=== PATIENT | female | born 1945 | race Caucasian/White ===

== ENCOUNTER 2019-08-07 10:45 | Observation (INO) ==
[2019-08-07 13:06] LABS: BASOPHILS # (AUTO) 0.1 X10^3/uL (0.0-0.1); BASOPHILS % (AUTO) 1.1 % (0.2-1.0); EOSINOPHILS # (AUTO) 0.1 x10^3/uL (0.0-0.2); EOSINOPHILS % (AUTO) 1.7 % (0.9-2.9); HEMATOCRIT 31.7 % (36.0-47.0); HEMOGLOBIN 10.2 g/dL (12.0-16.0); LYMPHOCYTES # (AUTO) 2.1 X10^3/uL (1.3-2.9); LYMPHOCYTES % (AUTO) 29.2 % (21.0-51.0); MEAN CORPUSCULAR HEMOGLOBIN 27.7 pg (27.0-34.0); MEAN CORPUSCULAR HGB CONC 32.2 g/dL (33.0-35.0); MEAN PLATELET VOLUME 8.3 fL (7.4-11.0); MONOCYTES # (AUTO) 0.8 x10^3/uL (0.3-0.8); MONOCYTES % (AUTO) 10.9 % (0.0-13.0); NEUTROPHILS # (AUTO) 4.2 x10^3/uL (2.2-4.8); NEUTROPHILS % (AUTO) 57.1 % (42.0-75.0); PLATELET COUNT 358 X10^3/uL (150.0-450.0); RED BLOOD COUNT 3.69 X10^6/uL (3.5-5.4); RED CELL DISTRIBUTION WIDTH 16.8 % (11.6-16.5); WHITE BLOOD COUNT 7.3 X10^3/uL (3.6-10.0)
[2019-08-07 13:17] LABS: ALANINE AMINOTRANSFERASE 26 Units/L (12-78); ALBUMIN 2.8 g/dL (3.4-5.0); ALKALINE PHOSPHATASE 83 Units/L (46-116); ASPARTATE AMINO TRANSFERASE 37 Units/L (15-37); BLOOD UREA NITROGEN 6 mg/dL (7-18); CALCIUM 8.2 mg/dL (8.5-10.1); CARBON DIOXIDE 33.9 mmol/L (21-32); CHLORIDE 103 mmol/L (98-107); COR CA(FOR HYPOALB) 9.2 mg/dL (8.5-10.1); COR NA(FOR HYPERGLY) 142 mmol/L (136-145); CREATININE 0.99 mg/dL (0.55-1.02); SODIUM 141 mmol/L (136-145); TOTAL PROTEIN 7.2 g/dL (6.4-8.2); eGFR NON BLACK RACES 58 (>60)
[2019-08-07 13:22] VITALS: BMI 38.4
[2019-08-07] MEDS: NS 1000 ML 1,000 ML IV SCH (13:52)
[2019-08-07] MEDS: CIPRO IV 400 MG PREMIX* 400 MG/200 ML IV.SOLN. IV SCH ×2 (13:52→23:40)
--- NOTE | 2019-08-07 13:53 | RAD ---
FOREARM, RIGHTHISTORY: RT ARM PAINStudy: 2 views of the right forearm.Comparison:NoneFindings:No acute cortical disruption or dislocation can be identified. The radius and ulna are unremarkable. No significant soft tissue swelling or injury can be seen.IMPRESSION:1. No acute abnormality of the right forearm.Electronically signed by: JOSSE SEXTON (August 07, 2019 13:52:04)
--- NOTE | 2019-08-07 14:04 | RAD ---
HISTORYSOBSTUDYCHEST x-ray, 1 VIEWCOMPARISONNoneFINDINGSPrior cardiac surgery. Borderline cardiomegaly without pulmonary venous congestion. No pneumothorax, focal infiltrate, or pleural effusion is seen. Likely calcified granuloma are seen the right apex.IMPRESSIONBorderline cardiomegaly.Electronically signed by: Fabian Garduno (August 07, 2019 14:03:03)
[2019-08-07] MEDS: LOVENOX INJ 40 MG SYR SC SCH (21:00)
[2019-08-07] MEDS ORDERED: XANAX PO PRN (21:01)
[2019-08-07] MEDS ORDERED: LASIX IVP ONE (21:07)
[2019-08-07] MEDS ORDERED: MAGNESIUM SULFATE 1 GRAM/100 mL PREMIX 1 GM/100 ML BAG IV PRN (21:22)
[2019-08-07] MEDS ORDERED: KLOR-CON PO PRN (21:22)
[2019-08-07] MEDS ORDERED: POTASSIUM CHL 40 MEQ/NS 0.45% 500 ML IV PRN (21:22)
[2019-08-07] MEDS ORDERED: K-DUR TAB 20 MEQ PO PRN (21:22)
[2019-08-07] MEDS ORDERED: POTASSIUM CHLORIDE LIQ 20 MEQ UDC PO PRN (21:22)
[2019-08-07] MEDS ORDERED: POTASSIUM CHL 60 MEQ/NS 0.45% 500 ML IV PRN (21:22)
[2019-08-07] MEDS ORDERED: MICRO K EXTEN CAP 10 MEQ PO PRN (21:22)
[2019-08-07] MEDS ORDERED: K-RIDER 10 MEQ/NS 100 ML 10 MEQ/100 ML BAG IV PRN (21:22)
[2019-08-07] MEDS: NEURONTIN CAP 300 MG PO SCH (22:00)
[2019-08-08] MEDS ORDERED: BENADRYL CAP/TAB 25 MG PO ONE ×2 (00:22→00:29)
[2019-08-08] MEDS: NS 1000 ML 1,000 ML IV SCH (02:31)
[2019-08-08] MEDS ORDERED: CARAFATE ONE (04:32)
[2019-08-08] MEDS: PERCOCET TAB 5/325 MG PO PRN ×3 (05:06→21:37)
[2019-08-08 06:31] LABS: BASOPHILS % (AUTO) 0.6 % (0.2-1.0); EOSINOPHILS # (AUTO) 0.1 x10^3/uL (0.0-0.2); EOSINOPHILS % (AUTO) 1.5 % (0.9-2.9); HEMATOCRIT 32.1 % (36.0-47.0); HEMOGLOBIN 10.3 g/dL (12.0-16.0); LYMPHOCYTES # (AUTO) 2.6 X10^3/uL (1.3-2.9); LYMPHOCYTES % (AUTO) 33.1 % (21.0-51.0); MEAN CORPUSCULAR HEMOGLOBIN 27.6 pg (27.0-34.0); MEAN CORPUSCULAR HGB CONC 32.2 g/dL (33.0-35.0); MEAN CORPUSCULAR VOLUME 85.9 fL (80.0-100.0); MEAN PLATELET VOLUME 8.9 fL (7.4-11.0); MONOCYTES # (AUTO) 0.9 x10^3/uL (0.3-0.8); MONOCYTES % (AUTO) 10.8 % (0.0-13.0); NEUTROPHILS # (AUTO) 4.3 x10^3/uL (2.2-4.8); PLATELET COUNT 344 X10^3/uL (150.0-450.0); RED BLOOD COUNT 3.74 X10^6/uL (3.5-5.4); RED CELL DISTRIBUTION WIDTH 17.2 % (11.6-16.5)
[2019-08-08 06:35] LABS: ALANINE AMINOTRANSFERASE 21 Units/L (12-78); ALBUMIN 2.8 g/dL (3.4-5.0); ALKALINE PHOSPHATASE 80 Units/L (46-116); ASPARTATE AMINO TRANSFERASE 25 Units/L (15-37); BLOOD UREA NITROGEN 5 mg/dL (7-18); CALCIUM 8.4 mg/dL (8.5-10.1); CARBON DIOXIDE 31.9 mmol/L (21-32); CHLORIDE 102 mmol/L (98-107); COR CA(FOR HYPOALB) 9.4 mg/dL (8.5-10.1); CREATININE 0.98 mg/dL (0.55-1.02); SODIUM 141 mmol/L (136-145); eGFR NON BLACK RACES 59 (>60)
[2019-08-08] MEDS: CARAFATE PO SCH ×4 (06:44→21:27)
[2019-08-08] MEDS: LASIX IVP SCH ×2 (09:21→17:30)
[2019-08-08] MEDS: FLONASE NASAL SPRAY ENOSTRIL SCH (09:21)
[2019-08-08] MEDS: EFFEXOR XR 75 MG CAP 24-HR PO SCH (09:22)
[2019-08-08] MEDS: NEURONTIN CAP 300 MG PO SCH ×2 (09:22→21:27)
[2019-08-08] MEDS: PROTONIX TAB 40 MG PO SCH (09:22)
[2019-08-08] MEDS ORDERED: PHARMACY CONSULT - VANCOMYCIN XX SCH (11:00)
[2019-08-08] MEDS: VANCOMYCIN IV *PREMIX 1 G/200 ML BAG 1 G/200 ML PIGGYBACK IV SCH ×2 (12:08→21:27)
--- NOTE | 2019-08-08 14:45 | VAS ---
HISTORYB/L LOWER EXT EDEMA, CELLULITITSSTUDYLOWER EXT VENOUS, BILATERALCOMPARISONNoneTECHNIQUEMultiple shah scale and color flow Doppler images of the deep venous system were obtained of the right and left lower extremity.FINDINGSThe deep venous system of the right and left lower extremities were evaluated from the level of the common femoral vein through the popliteal vein. Normal color flow and augmentation can be observed. In addition, normal compression is seen throughout the deep venous system.IMPRESSIONNegative for DVT.Electronically signed by: CHRISTINE NGO (August 08, 2019 14:43:39)
--- NOTE | 2019-08-08 15:07 | DR.UPDATE ---
H&P Update History and Physical Update: History and Physical reviewed and patient examined. Changes noted: Yes with the following: WAS ADMITTED FOR CHF, SOB, LOWER EXTREMITY CELLULITIS, AND RIGHT ARM PAIN FOLLOWING A FALL. ON ADMISSION, VITALS WERE 98.7-78-26-95%-128/56. LABS WERE OBTAINED. ABNORMAL LAB VALUES INCLUDE THE FOLLOWING: HGB 10.2, HCT 31.7, CARBON DIOXIDE 33.9, BUN 6, GLUCOSE 126, CALCIUM 8.2, BNP 199, ALBUMIN 2.8, COVID-19 NEGATIVE. A CHEST XRAY WAS OBTAINED AND REVEALED: BORDERLINE CARDIOMEGALY. A RIGHT FOREARM XRAY WAS OBTAINED AND REVEALED: NO ACUTE ABNORMALITY OF THE RIGHT ARM. SHE WAS GIVEN LASIX 40MG IV X 1 DOSE, THEN STARTED ON LASIX 20MG IV BID, CIPRO 400MG IV BID, NEURONTIN 300MG PO BID, XANAX 0.5MG PO HS PRN, LOVENOX 40MG SC HS, FLONASE DAILY, PERCOCET 5/325MG PO QID PRN, PROTONIX 40MG PO DAILY, EFFEXOR 225MG PO DAILY, CARAFATE 1G PO ACHS, AND THE POTASSIUM AND MAGNESIUM PROTOCOLS. WE WILL OBTAIN A LOWER EXTREMITY VENOUS DOPPLER. OTHERWISE, WE WILL FOLLOW UP WITH AM LABS AND CONTINUE TO MONITOR. H&P Reviewed: Yes Patient was examined?: Yes
[2019-08-08] MEDS: LOVENOX INJ 40 MG SYR SC SCH (21:27)
[2019-08-09] MEDS ORDERED: PHARMACY COMMENT IV NR ×2 (05:30→13:30)
[2019-08-09] MEDS: CARAFATE PO SCH (05:51)
[2019-08-09] MEDS: VANCOMYCIN IV *PREMIX 1 G/200 ML BAG 1 G/200 ML PIGGYBACK IV SCH (05:52)
--- NOTE | 2019-08-09 06:15 | RAD ---
HISTORYShortness of breathSTUDYCHEST, 1 [id number]/20/2020FINDINGSPatient is status post median sternotomy and CABG. The heart is enlarged. No congestive heart failure is noted. No acute alveolar infiltrates or pleural effusions are identified. The bony thorax is unremarkable.IMPRESSIONCardiomegaly without congestive heart failureNo acute infiltratesElectronically signed by: ANA REINA (August 09, 2019 06:14:00)
[2019-08-09 06:32] LABS: BASOPHILS # (AUTO) 0.1 X10^3/uL (0.0-0.1); BASOPHILS % (AUTO) 1.3 % (0.2-1.0); EOSINOPHILS # (AUTO) 0.2 x10^3/uL (0.0-0.2); EOSINOPHILS % (AUTO) 2.2 % (0.9-2.9); HEMATOCRIT 34.2 % (36.0-47.0); HEMOGLOBIN 11.2 g/dL (12.0-16.0); LYMPHOCYTES # (AUTO) 2.2 X10^3/uL (1.3-2.9); LYMPHOCYTES % (AUTO) 29.9 % (21.0-51.0); MEAN CORPUSCULAR HEMOGLOBIN 27.9 pg (27.0-34.0); MEAN CORPUSCULAR HGB CONC 32.6 g/dL (33.0-35.0); MEAN CORPUSCULAR VOLUME 85.6 fL (80.0-100.0); MEAN PLATELET VOLUME 9.3 fL (7.4-11.0); MONOCYTES % (AUTO) 13.7 % (0.0-13.0); NEUTROPHILS % (AUTO) 52.9 % (42.0-75.0); PLATELET COUNT 355 X10^3/uL (150.0-450.0); RED CELL DISTRIBUTION WIDTH 17.1 % (11.6-16.5); WHITE BLOOD COUNT 7.5 X10^3/uL (3.6-10.0)
[2019-08-09 06:40] LABS: ALANINE AMINOTRANSFERASE 20 Units/L (12-78); ALBUMIN 2.9 g/dL (3.4-5.0); ALKALINE PHOSPHATASE 79 Units/L (46-116); ASPARTATE AMINO TRANSFERASE 20 Units/L (15-37); BLOOD UREA NITROGEN 7 mg/dL (7-18); CARBON DIOXIDE 34.9 mmol/L (21-32); CHLORIDE 100 mmol/L (98-107); COR CA(FOR HYPOALB) 8.9 mg/dL (8.5-10.1); CREATININE 1.01 mg/dL (0.55-1.02); SODIUM 140 mmol/L (136-145); TOTAL PROTEIN 7.3 g/dL (6.4-8.2); eGFR NON BLACK RACES 57 (>60)
[2019-08-09] MEDS: PERCOCET TAB 5/325 MG PO PRN (09:23)
[2019-08-09] MEDS: LASIX IVP SCH (09:47)
[2019-08-09] MEDS: EFFEXOR XR 75 MG CAP 24-HR PO SCH (09:47)
[2019-08-09] MEDS: FLONASE NASAL SPRAY ENOSTRIL SCH (09:48)
[2019-08-09] MEDS: NEURONTIN CAP 300 MG PO SCH (09:48)
[2019-08-09] MEDS: PROTONIX TAB 40 MG PO SCH (09:48)
[2019-08-09 12:42] VITALS: BP 146/65
== END 2019-08-09 13:10 | disposition home or self-care (01) ==
LOC: ICU → MED/SURG 18:40
PROVIDERS: ADMIT Internal Medicine; ATTEND Internal Medicine
DX: I50.9 Heart failure, unspecified; L03.115 Cellulitis of right lower limb; Z11.59 Encounter for screening for other viral diseases; R06.02 Shortness of breath; Z86.19 Personal history of other infectious and parasitic diseases; R60.0 Localized edema; M79.601 Pain in right arm; Z91.81 History of falling; L03.116 Cellulitis of left lower limb; R26.89 Other abnormalities of gait and mobility
CPT/HCPCS: 36415; 71010; 71045; 73090; 80053; 83735; 83880; 85025; 87635; 93970; 96360; 96361; 96372; 96374; 97110; 97162; 97166; 97535; A4216; A4222; G0378; J0744; J1650; J1940; J3370; J7030

== ENCOUNTER 2019-08-20 16:13 | Inpatient (IN) ==
[2019-08-20 19:04] VITALS: BMI 42.0
[2019-08-20 19:20] LABS: BASOPHILS % (AUTO) 0.8 % (0.2-1.0); EOSINOPHILS # (AUTO) 0.1 x10^3/uL (0.0-0.2); EOSINOPHILS % (AUTO) 1.8 % (0.9-2.9); HEMOGLOBIN 9.2 g/dL (12.0-16.0); LYMPHOCYTES # (AUTO) 2.4 X10^3/uL (1.3-2.9); LYMPHOCYTES % (AUTO) 38.5 % (21.0-51.0); MEAN CORPUSCULAR HEMOGLOBIN 27.2 pg (27.0-34.0); MEAN CORPUSCULAR HGB CONC 31.9 g/dL (33.0-35.0); MEAN CORPUSCULAR VOLUME 85.2 fL (80.0-100.0); MEAN PLATELET VOLUME 9.1 fL (7.4-11.0); MONOCYTES # (AUTO) 0.8 x10^3/uL (0.3-0.8); MONOCYTES % (AUTO) 12.4 % (0.0-13.0); NEUTROPHILS # (AUTO) 2.9 x10^3/uL (2.2-4.8); NEUTROPHILS % (AUTO) 46.5 % (42.0-75.0); PLATELET COUNT 232 X10^3/uL (150.0-450.0); RED CELL DISTRIBUTION WIDTH 16.9 % (11.6-16.5); WHITE BLOOD COUNT 6.2 X10^3/uL (3.6-10.0)
[2019-08-20 19:31] LABS: ALANINE AMINOTRANSFERASE 152 Units/L (12-78); ALBUMIN 2.6 g/dL (3.4-5.0); ALKALINE PHOSPHATASE 238 Units/L (46-116); ASPARTATE AMINO TRANSFERASE 359 Units/L (15-37); BLOOD UREA NITROGEN 9 mg/dL (7-18); CALCIUM 8.3 mg/dL (8.5-10.1); CARBON DIOXIDE 33.7 mmol/L (21-32); CHLORIDE 103 mmol/L (98-107); COR CA(FOR HYPOALB) 9.4 mg/dL (8.5-10.1); CREATININE 1.11 mg/dL (0.55-1.02); SODIUM 137 mmol/L (136-145); TOTAL PROTEIN 6.6 g/dL (6.4-8.2); eGFR NON BLACK RACES 51 (>60)
[2019-08-20] MEDS ORDERED: PHARMACY CONSULT - VANCOMYCIN XX SCH (20:00)
[2019-08-20] MEDS ORDERED: VANCOMYCIN HCL 250 MG, VANCOMYCIN HCL 1 G in NS 250 ML IV 250 ML IV SCH (21:00)
[2019-08-20] MEDS ORDERED: NS 250 ML IV 250 ML IV ONE (21:30)
[2019-08-20] MEDS ORDERED: VANCOMYCIN HCL ONE ×2 (21:31)
[2019-08-20] MEDS ORDERED: NORCO 5/325 MG TAB PO PRN (21:55)
[2019-08-21] MEDS ORDERED: VISTARIL PO PRN (01:06)
[2019-08-21] MEDS ORDERED: VISTARIL PO ONE (02:00)
[2019-08-21 06:48] LABS: BASOPHILS # (AUTO) 0.1 X10^3/uL (0.0-0.1); EOSINOPHILS # (AUTO) 0.1 x10^3/uL (0.0-0.2); EOSINOPHILS % (AUTO) 2.1 % (0.9-2.9); HEMATOCRIT 28.5 % (36.0-47.0); HEMOGLOBIN 9.1 g/dL (12.0-16.0); LYMPHOCYTES % (AUTO) 35.9 % (21.0-51.0); MEAN CORPUSCULAR HEMOGLOBIN 27.1 pg (27.0-34.0); MEAN CORPUSCULAR HGB CONC 31.8 g/dL (33.0-35.0); MEAN CORPUSCULAR VOLUME 85.3 fL (80.0-100.0); MEAN PLATELET VOLUME 8.8 fL (7.4-11.0); MONOCYTES # (AUTO) 0.6 x10^3/uL (0.3-0.8); MONOCYTES % (AUTO) 10.7 % (0.0-13.0); NEUTROPHILS # (AUTO) 2.7 x10^3/uL (2.2-4.8); NEUTROPHILS % (AUTO) 50.3 % (42.0-75.0); PLATELET COUNT 214 X10^3/uL (150.0-450.0); RED BLOOD COUNT 3.34 X10^6/uL (3.5-5.4); WHITE BLOOD COUNT 5.4 X10^3/uL (3.6-10.0)
[2019-08-21 07:06] LABS: ALANINE AMINOTRANSFERASE 117 Units/L (12-78); ALBUMIN 2.3 g/dL (3.4-5.0); ALKALINE PHOSPHATASE 195 Units/L (46-116); ASPARTATE AMINO TRANSFERASE 187 Units/L (15-37); BLOOD UREA NITROGEN 8 mg/dL (7-18); CALCIUM 7.9 mg/dL (8.5-10.1); CARBON DIOXIDE 30.9 mmol/L (21-32); CHLORIDE 105 mmol/L (98-107); COR CA(FOR HYPOALB) 9.3 mg/dL (8.5-10.1); CREATININE 1.12 mg/dL (0.55-1.02); SODIUM 139 mmol/L (136-145); eGFR NON BLACK RACES 50 (>60)
--- NOTE | 2019-08-21 10:07 | DR.UPDATE ---
H&P Update History and Physical Update: History and Physical reviewed and patient examined. Changes noted: Yes with the following: PRESENTED A READMISSION DUE TO COMPLAINTS OF PERSISTENT REDNESS AND SWELLING TO LOWER EXTREMITIES AND SHORTNESS OF BREATH. SHE WAS RELEASED FROM THE HOSPITAL ON 08/09/19 WITH PRESCRIPTIONS FOR LASIX 20MG PO DAILY AND BACTRIM DS 1 TAB PO BID X 10 DAYS. FAMILY REPORTS THAT SHE HAS HAD INCREASED WEAKNESS AT HOME. EXAMINATION REVEALED ERYTHEM AND EDEMA TO BILATERAL LOWER EXTREMITIES AND FEET. THERE IS 1+ PITTING EDEMA NOTED. BILATERAL LUNGS NOTED WITH SCATTERED WHEEZING AND CRACKLES. SHE HAS HAD A WEIGHT GAIN OF OVER 10 POUNDS IN THE PAST WEEK. ON ARRIVAL TO THE HOSPITAL, VITALS WERE 98.6-82-22-92%RA-117/70. LABS WERE OBTAINED. ABNORMAL LAB VALUES INCLUDE THE FOLLOWING: RBC 3.40, HGB 9.2, HCT 29.0, CARBON DIOXIDE 33.7, CREATININE 1.11, CALCIUM 8.3, AST 359, ALT 152, ALK PHOS 238, ALBUMIN 2.6. BLOOD CULTURES WERE SET UP. SHE WAS STARTED ON LASIX 40MG IV BID, LOVENOX 30MG SC BID, AND VANCOMYCIN 1G IV Q8H. WE WILL RESUME HER HOME MEDICATIONS. FAMILY IS REQUESTING THAT PATIENT BE CONSIDERED FOR PHYSICAL THERAPY AND REHABILITATION AT [facility]. WE WILL DISCUSS WITH CASE MANAGEMENT. WE WILL HAVE PHYSICAL THERAPY EVALUATE PATIENT. OTHERWISE, WE WILL FOLLOW UP WITH AM LABS AND CONTINUE TO MONITOR. Prescription drug monitoring program results: PDMP reviewed and no concerns identified H&P Reviewed: Yes Patient was examined?: Yes
[2019-08-21] MEDS ORDERED: NS 250 ML IV 250 ML IV ONE (10:10)
[2019-08-21] MEDS: EFFEXOR XR 75 MG CAP 24-HR PO SCH (10:33)
[2019-08-21] MEDS: ASPIRIN EC 81 MG PO SCH (10:34)
[2019-08-21] MEDS: COREG TAB 12.5 MG PO SCH ×2 (10:34→21:41)
[2019-08-21] MEDS: LOVENOX INJ 30 MG SYR SC SCH ×2 (10:34→21:42)
[2019-08-21] MEDS: LASIX IVP SCH ×2 (10:35→17:29)
[2019-08-21] MEDS: VANCOMYCIN HCL 1 G in D5W 250 ML IV 250 ML IV SCH ×3 (10:36→21:42)
[2019-08-21] MEDS: XANAX PO SCH ×3 (10:36→21:46)
[2019-08-21] MEDS: PERCOCET TAB 5/325 MG PO PRN ×2 (10:48→20:00)
[2019-08-22] MEDS ORDERED: PHARMACY COMMENT IV NR (05:30)
[2019-08-22] MEDS: XANAX PO SCH ×3 (06:19→20:59)
[2019-08-22 06:28] LABS: BASOPHILS # (AUTO) 0.1 X10^3/uL (0.0-0.1); EOSINOPHILS # (AUTO) 0.2 x10^3/uL (0.0-0.2); EOSINOPHILS % (AUTO) 3.3 % (0.9-2.9); HEMATOCRIT 29.6 % (36.0-47.0); HEMOGLOBIN 9.4 g/dL (12.0-16.0); LYMPHOCYTES # (AUTO) 2.4 X10^3/uL (1.3-2.9); LYMPHOCYTES % (AUTO) 42.5 % (21.0-51.0); MEAN CORPUSCULAR HEMOGLOBIN 27.1 pg (27.0-34.0); MEAN CORPUSCULAR HGB CONC 31.9 g/dL (33.0-35.0); MEAN CORPUSCULAR VOLUME 84.9 fL (80.0-100.0); MEAN PLATELET VOLUME 8.9 fL (7.4-11.0); MONOCYTES # (AUTO) 0.7 x10^3/uL (0.3-0.8); MONOCYTES % (AUTO) 11.9 % (0.0-13.0); NEUTROPHILS # (AUTO) 2.4 x10^3/uL (2.2-4.8); NEUTROPHILS % (AUTO) 41.3 % (42.0-75.0); PLATELET COUNT 221 X10^3/uL (150.0-450.0); RED BLOOD COUNT 3.49 X10^6/uL (3.5-5.4); RED CELL DISTRIBUTION WIDTH 17.1 % (11.6-16.5); WHITE BLOOD COUNT 5.7 X10^3/uL (3.6-10.0)
[2019-08-22 06:54] LABS: ALANINE AMINOTRANSFERASE 87 Units/L (12-78); ALBUMIN 2.4 g/dL (3.4-5.0); ALKALINE PHOSPHATASE 188 Units/L (46-116); ASPARTATE AMINO TRANSFERASE 87 Units/L (15-37); BLOOD UREA NITROGEN 9 mg/dL (7-18); CALCIUM 7.9 mg/dL (8.5-10.1); CHLORIDE 100 mmol/L (98-107); COR CA(FOR HYPOALB) 9.2 mg/dL (8.5-10.1); CREATININE 1.13 mg/dL (0.55-1.02); SODIUM 138 mmol/L (136-145); TOTAL PROTEIN 6.5 g/dL (6.4-8.2); eGFR NON BLACK RACES 50 (>60)
[2019-08-22 07:20] LABS: VANCOMYCIN,TROUGH 23.2 ug/mL (15-20)
[2019-08-22] MEDS: VANCOMYCIN HCL 1 G in D5W 250 ML IV 250 ML IV SCH ×3 (07:20→20:49)
[2019-08-22] MEDS: PERCOCET TAB 5/325 MG PO PRN ×3 (08:31→20:51)
[2019-08-22] MEDS: COREG TAB 12.5 MG PO SCH ×2 (08:32→20:49)
[2019-08-22] MEDS: ASPIRIN EC 81 MG PO SCH (08:32)
[2019-08-22] MEDS: EFFEXOR XR 75 MG CAP 24-HR PO SCH (08:32)
[2019-08-22] MEDS: LASIX IVP SCH (08:32)
[2019-08-22] MEDS: LOVENOX INJ 30 MG SYR SC SCH ×2 (08:33→20:50)
[2019-08-23 05:47] LABS: HEPATITIS B SURFACE ANTIGEN Negative (Negative)
[2019-08-23 06:23] LABS: BASOPHILS # (AUTO) 0.1 X10^3/uL (0.0-0.1); BASOPHILS % (AUTO) 1.1 % (0.2-1.0); EOSINOPHILS # (AUTO) 0.2 x10^3/uL (0.0-0.2); EOSINOPHILS % (AUTO) 3.6 % (0.9-2.9); HEMATOCRIT 29.9 % (36.0-47.0); HEMOGLOBIN 9.5 g/dL (12.0-16.0); LYMPHOCYTES # (AUTO) 2.2 X10^3/uL (1.3-2.9); LYMPHOCYTES % (AUTO) 35.5 % (21.0-51.0); MEAN CORPUSCULAR HEMOGLOBIN 27.2 pg (27.0-34.0); MEAN CORPUSCULAR HGB CONC 31.9 g/dL (33.0-35.0); MEAN CORPUSCULAR VOLUME 85.2 fL (80.0-100.0); MEAN PLATELET VOLUME 9.2 fL (7.4-11.0); MONOCYTES # (AUTO) 0.9 x10^3/uL (0.3-0.8); MONOCYTES % (AUTO) 14.5 % (0.0-13.0); NEUTROPHILS # (AUTO) 2.8 x10^3/uL (2.2-4.8); NEUTROPHILS % (AUTO) 45.3 % (42.0-75.0); PLATELET COUNT 198 X10^3/uL (150.0-450.0); RED BLOOD COUNT 3.51 X10^6/uL (3.5-5.4); RED CELL DISTRIBUTION WIDTH 17.5 % (11.6-16.5); WHITE BLOOD COUNT 6.2 X10^3/uL (3.6-10.0)
[2019-08-23] MEDS: XANAX PO SCH ×3 (06:29→21:04)
[2019-08-23 06:44] LABS: ALANINE AMINOTRANSFERASE 62 Units/L (12-78); ALBUMIN 2.5 g/dL (3.4-5.0); ALKALINE PHOSPHATASE 169 Units/L (46-116); ASPARTATE AMINO TRANSFERASE 46 Units/L (15-37); BLOOD UREA NITROGEN 9 mg/dL (7-18); CALCIUM 8.1 mg/dL (8.5-10.1); CARBON DIOXIDE 36.2 mmol/L (21-32); CHLORIDE 100 mmol/L (98-107); COR CA(FOR HYPOALB) 9.3 mg/dL (8.5-10.1); CREATININE 1.05 mg/dL (0.55-1.02); SODIUM 138 mmol/L (136-145); TOTAL PROTEIN 6.6 g/dL (6.4-8.2); eGFR NON BLACK RACES 54 (>60)
[2019-08-23] MEDS: EFFEXOR XR 75 MG CAP 24-HR PO SCH (09:26)
[2019-08-23] MEDS: VANCOMYCIN HCL 1 G in D5W 250 ML IV 250 ML IV SCH ×2 (09:26→21:19)
[2019-08-23] MEDS: ASPIRIN EC 81 MG PO SCH (09:27)
[2019-08-23] MEDS: LOVENOX INJ 30 MG SYR SC SCH ×2 (09:27→20:38)
[2019-08-23] MEDS: COREG TAB 12.5 MG PO SCH ×2 (09:27→20:38)
[2019-08-23] MEDS: PERCOCET TAB 5/325 MG PO PRN ×3 (09:27→17:12)
[2019-08-23] MEDS ORDERED: NS 500 ML IV 500 ML IV ONE (09:31)
--- NOTE | 2019-08-23 10:29 | RAD ---
HISTORYCHF, SOBSTUDYPortable AP chestCOMPARISONMay 2019FINDINGSThere is persistent mild cardiomegaly status post CABG. There are mild chronic interstitial lung changes. There is no edema or effusion evident.IMPRESSIONMild cardiomegaly, no acute diseaseElectronically signed by: ALVARO HUTSON (Aug 23, 2019 10:24:48)
[2019-08-23] MEDS: LASIX IVP SCH (17:12)
[2019-08-23] MEDS ORDERED: PHARMACY COMMENT IV NR (20:30)
[2019-08-23 21:16] LABS: CREATININE 1.12 mg/dL (0.55-1.02)
[2019-08-23 21:18] LABS: VANCOMYCIN,TROUGH 25.7 ug/mL (15-20)
[2019-08-24] MEDS: PERCOCET TAB 5/325 MG PO PRN ×4 (04:00→21:13)
[2019-08-24 05:29] LABS: BASOPHILS # (AUTO) 0.1 X10^3/uL (0.0-0.1); BASOPHILS % (AUTO) 1.4 % (0.2-1.0); EOSINOPHILS # (AUTO) 0.4 x10^3/uL (0.0-0.2); EOSINOPHILS % (AUTO) 3.6 % (0.9-2.9); HEMATOCRIT 29.5 % (36.0-47.0); HEMOGLOBIN 9.4 g/dL (12.0-16.0); LYMPHOCYTES % (AUTO) 38.3 % (21.0-51.0); MEAN CORPUSCULAR HEMOGLOBIN 27.4 pg (27.0-34.0); MEAN CORPUSCULAR HGB CONC 31.7 g/dL (33.0-35.0); MEAN CORPUSCULAR VOLUME 86.4 fL (80.0-100.0); MEAN PLATELET VOLUME 10.4 fL (7.4-11.0); MONOCYTES # (AUTO) 1.4 x10^3/uL (0.3-0.8); MONOCYTES % (AUTO) 13.4 % (0.0-13.0); NEUTROPHILS # (AUTO) 4.5 x10^3/uL (2.2-4.8); NEUTROPHILS % (AUTO) 43.3 % (42.0-75.0); PLATELET COUNT 217 X10^3/uL (150.0-450.0); RED BLOOD COUNT 3.41 X10^6/uL (3.5-5.4); RED CELL DISTRIBUTION WIDTH 17.4 % (11.6-16.5)
[2019-08-24] MEDS: XANAX PO SCH ×3 (05:38→21:14)
[2019-08-24 05:43] LABS: ALANINE AMINOTRANSFERASE 48 Units/L (12-78); ALBUMIN 2.4 g/dL (3.4-5.0); ALKALINE PHOSPHATASE 142 Units/L (46-116); ASPARTATE AMINO TRANSFERASE 34 Units/L (15-37); BLOOD UREA NITROGEN 11 mg/dL (7-18); CALCIUM 8.1 mg/dL (8.5-10.1); CARBON DIOXIDE 35.9 mmol/L (21-32); CHLORIDE 101 mmol/L (98-107); COR CA(FOR HYPOALB) 9.4 mg/dL (8.5-10.1); CREATININE 1.02 mg/dL (0.55-1.02); SODIUM 140 mmol/L (136-145); TOTAL PROTEIN 6.6 g/dL (6.4-8.2); eGFR NON BLACK RACES 56 (>60)
[2019-08-24 06:26] LABS: WHITE BLOOD COUNT 13.3 X10^3/uL (3.6-10.0)
[2019-08-24 06:27] LABS: PLATELET MORPHOLOGY COMMENT NORMAL (NORMAL)
[2019-08-24] MEDS: LOVENOX INJ 30 MG SYR SC SCH ×2 (09:50→21:17)
[2019-08-24] MEDS: EFFEXOR XR 75 MG CAP 24-HR PO SCH (09:50)
[2019-08-24] MEDS: COREG TAB 12.5 MG PO SCH ×2 (09:50→21:13)
[2019-08-24] MEDS: ASPIRIN EC 81 MG PO SCH (09:50)
[2019-08-24] MEDS: LASIX IVP SCH ×2 (09:50→16:21)
[2019-08-24] MEDS: MILK OF MAGNESIA PO SCH (16:09)
[2019-08-24] MEDS: COLACE CAP 100 MG PO SCH (21:14)
[2019-08-24] MEDS: VANCOMYCIN HCL 1 G in D5W 250 ML IV 250 ML IV SCH (21:15)
[2019-08-25 05:21] LABS: BASOPHILS # (AUTO) 0.1 X10^3/uL (0.0-0.1); BASOPHILS % (AUTO) 0.9 % (0.2-1.0); EOSINOPHILS # (AUTO) 0.2 x10^3/uL (0.0-0.2); EOSINOPHILS % (AUTO) 2.7 % (0.9-2.9); HEMOGLOBIN 10.2 g/dL (12.0-16.0); LYMPHOCYTES # (AUTO) 2.6 X10^3/uL (1.3-2.9); LYMPHOCYTES % (AUTO) 36.9 % (21.0-51.0); MEAN CORPUSCULAR HEMOGLOBIN 27.1 pg (27.0-34.0); MEAN CORPUSCULAR HGB CONC 31.8 g/dL (33.0-35.0); MEAN CORPUSCULAR VOLUME 85.2 fL (80.0-100.0); MEAN PLATELET VOLUME 10.1 fL (7.4-11.0); MONOCYTES % (AUTO) 13.7 % (0.0-13.0); NEUTROPHILS # (AUTO) 3.2 x10^3/uL (2.2-4.8); NEUTROPHILS % (AUTO) 45.8 % (42.0-75.0); PLATELET COUNT 203 X10^3/uL (150.0-450.0); RED BLOOD COUNT 3.76 X10^6/uL (3.5-5.4); RED CELL DISTRIBUTION WIDTH 17.2 % (11.6-16.5)
[2019-08-25 05:38] LABS: ALANINE AMINOTRANSFERASE 41 Units/L (12-78); ALBUMIN 2.7 g/dL (3.4-5.0); ALKALINE PHOSPHATASE 137 Units/L (46-116); ASPARTATE AMINO TRANSFERASE 33 Units/L (15-37); BLOOD UREA NITROGEN 9 mg/dL (7-18); CALCIUM 8.2 mg/dL (8.5-10.1); CARBON DIOXIDE 39.1 mmol/L (21-32); CHLORIDE 98 mmol/L (98-107); COR CA(FOR HYPOALB) 9.2 mg/dL (8.5-10.1); SODIUM 138 mmol/L (136-145); TOTAL PROTEIN 7.1 g/dL (6.4-8.2); eGFR NON BLACK RACES 57 (>60)
[2019-08-25] MEDS: XANAX PO SCH ×3 (05:41→21:17)
[2019-08-25] MEDS ORDERED: MAGNESIUM SULFATE 1 GRAM/100 mL PREMIX 1 GM/100 ML BAG IV PRN (05:43)
[2019-08-25] MEDS ORDERED: KLOR-CON PO PRN (05:43)
[2019-08-25] MEDS ORDERED: K-DUR TAB 20 MEQ PO PRN (05:43)
[2019-08-25] MEDS ORDERED: POTASSIUM CHL 60 MEQ/NS 0.45% 500 ML IV PRN (05:43)
[2019-08-25] MEDS ORDERED: POTASSIUM CHLORIDE LIQ 20 MEQ UDC PO PRN (05:43)
[2019-08-25] MEDS ORDERED: K-RIDER 10 MEQ/NS 100 ML 10 MEQ/100 ML BAG IV PRN (05:43)
[2019-08-25] MEDS ORDERED: MICRO K EXTEN CAP 10 MEQ PO PRN (05:43)
[2019-08-25] MEDS ORDERED: POTASSIUM CHL 40 MEQ/NS 0.45% 500 ML IV PRN (05:43)
[2019-08-25] MEDS: EFFEXOR XR 75 MG CAP 24-HR PO SCH (08:59)
[2019-08-25] MEDS: ASPIRIN EC 81 MG PO SCH (08:59)
[2019-08-25] MEDS: COREG TAB 12.5 MG PO SCH ×2 (08:59→21:17)
[2019-08-25] MEDS: PERCOCET TAB 5/325 MG PO PRN ×2 (09:00→21:18)
[2019-08-25] MEDS: MILK OF MAGNESIA PO SCH (09:01)
[2019-08-25] MEDS: LASIX IVP SCH ×3 (09:01→18:15)
[2019-08-25] MEDS ORDERED: ZOFRAN TAB 4 MG SL PRN (09:06)
[2019-08-25] MEDS ORDERED: ZOFRAN TAB 4 MG ONE (09:11)
[2019-08-25] MEDS: LOVENOX INJ 30 MG SYR SC SCH ×2 (09:39→21:21)
[2019-08-25] MEDS: K-DUR TAB 20 MEQ PO SCH (11:03)
[2019-08-25] MEDS: MAG-OX TAB PO SCH ×2 (11:03→21:17)
[2019-08-25] MEDS: COLACE CAP 100 MG PO SCH (21:17)
[2019-08-25] MEDS: VANCOMYCIN HCL 1 G in D5W 250 ML IV 250 ML IV SCH (21:18)
[2019-08-26] MEDS: XANAX PO SCH (05:35)
[2019-08-26 05:48] LABS: BASOPHILS # (AUTO) 0.1 X10^3/uL (0.0-0.1); BASOPHILS % (AUTO) 0.9 % (0.2-1.0); EOSINOPHILS # (AUTO) 0.2 x10^3/uL (0.0-0.2); HEMATOCRIT 31.6 % (36.0-47.0); HEMOGLOBIN 10.1 g/dL (12.0-16.0); LYMPHOCYTES # (AUTO) 2.6 X10^3/uL (1.3-2.9); LYMPHOCYTES % (AUTO) 36.5 % (21.0-51.0); MEAN CORPUSCULAR HEMOGLOBIN 27.4 pg (27.0-34.0); MEAN CORPUSCULAR HGB CONC 32.1 g/dL (33.0-35.0); MEAN CORPUSCULAR VOLUME 85.3 fL (80.0-100.0); MEAN PLATELET VOLUME 9.9 fL (7.4-11.0); MONOCYTES % (AUTO) 13.9 % (0.0-13.0); NEUTROPHILS # (AUTO) 3.2 x10^3/uL (2.2-4.8); NEUTROPHILS % (AUTO) 45.7 % (42.0-75.0); PLATELET COUNT 223 X10^3/uL (150.0-450.0); RED CELL DISTRIBUTION WIDTH 17.3 % (11.6-16.5)
[2019-08-26 06:54] LABS: ALANINE AMINOTRANSFERASE 36 Units/L (12-78); ALBUMIN 2.7 g/dL (3.4-5.0); ALKALINE PHOSPHATASE 127 Units/L (46-116); ASPARTATE AMINO TRANSFERASE 32 Units/L (15-37); BLOOD UREA NITROGEN 13 mg/dL (7-18); CALCIUM 8.1 mg/dL (8.5-10.1); CARBON DIOXIDE 33.8 mmol/L (21-32); CHLORIDE 98 mmol/L (98-107); COR CA(FOR HYPOALB) 9.1 mg/dL (8.5-10.1); SODIUM 139 mmol/L (136-145); eGFR NON BLACK RACES 51 (>60)
[2019-08-26] MEDS: PERCOCET TAB 5/325 MG PO PRN ×2 (06:59→12:36)
[2019-08-26] MEDS: K-DUR TAB 20 MEQ PO SCH (09:50)
[2019-08-26] MEDS: LASIX IVP SCH (09:50)
[2019-08-26] MEDS: EFFEXOR XR 75 MG CAP 24-HR PO SCH (09:50)
[2019-08-26] MEDS: ASPIRIN EC 81 MG PO SCH (09:50)
[2019-08-26] MEDS: MAG-OX TAB PO SCH (09:50)
[2019-08-26] MEDS: COREG TAB 12.5 MG PO SCH (09:50)
[2019-08-26] MEDS: MILK OF MAGNESIA PO SCH (09:57)
[2019-08-26] MEDS: LOVENOX INJ 30 MG SYR SC SCH (09:57)
[2019-08-26 13:39] VITALS: BP 111/53
[2019-08-27] MEDS ORDERED: PHARMACY COMMENT IV NR (20:30)
--- NOTE | 2019-09-09 22:53 | PCM.PROG ---
Progress Note - Progress Note for Day of Date of Exam: 08/22/19 - Subjective Subjective: IS BEING TREATED FOR LOWER EXTREMITY CELLULITIS AND CHF EXACERBATION. TODAY, SHE IS ALERT AND OREINTED, LYING IN BED ON MORNING ROUNDS. SHE CONTINUES WITH SHORTNESS OF BREATH AND SWELLING TO LOWER EXTREMITIES. ON EXAMINATION, HEART IS REGULAR IN RATE AND RHYTHM. BILATERAL LUNGS ARE NOTED WITH SCATTERED WHEEZING THROUGHOUT. ABDOMEN IS ROUND, SOFT, AND NON-TENDER WITH NORMAL BOWEL SOUNDS NOTED IN ALL QUADRANTS. BILATERAL LOWER EXTREMITIES ARE NOTED WITH ERYTHEMA AND 1+ PITTING EDEMA. HER VITALS THIS MORNING ARE: 98.2-77-20-94%-140/69. LABS WERE OBTAINED. ABNORMAL LAB VALUES INCLUDE THE FOLLOWING: RBC 3.49, HGB 9.4, HCT 29.6, CARBON DIOXIDE 34.0, CREATININE 1.13, CALCIUM 7.9, AST 87, ALT 87, ALK PHOS 188, ALBUMIN 2.4. A HEPATITS PANEL WAS OBTAINED YESTERDAY DUE TO INCREASED LFTs. BLOOD CULTURES ARE PENDING. SHE IS CURRNETLY RECEIVING LASIX 40MG IV BID, LOVENOX 30MG SC BID, AND VANCOMYCIN 1G IV Q8H, AND HOME MEDICATIONS WERE RESUMED WITH THE EXCEPTION OF THE BACTRIM. PATIENT AND FAMILY ARE REQUESTING REHAB PLACEMENT AT [facility] AFTER DISCHARGE. PHYSICAL THERAPY HAS EVALUATED PATIENT AND FEELS THAT PATIENT WOULD BENEFIT FROM REHAB STAY. WE WILL DISCUSS THIS WITH CASE MANAGEMENT. WE WILL DECREASE VANCOMYCIN TO 1G IV Q12H TODAY. OTHERWISE, WE PLAN TO FOLLOW UP WITH AM LABS AND CONTINUE TO MONITOR. - Past Medical Family Social History Past Med/Fam/Surg Hx: No changes since H&P Allergies: Allergies ciprofloxacin Allergy (Verified 08/08/19 00:25) Penicillins Allergy (Verified 08/07/19 10:54) promethazine Allergy (Verified 08/07/19 10:54) - Review of Systems ROS: No change since H&P - Vital Signs and I&O's Vital Signs: Temperature 97.9 F Pulse Rate [Right Radial] 69 Respiratory Rate 20 Blood Pressure [Left Arm] 111/53 Blood Pressure 146/65 O2 Sat by Pulse Oximetry 97 - Physical Exam Oriented: Normal Eyes: Normal Ear: Normal Nose: Normal Throat: Normal Respiratory: Generalized, Wheezes Cardiovascular: Normal (1+ PITTING EDEMA TO BLE ), Edema. negative: S3, S4, Murmur : Normal Auscultation: Bowel Sounds: Normal Palpation: Normal Tenderness: Normal Skin: Red (BILATERAL LOWER EXTREMITIES ), Tender, Hot Musculoskeletal: Normal Psychiatric: Normal Mood Description: Calm Affect: Normal Speech Pattern: Clear, Appropriate - Laboratory and Diagnostics Result Diagrams: 08/26/19 03:58 08/26/19 03:58 Labs: 08/20/19 18:35 Blood Blood Culture - Final 08/20/19 18:25 Blood Blood Culture - Final Laboratory WBC 7.0 X10^3/uL (3.6-10.0) 08/26/19 03:58 RBC 3.70 X10^6/uL (3.5-5.4) 08/26/19 03:58 Hgb 10.1 g/dL (12.0-16.0) L 08/26/19 03:58 Hct 31.6 % (36.0-47.0) L 08/26/19 03:58 MCV 85.3 fL (80.0-100.0) 08/26/19 03:58 MCH 27.4 pg (27.0-34.0) 08/26/19 03:58 MCHC 32.1 g/dL (33.0-35.0) L 08/26/19 03:58 RDW 17.3 % (11.6-16.5) H 08/26/19 03:58 Plt Count 223 X10^3/uL (150.0-450.0) 08/26/19 03:58 Plt Count Comment Adequate (ADEQUATE) 08/24/19 04:02 MPV 9.9 fL (7.4-11.0) 08/26/19 03:58 Neut % (Auto) 45.7 % (42.0-75.0) 08/26/19 03:58 Lymph % (Auto) 36.5 % (21.0-51.0) 08/26/19 03:58 [place] % (Auto) 13.9 % (0.0-13.0) H 08/26/19 03:58 Eos % (Auto) 3.0 % (0.9-2.9) H 08/26/19 03:58 Baso % (Auto) 0.9 % (0.2-1.0) 08/26/19 03:58 Neut # (Auto) 3.2 x10^3/uL (2.2-4.8) 08/26/19 03:58 Lymph # (Auto) 2.6 X10^3/uL (1.3-2.9) 08/26/19 03:58 [place] # (Auto) 1.0 x10^3/uL (0.3-0.8) H 08/26/19 03:58 Eos # (Auto) 0.2 x10^3/uL (0.0-0.2) 08/26/19 03:58 Baso # (Auto) 0.1 X10^3/uL (0.0-0.1) 08/26/19 03:58 Absolute Nucleated RBC 0.0 /100WBC 08/26/19 03:58 Plt Morphology Comment Normal (NORMAL) 08/24/19 04:02 RBC Morphology Normal (NORMAL) 08/24/19 04:02 Sodium 139 mmol/L (136-145) 08/26/19 03:58 Corrected Sodium TNP 08/26/19 03:58 Potassium 3.5 mmol/L (3.5-5.1) 08/26/19 03:58 Chloride 98 mmol/L (98-107) 08/26/19 03:58 Carbon Dioxide 33.8 mmol/L (21-32) H 08/26/19 03:58 BUN 13 mg/dL (7-18) 08/26/19 03:58 Creatinine 1.10 mg/dL (0.55-1.02) H 08/26/19 03:58 Est GFR (MDRD) Af Amer > 60 (>60) 08/26/19 03:58 Est GFR (MDRD) Non-Af 51 (>60) L 08/26/19 03:58 Glucose 94 mg/dL (65-99) 08/26/19 03:58 Calcium 8.1 mg/dL (8.5-10.1) L 08/26/19 03:58 Corrected Calcium 9.1 mg/dL (8.5-10.1) 08/26/19 03:58 Magnesium 2.0 mg/dL (1.7-2.9) 08/26/19 03:58 Total Bilirubin 0.20 mg/dL (0.2-1.0) 08/26/19 03:58 AST 32 Units/L (15-37) 08/26/19 03:58 ALT 36 Units/L (12-78) 08/26/19 03:58 Alkaline Phosphatase 127 Units/L (46-116) H 08/26/19 03:58 B-Natriuretic Peptide 169 pg/mL (0-79) H 08/23/19 05:38 Total Protein 7.0 g/dL (6.4-8.2) 08/26/19 03:58 Albumin 2.7 g/dL (3.4-5.0) L 08/26/19 03:58 Globulin 4.3 g/dL (2.5-4.5) 08/26/19 03:58 Albumin/Globulin Ratio 0.6 Ratio (1.1-2.1) L 08/26/19 03:58 Vancomycin Trough 25.7 ug/mL (15-20) H* 08/23/19 20:25 Random Vancomycin 22.0 ug/mL 08/24/19 04:02 Hepatitis A IgM Ab Negative (Negative) 08/21/19 06:00 Hep Bs Antigen Negative (Negative) 08/21/19 06:00 Hep Bs Ag Confirmation TNP 08/21/19 06:00 Hep B Core IgM Ab Negative (Negative) 08/21/19 06:00 Hepatitis C Ab Index 0.16 IV 08/21/19 06:00 Hepatitis C Interp Negative (Negative) 08/21/19 06:00 Hepatitis Interpret See note 08/21/19 06:00 SARS-CoV-2 (PCR) Negative (NEGATIVE) 08/26/19 11:15 - Plan (1) Bilateral lower leg cellulitis Status: Acute Plan: LASIX 40MG IV BID, LOVENOX 30MG SC BID, AND VANCOMYCIN 1G IV Q12H, AND HOME MEDICATIONS WERE RESUMED (2) CHF (congestive heart failure) Status: Chronic Qualifiers: Heart failure type: unspecified Heart failure chronicity: acute on chronic Qualified Code(s): I50.9 - Heart failure, unspecified Plan: LASIX IV, COREG, CONTINUE TO MONITOR
--- NOTE | 2019-09-09 23:01 | PCM.PROG ---
Progress Note - Progress Note for Day of Date of Exam: 08/23/19 - Subjective Subjective: IS BEING TREATED FOR LOWER EXTREMITY CELLULITIS AND CHF EXACERBATION. TODAY, SHE IS ALERT AND OREINTED, LYING IN BED ON MORNING ROUNDS. SHE CONTINUES WITH SHORTNESS OF BREATH AND SWELLING TO LOWER EXTREMITIES. ON EXAMINATION, HEART IS REGULAR IN RATE AND RHYTHM. BILATERAL LUNGS ARE NOTED WITH SCATTERED WHEEZING THROUGHOUT. ABDOMEN IS ROUND, SOFT, AND NON-TENDER WITH NORMAL BOWEL SOUNDS NOTED IN ALL QUADRANTS. BILATERAL LOWER EXTREMITIES ARE NOTED WITH ERYTHEMA AND 1+ PITTING EDEMA. HER VITALS THIS MORNING ARE: 98.0-76-20-95%-133/67. LABS WERE OBTAINED. ABNORMAL LAB VALUES INCLUDE THE FOLLOWING: HGB 9.5, HCT 29.9, CARBON DIOXIDE 36.2, CREATININE 1.05, CALCIUM 8.1, AST 46, ALK PHOS 169, ALBUMIN 2.5. A HEPATITS PANEL IS PENDING. BLOOD CULTURES ARE PENDING. A CHEST XRAY WAS OBTAINED TODAY AND REVEALED: Mild cardiomegaly, no acute disease. SHE IS CURRNETLY RECEIVING LASIX 40MG IV BID, LOVENOX 30MG SC BID, AND VANCOMYCIN 1G IV Q12H, AND HOME MEDICATIONS WERE RESUMED WITH THE E XCEPTION OF THE BACTRIM. WE PLAN TO SEND PATIENT TO [facility] FOR PHYSICAL THERAPY AND REHAB AFTER DISCHARGE. WE WILL CONTINUE WITH CURRENT PLAN OF CARE TODAY. OTHERWISE, WE PLAN TO FOLLOW UP WITH AM LABS AND CONTINUE TO MONITOR. - Past Medical Family Social History Past Med/Fam/Surg Hx: No changes since H&P Allergies: Allergies ciprofloxacin Allergy (Verified 08/08/19 00:25) Penicillins Allergy (Verified 08/07/19 10:54) promethazine Allergy (Verified 08/07/19 10:54) - Review of Systems ROS: No change since H&P - Vital Signs and I&O's Vital Signs: Temperature 97.9 F Pulse Rate [Right Radial] 69 Respiratory Rate 20 Blood Pressure [Left Arm] 111/53 Blood Pressure 146/65 O2 Sat by Pulse Oximetry 97 - Physical Exam Oriented: Normal Eyes: Normal Ear: Normal Nose: Normal Throat: Normal Respiratory: Generalized, Wheezes Cardiovascular: Normal (1+ PITTING EDEMA TO BLE ), Edema. negative: S3, S4, Murmur : Normal Auscultation: Bowel Sounds: Normal Palpation: Normal Tenderness: Normal Skin: Red (BILATERAL LOWER EXTREMITIES ), Tender, Hot Musculoskeletal: Normal Psychiatric: Normal Mood Description: Calm Affect: Normal Speech Pattern: Clear, Appropriate - Laboratory and Diagnostics Result Diagrams: 08/26/19 03:58 08/26/19 03:58 Labs: 08/20/19 18:35 Blood Blood Culture - Final 08/20/19 18:25 Blood Blood Culture - Final Laboratory WBC 7.0 X10^3/uL (3.6-10.0) 08/26/19 03:58 RBC 3.70 X10^6/uL (3.5-5.4) 08/26/19 03:58 Hgb 10.1 g/dL (12.0-16.0) L 08/26/19 03:58 Hct 31.6 % (36.0-47.0) L 08/26/19 03:58 MCV 85.3 fL (80.0-100.0) 08/26/19 03:58 MCH 27.4 pg (27.0-34.0) 08/26/19 03:58 MCHC 32.1 g/dL (33.0-35.0) L 08/26/19 03:58 RDW 17.3 % (11.6-16.5) H 08/26/19 03:58 Plt Count 223 X10^3/uL (150.0-450.0) 08/26/19 03:58 Plt Count Comment Adequate (ADEQUATE) 08/24/19 04:02 MPV 9.9 fL (7.4-11.0) 08/26/19 03:58 Neut % (Auto) 45.7 % (42.0-75.0) 08/26/19 03:58 Lymph % (Auto) 36.5 % (21.0-51.0) 08/26/19 03:58 [place] % (Auto) 13.9 % (0.0-13.0) H 08/26/19 03:58 Eos % (Auto) 3.0 % (0.9-2.9) H 08/26/19 03:58 Baso % (Auto) 0.9 % (0.2-1.0) 08/26/19 03:58 Neut # (Auto) 3.2 x10^3/uL (2.2-4.8) 08/26/19 03:58 Lymph # (Auto) 2.6 X10^3/uL (1.3-2.9) 08/26/19 03:58 [place] # (Auto) 1.0 x10^3/uL (0.3-0.8) H 08/26/19 03:58 Eos # (Auto) 0.2 x10^3/uL (0.0-0.2) 08/26/19 03:58 Baso # (Auto) 0.1 X10^3/uL (0.0-0.1) 08/26/19 03:58 Absolute Nucleated RBC 0.0 /100WBC 08/26/19 03:58 Plt Morphology Comment Normal (NORMAL) 08/24/19 04:02 RBC Morphology Normal (NORMAL) 08/24/19 04:02 Sodium 139 mmol/L (136-145) 08/26/19 03:58 Corrected Sodium TNP 08/26/19 03:58 Potassium 3.5 mmol/L (3.5-5.1) 08/26/19 03:58 Chloride 98 mmol/L (98-107) 08/26/19 03:58 Carbon Dioxide 33.8 mmol/L (21-32) H 08/26/19 03:58 BUN 13 mg/dL (7-18) 08/26/19 03:58 Creatinine 1.10 mg/dL (0.55-1.02) H 08/26/19 03:58 Est GFR (MDRD) Af Amer > 60 (>60) 08/26/19 03:58 Est GFR (MDRD) Non-Af 51 (>60) L 08/26/19 03:58 Glucose 94 mg/dL (65-99) 08/26/19 03:58 Calcium 8.1 mg/dL (8.5-10.1) L 08/26/19 03:58 Corrected Calcium 9.1 mg/dL (8.5-10.1) 08/26/19 03:58 Magnesium 2.0 mg/dL (1.7-2.9) 08/26/19 03:58 Total Bilirubin 0.20 mg/dL (0.2-1.0) 08/26/19 03:58 AST 32 Units/L (15-37) 08/26/19 03:58 ALT 36 Units/L (12-78) 08/26/19 03:58 Alkaline Phosphatase 127 Units/L (46-116) H 08/26/19 03:58 B-Natriuretic Peptide 169 pg/mL (0-79) H 08/23/19 05:38 Total Protein 7.0 g/dL (6.4-8.2) 08/26/19 03:58 Albumin 2.7 g/dL (3.4-5.0) L 08/26/19 03:58 Globulin 4.3 g/dL (2.5-4.5) 08/26/19 03:58 Albumin/Globulin Ratio 0.6 Ratio (1.1-2.1) L 08/26/19 03:58 Vancomycin Trough 25.7 ug/mL (15-20) H* 08/23/19 20:25 Random Vancomycin 22.0 ug/mL 08/24/19 04:02 Hepatitis A IgM Ab Negative (Negative) 08/21/19 06:00 Hep Bs Antigen Negative (Negative) 08/21/19 06:00 Hep Bs Ag Confirmation TNP 08/21/19 06:00 Hep B Core IgM Ab Negative (Negative) 08/21/19 06:00 Hepatitis C Ab Index 0.16 IV 08/21/19 06:00 Hepatitis C Interp Negative (Negative) 08/21/19 06:00 Hepatitis Interpret See note 08/21/19 06:00 SARS-CoV-2 (PCR) Negative (NEGATIVE) 08/26/19 11:15 - Plan (1) Bilateral lower leg cellulitis Status: Acute Plan: LASIX 40MG IV BID, LOVENOX 30MG SC BID, AND VANCOMYCIN 1G IV Q12H, AND HOME MEDICATIONS WERE RESUMED (2) CHF (congestive heart failure) Status: Chronic Qualifiers: Heart failure type: unspecified Heart failure chronicity: acute on chronic Qualified Code(s): I50.9 - Heart failure, unspecified Plan: LASIX IV, COREG, CONTINUE TO MONITOR
--- NOTE | 2019-09-09 23:13 | PCM.PROG ---
Progress Note - Progress Note for Day of Date of Exam: 08/24/19 - Subjective Subjective: IS BEING TREATED FOR LOWER EXTREMITY CELLULITIS AND CHF EXACERBATION. TODAY, SHE IS ALERT AND OREINTED, LYING IN BED ON MORNING ROUNDS. SHE CONTINUES WITH SHORTNESS OF BREATH AND SWELLING TO LOWER EXTREMITIES, BUT REPORTS SLIGHT IMPROVEMENT SINCE YESTERDAY. SHE DOES REPORT NOT HAVING A BOWEL MOVEMENT IN SEVERAL DAYS. ON EXAMINATION, HEART IS REGULAR IN RATE AND RHYTHM. BILATERAL LUNGS ARE NOTED WITH DIMINISHED LUNG SOUNDS THROUGHOUT. ABDOMEN IS ROUND, SOFT, AND NON-TENDER WITH NORMAL BOWEL SOUNDS NOTED IN ALL QUADRANTS. BILATERAL LOWER EXTREMITIES ARE NOTED WITH ERYTHEMA AND TRACE EDEMA. HER VITALS THIS MORNING ARE: 98.3-72-20-96%NC-125/52. LABS WERE OBTAINED. ABNORMAL LAB [place] UES INCLUDE THE FOLLOWING: WBC 13.3, RBC 3.41, HGB 9.4, HCT 29.5, CARBON DIOXIDE 35.9, CALCIUM 8.1, ALK PHOS 142, ALBUMIN 2.4. A HEPATITS PANEL IS PENDING. BLOOD CULTURES ARE PENDING. SHE IS CURRNETLY RECEIVING LASIX 40MG IV BID, LOVENOX 30MG SC BID, AND VANCOMYCIN 1G IV Q12H, AND HOME MEDICATIONS WERE RESUMED WITH THE EXCEPTION OF THE BACTRIM. WE PLAN TO SEND PATIENT TO [facility] FOR PHYSICAL THERAPY AND REHAB AFTER DISCHARGE. WE WILL CONTINUE WITH CURRENT PLAN OF CARE TODAY AND START A BOWEL REGIMEN. WE WILL DECREASE HER VANCOMYCIN TO ONCE A DAY. OTHERWISE, WE PLAN TO FOLLOW UP WITH AM LABS AND CONTINUE TO MONITOR. - Past Medical Family Social History Past Med/Fam/Surg Hx: No changes since H&P Allergies: Allergies ciprofloxacin Allergy (Verified 08/08/19 00:25) Penicillins Allergy (Verified 08/07/19 10:54) promethazine Allergy (Verified 08/07/19 10:54) - Review of Systems ROS: No change since H&P - Vital Signs and I&O's Vital Signs: Temperature 97.9 F Pulse Rate [Right Radial] 69 Respiratory Rate 20 Blood Pressure [Left Arm] 111/53 Blood Pressure 146/65 O2 Sat by Pulse Oximetry 97 - Physical Exam Oriented: Normal Eyes: Normal Ear: Normal Nose: Normal Throat: Normal Respiratory: Generalized, Diminished Cardiovascular: Edema (TRACE EDEMA TO BLE). negative: S3, S4, Murmur : Normal Auscultation: Bowel Sounds: Normal Palpation: Normal Tenderness: Normal Skin: Red (BILATERAL LOWER EXTREMITIES ), Tender, Hot Musculoskeletal: Normal Psychiatric: Normal Mood Description: Calm Affect: Normal Speech Pattern: Clear, Appropriate - Laboratory and Diagnostics Result Diagrams: 08/26/19 03:58 08/26/19 03:58 Labs: 08/20/19 18:35 Blood Blood Culture - Final 08/20/19 18:25 Blood Blood Culture - Final Laboratory WBC 7.0 X10^3/uL (3.6-10.0) 08/26/19 03:58 RBC 3.70 X10^6/uL (3.5-5.4) 08/26/19 03:58 Hgb 10.1 g/dL (12.0-16.0) L 08/26/19 03:58 Hct 31.6 % (36.0-47.0) L 08/26/19 03:58 MCV 85.3 fL (80.0-100.0) 08/26/19 03:58 MCH 27.4 pg (27.0-34.0) 08/26/19 03:58 MCHC 32.1 g/dL (33.0-35.0) L 08/26/19 03:58 RDW 17.3 % (11.6-16.5) H 08/26/19 03:58 Plt Count 223 X10^3/uL (150.0-450.0) 08/26/19 03:58 Plt Count Comment Adequate (ADEQUATE) 08/24/19 04:02 MPV 9.9 fL (7.4-11.0) 08/26/19 03:58 Neut % (Auto) 45.7 % (42.0-75.0) 08/26/19 03:58 Lymph % (Auto) 36.5 % (21.0-51.0) 08/26/19 03:58 [place] % (Auto) 13.9 % (0.0-13.0) H 08/26/19 03:58 Eos % (Auto) 3.0 % (0.9-2.9) H 08/26/19 03:58 Baso % (Auto) 0.9 % (0.2-1.0) 08/26/19 03:58 Neut # (Auto) 3.2 x10^3/uL (2.2-4.8) 08/26/19 03:58 Lymph # (Auto) 2.6 X10^3/uL (1.3-2.9) 08/26/19 03:58 [place] # (Auto) 1.0 x10^3/uL (0.3-0.8) H 08/26/19 03:58 Eos # (Auto) 0.2 x10^3/uL (0.0-0.2) 08/26/19 03:58 Baso # (Auto) 0.1 X10^3/uL (0.0-0.1) 08/26/19 03:58 Absolute Nucleated RBC 0.0 /100WBC 08/26/19 03:58 Plt Morphology Comment Normal (NORMAL) 08/24/19 04:02 RBC Morphology Normal (NORMAL) 08/24/19 04:02 Sodium 139 mmol/L (136-145) 08/26/19 03:58 Corrected Sodium TNP 08/26/19 03:58 Potassium 3.5 mmol/L (3.5-5.1) 08/26/19 03:58 Chloride 98 mmol/L (98-107) 08/26/19 03:58 Carbon Dioxide 33.8 mmol/L (21-32) H 08/26/19 03:58 BUN 13 mg/dL (7-18) 08/26/19 03:58 Creatinine 1.10 mg/dL (0.55-1.02) H 08/26/19 03:58 Est GFR (MDRD) Af Amer > 60 (>60) 08/26/19 03:58 Est GFR (MDRD) Non-Af 51 (>60) L 08/26/19 03:58 Glucose 94 mg/dL (65-99) 08/26/19 03:58 Calcium 8.1 mg/dL (8.5-10.1) L 08/26/19 03:58 Corrected Calcium 9.1 mg/dL (8.5-10.1) 08/26/19 03:58 Magnesium 2.0 mg/dL (1.7-2.9) 08/26/19 03:58 Total Bilirubin 0.20 mg/dL (0.2-1.0) 08/26/19 03:58 AST 32 Units/L (15-37) 08/26/19 03:58 ALT 36 Units/L (12-78) 08/26/19 03:58 Alkaline Phosphatase 127 Units/L (46-116) H 08/26/19 03:58 B-Natriuretic Peptide 169 pg/mL (0-79) H 08/23/19 05:38 Total Protein 7.0 g/dL (6.4-8.2) 08/26/19 03:58 Albumin 2.7 g/dL (3.4-5.0) L 08/26/19 03:58 Globulin 4.3 g/dL (2.5-4.5) 08/26/19 03:58 Albumin/Globulin Ratio 0.6 Ratio (1.1-2.1) L 08/26/19 03:58 Vancomycin Trough 25.7 ug/mL (15-20) H* 08/23/19 20:25 Random Vancomycin 22.0 ug/mL 08/24/19 04:02 Hepatitis A IgM Ab Negative (Negative) 08/21/19 06:00 Hep Bs Antigen Negative (Negative) 08/21/19 06:00 Hep Bs Ag Confirmation TNP 08/21/19 06:00 Hep B Core IgM Ab Negative (Negative) 08/21/19 06:00 Hepatitis C Ab Index 0.16 IV 08/21/19 06:00 Hepatitis C Interp Negative (Negative) 08/21/19 06:00 Hepatitis Interpret See note 08/21/19 06:00 SARS-CoV-2 (PCR) Negative (NEGATIVE) 08/26/19 11:15 - Plan (1) Bilateral lower leg cellulitis Status: Acute Plan: LASIX 40MG IV BID, LOVENOX 30MG SC BID, AND VANCOMYCIN 1G IV DAILY, AND HOME MEDICATIONS WERE RESUMED (2) CHF (congestive heart failure) Status: Chronic Qualifiers: Heart failure type: unspecified Heart failure chronicity: acute on chronic Qualified Code(s): I50.9 - Heart failure, unspecified Plan: LASIX IV, COREG, CONTINUE TO MONITOR (3) Constipation Status: Acute Qualifiers: Constipation type: unspecified constipation type Qualified Code(s): K59.00 - Constipation, unspecified Plan: COLACE, MILK OF MAGNESIA, CONTINUE TO MONITOR
--- NOTE | 2019-09-09 23:24 | PCM.PROG ---
Progress Note - Progress Note for Day of Date of Exam: 08/25/19 - Subjective Subjective: IS BEING TREATED FOR LOWER EXTREMITY CELLULITIS AND CHF EXACERBATION. TODAY, SHE IS ALERT AND OREINTED, LYING IN BED ON MORNING ROUNDS. SHE CONTINUES WITH SHORTNESS OF BREATH AND SWELLING TO LOWER EXTREMITIES, BUT REPORTS SLIGHT IMPROVEMENT SINCE YESTERDAY. SHE DOES REPORT NOT HAVING A BOWEL MOVEMENT IN SEVERAL DAYS. ON EXAMINATION, HEART IS REGULAR IN RATE AND RHYTHM. BILATERAL LUNGS ARE NOTED WITH DIMINISHED LUNG SOUNDS THROUGHOUT. ABDOMEN IS ROUND, SOFT, AND NON-TENDER WITH NORMAL BOWEL SOUNDS NOTED IN ALL QUADRANTS. BILATERAL LOWER EXTREMITIES ARE NOTED WITH ERYTHEMA AND TRACE EDEMA. HER VITALS THIS MORNING ARE: 97.9-73-18-94%NC-99/51. LABS WERE OBTAINED. ABNORMAL LAB VALU ES INCLUDE THE FOLLOWING: HGB 10.2, HCT 32.0, POTASSIUM 2.8, CARBON DIOXIDE 39.1, CALCIUM 8.2, MAGNESIUM 1.6, ALK PHOS 137, ALBUMIN 2.7. A HEPATITS PANEL IS PENDING. BLOOD CULTURES ARE NEGATIVE. SHE IS CURRENTLY RECEIVING LASIX 40MG IV BID, LOVENOX 30MG SC BID, AND VANCOMYCIN 1G IV DAILY, COLACE, MILK OF MAGNESIA, AND HOME MEDICATIONS WERE RESUMED WITH THE EXCEPTION OF THE BACTRIM. WE PLAN TO SEND PATIENT TO [facility] FOR PHYSICAL THERAPY AND REHAB AFTER DISCHARGE. WE WILL CONTINUE WITH CURRENT PLAN OF CARE TODAY AND START THE POTASSIUM AND MAGNESIUM PROTOCOLS. OTHERWISE, WE PLAN TO FOLLOW UP WITH AM LABS AND CONTINUE TO MONITOR. - Past Medical Family Social History Past Med/Fam/Surg Hx: No changes since H&P Allergies: Allergies ciprofloxacin Allergy (Verified 08/08/19 00:25) Penicillins Allergy (Verified 08/07/19 10:54) promethazine Allergy (Verified 08/07/19 10:54) - Review of Systems ROS: No change since H&P - Vital Signs and I&O's Vital Signs: Temperature 97.9 F Pulse Rate [Right Radial] 69 Respiratory Rate 20 Blood Pressure [Left Arm] 111/53 Blood Pressure 146/65 O2 Sat by Pulse Oximetry 97 - Physical Exam Oriented: Normal Eyes: Normal Ear: Normal Nose: Normal Throat: Normal Respiratory: Generalized, Diminished Cardiovascular: Edema (TRACE EDEMA TO BLE). negative: S3, S4, Murmur : Normal Auscultation: Bowel Sounds: Normal Tenderness: Normal Skin: Red (BILATERAL LOWER EXTREMITIES ), Tender, Hot Musculoskeletal: Normal Psychiatric: Normal Mood Description: Calm Affect: Normal Speech Pattern: Clear, Appropriate - Laboratory and Diagnostics Result Diagrams: 08/26/19 03:58 08/26/19 03:58 Labs: 08/20/19 18:35 Blood Blood Culture - Final 08/20/19 18:25 Blood Blood Culture - Final Laboratory WBC 7.0 X10^3/uL (3.6-10.0) 08/26/19 03:58 RBC 3.70 X10^6/uL (3.5-5.4) 08/26/19 03:58 Hgb 10.1 g/dL (12.0-16.0) L 08/26/19 03:58 Hct 31.6 % (36.0-47.0) L 08/26/19 03:58 MCV 85.3 fL (80.0-100.0) 08/26/19 03:58 MCH 27.4 pg (27.0-34.0) 08/26/19 03:58 MCHC 32.1 g/dL (33.0-35.0) L 08/26/19 03:58 RDW 17.3 % (11.6-16.5) H 08/26/19 03:58 Plt Count 223 X10^3/uL (150.0-450.0) 08/26/19 03:58 Plt Count Comment Adequate (ADEQUATE) 08/24/19 04:02 MPV 9.9 fL (7.4-11.0) 08/26/19 03:58 Neut % (Auto) 45.7 % (42.0-75.0) 08/26/19 03:58 Lymph % (Auto) 36.5 % (21.0-51.0) 08/26/19 03:58 [place] % (Auto) 13.9 % (0.0-13.0) H 08/26/19 03:58 Eos % (Auto) 3.0 % (0.9-2.9) H 08/26/19 03:58 Baso % (Auto) 0.9 % (0.2-1.0) 08/26/19 03:58 Neut # (Auto) 3.2 x10^3/uL (2.2-4.8) 08/26/19 03:58 Lymph # (Auto) 2.6 X10^3/uL (1.3-2.9) 08/26/19 03:58 [place] # (Auto) 1.0 x10^3/uL (0.3-0.8) H 08/26/19 03:58 Eos # (Auto) 0.2 x10^3/uL (0.0-0.2) 08/26/19 03:58 Baso # (Auto) 0.1 X10^3/uL (0.0-0.1) 08/26/19 03:58 Absolute Nucleated RBC 0.0 /100WBC 08/26/19 03:58 Plt Morphology Comment Normal (NORMAL) 08/24/19 04:02 RBC Morphology Normal (NORMAL) 08/24/19 04:02 Sodium 139 mmol/L (136-145) 08/26/19 03:58 Corrected Sodium TNP 08/26/19 03:58 Potassium 3.5 mmol/L (3.5-5.1) 08/26/19 03:58 Chloride 98 mmol/L (98-107) 08/26/19 03:58 Carbon Dioxide 33.8 mmol/L (21-32) H 08/26/19 03:58 BUN 13 mg/dL (7-18) 08/26/19 03:58 Creatinine 1.10 mg/dL (0.55-1.02) H 08/26/19 03:58 Est GFR (MDRD) Af Amer > 60 (>60) 08/26/19 03:58 Est GFR (MDRD) Non-Af 51 (>60) L 08/26/19 03:58 Glucose 94 mg/dL (65-99) 08/26/19 03:58 Calcium 8.1 mg/dL (8.5-10.1) L 08/26/19 03:58 Corrected Calcium 9.1 mg/dL (8.5-10.1) 08/26/19 03:58 Magnesium 2.0 mg/dL (1.7-2.9) 08/26/19 03:58 Total Bilirubin 0.20 mg/dL (0.2-1.0) 08/26/19 03:58 AST 32 Units/L (15-37) 08/26/19 03:58 ALT 36 Units/L (12-78) 08/26/19 03:58 Alkaline Phosphatase 127 Units/L (46-116) H 08/26/19 03:58 B-Natriuretic Peptide 169 pg/mL (0-79) H 08/23/19 05:38 Total Protein 7.0 g/dL (6.4-8.2) 08/26/19 03:58 Albumin 2.7 g/dL (3.4-5.0) L 08/26/19 03:58 Globulin 4.3 g/dL (2.5-4.5) 08/26/19 03:58 Albumin/Globulin Ratio 0.6 Ratio (1.1-2.1) L 08/26/19 03:58 Vancomycin Trough 25.7 ug/mL (15-20) H* 08/23/19 20:25 Random Vancomycin 22.0 ug/mL 08/24/19 04:02 Hepatitis A IgM Ab Negative (Negative) 08/21/19 06:00 Hep Bs Antigen Negative (Negative) 08/21/19 06:00 Hep Bs Ag Confirmation TNP 08/21/19 06:00 Hep B Core IgM Ab Negative (Negative) 08/21/19 06:00 Hepatitis C Ab Index 0.16 IV 08/21/19 06:00 Hepatitis C Interp Negative (Negative) 08/21/19 06:00 Hepatitis Interpret See note 08/21/19 06:00 SARS-CoV-2 (PCR) Negative (NEGATIVE) 08/26/19 11:15 - Plan (1) Bilateral lower leg cellulitis Status: Acute Plan: LASIX 40MG IV BID, LOVENOX 30MG SC BID, AND VANCOMYCIN 1G IV DAILY, AND HOME MEDICATIONS WERE RESUMED (2) CHF (congestive heart failure) Status: Chronic Qualifiers: Heart failure type: unspecified Heart failure chronicity: acute on chronic Qualified Code(s): I50.9 - Heart failure, unspecified Plan: LASIX IV, COREG, CONTINUE TO MONITOR (3) Constipation Status: Acute Qualifiers: Constipation type: unspecified constipation type Qualified Code(s): K59.00 - Constipation, unspecified Plan: COLACE, MILK OF MAGNESIA, CONTINUE TO MONITOR (4) Hypokalemia Status: Acute Plan: POTASSIUM AND MAGNESIUM PROTOCOLS (5) Hypomagnesemia Status: Acute Plan: POTASSIUM AND MAGNESIUM PROTOCOLS
== END 2019-08-26 13:40 | DRG 292 ==
LOC: MED/SURG 17:34
PROVIDERS: ADMIT Internal Medicine; ATTEND Internal Medicine
DX: E83.42 Hypomagnesemia; Z11.59 Encounter for screening for other viral diseases; R26.89 Other abnormalities of gait and mobility; L03.115 Cellulitis of right lower limb; R06.02 Shortness of breath; I50.9 Heart failure, unspecified; L03.116 Cellulitis of left lower limb; R60.0 Localized edema; K59.00 Constipation, unspecified; R53.1 Weakness; M79.601 Pain in right arm; E87.6 Hypokalemia
CPT/HCPCS: 36415; 71010; 71045; 80053; 80074; 80202; 82565; 83735; 83880; 84132; 85025; 87040; 87635; 94760; 97162; 97166; 97530; 97535; A4216; A4222; J1650; J1940; J3370; J7040; J7050; J7060; Q0177; S0119; S0181

== ENCOUNTER 2020-07-19 12:46 | Inpatient (IN) ==
--- NOTE | 2020-07-19 13:10 | DR.GENAD ---
HPI Time Seen Time Seen by Provider: 07/19/20 13:04 HPI Comment HPI Comment: PATIENT IS 74 YR OLD FEMALE IN ER WITH INCREASING SOB AND OXYGEN DESATURATION. HERE VIA EMS. WHEN EMS ARRIVED, O2 SAT WAS 78 AND WAS PLACED ON 4L OF OXYGEN. NOW O2 SAT IS 98. PATIENT HAVE HISTORY OF COPD. Complaint/Symptoms Chief Complaint Doctors Comments: INCREASING SOB. COVID-19 Coronavirus risk:travel/contact w/high risk person: No Has patient experienced Coronavirus symptoms: No Nurses notes reviewed Nurses Notes Review: Yes Source History Provided: Patient Mode of Arrival Mode of Arrival: EMS Timing Came on: Suddenly Duration Duration: Constant Duration: Hours Modifying Factors Worsens:: EXERTION. Improves:: REST. Associated Signs and Symptoms Associated Signs and Symptoms: WEAKNESS. Other History Other History: HIST. COPD. PMH PMH Past Medical History: GERD Past Surgical History: Yes Surgical History: CABG/Valve Surgery, Ortho Surgery and Other Family History Family Medical History: Cancer Social History Do you use any recreational Drugs:: No ROS Review of Systems Constitutional: See HPI, Weakness and Fatigue; negative Fever Eyes: No Symptoms Reported and See HPI ENTM: See HPI and Nose Congestion; negative Nose Discharge Respiratoy: See HPI, Moist Cough and Short of Breath; negative Wheezing Cardiovascular: See HPI and Edema; negative Chest Pain Gastrointestinal/Abdominal: No Symptoms Reported and See HPI; negative Abdominal Pain, Diarrhea and Vomiting Genitourinary: No Symptoms Reported and See HPI; negative Dysuria and Hematuria Neurological: See HPI and Weakness; negative Headache and Dizziness Musculoskeletal: No Symptoms Reported and See HPI; negative Back Pain and Muscle Pain Integumentary: No Symptoms Reported and See HPI; negative Change in Color, Rash and Juandice Hematologic/Lymphatic: No Symptoms Reported and See HPI; negative Easy Bruising and Swollen Glands Endocrine: No Symptoms Reported and See HPI; negative Increased Thirst and Increased Urine Psychiatric: No Symptoms Reported and See HPI All Other Systems: Reviewed and Negative PE Vital Signs Vitals: Temperature 98.6 F Pulse Rate 81 Respiratory Rate 29 Blood Pressure [Right Arm] 147/63 Blood Pressure [Left Arm] 111/53 Blood Pressure 135/58 O2 Sat by Pulse Oximetry 100 General Limitations: No Limitations General Appearance: Alert and In Distress Head Head Exam: Normal Inspection and Atraumatic Eyes Eye exam: Normal Appearance and PERRL; negative Scleral Icterus and Conjunctival Injection ENT ENT Exam: Normal Exam, Normal Oropharynx, Normal External Ear Exam and TM's Normal Bilaterally External Ear Exam: Normal External Inspection; negative Mastoid Tenderness TM/Canal Exam: Bilateral: Normal Nose Exam: Normal Nose Exam Mouth Exam: Normal Inspection; negative Lip Swelling and Tongue Swelling Throat Exam: Normal Inspection; negative Tonsillar Erythema, Tonsillomegaly, Tonsillar Exudate and Muffled Voice Neck Neck Exam: Normal Inspection and Trachea Midline; negative Tenderness and Lymphadenopathy Chest Chest Inspection: Normal Inspection and Symmetric Chest Wall Rise; negative Tenderness Respiratory Respiratory Exam: Normal Lung Sounds Bilat and Respiratory Distress; negative Accessory Muscle Use and Chest Wall Tenderness Respiratory Exam: Bilateral: Rhonchi and Lower: Rhonchi Cardiovascular Cardiovascular Exam: Regular Rate, Normal Rhythm, Normal Heart Sounds and +S3; negative Systolic Murmur and Diastolic Murmur Abdominal Exam Abdominal Exam: Normal Inspection, Normal Bowel Sounds, Soft and Tenderness Extremities Extremities Exam: Normal Capillary Refill and Edema Back Back Exam: Normal Inspection; negative (R) CVA Tenderness and (L) CVA Tenderness Neurologic Neurological Exam: Alert and Oriented X3; negative Motor Sensory Deficit Psychiatric Psychiatric Exam: Normal Affect and Normal Mood Skin Skin Exam: Warm and Dry MDM Additional Information Additional Information Obtained From: Family Differential Diagnosis Differential Diagnosis: CHF, COPD EXACERBATION, IN, PNEUMONIA, BRONCHITIS. COURSE Treatment Treatment: SEE ORDERS. Consultation Consultation Comments: DISCUSSED PATIENT WITH DR. ROUSSEAU. SHE WILL ADMIT PATIENT. Education/Counseling Education/Counseling: Patient Educated On: Diagnosis ROR Labs Reviewed Laboratory Results Reviewed?: Yes Result Diagrams: 07/23/20 04:20 07/23/20 04:20 Laboratory: 07/19/20 13:29 Blood Blood Culture - Preliminary 07/19/20 13:22 Blood Blood Culture - Preliminary 07/19/20 13:20 Urine,Clean Catch Urine Culture - Final WBC 26.9 X10^3/uL (3.6-10.0) H 07/19/20 13:22 RBC 3.96 X10^6/uL (3.5-5.4) 07/19/20 13:22 Hgb 9.1 g/dL (12.0-16.0) L 07/19/20 13:22 Hct 30.5 % (36.0-47.0) L 07/19/20 13:22 MCV 77.1 fL (80.0-100.0) L 07/19/20 13:22 MCH 23.0 pg (27.0-34.0) L 07/19/20 13:22 MCHC 29.9 g/dL (33.0-35.0) L 07/19/20 13:22 RDW 18.4 % (11.6-16.5) H 07/19/20 13:22 Plt Count 306 X10^3/uL (150.0-450.0) 07/19/20 13:22 Plt Count Comment Adequate (ADEQUATE) 07/19/20 13:22 MPV 8.6 fL (7.4-11.0) 07/19/20 13:22 Neut % (Auto) 87.1 % (42.0-75.0) H 07/19/20 13:22 Lymph % (Auto) 5.3 % (21.0-51.0) L 07/19/20 13:22 [place] % (Auto) 7.1 % (0.0-13.0) 07/19/20 13:22 Eos % (Auto) 0.1 % (0.9-2.9) L 07/19/20 13:22 Baso % (Auto) 0.4 % (0.2-1.0) 07/19/20 13:22 Neut # (Auto) 23.4 x10^3/uL (2.2-4.8) H 07/19/20 13:22 Lymph # (Auto) 1.4 X10^3/uL (1.3-2.9) 07/19/20 13:22 [place] # (Auto) 1.9 x10^3/uL (0.3-0.8) H 07/19/20 13:22 Eos # (Auto) 0.0 x10^3/uL (0.0-0.2) 07/19/20 13:22 Baso # (Auto) 0.1 X10^3/uL (0.0-0.1) 07/19/20 13:22 Absolute Nucleated RBC 0.0 /100WBC 07/19/20 13:22 Total Counted 100 07/19/20 13:22 Neutrophils % (Manual) 83 % (39-76) H 07/19/20 13:22 Band Neutrophils % 6 % (0-10) 07/19/20 13:22 Lymphocytes % (Manual) 6 % (13-43) L 07/19/20 13:22 Monocytes % (Manual) 5 % (4-9) 07/19/20 13:22 Plt Morphology Comment Normal (NORMAL) 07/19/20 13:22 RBC Morphology Normal (NORMAL) 07/19/20 13:22 Sodium 141 mmol/L (136-145) 07/19/20 13:22 Corrected Sodium 142 mmol/L (136-145) 07/19/20 13:22 Potassium 3.3 mmol/L (3.5-5.1) L 07/19/20 13:22 Chloride 99 mmol/L (98-107) 07/19/20 13:22 Carbon Dioxide 34.2 mmol/L (21-32) H 07/19/20 13:22 BUN 19 mg/dL (7-18) H 07/19/20 13:22 Creatinine 1.25 mg/dL (0.55-1.02) H 07/19/20 13:22 Est GFR (MDRD) Af Amer 54 (>60) L 07/19/20 13:22 Est GFR (MDRD) Non-Af 44 (>60) L 07/19/20 13:22 Glucose 130 mg/dL (65-99) H 07/19/20 13:22 Lactic Acid 1.8 mmol/L (0.4-2.0) 07/19/20 13:22 Calcium 8.5 mg/dL (8.5-10.1) 07/19/20 13:22 Corrected Calcium 9.5 mg/dL (8.5-10.1) 07/19/20 13:22 Total Bilirubin 0.50 mg/dL (0.2-1.0) 07/19/20 13:22 AST 29 Units/L (15-37) 07/19/20 13:22 ALT 15 Units/L (12-78) 07/19/20 13:22 Alkaline Phosphatase 100 Units/L (46-116) 07/19/20 13:22 Creatine Kinase 746 Units/L (26-192) H 07/19/20 13:22 CK-MB (CK-2) 3.9 ng/mL (0-4.0) 07/19/20 13:22 CK/CKMB % Calc 0.5 % (<4) 07/19/20 13:22 Troponin I < 0.02 ng/mL (0-1.5) 07/19/20 13:22 Total Protein 8.1 g/dL (6.4-8.2) 07/19/20 13:22 Albumin 2.8 g/dL (3.4-5.0) L 07/19/20 13:22 Globulin 5.3 g/dL (2.5-4.5) H 07/19/20 13:22 Albumin/Globulin Ratio 0.5 Ratio (1.1-2.1) L 07/19/20 13:22 Specimen Type Catherized urine 07/19/20 16:35 Urine Color Straw (YELLOW) 07/19/20 16:35 Urine Appearance Clear (CLEAR) 07/19/20 16:35 Urine pH 5.0 (5.0 - 8.0) 07/19/20 16:35 Ur Specific [place] 1.010 (1.000-1.030) 07/19/20 16:35 Urine Protein Negative (NEGATIVE) 07/19/20 16:35 Urine Glucose (UA) Negative (NEGATIVE) 07/19/20 16:35 Urine Ketones Negative (NEGATIVE) 07/19/20 16:35 Urine Occult Blood 2+ (NEGATIVE) 07/19/20 16:35 Urine Nitrite Negative (NEGATIVE) 07/19/20 16:35 Urine Bilirubin Negative (NEGATIVE) 07/19/20 16:35 Urine Urobilinogen Normal (NORMAL) 07/19/20 16:35 Ur Leukocyte Esterase Negative (NEGATIVE) 07/19/20 16:35 Urine RBC 0-2 /HPF (0-3) 07/19/20 16:35 Urine WBC None seen /HPF (0-5) 07/19/20 16:35 Ur Squamous Epith Cells Negative /HPF (NEGATIVE) 07/19/20 16:35 Urine Bacteria Negative /HPF (NEGATIVE) 07/19/20 16:35 Ur Culture Indicated? No/not indicated 07/19/20 16:35 SARS CoV-2 RNA Rapid JESSICA Negative (NEGATIVE) 07/19/20 16:30 XRAY XRAY Interpreted by: Radiologist (REPORT NOTED AND DISCUSSED WITH PATIENT.) and Self EKG Rate: 81 [place]: Normal Rhythm: NSR Block: 1 Hypertrophy: None ST: Nonsp (LOW VOLTAGE.) Opioid Opioid Risk Tool Age (Claus box if 16-45): No History of Preadolescent Sexual Abuse: No Total: 0 Total Score Risk Category: Low Risk Copyright: Sim EATON predicting aberrant behaviors Diagnosis Discharge Problem: Acute respiratory distress CHF (congestive heart failure) Qualifiers: Heart failure type: combined systolic and diastolic Heart failure chronicity: acute on chronic Qualified Code(s): I50.43 - Acute on chronic combined systolic (congestive) and diastolic (congestive) heart failure Pneumonia Qualifiers: Pneumonia type: due to unspecified organism Laterality: bilateral Lung location: lower lobe of lung Qualified Code(s): J18.9 - Pneumonia, unspecified organism Pulmonary edema Qualifiers: Chronicity: acute Qualified Code(s): J81.0 - Acute pulmonary edema Instructions Instructions: Fall Prevention in the Home, Adult, Mftb-jw-[id number] Anemia What You Need to Know About Electronic Cigarettes Hypertension, Kked-ul-Vhgo Heart Failure, Jilf-ct-Jivk Pulmonary Edema, Muzr-Lw-Zfil Community-Acquired Pneumonia, Adult, Mfxv-ll-Xygd Forms: Precautions for COVID19 Patient Portal Social Distancing
[2020-07-19 13:45] LABS: BASOPHILS # (AUTO) 0.1 X10^3/uL (0.0-0.1); BASOPHILS % (AUTO) 0.4 % (0.2-1.0); EOSINOPHILS % (AUTO) 0.1 % (0.9-2.9); HEMATOCRIT 30.5 % (36.0-47.0); HEMOGLOBIN 9.1 g/dL (12.0-16.0); LYMPHOCYTES # (AUTO) 1.4 X10^3/uL (1.3-2.9); LYMPHOCYTES % (AUTO) 5.3 % (21.0-51.0); MEAN CORPUSCULAR HGB CONC 29.9 g/dL (33.0-35.0); MEAN CORPUSCULAR VOLUME 77.1 fL (80.0-100.0); MEAN PLATELET VOLUME 8.6 fL (7.4-11.0); MONOCYTES # (AUTO) 1.9 x10^3/uL (0.3-0.8); MONOCYTES % (AUTO) 7.1 % (0.0-13.0); NEUTROPHILS # (AUTO) 23.4 x10^3/uL (2.2-4.8); NEUTROPHILS % (AUTO) 87.1 % (42.0-75.0); PLATELET COUNT 306 X10^3/uL (150.0-450.0); RED BLOOD COUNT 3.96 X10^6/uL (3.5-5.4); RED CELL DISTRIBUTION WIDTH 18.4 % (11.6-16.5); WHITE BLOOD COUNT 26.9 X10^3/uL (3.6-10.0)
[2020-07-19 13:47] LABS: BILIRUBIN,URINE NEGATIVE (NEGATIVE); BLOOD/HEMOGLOBIN,URINE NEGATIVE (NEGATIVE); GLUCOSE, URINE NEGATIVE (NEGATIVE); KETONES,URINE NEGATIVE (NEGATIVE); LEUKOCYTE ESTERASE ,URINE NEGATIVE (NEGATIVE); NITRITES,URINE NEGATIVE (NEGATIVE); PROTEIN,URINE NEGATIVE (NEGATIVE); UROBILINOGEN,URINE NORMAL (NORMAL)
[2020-07-19 13:54] LABS: APPEARANCE,URINE CLEAR (CLEAR); COLOR,URINE STRAW (YELLOW)
[2020-07-19 14:05] LABS: LACTIC ACID 1.8 mmol/L (0.4-2.0)
[2020-07-19 14:06] LABS: BLOOD UREA NITROGEN 19 mg/dL (7-18); CALCIUM 8.5 mg/dL (8.5-10.1); CARBON DIOXIDE 34.2 mmol/L (21-32); CHLORIDE 99 mmol/L (98-107); COR NA(FOR HYPERGLY) 142 mmol/L (136-145); CREATININE 1.25 mg/dL (0.55-1.02); SODIUM 141 mmol/L (136-145); TROPONIN I < 0.02 ng/mL (0-1.5); eGFR NON BLACK RACES 44 (>60)
[2020-07-19 14:19] LABS: BAND NEUTROPHILS % 6 % (0-10)
[2020-07-19 14:20] LABS: PLATELET MORPHOLOGY COMMENT NORMAL (NORMAL)
[2020-07-19 14:30] LABS: ALANINE AMINOTRANSFERASE 15 Units/L (12-78); ALBUMIN 2.8 g/dL (3.4-5.0); ALKALINE PHOSPHATASE 100 Units/L (46-116); ASPARTATE AMINO TRANSFERASE 29 Units/L (15-37); CKMB % 0.5 % (<4); COR CA(FOR HYPOALB) 9.5 mg/dL (8.5-10.1); CREATINE KINASE 746 Units/L (26-192); CREATINE KINASE MB 3.9 ng/mL (0-4.0); TOTAL PROTEIN 8.1 g/dL (6.4-8.2)
--- NOTE | 2020-07-19 15:00 | RAD ---
HISTORYshortness of breathSTUDYCHEST, 1 VIEWCOMPARISONChest x-ray dated April 02, 2019.FINDINGSThe trachea is midline. The cardiac silhouette is enlarged with prominent perihilar vasculature, cephalization of vessels, and diffuse alveolar/interstitial markings. Chronic emphysematous and interstitial lung changes. Postsurgical changes status post median sternotomy. No significant focal consolidation, pleural effusion, or pneumothorax. The bony thorax is unremarkable.IMPRESSIONConstellation of findings likely representing pulmonary edema secondary to congestive heart failure. Underlying infiltrate not entirely excluded.Electronically signed by: CHITRA ARRIAGA (July 19, 2020 14:58:43)
[2020-07-19] MEDS ORDERED: LASIX IVP ONE ×2 (16:33→16:57)
[2020-07-19 16:44] LABS: BILIRUBIN,URINE NEGATIVE (NEGATIVE); BLOOD/HEMOGLOBIN,URINE 2+ (NEGATIVE); GLUCOSE, URINE NEGATIVE (NEGATIVE); KETONES,URINE NEGATIVE (NEGATIVE); LEUKOCYTE ESTERASE ,URINE NEGATIVE (NEGATIVE); NITRITES,URINE NEGATIVE (NEGATIVE); PROTEIN,URINE NEGATIVE (NEGATIVE); UROBILINOGEN,URINE NORMAL (NORMAL)
[2020-07-19 16:47] LABS: APPEARANCE,URINE CLEAR (CLEAR); COLOR,URINE STRAW (YELLOW)
[2020-07-19 16:58] LABS: RBC,URINE 0-2 /HPF (0-3)
[2020-07-19 16:59] LABS: BACTERIA,URINE NEGATIVE /HPF (NEGATIVE); SQUAMOUS EPITHELIAL CELL,UR NEGATIVE /HPF (NEGATIVE)
[2020-07-19] MEDS ORDERED: POTASSIUM CHLORIDE LIQ 20 MEQ UDC PO ONE (17:11)
[2020-07-19] MEDS ORDERED: POTASSIUM CHLORIDE LIQ 20 MEQ UDC ONE (17:12)
[2020-07-19] MEDS ORDERED: VIBRAMYCIN IV ONE (19:34)
[2020-07-19] MEDS ORDERED: D5W 250 ML IV 250 ML IV ONE (19:34)
[2020-07-19] MEDS ORDERED: NS 250 ML IV 250 ML IV ONE (19:36)
[2020-07-19] MEDS ORDERED: COREG TAB 12.5 MG ONE (20:00)
[2020-07-19] MEDS ORDERED: MUCINEX EXPECTORANT PO ONE (20:00)
[2020-07-19] MEDS ORDERED: NEURONTIN CAP 300 MG ONE (20:00)
[2020-07-19] MEDS: NEURONTIN CAP 300 MG PO SCH (20:23)
[2020-07-19] MEDS: PROTONIX TAB 40 MG PO SCH (20:23)
[2020-07-19] MEDS: VIBRAMYCIN 100 MG in D5W 250 ML IV 250 ML IV SCH (20:23)
[2020-07-19] MEDS: COREG TAB 12.5 MG PO SCH (20:23)
[2020-07-19] MEDS: XANAX PO SCH (20:24)
[2020-07-19] MEDS: MUCINEX EXPECTORANT PO SCH (20:24)
[2020-07-19] MEDS: DUONEB 0.5 MG/3 MG (3 mL) NEB SCH (20:52)
[2020-07-19 20:53] LABS: ABG ALLEN TEST POS
[2020-07-19 21:45] LABS: TROPONIN I < 0.02 ng/mL (0-1.5)
[2020-07-19 21:46] LABS: CKMB % 0.3 % (<4); CREATINE KINASE 1852 Units/L (26-192); CREATINE KINASE MB 5.3 ng/mL (0-4.0)
[2020-07-19] MEDS ORDERED: PATIENT'S HOME MEDICATION (Alprazolam 0.5 mg tablet) PO SCH (22:00)
[2020-07-19] MEDS: ULTRAM PO PRN (22:49)
[2020-07-20 05:24] LABS: BASOPHILS # (AUTO) 0.1 X10^3/uL (0.0-0.1); BASOPHILS % (AUTO) 0.4 % (0.2-1.0); EOSINOPHILS % (AUTO) 0.1 % (0.9-2.9); HEMATOCRIT 25.6 % (36.0-47.0); HEMOGLOBIN 7.8 g/dL (12.0-16.0); LYMPHOCYTES # (AUTO) 2.4 X10^3/uL (1.3-2.9); LYMPHOCYTES % (AUTO) 10.2 % (21.0-51.0); MEAN CORPUSCULAR HEMOGLOBIN 23.1 pg (27.0-34.0); MEAN CORPUSCULAR HGB CONC 30.6 g/dL (33.0-35.0); MEAN CORPUSCULAR VOLUME 75.5 fL (80.0-100.0); MONOCYTES # (AUTO) 1.6 x10^3/uL (0.3-0.8); MONOCYTES % (AUTO) 6.9 % (0.0-13.0); NEUTROPHILS # (AUTO) 19.3 x10^3/uL (2.2-4.8); NEUTROPHILS % (AUTO) 82.4 % (42.0-75.0); PLATELET COUNT 229 X10^3/uL (150.0-450.0); RED BLOOD COUNT 3.39 X10^6/uL (3.5-5.4); RED CELL DISTRIBUTION WIDTH 18.6 % (11.6-16.5); WHITE BLOOD COUNT 23.4 X10^3/uL (3.6-10.0)
[2020-07-20] MEDS: XANAX PO SCH ×3 (05:34→21:37)
[2020-07-20 05:40] LABS: ALANINE AMINOTRANSFERASE 14 Units/L (12-78); ALBUMIN 2.2 g/dL (3.4-5.0); ALKALINE PHOSPHATASE 76 Units/L (46-116); ASPARTATE AMINO TRANSFERASE 49 Units/L (15-37); BLOOD UREA NITROGEN 18 mg/dL (7-18); CALCIUM 8.2 mg/dL (8.5-10.1); CARBON DIOXIDE 34.8 mmol/L (21-32); CHLORIDE 102 mmol/L (98-107); COR CA(FOR HYPOALB) 9.6 mg/dL (8.5-10.1); CREATINE KINASE MB 2.6 ng/mL (0-4.0); CREATININE 1.09 mg/dL (0.55-1.02); SODIUM 143 mmol/L (136-145); TOTAL PROTEIN 6.7 g/dL (6.4-8.2); TROPONIN I < 0.02 ng/mL (0-1.5); eGFR NON BLACK RACES 52 (>60)
[2020-07-20] MEDS ORDERED: KLOR-CON PO PRN (05:46)
[2020-07-20] MEDS ORDERED: K-DUR TAB 20 MEQ PO PRN (05:46)
[2020-07-20] MEDS ORDERED: K-RIDER 10 MEQ/NS 100 ML 10 MEQ/100 ML BAG IV PRN (05:46)
[2020-07-20] MEDS ORDERED: POTASSIUM CHLORIDE LIQ 20 MEQ UDC PO PRN (05:46)
[2020-07-20] MEDS ORDERED: POTASSIUM CHLORIDE LIQ 20 MEQ UDC ONE (05:49)
[2020-07-20 06:09] LABS: PLATELET MORPHOLOGY COMMENT NORMAL (NORMAL)
--- NOTE | 2020-07-20 06:34 | RAD ---
HISTORYSOBSTUDYCHEST, 1 [id number]/02/2021.TECHNIQUEAP view of the chestFINDINGSPatient is rotated. Post median sternotomy. The cardiac silhouette is stably enlarged. Mediastinal contours appear stable. Mild worsening of left lung airspace and interstitial opacities. Right lung interstitial opacities appear similar. Right medial base airspace opacities appear similar. No definite pleural effusion or pneumothorax. Soft tissue attenuation limits evaluation.IMPRESSIONMild worsening in left lung airspace opacities may represent worsening pulmonary edema. Pneumonia not excluded.Electronically signed by: Jordan Ford (July 20, 2020 06:30:51)
[2020-07-20] MEDS: ASPIRIN EC 81 MG PO SCH (09:29)
[2020-07-20] MEDS: LASIX IVP SCH (09:29)
[2020-07-20] MEDS: VIBRAMYCIN 100 MG in D5W 250 ML IV 250 ML IV SCH (09:30)
[2020-07-20] MEDS: MICRO K EXTEN CAP 10 MEQ PO SCH (09:38)
[2020-07-20] MEDS: MUCINEX EXPECTORANT PO SCH ×2 (09:38→21:30)
[2020-07-20] MEDS: EFFEXOR XR 150 MG CAP 24-HR PO SCH (09:38)
[2020-07-20] MEDS: COREG TAB 12.5 MG PO SCH ×2 (09:38→21:30)
[2020-07-20] MEDS: NEURONTIN CAP 300 MG PO SCH ×2 (09:39→21:31)
[2020-07-20] MEDS: PROTONIX TAB 40 MG PO SCH ×2 (09:39→21:31)
[2020-07-20] MEDS: DUONEB 0.5 MG/3 MG (3 mL) NEB SCH ×4 (09:45→20:45)
[2020-07-20] MEDS: MUCOMYST 20% 200 MG/ML NEB SCH ×2 (10:21→20:45)
[2020-07-20] MEDS: NORCO 7.5/325 MG TAB PO PRN ×2 (10:34→19:44)
--- NOTE | 2020-07-20 10:41 | DR.H&P ---
H&P - History & Physical for Day of: H&P Date: 07/19/20 - Chief Complaint Chief Complaint: C/C/C, LETHARGIC, DECREASED OXYGEN SATURATIONS - History of Present Illness History of Present Illness: IS A 74 YEAR OLD PATIENT OF OURS. SHE CO ESENTED TO THE ER VIA EMS. EMS REPORTS THAT ON ARRIVAL TO HER HOME, PATIENT WAS NOTED TO BE LETHARGIC WITH OXYGEN SATURATIONS AT 71% ON ROOM AIR. FAMILY REPORTED THAT PATIENT HAS HAD COUGH, COLD, AND CONGESTION FOR SEVERAL DAYS. EMS APPLIED OXYGEN VIA NASAL CANNULA AND SATURATIOSN INCREASED TO 98%. ON ARRIVAL TO THE ER, PATIENT REMAINED LETHARGIC. AUSCULTATION OF LUNG SCHULTE REVEALED SCATTERED WHEEZING AND RHONCHI. SHE WAS NOTED TO HAVE 3+ PITTING EDEMA TO HER LOWER EXTREMITIES. ON ARRIVAL, VITALS WERE: 98.6-30-88-98%NC-116/56. LABS WERE OBTAINED. ABNORMAL LAB VALUES INCLUDE THE FOLLOWING: WBC 26.9, HGB 9.1, HCT 30.5, INR 1.32, POTASSIUM 3.3, CARBON DIXOIDE 34.2, BUN 19, CREATININE 1.25, GLUCOSE 130, CREATINE KINASE 746, ALBUMIN 2.8, GLOBULIN 5.3. A URINALYSIS WAS OBTAINED AND IS UNREMARKABLE. COVID-19 NEGATIVE. URINE AND BLOOD CULTURES WERE SET UP. A CHEST XRAY WAS OBTAINED AND REVEALED: Constellation of findings likely representing pulmonary edema secondary to congestive heart failure. Underlying infiltrate not entirely excluded. IN THE ER, SHE WAS GIVEN LASIX 40MG IV X 1 DOSE, POTASSIUM 20MEQ PO X 1 DOSE, VIBRAMYCIN 100MG IV X 1 DOSE. DECISION WAS MADE TO ADMIT PATIENT TO THE HOSPITAL FOR FURTHER EVALUATION AND TREATMENT OF PNEUMONIA, RESPIRATORY DISTRESS, CHF, PULMONARY EDEMA. SHE WAS STARTED ON FORTAZ 1G IV DAILY, DUONEBS QID, MUCOMYST IN NEBS BID, MUCINEX 600MG PO BID, ROBITUSSIN DM 10ML PO QID, SOLU-MEDROL 40MG IV Q8H, PROTONIX 40MG IV BID, NORCO 7.5/325MG PO Q6H PRN, THE POTASSIUM PROTOCOL, AND HER HOME MEDICATIONS WERE RESUMED. WE WILL CONTINUE WITH CURRENT PLAN OF CARE TODAY. OTHERWISE, WE PLAN TO FOLLOW UP WITH AM LABS AND CONTINUE TO MONITOR. TIME SPENT ON CLINICAL ASSESSMENT, REVIEWING LABS AND IMAGING, DECISION MAKING, AND DOCUMENTATION GREATER THAN 75 MINUTES. - Past Medical History Past Medical History: Anxiety, CHF, Depression, Dyslipidemia, GERD, Hypertension - Past Surgical History Surgical History: CABG/Valve Surgery, Spleenectomy - Family History Family Medical History: Diabetes Mellitus, Cancer, Coronary Artery Disease, Heart Failure, Hypertension - Social History Does patient currently use any type of tobacco product: Yes Have you used tobacco products in the last 12 months: Yes Type of Tobacco Use: PT VAPES Does any household member use tobacco: No Alcohol Use: None Drug Use: Prescription Drugs - Medications Home Medications: ciprofloxacin Allergy (Verified 08/08/19 00:25) naproxen [From Aleve] Allergy (Verified 02/19/20 11:26) Penicillins Allergy (Verified 08/07/19 10:54) promethazine Allergy (Verified 08/07/19 10:54) CONTINUE taking the following medications alprazolam 0.25 mg PO TID 07/19/20 [History] aspirin 81 mg PO DAILY 07/19/20 [History] doxycycline hyclate 100 mg PO BID 07/19/20 [History] guaifenesin [Mucus Relief ER] 600 mg PO BID 07/19/20 [History] - Review of Systems Constitutional: See HPI, Fever, Weakness Eyes: No Symptoms Reported ENT: No Symptoms Reported Respiratory: See HPI, Cough, Shortness of Breath, SOB with Excertion, Wheezing Cardiovascular: See HPI, Edema (BLE SWELLING ) Gastrointestinal: No Symptoms Reported Genitourinary: No Symptoms Reported Musculoskeletal: No Symptoms Reported Skin: No Symptoms Reported Neurological: Weakness, Confusion - Physical Exam Vital Signs: Temperature 100.0 F Pulse Rate 80 Respiratory Rate 30 Blood Pressure [Right Arm] 147/63 Blood Pressure [Left Arm] 111/53 Blood Pressure 111/51 O2 Sat by Pulse Oximetry 96 Oriented: Normal Eyes: Normal Ear: Normal Nose: Normal Throat: Normal Respiratory: Rhonchi Throughout, Wheezes Throughout Cardiovascular: Edema (BLE 3+ PITTING EDEMA ) : Normal Auscultation: Bowel Sounds: Normal Palpation: Normal Tenderness: Normal Skin: Normal Musculoskeletal: Normal Psychiatric: Normal Mood Description: Calm Affect: Normal Speech Pattern: Clear - Assessment/Plan (1) Pneumonia Qualifiers: Pneumonia type: due to unspecified organism Laterality: unspecified laterality Lung location: unspecified part of lung Qualified Code(s): J18.9 - Pneumonia, unspecified organism Status: Acute Plan: ADMIT, SUPPLEMENTAL OXYGEN, FORTAZ 1G IV DAILY, DUONEBS QID, MUCOMYST IN NEBS BID, MUCINEX 600MG PO BID, ROBITUSSIN DM 10ML PO QID, SOLU-MEDROL 40MG IV Q8H, PROTONIX 40MG IV BID, NORCO 7.5/325MG PO Q6H PRN, THE POTASSIUM PROTOCOL, AND HER HOME MEDICATIONS WERE RESUMED. (2) CHF (congestive heart failure) Qualifiers: Heart failure type: unspecified Heart failure chronicity: acute on chronic Qualified Code(s): I50.9 - Heart failure, unspecified Status: Chronic (3) Pulmonary edema Qualifiers: Chronicity: acute Qualified Code(s): J81.0 - Acute pulmonary edema Status: Acute (4) Respiratory distress Status: Acute - Allergies Allergies/Adverse Reactions: Allergies Allergy/AdvReac Type Severity Reaction Status Date / Time ciprofloxacin Allergy Verified 08/08/19 00:25 naproxen [From Aleve] Allergy Verified 02/19/20 11:26 Penicillins Allergy Verified 08/07/19 10:54 promethazine Allergy Verified 08/07/19 10:54
[2020-07-20] MEDS: FORTAZ or TAZICEF VIAL INJ 1 G in NS 100 ML IV + SPIKE MINIBAG* 100 ML IV SCH ×3 (11:15→21:39)
[2020-07-20] MEDS: SOLU-Medrol 40 MG VIAL IVP SCH ×3 (11:15→21:38)
[2020-07-20] MEDS: ROBITUSSIN DM PO SCH ×3 (17:12→21:36)
[2020-07-20] MEDS: TYLENOL 325 MG TAB PO PRN (17:37)
[2020-07-20 20:43] VITALS: BMI 44.8
[2020-07-21] MEDS: NORCO 7.5/325 MG TAB PO PRN ×3 (03:52→17:36)
[2020-07-21 04:34] LABS: BASOPHILS % (AUTO) 0.1 % (0.2-1.0); HEMOGLOBIN 7.8 g/dL (12.0-16.0); LYMPHOCYTES # (AUTO) 0.9 X10^3/uL (1.3-2.9); LYMPHOCYTES % (AUTO) 5.1 % (21.0-51.0); MEAN CORPUSCULAR HEMOGLOBIN 22.7 pg (27.0-34.0); MEAN CORPUSCULAR HGB CONC 29.9 g/dL (33.0-35.0); MONOCYTES # (AUTO) 0.2 x10^3/uL (0.3-0.8); NEUTROPHILS # (AUTO) 15.8 x10^3/uL (2.2-4.8); NEUTROPHILS % (AUTO) 93.8 % (42.0-75.0); PLATELET COUNT 239 X10^3/uL (150.0-450.0); RED BLOOD COUNT 3.42 X10^6/uL (3.5-5.4); RED CELL DISTRIBUTION WIDTH 18.7 % (11.6-16.5); WHITE BLOOD COUNT 16.9 X10^3/uL (3.6-10.0)
[2020-07-21 04:47] LABS: ALANINE AMINOTRANSFERASE 13 Units/L (12-78); ALBUMIN 2.2 g/dL (3.4-5.0); ALKALINE PHOSPHATASE 77 Units/L (46-116); ASPARTATE AMINO TRANSFERASE 29 Units/L (15-37); BLOOD UREA NITROGEN 15 mg/dL (7-18); CALCIUM 8.3 mg/dL (8.5-10.1); CARBON DIOXIDE 34.2 mmol/L (21-32); CHLORIDE 100 mmol/L (98-107); COR CA(FOR HYPOALB) 9.7 mg/dL (8.5-10.1); COR NA(FOR HYPERGLY) 142 mmol/L (136-145); CREATININE 1.02 mg/dL (0.55-1.02); SODIUM 140 mmol/L (136-145); TOTAL PROTEIN 7.1 g/dL (6.4-8.2); eGFR NON BLACK RACES 56 (>60)
[2020-07-21 04:58] LABS: ANISOCYTOSIS SLIGHT; GIANT PLATELET FEW; HYPOCHROMASIA SLIGHT; MICROCYTOSIS SLIGHT; PLATELET MORPHOLOGY COMMENT ABNORMAL (NORMAL)
[2020-07-21] MEDS: XANAX PO SCH ×3 (05:07→20:29)
[2020-07-21] MEDS: SOLU-Medrol 40 MG VIAL IVP SCH ×3 (05:09→22:14)
[2020-07-21] MEDS: FORTAZ or TAZICEF VIAL INJ 1 G in NS 100 ML IV + SPIKE MINIBAG* 100 ML IV SCH ×3 (05:11→22:14)
--- NOTE | 2020-07-21 06:23 | RAD ---
HISTORYSOBSTUDYCHEST, 1 [id number]/03/2021.TECHNIQUEAP view of the chestFINDINGSThe cardiac and mediastinal contours appear stable. Mild improvement in hazy and interstitial left lung opacities. Right medial base opacity appears mildly improved. No definite pleural effusion or pneumothorax. Soft tissue attenuation limits evaluation.IMPRESSIONMild improvement in bilateral lung opacities.Electronically signed by: Jordan Ford (July 21, 2020 06:21:02)
[2020-07-21] MEDS: TYLENOL 325 MG TAB PO PRN (09:00)
[2020-07-21] MEDS: EFFEXOR XR 150 MG CAP 24-HR PO SCH (09:26)
[2020-07-21] MEDS: LASIX IVP SCH (09:26)
[2020-07-21] MEDS: ASPIRIN EC 81 MG PO SCH (09:26)
[2020-07-21] MEDS: COREG TAB 12.5 MG PO SCH ×2 (09:26→20:29)
[2020-07-21] MEDS: NEURONTIN CAP 300 MG PO SCH ×2 (09:27→20:29)
[2020-07-21] MEDS: ROBITUSSIN DM PO SCH ×4 (09:27→20:29)
[2020-07-21] MEDS: MUCINEX EXPECTORANT PO SCH ×2 (09:27→20:29)
[2020-07-21] MEDS: MICRO K EXTEN CAP 10 MEQ PO SCH (09:27)
[2020-07-21] MEDS: PROTONIX TAB 40 MG PO SCH ×2 (09:27→20:29)
[2020-07-21] MEDS: MUCOMYST 20% 200 MG/ML NEB SCH ×2 (09:41→21:14)
[2020-07-21] MEDS: DUONEB 0.5 MG/3 MG (3 mL) NEB SCH ×4 (09:41→21:14)
[2020-07-21] MEDS ORDERED: ZOFRAN INJ 4 MG VIAL IVP PRN (10:04)
[2020-07-21 11:22] LABS: CKMB % 0.2 % (<4)
[2020-07-21 11:23] LABS: CREATINE KINASE 1575 Units/L (26-192)
--- NOTE | 2020-07-21 11:44 | PCM.PROG ---
Progress Note - Progress Note for Day of Date of Exam: 07/21/20 - Subjective Subjective: WAS ADMITTED FOR TREATMENT OF BRONCHOPNEUMONIA, CONGESTIVE HEART FAILURE, PULMONARY EDEMA, AND RESPIRATORY DISTRESS. TODAY, SHE IS ALERT AND ORIENTED, LYING IN BED ON MORNING ROUNDS. SHE CONTINUES WITH COMPLAINTS OF COUGH AND SHORTNESS OF BREATH. SHE IS CURRENTLY UTILIZING THE NASAL CANNULA AT 3 LITERS/MINUTE. ON EXAMINATION, HEART IS REGULAR IN RATE AND RHYTHM. BILATERAL LUNGS ARE NOTED WITH SCATTERED WHEEZING AND RHONCHI. ABDOMEN IS ROUND, SOFT, AND NON-TENDER WITH NORMAL BOWEL SOUNDS NOTED IN ALL QUADRANTS. BILATERAL LOWER EXTREMETIES ARE NOTED TO HAVE 2+ PITTING EDEMA. HER VITALS THIS MORNING ARE: 97.8-75-31-94%NC-147/68. LABS WERE OBTAINED. ABNORMAL LAB VALUES INCLUDE THE FOLLOWING: WBC 16.9, RBC 3.42, HGB 7.8, HCT 26.0, POTASSIUM 3.4, CARBON DIOXIDE 34.2, GLUCOSE 167, CALCIUM 8.3, BNP 1060, ALBUMIN 2.2, GLOBULIN 4.9. BLOOD AND SPUTUM CUTURES ARE PENDING. PRELIMINARY SPUTUM CULTURE DOES REPORT GROWTH OF YEAST. A CHEST XRAY WAS REPEATED THIS MORNING AND REVEALED: The cardiac and mediastinal contours appear stable. Mild improvement in hazy and interstitial left lung opacities. Right medial base opacity appears mildly improved. No definite pleural effusion or pneumothorax. Soft tissue attenuation limits evaluation. SHE IS CURRENTLY RECEIVING FORTAZ 1G IV DAILY, DUONEBS QID, MUCOMYST IN NEBS BID, MUCINEX 600MG PO BID, ROBITUSSIN DM 10ML PO QID, SOLU-MEDROL 40MG IV Q8H, PROTONIX 40MG IV BID, NORCO 7.5/325MG PO Q6H PRN, THE POTASSIUM PROTOCOL, AND HER HOME MEDICATIONS WERE RESUMED. TODAY, WE WILL ADD DIFLUCAN 200MG IV DAILY. OTHERWISE, WE PLAN TO FOLLOW UP WITH AM LABS AND CHEST XRAY AND CONTINUE TO MONITOR. TIME SPENT ON CLINICAL ASSESSMENT, REVIEWING LABS AND IMAGING, DECISION MAKING, AND DOCUMENTATION GREATER THAN 45 MINUTES. - Past Medical Family Social History Past Med/Fam/Surg Hx: No changes since H&P Allergies: Allergies ciprofloxacin Allergy (Verified 08/08/19 00:25) naproxen [From Aleve] Allergy (Verified 02/19/20 11:26) Penicillins Allergy (Verified 08/07/19 10:54) promethazine Allergy (Verified 08/07/19 10:54) - Review of Systems ROS: No change since H&P - Vital Signs and I&O's Vital Signs: Temperature 97.8 F Pulse Rate 70 Respiratory Rate 20 Blood Pressure [Right Arm] 147/63 Blood Pressure [Left Arm] 111/53 Blood Pressure 142/63 O2 Sat by Pulse Oximetry 92 Intake and Output: Intake & Output 07/18/20 07/19/20 07/20/20 07/21/20 11:59 11:59 11:59 11:59 Intake Total 993 / 993 1506 / 1506 Output Total 1700 / 1700 2425 / 2425 Balance -707 / -707 -919 / -919 - Physical Exam Oriented: Normal Eyes: Normal Ear: Normal Nose: Normal Throat: Normal Respiratory: Wheezes, Rhonchi Cardiovascular: Edema (BLE 2+ PITTING EDEMA ) : Normal Auscultation: Bowel Sounds: Normal Palpation: Normal Tenderness: Normal Skin: Normal Musculoskeletal: Normal Psychiatric: Normal Mood Description: Calm Affect: Normal Speech Pattern: Clear - Laboratory and Diagnostics Result Diagrams: 07/21/20 04:00 07/21/20 04:00 Labs: 07/20/20 11:02 Sputum - Expectorated Sputum Sputum Culture - Preliminary 07/20/20 11:02 Sputum - Expectorated Sputum - Final 07/19/20 13:20 Urine,Clean Catch Urine Culture - Final Laboratory WBC 16.9 X10^3/uL (3.6-10.0) H 07/21/20 04:00 RBC 3.42 X10^6/uL (3.5-5.4) L 07/21/20 04:00 Hgb 7.8 g/dL (12.0-16.0) L 07/21/20 04:00 Hct 26.0 % (36.0-47.0) L 07/21/20 04:00 MCV 76.0 fL (80.0-100.0) L 07/21/20 04:00 MCH 22.7 pg (27.0-34.0) L 07/21/20 04:00 MCHC 29.9 g/dL (33.0-35.0) L 07/21/20 04:00 RDW 18.7 % (11.6-16.5) H 07/21/20 04:00 Plt Count 239 X10^3/uL (150.0-450.0) 07/21/20 04:00 Plt Count Comment Adequate (ADEQUATE) 07/21/20 04:00 MPV 9.0 fL (7.4-11.0) 07/21/20 04:00 Neut % (Auto) 93.8 % (42.0-75.0) H 07/21/20 04:00 Lymph % (Auto) 5.1 % (21.0-51.0) L 07/21/20 04:00 [place] % (Auto) 1.0 % (0.0-13.0) 07/21/20 04:00 Eos % (Auto) 0.0 % (0.9-2.9) L 07/21/20 04:00 Baso % (Auto) 0.1 % (0.2-1.0) L 07/21/20 04:00 Neut # (Auto) 15.8 x10^3/uL (2.2-4.8) H 07/21/20 04:00 Lymph # (Auto) 0.9 X10^3/uL (1.3-2.9) L 07/21/20 04:00 [place] # (Auto) 0.2 x10^3/uL (0.3-0.8) L 07/21/20 04:00 Eos # (Auto) 0.0 x10^3/uL (0.0-0.2) 07/21/20 04:00 Baso # (Auto) 0.0 X10^3/uL (0.0-0.1) 07/21/20 04:00 Absolute Nucleated RBC 0.1 /100WBC 07/21/20 04:00 Total Counted 100 07/21/20 04:00 Neutrophils % (Manual) 95 % (39-76) H 07/21/20 04:00 Band Neutrophils % 6 % (0-10) 07/19/20 13:22 Lymphocytes % (Manual) 5 % (13-43) L 07/21/20 04:00 Monocytes % (Manual) 7 % (4-9) 07/20/20 04:35 Giant Platelets Few 07/21/20 04:00 Plt Morphology Comment Abnormal (NORMAL) A 07/21/20 04:00 RBC Morphology Abnormal (NORMAL) A 07/21/20 04:00 Hypochromasia Slight A 07/21/20 04:00 Anisocytosis Slight A 07/21/20 04:00 Microcytosis Slight A 07/21/20 04:00 PT 15.8 SECONDS (11.8-14.3) 07/19/20 19:56 INR Target Range - 07/19/20 19:56 INR 1.32 (0.8-1.3) H 07/19/20 19:56 APTT 24.9 SECONDS (22.9-36.5) 07/20/20 04:35 PTT Comment - 07/20/20 04:35 Sample Site Lrad 07/19/20 20:50 ABG pH 7.470 (7.35-7.45) H 07/19/20 20:50 ABG pCO2 55.0 mmHg (35.0-45.0) H* 07/19/20 20:50 ABG pO2 68.0 mmHg (80.0-100.0) L 07/19/20 20:50 ABG HCO3 40.0 mmol/L (22-26) H* 07/19/20 20:50 ABG O2 Saturation 94.0 % (90-100) 07/19/20 20:50 ABG Base Excess 14.0 mmol/L (-2.0-2.0) H 07/19/20 20:50 Rob Test Pos 07/19/20 20:50 A-a Gradient 91.0 mmHg 07/19/20 20:50 FiO2 32.0 07/19/20 20:50 Blood Gas Comments [place] abg well-mtf 07/19/20 20:50 Sodium 140 mmol/L (136-145) 07/21/20 04:00 Corrected Sodium 142 mmol/L (136-145) 07/21/20 04:00 Potassium 3.4 mmol/L (3.5-5.1) L 07/21/20 04:00 Chloride 100 mmol/L (98-107) 07/21/20 04:00 Carbon Dioxide 34.2 mmol/L (21-32) H 07/21/20 04:00 BUN 15 mg/dL (7-18) 07/21/20 04:00 Creatinine 1.02 mg/dL (0.55-1.02) 07/21/20 04:00 Est GFR (MDRD) Af Amer > 60 (>60) 07/21/20 04:00 Est GFR (MDRD) Non-Af 56 (>60) L 07/21/20 04:00 Glucose 167 mg/dL (65-99) H 07/21/20 04:00 Lactic Acid 1.8 mmol/L (0.4-2.0) 07/19/20 13:22 Calcium 8.3 mg/dL (8.5-10.1) L 07/21/20 04:00 Corrected Calcium 9.7 mg/dL (8.5-10.1) 07/21/20 04:00 Magnesium 2.0 mg/dL (1.7-2.9) 07/20/20 04:35 Total Bilirubin 0.40 mg/dL (0.2-1.0) 07/21/20 04:00 AST 29 Units/L (15-37) 07/21/20 04:00 ALT 13 Units/L (12-78) 07/21/20 04:00 Alkaline Phosphatase 77 Units/L (46-116) 07/21/20 04:00 Creatine Kinase 1575 Units/L (26-192) H 07/20/20 04:35 CK-MB (CK-2) 2.6 ng/mL (0-4.0) 07/20/20 04:35 CK/CKMB % Calc 0.2 % (<4) 07/20/20 04:35 Troponin I < 0.02 ng/mL (0-1.5) 07/20/20 04:35 B-Natriuretic Peptide 1060 pg/mL (0-79) H* 07/21/20 04:00 Total Protein 7.1 g/dL (6.4-8.2) 07/21/20 04:00 Albumin 2.2 g/dL (3.4-5.0) L 07/21/20 04:00 Globulin 4.9 g/dL (2.5-4.5) H 07/21/20 04:00 Albumin/Globulin Ratio 0.4 Ratio (1.1-2.1) L 07/21/20 04:00 Specimen Type Catherized urine 07/19/20 16:35 Urine Color Straw (YELLOW) 07/19/20 16:35 Urine Appearance Clear (CLEAR) 07/19/20 16:35 Urine pH 5.0 (5.0 - 8.0) 07/19/20 16:35 Ur Specific [place] 1.010 (1.000-1.030) 07/19/20 16:35 Urine Protein Negative (NEGATIVE) 07/19/20 16:35 Urine Glucose (UA) Negative (NEGATIVE) 07/19/20 16:35 Urine Ketones Negative (NEGATIVE) 07/19/20 16:35 Urine Occult Blood 2+ (NEGATIVE) 07/19/20 16:35 Urine Nitrite Negative (NEGATIVE) 07/19/20 16:35 Urine Bilirubin Negative (NEGATIVE) 07/19/20 16:35 Urine Urobilinogen Normal (NORMAL) 07/19/20 16:35 Ur Leukocyte Esterase Negative (NEGATIVE) 07/19/20 16:35 Urine RBC 0-2 /HPF (0-3) 07/19/20 16:35 Urine WBC None seen /HPF (0-5) 07/19/20 16:35 Ur Squamous Epith Cells Negative /HPF (NEGATIVE) 07/19/20 16:35 Urine Bacteria Negative /HPF (NEGATIVE) 07/19/20 16:35 Ur Culture Indicated? No/not indicated 07/19/20 16:35 SARS CoV-2 RNA Rapid JESSICA Negative (NEGATIVE) 07/19/20 16:30 - Plan (1) Pneumonia Status: Acute Qualifiers: Pneumonia type: due to unspecified organism Laterality: unspecified laterality Lung location: unspecified part of lung Qualified Code(s): J18.9 - Pneumonia, unspecified organism Plan: SUPPLEMENTAL OXYGEN, FORTAZ 1G IV DAILY, DIFLUCAN 200 MG IV DAILY, DUONEBS QID, MUCOMYST IN NEBS BID, MUCINEX 600MG PO BID, ROBITUSSIN DM 10ML PO QID, SOLU-MEDROL 40MG IV Q8H, PROTONIX 40MG IV BID, NORCO 7.5/325MG PO Q6H PRN, THE POTASSIUM PROTOCOL, AND HER HOME MEDICATIONS WERE RESUMED. (2) CHF (congestive heart failure) Status: Chronic Qualifiers: Heart failure type: unspecified Heart failure chronicity: acute on chronic Qualified Code(s): I50.9 - Heart failure, unspecified (3) Pulmonary edema Status: Acute Qualifiers: Chronicity: acute Qualified Code(s): J81.0 - Acute pulmonary edema (4) Respiratory distress Status: Acute (5) Yeast infection Status: Acute
[2020-07-21] MEDS: DIFLUCAN 200 MG IV PREMIX* 200 MG/100 ML BAG IV SCH (12:37)
[2020-07-21] MEDS: ULTRAM PO PRN (20:01)
[2020-07-22 04:54] LABS: BASOPHILS % (AUTO) 0.3 % (0.2-1.0); HEMATOCRIT 25.5 % (36.0-47.0); HEMOGLOBIN 7.7 g/dL (12.0-16.0); LYMPHOCYTES # (AUTO) 0.7 X10^3/uL (1.3-2.9); LYMPHOCYTES % (AUTO) 5.5 % (21.0-51.0); MEAN CORPUSCULAR HGB CONC 30.3 g/dL (33.0-35.0); MEAN PLATELET VOLUME 9.5 fL (7.4-11.0); MONOCYTES # (AUTO) 0.2 x10^3/uL (0.3-0.8); MONOCYTES % (AUTO) 1.6 % (0.0-13.0); NEUTROPHILS # (AUTO) 11.7 x10^3/uL (2.2-4.8); NEUTROPHILS % (AUTO) 92.6 % (42.0-75.0); PLATELET COUNT 244 X10^3/uL (150.0-450.0); RED BLOOD COUNT 3.35 X10^6/uL (3.5-5.4); RED CELL DISTRIBUTION WIDTH 18.5 % (11.6-16.5); WHITE BLOOD COUNT 12.6 X10^3/uL (3.6-10.0)
[2020-07-22 05:06] LABS: ALANINE AMINOTRANSFERASE 14 Units/L (12-78); ALBUMIN 2.1 g/dL (3.4-5.0); ALKALINE PHOSPHATASE 66 Units/L (46-116); ASPARTATE AMINO TRANSFERASE 17 Units/L (15-37); BLOOD UREA NITROGEN 17 mg/dL (7-18); CALCIUM 8.2 mg/dL (8.5-10.1); CARBON DIOXIDE 36.3 mmol/L (21-32); CHLORIDE 101 mmol/L (98-107); COR CA(FOR HYPOALB) 9.7 mg/dL (8.5-10.1); COR NA(FOR HYPERGLY) 142 mmol/L (136-145); CREATININE 0.93 mg/dL (0.55-1.02); SODIUM 141 mmol/L (136-145); TOTAL PROTEIN 6.7 g/dL (6.4-8.2); eGFR NON BLACK RACES > 60 (>60)
[2020-07-22] MEDS: FORTAZ or TAZICEF VIAL INJ 1 G in NS 100 ML IV + SPIKE MINIBAG* 100 ML IV SCH ×3 (05:25→21:05)
[2020-07-22 05:26] LABS: ANISOCYTOSIS SLIGHT; HYPOCHROMASIA SLIGHT; MICROCYTOSIS SLIGHT; PLATELET MORPHOLOGY COMMENT NORMAL (NORMAL)
[2020-07-22] MEDS: XANAX PO SCH ×3 (05:26→21:05)
[2020-07-22] MEDS: SOLU-Medrol 40 MG VIAL IVP SCH ×3 (05:26→21:05)
[2020-07-22] MEDS: DUONEB 0.5 MG/3 MG (3 mL) NEB SCH ×4 (08:08→20:15)
[2020-07-22] MEDS: MUCOMYST 20% 200 MG/ML NEB SCH ×2 (08:09→20:15)
[2020-07-22] MEDS: ASPIRIN EC 81 MG PO SCH (08:35)
[2020-07-22] MEDS: COREG TAB 12.5 MG PO SCH ×2 (08:36→21:05)
[2020-07-22] MEDS: EFFEXOR XR 150 MG CAP 24-HR PO SCH (08:37)
[2020-07-22] MEDS: MICRO K EXTEN CAP 10 MEQ PO SCH (08:37)
[2020-07-22] MEDS: DIFLUCAN 200 MG IV PREMIX* 200 MG/100 ML BAG IV SCH (08:37)
[2020-07-22] MEDS: LASIX IVP SCH (08:37)
[2020-07-22] MEDS: PROTONIX TAB 40 MG PO SCH ×2 (08:38→21:05)
[2020-07-22] MEDS: NEURONTIN CAP 300 MG PO SCH ×2 (08:38→21:05)
[2020-07-22] MEDS: MUCINEX EXPECTORANT PO SCH ×2 (08:38→21:05)
[2020-07-22] MEDS: ROBITUSSIN DM PO SCH ×4 (08:39→21:05)
[2020-07-22] MEDS: NORCO 7.5/325 MG TAB PO PRN (08:40)
[2020-07-22] MEDS: PERCOCET TAB 5/325 MG PO PRN ×2 (13:20→18:20)
[2020-07-22] MEDS ORDERED: NS 250 ML IV 250 ML IV ONE (13:58)
[2020-07-23 05:09] LABS: BASOPHILS % (AUTO) 0.1 % (0.2-1.0); HEMATOCRIT 26.8 % (36.0-47.0); HEMOGLOBIN 8.2 g/dL (12.0-16.0); LYMPHOCYTES # (AUTO) 0.7 X10^3/uL (1.3-2.9); LYMPHOCYTES % (AUTO) 8.7 % (21.0-51.0); MEAN CORPUSCULAR HEMOGLOBIN 23.2 pg (27.0-34.0); MEAN CORPUSCULAR HGB CONC 30.5 g/dL (33.0-35.0); MEAN CORPUSCULAR VOLUME 76.1 fL (80.0-100.0); MEAN PLATELET VOLUME 9.1 fL (7.4-11.0); MONOCYTES # (AUTO) 0.1 x10^3/uL (0.3-0.8); MONOCYTES % (AUTO) 1.6 % (0.0-13.0); NEUTROPHILS # (AUTO) 7.2 x10^3/uL (2.2-4.8); NEUTROPHILS % (AUTO) 89.6 % (42.0-75.0); PLATELET COUNT 250 X10^3/uL (150.0-450.0); RED BLOOD COUNT 3.53 X10^6/uL (3.5-5.4); RED CELL DISTRIBUTION WIDTH 18.3 % (11.6-16.5); WHITE BLOOD COUNT 8.1 X10^3/uL (3.6-10.0)
[2020-07-23 05:19] LABS: ALANINE AMINOTRANSFERASE 13 Units/L (12-78); ALBUMIN 2.1 g/dL (3.4-5.0); ALKALINE PHOSPHATASE 60 Units/L (46-116); ASPARTATE AMINO TRANSFERASE 11 Units/L (15-37); BLOOD UREA NITROGEN 21 mg/dL (7-18); CARBON DIOXIDE 36.8 mmol/L (21-32); CHLORIDE 100 mmol/L (98-107); COR CA(FOR HYPOALB) 9.5 mg/dL (8.5-10.1); COR NA(FOR HYPERGLY) 141 mmol/L (136-145); CREATININE 1.08 mg/dL (0.55-1.02); SODIUM 140 mmol/L (136-145); TOTAL PROTEIN 6.5 g/dL (6.4-8.2); eGFR NON BLACK RACES 52 (>60)
[2020-07-23] MEDS: FORTAZ or TAZICEF VIAL INJ 1 G in NS 100 ML IV + SPIKE MINIBAG* 100 ML IV SCH (06:13)
[2020-07-23] MEDS: SOLU-Medrol 40 MG VIAL IVP SCH (06:14)
[2020-07-23] MEDS: XANAX PO SCH (06:14)
[2020-07-23] MEDS: PERCOCET TAB 5/325 MG PO PRN (06:23)
[2020-07-23] MEDS: MICRO K EXTEN CAP 10 MEQ PO SCH (08:26)
[2020-07-23] MEDS: PROTONIX TAB 40 MG PO SCH (08:26)
[2020-07-23] MEDS: ROBITUSSIN DM PO SCH (08:26)
[2020-07-23] MEDS: DIFLUCAN 200 MG IV PREMIX* 200 MG/100 ML BAG IV SCH (08:27)
[2020-07-23] MEDS: ASPIRIN EC 81 MG PO SCH (08:27)
[2020-07-23] MEDS: LASIX IVP SCH (08:27)
[2020-07-23] MEDS: EFFEXOR XR 150 MG CAP 24-HR PO SCH (08:28)
[2020-07-23] MEDS: COREG TAB 12.5 MG PO SCH (08:28)
[2020-07-23] MEDS: MUCINEX EXPECTORANT PO SCH (08:28)
[2020-07-23] MEDS: NEURONTIN CAP 300 MG PO SCH (08:28)
--- NOTE | 2020-07-23 09:31 | RAD ---
HISTORYCHF, PULMONARY EDEMA, PNEUONMIA, RESPSTUDYCHEST, 1 [id number].[id number] view of the chestFINDINGSStatus post median sternotomy and CABG. Patient is mildly rotated. Cardiac silhouette is borderline in size. There is mild residual left mid upper lung patchy opacity. Left lower lung opacities have improved. No definite pleural effusion or pneumothoraxIMPRESSIONContinued improvement in lung opacities with mild residual left mid upper lung opacity remaining.Electronically signed by: Jordan Ford (July 23, 2020 09:29:32)
[2020-07-23] MEDS: DUONEB 0.5 MG/3 MG (3 mL) NEB SCH (09:40)
[2020-07-23] MEDS: MUCOMYST 20% 200 MG/ML NEB SCH (09:40)
--- NOTE | 2020-07-23 11:09 | PCM.PROG ---
Progress Note - Progress Note for Day of Date of Exam: 07/22/20 - Subjective Subjective: WAS ADMITTED FOR TREATMENT OF BRONCHOPNEUMONIA, CONGESTIVE HEART FAILURE, PULMONARY EDEMA, AND RESPIRATORY DISTRESS. TODAY, SHE IS ALERT AND ORIENTED, LYING IN BED ON MORNING ROUNDS. SHE CONTINUES WITH COMPLAINTS OF COUGH AND SHORTNESS OF BREATH, BUT REPORTS SLIGHT IMPROVEMENT SINCE PREVIOUS DAY. SHE IS CURRENTLY UTILIZING THE NASAL CANNULA AT 2 LITERS/MINUTE. ON EXAMINATION, HEART IS REGULAR IN RATE AND RHYTHM. BILATERAL LUNGS ARE NOTED WITH SCATTERED WHEEZING AND RHONCHI. ABDOMEN IS ROUND, SOFT, AND NON-TENDER WITH NORMAL BOWEL SOUNDS NOTED IN ALL QUADRANTS. BILATERAL LOWER EXTREMETIES ARE NOTED TO HAVE 1+ PITTING EDEMA. HER VITALS THIS MORNING ARE: 98.7-68-20-95%-151/86. LABS WERE OBTAINED. ABNORMAL LAB VALUES INCLUDE THE FOLLOWING: WBC 12.6, RBC 3.35, HGB 7.7, HCT 25.5, POTASSIUM 3.4, CARBON DIOXIDE 36.3, GLUCOSE 146, CALCIUM 8.2, BNP 1030, ALBUMIN 2.1, GLOBULIN 4.6. BLOOD AND SPUTUM CUTURES ARE PENDING. PRELIMINARY SPUTUM CULTURE DOES REPORT GROWTH OF YEAST. SHE IS CURRENTLY RECEIVING FORTAZ 1G IV DAILY, DIFLUCAN 200MG IV DAILY, DUONEBS QID, MUCOMYST IN NEBS BID, MUCINEX 600MG PO BID, ROBITUSSIN DM 10ML PO QID, SOLU-MEDROL 40MG IV Q8H, PROTONIX 40MG IV BID, NORCO 7.5/325MG PO Q6H PRN, THE POTASSIUM PROTOCOL, AND HER HOME MEDICATIONS WERE RESUMED. WE WILL CONTINUE WITH CURRENT PLAN OF CARE TODAY. OTHERWISE, WE PLAN TO FOLLOW UP WITH AM LABS AND CHEST XRAY AND CONTINUE TO MONITOR. TIME SPENT ON CLINICAL ASSESSMENT, REVIEWING LABS AND IMAGING, DECISION MAKING, AND DOCUMENTATION GREATER THAN 45 MINUTES. - Past Medical Family Social History Past Med/Fam/Surg Hx: No changes since H&P Allergies: Allergies ciprofloxacin Allergy (Verified 08/08/19 00:25) naproxen [From Aleve] Allergy (Verified 02/19/20 11:26) Penicillins Allergy (Verified 08/07/19 10:54) promethazine Allergy (Verified 08/07/19 10:54) - Review of Systems ROS: No change since H&P - Vital Signs and I&O's Vital Signs: Temperature 97.3 F Pulse Rate 68 Respiratory Rate 22 Blood Pressure [Right Arm] 147/63 Blood Pressure [Left Arm] 111/53 Blood Pressure 120/64 O2 Sat by Pulse Oximetry 95 Intake and Output: Intake & Output 07/20/20 07/21/20 07/22/20 07/23/20 11:59 11:59 11:59 11:59 Intake Total 993 / 993 1506 / 1506 2507 / 2507 2369 / 2369 Output Total 1700 / 1700 2425 / 2425 2400 / 2400 2925 / 2925 Balance -707 / -707 -919 / -919 107 / 107 -556 / -556 - Physical Exam Oriented: Normal Eyes: Normal Ear: Normal Nose: Normal Throat: Normal Respiratory: Wheezes, Rhonchi Cardiovascular: Edema (BLE 1+ PITTING EDEMA ) : Normal Auscultation: Bowel Sounds: Normal Palpation: Normal Tenderness: Normal Skin: Normal Musculoskeletal: Normal Psychiatric: Normal Mood Description: Calm Affect: Normal Speech Pattern: Clear, Appropriate - Laboratory and Diagnostics Result Diagrams: 07/23/20 04:20 07/23/20 04:20 Labs: 07/20/20 11:02 Sputum - Expectorated Sputum Sputum Culture - Final 07/20/20 11:02 Sputum - Expectorated Sputum - Final 07/19/20 13:29 Blood Blood Culture - Preliminary 07/19/20 13:22 Blood Blood Culture - Preliminary 07/19/20 13:20 Urine,Clean Catch Urine Culture - Final Laboratory WBC 8.1 X10^3/uL (3.6-10.0) 07/23/20 04:20 RBC 3.53 X10^6/uL (3.5-5.4) 07/23/20 04:20 Hgb 8.2 g/dL (12.0-16.0) L 07/23/20 04:20 Hct 26.8 % (36.0-47.0) L 07/23/20 04:20 MCV 76.1 fL (80.0-100.0) L 07/23/20 04:20 MCH 23.2 pg (27.0-34.0) L 07/23/20 04:20 MCHC 30.5 g/dL (33.0-35.0) L 07/23/20 04:20 RDW 18.3 % (11.6-16.5) H 07/23/20 04:20 Plt Count 250 X10^3/uL (150.0-450.0) 07/23/20 04:20 Plt Count Comment Adequate (ADEQUATE) 07/22/20 04:00 MPV 9.1 fL (7.4-11.0) 07/23/20 04:20 Neut % (Auto) 89.6 % (42.0-75.0) H 07/23/20 04:20 Lymph % (Auto) 8.7 % (21.0-51.0) L 07/23/20 04:20 [place] % (Auto) 1.6 % (0.0-13.0) 07/23/20 04:20 Eos % (Auto) 0.0 % (0.9-2.9) L 07/23/20 04:20 Baso % (Auto) 0.1 % (0.2-1.0) L 07/23/20 04:20 Neut # (Auto) 7.2 x10^3/uL (2.2-4.8) H 07/23/20 04:20 Lymph # (Auto) 0.7 X10^3/uL (1.3-2.9) L 07/23/20 04:20 [place] # (Auto) 0.1 x10^3/uL (0.3-0.8) L 07/23/20 04:20 Eos # (Auto) 0.0 x10^3/uL (0.0-0.2) 07/23/20 04:20 Baso # (Auto) 0.0 X10^3/uL (0.0-0.1) 07/23/20 04:20 Absolute Nucleated RBC 0.1 /100WBC 07/23/20 04:20 Total Counted 100 07/22/20 04:00 Neutrophils % (Manual) 95 % (39-76) H 07/22/20 04:00 Band Neutrophils % 6 % (0-10) 07/19/20 13:22 Lymphocytes % (Manual) 5 % (13-43) L 07/22/20 04:00 Monocytes % (Manual) 7 % (4-9) 07/20/20 04:35 Giant Platelets Few 07/21/20 04:00 Plt Morphology Comment Normal (NORMAL) 07/22/20 04:00 RBC Morphology Abnormal (NORMAL) A 07/22/20 04:00 Hypochromasia Slight A 07/22/20 04:00 Anisocytosis Slight A 07/22/20 04:00 Microcytosis Slight A 07/22/20 04:00 PT 15.8 SECONDS (11.8-14.3) 07/19/20 19:56 INR Target Range - 07/19/20 19:56 INR 1.32 (0.8-1.3) H 07/19/20 19:56 APTT 24.9 SECONDS (22.9-36.5) 07/20/20 04:35 PTT Comment - 07/20/20 04:35 Sample Site Lrad 07/19/20 20:50 ABG pH 7.470 (7.35-7.45) H 07/19/20 20:50 ABG pCO2 55.0 mmHg (35.0-45.0) H* 07/19/20 20:50 ABG pO2 68.0 mmHg (80.0-100.0) L 07/19/20 20:50 ABG HCO3 40.0 mmol/L (22-26) H* 07/19/20 20:50 ABG O2 Saturation 94.0 % (90-100) 07/19/20 20:50 ABG Base Excess 14.0 mmol/L (-2.0-2.0) H 07/19/20 20:50 Rob Test Pos 07/19/20 20:50 A-a Gradient 91.0 mmHg 07/19/20 20:50 FiO2 32.0 07/19/20 20:50 Blood Gas Comments [place] abg well-mtf 07/19/20 20:50 Sodium 140 mmol/L (136-145) 07/23/20 04:20 Corrected Sodium 141 mmol/L (136-145) 07/23/20 04:20 Potassium 3.6 mmol/L (3.5-5.1) 07/23/20 04:20 Chloride 100 mmol/L (98-107) 07/23/20 04:20 Carbon Dioxide 36.8 mmol/L (21-32) H 07/23/20 04:20 BUN 21 mg/dL (7-18) H 07/23/20 04:20 Creatinine 1.08 mg/dL (0.55-1.02) H 07/23/20 04:20 Est GFR (MDRD) Af Amer > 60 (>60) 07/23/20 04:20 Est GFR (MDRD) Non-Af 52 (>60) L 07/23/20 04:20 Glucose 150 mg/dL (65-99) H 07/23/20 04:20 Lactic Acid 1.8 mmol/L (0.4-2.0) 07/19/20 13:22 Calcium 8.0 mg/dL (8.5-10.1) L 07/23/20 04:20 Corrected Calcium 9.5 mg/dL (8.5-10.1) 07/23/20 04:20 Magnesium 2.0 mg/dL (1.7-2.9) 07/20/20 04:35 Total Bilirubin 0.20 mg/dL (0.2-1.0) 07/23/20 04:20 AST 11 Units/L (15-37) L 07/23/20 04:20 ALT 13 Units/L (12-78) 07/23/20 04:20 Alkaline Phosphatase 60 Units/L (46-116) 07/23/20 04:20 Creatine Kinase 1575 Units/L (26-192) H 07/20/20 04:35 CK-MB (CK-2) 2.6 ng/mL (0-4.0) 07/20/20 04:35 CK/CKMB % Calc 0.2 % (<4) 07/20/20 04:35 Troponin I < 0.02 ng/mL (0-1.5) 07/20/20 04:35 B-Natriuretic Peptide 566 pg/mL (0-79) H* 07/23/20 04:20 Total Protein 6.5 g/dL (6.4-8.2) 07/23/20 04:20 Albumin 2.1 g/dL (3.4-5.0) L 07/23/20 04:20 Globulin 4.4 g/dL (2.5-4.5) 07/23/20 04:20 Albumin/Globulin Ratio 0.5 Ratio (1.1-2.1) L 07/23/20 04:20 Specimen Type Catherized urine 07/19/20 16:35 Urine Color Straw (YELLOW) 07/19/20 16:35 Urine Appearance Clear (CLEAR) 07/19/20 16:35 Urine pH 5.0 (5.0 - 8.0) 07/19/20 16:35 Ur Specific [place] 1.010 (1.000-1.030) 07/19/20 16:35 Urine Protein Negative (NEGATIVE) 07/19/20 16:35 Urine Glucose (UA) Negative (NEGATIVE) 07/19/20 16:35 Urine Ketones Negative (NEGATIVE) 07/19/20 16:35 Urine Occult Blood 2+ (NEGATIVE) 07/19/20 16:35 Urine Nitrite Negative (NEGATIVE) 07/19/20 16:35 Urine Bilirubin Negative (NEGATIVE) 07/19/20 16:35 Urine Urobilinogen Normal (NORMAL) 07/19/20 16:35 Ur Leukocyte Esterase Negative (NEGATIVE) 07/19/20 16:35 Urine RBC 0-2 /HPF (0-3) 07/19/20 16:35 Urine WBC None seen /HPF (0-5) 07/19/20 16:35 Ur Squamous Epith Cells Negative /HPF (NEGATIVE) 07/19/20 16:35 Urine Bacteria Negative /HPF (NEGATIVE) 07/19/20 16:35 Ur Culture Indicated? No/not indicated 07/19/20 16:35 SARS CoV-2 RNA Rapid JESSICA Negative (NEGATIVE) 07/19/20 16:30 - Plan (1) Pneumonia Status: Acute Qualifiers: Pneumonia type: due to unspecified organism Laterality: unspecified laterality Lung location: unspecified part of lung Qualified Code(s): J18.9 - Pneumonia, unspecified organism Plan: SUPPLEMENTAL OXYGEN, FORTAZ 1G IV DAILY, DIFLUCAN 200 MG IV DAILY, DUONEBS QID, MUCOMYST IN NEBS BID, MUCINEX 600MG PO BID, ROBITUSSIN DM 10ML PO QID, SOLU-MEDROL 40MG IV Q8H, PROTONIX 40MG IV BID, NORCO 7.5/325MG PO Q6H PRN, THE POTASSIUM PROTOCOL, AND HER HOME MEDICATIONS WERE RESUMED. (2) CHF (congestive heart failure) Status: Chronic Qualifiers: Heart failure type: unspecified Heart failure chronicity: acute on chronic Qualified Code(s): I50.9 - Heart failure, unspecified (3) Pulmonary edema Status: Acute Qualifiers: Chronicity: acute Qualified Code(s): J81.0 - Acute pulmonary edema (4) Respiratory distress Status: Acute (5) Yeast infection Status: Acute
[2020-07-23 13:17] VITALS: BP 169/72
[2020-07-23] MEDS ORDERED: COLACE CAP 100 MG PO SCH (21:00)
[2020-07-23] MEDS ORDERED: MILK OF MAGNESIA PO SCH (21:00)
== END 2020-07-23 13:10 | disposition home health service (06) | DRG 193 ==
LOC: ER 12:47 → ICU 18:02
PROVIDERS: ADMIT Internal Medicine; ATTEND Internal Medicine
DX: J18.8 Other pneumonia, unspecified organism; B37.9 Candidiasis, unspecified; R94.31 Abnormal electrocardiogram [ECG] [EKG]; R26.89 Other abnormalities of gait and mobility; I11.0 Hypertensive heart disease with heart failure; Z20.822 Contact with and (suspected) exposure to COVID-19; I50.43 Acute on chronic combined systolic (congestive) and diastolic (congestive) heart failure; R06.03 Acute respiratory distress; R06.02 Shortness of breath; R79.1 Abnormal coagulation profile

== ENCOUNTER 2020-08-25 14:39 | Inpatient (IN) ==
[2020-08-25] MEDS ORDERED: LASIX IVP ONE ×2 (15:47→16:11)
--- NOTE | 2020-08-25 15:50 | DR.GENAD ---
HPI Time Seen Time Seen by Provider: 08/25/20 15:47 PCP Primary Care Physician: va HPI Comment HPI Comment: Patient brought in by family. Notes that she has had increased weakness and bilateral leg swelling. Has h/o CHF and when she has exacerbations, this is how it presents itself. Denies any chest pain or shortness of breath. Complaint/Symptoms Chief Complaint:: weakness since yesterday or the day before. pt is poor historian. states she has not walked since then. when asked about her using the restroom states she has a chair she uses. complains of pain and swelling to both legs as well as pain to her back. COVID-19 Coronavirus risk:travel/contact w/high risk person: No Has patient experienced Coronavirus symptoms: No Source History Provided: Patient and EMS Mode of Arrival Mode of Arrival: EMS Timing Onset of Chief Complaint: 08/24/20 PMH PMH Past Medical History: Yes Past Medical History: Anxiety, CHF, Depression, Dyslipidemia, GERD and Hypertension Past Surgical History: Yes Surgical History: CABG/Valve Surgery and Spleenectomy Family History History of Family Medical Conditions: Yes Family Medical History: Diabetes Mellitus, Cancer, Coronary Artery Disease, Heart Failure and Hypertension Social History Does any household member use tobacco: Yes Do you use any recreational Drugs:: No Lives With: Family Lives Where: Home Travel Risk Coronavirus risk:travel/contact w/high risk person: No Has patient experienced Coronavirus symptoms: No Infectious screening In the last 2 months have you had wt loss of >10#?: NO Have you had fever, night sweats or hemotysis?: No Have you traveled outside the country in the last 6 months?: No Isolation: Standard PE Vital Signs Vitals: Temperature 98.7 F Pulse Rate 83 Respiratory Rate 20 Blood Pressure [Right Arm] 128/60 Blood Pressure 191/68 O2 Sat by Pulse Oximetry 98 COURSE Treatment Treatment: Patient notes that she feels better. Family however, notes that patient is unable to participate in her ADLs over the last 24 hours. Reevaluation 1st: Improved (patient with good diuresis after IV Lasix in ED) Consultation Called: 17:35 Consultation Comments: Spoke with Dr. Chapin who accepts patient for admission. [facility] Labs Reviewed Laboratory Results Reviewed?: Yes Result Diagrams: 08/25/20 16:26 08/25/20 16:26 Laboratory: WBC 7.3 X10^3/uL (3.6-10.0) 08/25/20 16:26 RBC 3.98 X10^6/uL (3.5-5.4) 08/25/20 16:26 Hgb 9.9 g/dL (12.0-16.0) L 08/25/20 16:26 Hct 31.5 % (36.0-47.0) L 08/25/20 16:26 MCV 79.2 fL (80.0-100.0) L 08/25/20 16:26 MCH 25.0 pg (27.0-34.0) L 08/25/20 16:26 MCHC 31.5 g/dL (33.0-35.0) L 08/25/20 16:26 RDW 21.0 % (11.6-16.5) H 08/25/20 16:26 Plt Count 300 X10^3/uL (150.0-450.0) 08/25/20 16:26 Plt Count Comment Adequate (ADEQUATE) 08/25/20 16:26 MPV 8.1 fL (7.4-11.0) 08/25/20 16:26 Neut % (Auto) 59.6 % (42.0-75.0) 08/25/20 16:26 Lymph % (Auto) 29.3 % (21.0-51.0) 08/25/20 16:26 [place] % (Auto) 9.4 % (0.0-13.0) 08/25/20 16:26 Eos % (Auto) 0.9 % (0.9-2.9) 08/25/20 16:26 Baso % (Auto) 0.8 % (0.2-1.0) 08/25/20 16:26 Neut # (Auto) 4.3 x10^3/uL (2.2-4.8) 08/25/20 16:26 Lymph # (Auto) 2.1 X10^3/uL (1.3-2.9) 08/25/20 16:26 [place] # (Auto) 0.7 x10^3/uL (0.3-0.8) 08/25/20 16:26 Eos # (Auto) 0.1 x10^3/uL (0.0-0.2) 08/25/20 16:26 Baso # (Auto) 0.1 X10^3/uL (0.0-0.1) 08/25/20 16:26 Absolute Nucleated RBC 0.0 /100WBC 08/25/20 16:26 Total Counted 100 08/25/20 16:26 Neutrophils % (Manual) 68 % (39-76) 08/25/20 16:26 Lymphocytes % (Manual) 25 % (13-43) 08/25/20 16:26 Monocytes % (Manual) 7 % (4-9) 08/25/20 16:26 Plt Morphology Comment Normal (NORMAL) 08/25/20 16:26 RBC Morphology Normal (NORMAL) 08/25/20 16:26 Anisocytosis 1+ A 08/25/20 16:26 Sodium 145 mmol/L (136-145) 08/25/20 16:26 Corrected Sodium TNP 08/25/20 16:26 Potassium 3.5 mmol/L (3.5-5.1) 08/25/20 16:26 Chloride 107 mmol/L (98-107) 08/25/20 16:26 Carbon Dioxide 32.4 mmol/L (21-32) H 08/25/20 16:26 BUN 9 mg/dL (7-18) 08/25/20 16:26 Creatinine 0.93 mg/dL (0.55-1.02) 08/25/20 16:26 Est GFR (MDRD) Af Amer > 60 (>60) 08/25/20 16:26 Est GFR (MDRD) Non-Af > 60 (>60) 08/25/20 16:26 Glucose 102 mg/dL (65-99) H 08/25/20 16:26 Calcium 8.7 mg/dL (8.5-10.1) 08/25/20 16:26 Corrected Calcium 9.7 mg/dL (8.5-10.1) 08/25/20 16:26 Magnesium 2.1 mg/dL (1.7-2.9) 08/25/20 16:26 Total Bilirubin 0.30 mg/dL (0.2-1.0) 08/25/20 16:26 AST 17 Units/L (15-37) 08/25/20 16:26 ALT 18 Units/L (12-78) 08/25/20 16:26 Alkaline Phosphatase 91 Units/L (46-116) 08/25/20 16:26 Creatine Kinase 108 Units/L (26-192) 08/25/20 16:26 CK-MB (CK-2) 2.6 ng/mL (0-4.0) 08/25/20 16:26 CK/CKMB % Calc 2.4 % (<4) 08/25/20 16:26 Troponin I < 0.02 ng/mL (0-1.5) 08/25/20 16:26 B-Natriuretic Peptide 174 pg/mL (0-79) H 08/25/20 16:26 Total Protein 6.8 g/dL (6.4-8.2) 08/25/20 16:26 Albumin 2.7 g/dL (3.4-5.0) L 08/25/20 16:26 Globulin 4.1 g/dL (2.5-4.5) 08/25/20 16:26 Albumin/Globulin Ratio 0.7 Ratio (1.1-2.1) L 08/25/20 16:26 XRAY X-ray Results: HISTORY weakness since yesterday or the day before. pt is poor historian. states she has not walked since then. STUDY CHEST, 1 VIEW COMPARISON 07/29/2019 FINDINGS The trachea is midline. Heart size remains enlarged with previous median sternotomy noted. Prominence of the pulmonary vasculature and mild central peribronchial thickening is similar to prior likely representing chronic pulmonary vascular congestion as there is no convincing acute airspace disease or CHF. No pleural effusion or pneumothorax. No acute osseous abnormality. IMPRESSION See above. Electronically signed by: KAREN MOFFETT (Aug 25, 2020 16:57:03) Opioid Opioid Risk Tool Age (Claus box if 16-45): No History of Preadolescent Sexual Abuse: No Total: 0 Total Score Risk Category: Low Risk Copyright: Sim [employer] predicting aberrant behaviors Diagnosis Discharge Problem: CHF (congestive heart failure)
[2020-08-25 16:37] LABS: BASOPHILS # (AUTO) 0.1 X10^3/uL (0.0-0.1); BASOPHILS % (AUTO) 0.8 % (0.2-1.0); EOSINOPHILS # (AUTO) 0.1 x10^3/uL (0.0-0.2); EOSINOPHILS % (AUTO) 0.9 % (0.9-2.9); HEMATOCRIT 31.5 % (36.0-47.0); HEMOGLOBIN 9.9 g/dL (12.0-16.0); LYMPHOCYTES # (AUTO) 2.1 X10^3/uL (1.3-2.9); LYMPHOCYTES % (AUTO) 29.3 % (21.0-51.0); MEAN CORPUSCULAR HGB CONC 31.5 g/dL (33.0-35.0); MEAN CORPUSCULAR VOLUME 79.2 fL (80.0-100.0); MEAN PLATELET VOLUME 8.1 fL (7.4-11.0); MONOCYTES # (AUTO) 0.7 x10^3/uL (0.3-0.8); MONOCYTES % (AUTO) 9.4 % (0.0-13.0); NEUTROPHILS # (AUTO) 4.3 x10^3/uL (2.2-4.8); NEUTROPHILS % (AUTO) 59.6 % (42.0-75.0); PLATELET COUNT 300 X10^3/uL (150.0-450.0); RED BLOOD COUNT 3.98 X10^6/uL (3.5-5.4); WHITE BLOOD COUNT 7.3 X10^3/uL (3.6-10.0)
--- NOTE | 2020-08-25 16:58 | RAD ---
HISTORYweakness since yesterday or the day before. pt is poor historian. states she has not walked since then.STUDYCHEST, 1 [id number]/11/2020FINDINGSThe trachea is midline. Heart size remains enlarged with previous median sternotomy noted. Prominence of the pulmonary vasculature and mild central peribronchial thickening is similar to prior likely representing chronic pulmonary vascular congestion as there is no convincing acute airspace disease or CHF.No pleural effusion or pneumothorax. No acute osseous abnormality.IMPRESSIONSee above.Electronically signed by: KAREN MOFFETT (Aug 25, 2020 16:57:03)
[2020-08-25 16:59] LABS: ALANINE AMINOTRANSFERASE 18 Units/L (12-78); ALBUMIN 2.7 g/dL (3.4-5.0); ALKALINE PHOSPHATASE 91 Units/L (46-116); ASPARTATE AMINO TRANSFERASE 17 Units/L (15-37); BLOOD UREA NITROGEN 9 mg/dL (7-18); CALCIUM 8.7 mg/dL (8.5-10.1); CARBON DIOXIDE 32.4 mmol/L (21-32); CHLORIDE 107 mmol/L (98-107); CKMB % 2.4 % (<4); COR CA(FOR HYPOALB) 9.7 mg/dL (8.5-10.1); CREATINE KINASE 108 Units/L (26-192); CREATINE KINASE MB 2.6 ng/mL (0-4.0); CREATININE 0.93 mg/dL (0.55-1.02); MAGNESIUM 2.1 mg/dL (1.7-2.9); SODIUM 145 mmol/L (136-145); TOTAL PROTEIN 6.8 g/dL (6.4-8.2); TROPONIN I < 0.02 ng/mL (0-1.5); eGFR NON BLACK RACES > 60 (>60)
[2020-08-25 17:01] LABS: PLATELET MORPHOLOGY COMMENT NORMAL (NORMAL)
[2020-08-25 17:02] LABS: ANISOCYTOSIS 1+
[2020-08-25 17:36] LABS: APPEARANCE,URINE CLEAR (CLEAR); BILIRUBIN,URINE NEGATIVE (NEGATIVE); BLOOD/HEMOGLOBIN,URINE NEGATIVE (NEGATIVE); COLOR,URINE YELLOW (YELLOW); GLUCOSE, URINE NEGATIVE (NEGATIVE); KETONES,URINE NEGATIVE (NEGATIVE); LEUKOCYTE ESTERASE ,URINE NEGATIVE (NEGATIVE); NITRITES,URINE NEGATIVE (NEGATIVE); PROTEIN,URINE NEGATIVE (NEGATIVE); UROBILINOGEN,URINE NORMAL (NORMAL)
[2020-08-25 18:58] LABS: CKMB % 1.9 % (<4); CREATINE KINASE 119 Units/L (26-192); CREATINE KINASE MB 2.3 ng/mL (0-4.0); TROPONIN I < 0.02 ng/mL (0-1.5)
[2020-08-25] MEDS ORDERED: DUONEB 0.5 MG/3 MG (3 mL) NEB ONE (20:33)
[2020-08-25 20:50] VITALS: BMI 38.9
[2020-08-25] MEDS: COREG TAB 12.5 MG PO SCH (21:27)
[2020-08-25] MEDS: PROTONIX TAB 40 MG PO SCH (21:27)
[2020-08-25] MEDS: PEPCID TAB 40 MG PO SCH (21:28)
[2020-08-25] MEDS: NEURONTIN CAP 300 MG PO SCH (21:28)
[2020-08-25] MEDS: DUONEB 0.5 MG/3 MG (3 mL) NEB SCH (21:40)
[2020-08-25 23:57] LABS: CKMB % 2.6 % (<4); CREATINE KINASE 90 Units/L (26-192); CREATINE KINASE MB 2.3 ng/mL (0-4.0); TROPONIN I < 0.02 ng/mL (0-1.5)
[2020-08-26] MEDS: ULTRAM PO PRN ×2 (03:28→11:04)
[2020-08-26 05:37] LABS: BASOPHILS % (AUTO) 0.7 % (0.2-1.0); EOSINOPHILS % (AUTO) 0.4 % (0.9-2.9); HEMATOCRIT 27.6 % (36.0-47.0); HEMOGLOBIN 8.8 g/dL (12.0-16.0); LYMPHOCYTES # (AUTO) 1.9 X10^3/uL (1.3-2.9); MEAN CORPUSCULAR HEMOGLOBIN 24.9 pg (27.0-34.0); MEAN CORPUSCULAR HGB CONC 31.9 g/dL (33.0-35.0); MEAN CORPUSCULAR VOLUME 78.2 fL (80.0-100.0); MEAN PLATELET VOLUME 8.8 fL (7.4-11.0); MONOCYTES # (AUTO) 0.6 x10^3/uL (0.3-0.8); MONOCYTES % (AUTO) 9.7 % (0.0-13.0); NEUTROPHILS # (AUTO) 3.6 x10^3/uL (2.2-4.8); NEUTROPHILS % (AUTO) 58.2 % (42.0-75.0); PLATELET COUNT 296 X10^3/uL (150.0-450.0); RED BLOOD COUNT 3.53 X10^6/uL (3.5-5.4); RED CELL DISTRIBUTION WIDTH 20.9 % (11.6-16.5); WHITE BLOOD COUNT 6.1 X10^3/uL (3.6-10.0)
[2020-08-26 06:03] LABS: ANISOCYTOSIS 1+; HYPOCHROMASIA SLIGHT; PLATELET MORPHOLOGY COMMENT NORMAL (NORMAL)
[2020-08-26 06:04] LABS: ALANINE AMINOTRANSFERASE 16 Units/L (12-78); ALBUMIN 2.4 g/dL (3.4-5.0); ALKALINE PHOSPHATASE 75 Units/L (46-116); ASPARTATE AMINO TRANSFERASE 15 Units/L (15-37); BLOOD UREA NITROGEN 8 mg/dL (7-18); CALCIUM 8.3 mg/dL (8.5-10.1); CARBON DIOXIDE 33.2 mmol/L (21-32); CHLORIDE 108 mmol/L (98-107); CREATININE 0.88 mg/dL (0.55-1.02); SODIUM 147 mmol/L (136-145); eGFR NON BLACK RACES > 60 (>60)
[2020-08-26 06:05] LABS: CKMB % 1.8 % (<4); COR CA(FOR HYPOALB) 9.6 mg/dL (8.5-10.1); CREATINE KINASE 78 Units/L (26-192); CREATINE KINASE MB 1.4 ng/mL (0-4.0); TROPONIN I < 0.02 ng/mL (0-1.5)
[2020-08-26] MEDS: DUONEB 0.5 MG/3 MG (3 mL) NEB SCH ×3 (06:13→20:45)
[2020-08-26] MEDS ORDERED: K-DUR TAB 20 MEQ PO ONE (06:14)
[2020-08-26] MEDS: K-DUR TAB 20 MEQ PO PRN (06:31)
[2020-08-26] MEDS: PEPCID TAB 40 MG PO SCH ×2 (09:31→20:53)
[2020-08-26] MEDS: PROTONIX TAB 40 MG PO SCH ×2 (09:31→20:53)
[2020-08-26] MEDS: EFFEXOR XR 150 MG CAP 24-HR PO SCH (09:31)
[2020-08-26] MEDS: K-DUR TAB 20 MEQ PO SCH (09:32)
[2020-08-26] MEDS: ASPIRIN 81 MG CHEWTAB PO SCH (09:32)
[2020-08-26] MEDS: COREG TAB 12.5 MG PO SCH ×2 (09:32→20:53)
[2020-08-26] MEDS: NEURONTIN CAP 300 MG PO SCH (09:32)
[2020-08-26] MEDS: HEMOCYTE-PLUS PO SCH (09:33)
[2020-08-26] MEDS: LASIX IVP SCH ×2 (09:36→17:25)
[2020-08-26] MEDS: REQUIP PO SCH ×2 (13:30→20:53)
[2020-08-26] MEDS: NEURONTIN CAP 100 MG PO SCH ×3 (13:50→21:00)
--- NOTE | 2020-08-26 16:48 | DR.H&P ---
H&P - History & Physical for Day of: H&P Date: 08/25/20 - Chief Complaint Chief Complaint: SOB, LOWER EXTREMITY SWELLING, WEAKNESS - History of Present Illness History of Present Illness: IS A 74 YEAR OLD PATIENT OF OURS. SHE PRESENTED TO THE ER WITH COMPLAINTS OF GENERALIZED WEAKNESS, SHORTNESS OR BREATH, AND LOWER EXTREMITY SWELLING. SYMPTOMS STARTED ONE DAY PRIOR AND HVE PROGRESSIVELY GOTTEN WORSE. SHE REPORTS THAT HER OXYGEN SATURATIONS DROPPED INTO THE 80s AT HOME. HER FAMILY REPORTS THAT SHE HAS BEEN UNABLE TO WALK SINCE HAVING WEAKNESS AND SWELLING TO HER LOWER EXTREMITIES. HER PMH INCLUDES: CHF, GERD, HTN, DYSLIPIDEMIA, ANXIETY, DEPRESSION, CABG, AND SPLEENECTOMY. ON EXAMINATION, AUSCULTATION OF LUNG SCHULTE REVEALED SCATTERED WHEEZING AND RHONCHI. SHE WAS NOTED TO HAVE 2+ PITTING EDEMA TO HER LOWER EXTREMITIES. ON A RRIVAL, VITALS WERE: 98.7-80-16-95%-136/74. LABS WERE OBTAINED. ABNORMAL LAB VALUES INCLUDE THE FOLLOWING: HGB 9.9, HCT 31.5, CARBON DIOXIDE 32.4, GLUCOSE 102, BNP 174, ALBUMIN 2.7. CARDIAC ENZYMES WITHIN NORMAL LIMITS. A URINALYSIS WAS OBTAINED AND IS UNREMARKABLE. COVID-19 NEGATIVE. A CHEST XRAY WAS OBTAINED AND REVEALED: trachea is midline. Heart size remains enlarged with previous median sternotomy noted. Prominence of the pulmonary vasculature and mild central peribronchial thickening is similar to prior likely representing chronic pulmonary vascular congestion. EKG REVEALED: SINUS RHYTHM WITH HR 81. IN THE ER, SHE WAS GIVEN LASIX 40MG IV X 1 DOSE. DECISION WAS MADE TO ADMIT PATIENT TO THE HOSPITAL FOR FURTHER EVALUATION AND TREATMENT OF CONGESTIVE HEART FAILURE AND HYPOXIA. SHE WAS STARTED ON LASIX 40MG IV BID, DUONEBS TID, THE POTASSIUM PROTOCOL, ASPIRIN 81MG PO DAILY, COREG 12.5MG PO BID, PEPCID 40MG PO BID, NEURONTIN 100MG PO TID, HEMOCYTE PLUS 1 TABLET DAILY, PROTONIX 40MG PO BID, REQUIP 0.25MG PO BID, ULTRAM 50MG PO Q6H PRN, AND EFFEXOR 150MG PO DAILY. FAMILY REQUEST THAT PATIENT RECEIVE PHYSICAL THERAPY AT [facility]. WE WILL HAVE PT/OT EVALUATE HER. OTHERWISE, WE PLAN TO FOLLOW UP WITH AM LABS AND CONTINUE TO MONITOR. TIME SPENT ON CLINICAL ASSESSMENT, REVIEWING LABS AND IMAGING, DECISION MAKING, AND DOCUMENTATION GREATER THAN 75 MINUTES. - Past Medical History Past Medical History: Hypertension, Dyslipidemia, Depression, Anxiety, GERD, CHF - Past Surgical History Surgical History: CABG/Valve Surgery, Carotid Endarterectomy, Spleenectomy - Family History Family Medical History: Diabetes Mellitus, Cancer, Coronary Artery Disease, Heart Failure, Hypertension - Social History Does patient currently use any type of tobacco product: Yes Have you used tobacco products in the last 12 months: Yes Type of Tobacco Use: VAPES Does any household member use tobacco: No Alcohol Use: None Drug Use: Prescription Drugs - Medications Home Medications: ciprofloxacin Allergy (Verified 08/25/20 14:56) naproxen [From Aleve] Allergy (Verified 08/25/20 14:56) Penicillins Allergy (Verified 08/25/20 14:56) promethazine Allergy (Verified 08/25/20 14:56) CONTINUE taking the following medications ipratropium-albuterol 3 ml INHALATION TID 08/25/20 [History] iron-folic acid-mv, min cmb#15 [Hemocyte-Plus] 1 cap PO DAILY 08/25/20 [History] - Review of Systems Constitutional: Weakness Eyes: No Symptoms Reported ENT: No Symptoms Reported Respiratory: See HPI, Shortness of Breath, SOB with Excertion, Wheezing Cardiovascular: Edema (BLE SWELLING ) Gastrointestinal: No Symptoms Reported Genitourinary: No Symptoms Reported Musculoskeletal: No Symptoms Reported Skin: No Symptoms Reported Neurological: Weakness - Physical Exam Vital Signs: Temperature 98.4 F Pulse Rate [Right] 66 Pulse Rate 72 Respiratory Rate 25 Blood Pressure [Right Arm] 129/56 Blood Pressure 140/63 O2 Sat by Pulse Oximetry 93 Oriented: Normal Eyes: Normal Ear: Normal Nose: Normal Throat: Normal Respiratory: Diminished Throughout, Wheezes Throughout Cardiovascular: Edema (BLE 2+ PITTING EDEMA ) : Normal Auscultation: Bowel Sounds: Normal Palpation: Normal Tenderness: Normal Skin: Normal Musculoskeletal: Normal Psychiatric: Normal Mood Description: Calm Affect: Normal Speech Pattern: Clear - Assessment/Plan (1) CHF (congestive heart failure) Qualifiers: Heart failure type: unspecified Heart failure chronicity: acute on chronic Qualified Code(s): I50.9 - Heart failure, unspecified Status: Acute Plan: ADMIT, LASIX 40MG IV BID, DUONEBS TID, THE POTASSIUM PROTOCOL, ASPIRIN 81MG PO DAILY, COREG 12.5MG PO BID, PEPCID 40MG PO BID, NEURONTIN 100MG PO TID, HEMOCYTE PLUS 1 TABLET DAILY, PROTONIX 40MG PO BID, REQUIP 0.25MG PO BID, ULTRAM 50MG PO Q6H PRN, AND EFFEXOR 150MG PO DAILY. (2) Hypoxia Status: Acute - Allergies Allergies/Adverse Reactions: Allergies Allergy/AdvReac Type Severity Reaction Status Date / Time ciprofloxacin Allergy Verified 08/25/20 14:56 naproxen [From Aleve] Allergy Verified 08/25/20 14:56 Penicillins Allergy Verified 08/25/20 14:56 promethazine Allergy Verified 08/25/20 14:56
[2020-08-27] MEDS: ULTRAM PO PRN ×2 (02:34→08:22)
--- NOTE | 2020-08-27 05:17 | RAD ---
PROCEDURE: Chest X-ray 1 View .HISTORY: Short of breath.TECHNIQUE: AP view .COMPARISON: 08/25/2020.TECHNICAL QUALITY: Satisfactory .FINDINGS:Unchanged heart size upper limits of normal with previous sternotomy.Mediastinum and hilar regions show no masses or lymphadenopathy .Normal central vascularity .No pulmonary consolidation, masses, pleural fluid, or pneumothorax .No acute bony abnormality .IMPRESSION:Unchanged heart size upper limits of normal with no other evidence of active disease.Electronically signed by: Garret Mcgovern (Aug 27, 2020 05:15:24)
[2020-08-27 05:37] LABS: BASOPHILS # (AUTO) 0.1 X10^3/uL (0.0-0.1); BASOPHILS % (AUTO) 1.1 % (0.2-1.0); EOSINOPHILS % (AUTO) 0.4 % (0.9-2.9); HEMATOCRIT 30.7 % (36.0-47.0); HEMOGLOBIN 9.8 g/dL (12.0-16.0); LYMPHOCYTES # (AUTO) 2.2 X10^3/uL (1.3-2.9); LYMPHOCYTES % (AUTO) 30.4 % (21.0-51.0); MEAN CORPUSCULAR HEMOGLOBIN 24.8 pg (27.0-34.0); MEAN CORPUSCULAR HGB CONC 31.8 g/dL (33.0-35.0); MEAN CORPUSCULAR VOLUME 77.9 fL (80.0-100.0); MEAN PLATELET VOLUME 8.9 fL (7.4-11.0); MONOCYTES # (AUTO) 0.7 x10^3/uL (0.3-0.8); MONOCYTES % (AUTO) 9.2 % (0.0-13.0); NEUTROPHILS # (AUTO) 4.3 x10^3/uL (2.2-4.8); NEUTROPHILS % (AUTO) 58.9 % (42.0-75.0); PLATELET COUNT 300 X10^3/uL (150.0-450.0); RED BLOOD COUNT 3.94 X10^6/uL (3.5-5.4); RED CELL DISTRIBUTION WIDTH 21.3 % (11.6-16.5); WHITE BLOOD COUNT 7.2 X10^3/uL (3.6-10.0)
[2020-08-27] MEDS: DUONEB 0.5 MG/3 MG (3 mL) NEB SCH ×3 (05:38→21:10)
[2020-08-27 05:48] LABS: ALANINE AMINOTRANSFERASE 15 Units/L (12-78); ALBUMIN 2.5 g/dL (3.4-5.0); ALKALINE PHOSPHATASE 79 Units/L (46-116); ASPARTATE AMINO TRANSFERASE 13 Units/L (15-37); BLOOD UREA NITROGEN 7 mg/dL (7-18); CALCIUM 8.2 mg/dL (8.5-10.1); CARBON DIOXIDE 34.3 mmol/L (21-32); CHLORIDE 105 mmol/L (98-107); COR CA(FOR HYPOALB) 9.4 mg/dL (8.5-10.1); CREATININE 0.97 mg/dL (0.55-1.02); SODIUM 145 mmol/L (136-145); TOTAL PROTEIN 6.4 g/dL (6.4-8.2); eGFR NON BLACK RACES 59 (>60)
[2020-08-27 06:10] LABS: PLATELET MORPHOLOGY COMMENT NORMAL (NORMAL)
[2020-08-27 06:11] LABS: ANISOCYTOSIS 1+; HYPOCHROMASIA SLIGHT; STOMATOCYTES PRESENT
[2020-08-27] MEDS: NEURONTIN CAP 100 MG PO SCH ×3 (06:37→22:00)
[2020-08-27] MEDS: K-DUR TAB 20 MEQ PO PRN (06:38)
[2020-08-27] MEDS: HEMOCYTE-PLUS PO SCH (08:21)
[2020-08-27] MEDS: REQUIP PO SCH ×2 (08:22→20:46)
[2020-08-27] MEDS: COREG TAB 12.5 MG PO SCH ×2 (08:23→20:45)
[2020-08-27] MEDS: K-DUR TAB 20 MEQ PO SCH (08:24)
[2020-08-27] MEDS: ASPIRIN 81 MG CHEWTAB PO SCH (08:24)
[2020-08-27] MEDS: PEPCID TAB 40 MG PO SCH ×2 (08:24→20:46)
[2020-08-27] MEDS: EFFEXOR XR 150 MG CAP 24-HR PO SCH (08:24)
[2020-08-27] MEDS: PROTONIX TAB 40 MG PO SCH ×2 (08:25→20:45)
[2020-08-27] MEDS: LASIX IVP SCH ×2 (08:27→17:35)
[2020-08-27] MEDS: TORADOL 30 MG VIAL IVP PRN ×2 (12:34→18:23)
[2020-08-27] MEDS: ZOFRAN INJ 4 MG VIAL IVP PRN (12:34)
[2020-08-27] MEDS: NORCO 5/325 MG TAB PO SCH ×2 (20:43→21:00)
[2020-08-27] MEDS: COLACE CAP 100 MG PO SCH (20:46)
[2020-08-28 04:49] LABS: BASOPHILS % (AUTO) 0.3 % (0.2-1.0); EOSINOPHILS # (AUTO) 0.1 x10^3/uL (0.0-0.2); HEMATOCRIT 31.9 % (36.0-47.0); HEMOGLOBIN 10.1 g/dL (12.0-16.0); LYMPHOCYTES # (AUTO) 1.9 X10^3/uL (1.3-2.9); LYMPHOCYTES % (AUTO) 26.6 % (21.0-51.0); MEAN CORPUSCULAR HEMOGLOBIN 24.9 pg (27.0-34.0); MEAN CORPUSCULAR HGB CONC 31.7 g/dL (33.0-35.0); MEAN CORPUSCULAR VOLUME 78.7 fL (80.0-100.0); MEAN PLATELET VOLUME 8.6 fL (7.4-11.0); MONOCYTES # (AUTO) 0.6 x10^3/uL (0.3-0.8); MONOCYTES % (AUTO) 8.5 % (0.0-13.0); NEUTROPHILS # (AUTO) 4.5 x10^3/uL (2.2-4.8); NEUTROPHILS % (AUTO) 63.6 % (42.0-75.0); PLATELET COUNT 297 X10^3/uL (150.0-450.0); RED BLOOD COUNT 4.05 X10^6/uL (3.5-5.4); RED CELL DISTRIBUTION WIDTH 20.7 % (11.6-16.5); WHITE BLOOD COUNT 7.1 X10^3/uL (3.6-10.0)
[2020-08-28] MEDS: ULTRAM PO PRN ×2 (04:53→13:27)
[2020-08-28 05:00] LABS: ALANINE AMINOTRANSFERASE 14 Units/L (12-78); ALBUMIN 2.5 g/dL (3.4-5.0); ALKALINE PHOSPHATASE 78 Units/L (46-116); ASPARTATE AMINO TRANSFERASE 15 Units/L (15-37); BLOOD UREA NITROGEN 13 mg/dL (7-18); CARBON DIOXIDE 35.5 mmol/L (21-32); CHLORIDE 106 mmol/L (98-107); COR CA(FOR HYPOALB) 9.2 mg/dL (8.5-10.1); CREATININE 1.25 mg/dL (0.55-1.02); SODIUM 146 mmol/L (136-145); TOTAL PROTEIN 6.3 g/dL (6.4-8.2); eGFR NON BLACK RACES 44 (>60)
[2020-08-28] MEDS: NEURONTIN CAP 100 MG PO SCH ×3 (05:05→21:38)
[2020-08-28 05:35] LABS: ANISOCYTOSIS 1+; HYPOCHROMASIA 1+; MICROCYTOSIS 1+; PLATELET MORPHOLOGY COMMENT NORMAL (NORMAL)
[2020-08-28] MEDS: DUONEB 0.5 MG/3 MG (3 mL) NEB SCH ×4 (06:25→20:12)
--- NOTE | 2020-08-28 07:57 | RAD ---
HISTORYSOBSTUDYCHEST, 1 VIEWCOMPARISONPortable chest August 27, 2020.FINDINGSThe trachea is midline. The cardiac silhouette is borderline enlarged but stable compared to 12/2020 there are sternotomy wires and surgical clips from CABG surgery.. The lungs are clear without focal infiltrate or effusion. Vascularity is normal. The bony thorax is unremarkable.IMPRESSIONPostsurgical chest status post CABG surgery, borderline cardiomegaly but no acute processes and no change from August 27, 2020 prior chest film.Electronically signed by: DORCAS PEREZ (Aug 28, 2020 07:55:57)
[2020-08-28] MEDS: K-DUR TAB 20 MEQ PO SCH (08:23)
[2020-08-28] MEDS: LASIX IVP SCH (08:23)
[2020-08-28] MEDS: EFFEXOR XR 150 MG CAP 24-HR PO SCH (08:23)
[2020-08-28] MEDS: COREG TAB 12.5 MG PO SCH (08:23)
[2020-08-28] MEDS: ASPIRIN 81 MG CHEWTAB PO SCH (08:24)
[2020-08-28] MEDS: PROTONIX TAB 40 MG PO SCH ×2 (08:24→21:38)
[2020-08-28] MEDS: NORCO 5/325 MG TAB PO SCH ×2 (08:24→21:38)
[2020-08-28] MEDS: PEPCID TAB 20 MG PO SCH (08:24)
[2020-08-28] MEDS: REQUIP PO SCH ×2 (08:24→21:38)
[2020-08-28] MEDS: HEMOCYTE-PLUS PO SCH (08:25)
[2020-08-28] MEDS: ALDACTONE TAB 25 MG PO SCH ×2 (13:11→14:34)
[2020-08-28] MEDS: ENTRESTO 24/26 MG TAB PO SCH ×2 (13:11→21:40)
--- NOTE | 2020-08-28 15:36 | PCM.PROG ---
Progress Note - Progress Note for Day of Date of Exam: 08/27/20 - Subjective Subjective: WAS ADMITTED FOR CHF AND HYPOXIA. TODAY, SHE IS ALERT AND ORIENTED, LYING IN BED ON MORNING ROUNDS. SHE CONTINUES WITH COMPLAINTS OF SHORTNESS OF BREATH AND LOWER EXTREMITY SWELLING THIS MON. SHE DENIES SIGNIFICANT IMPROVEMENT IN SYMPTOMS SINCE YESTERDAY. ON EXAMINATION, HEART IS REGULAR IN RATE AND RHYTHM. BILATERAL LUNGS ARE NOTED WITH DIMINISHED LUNG SOUNDS THROUGHOUT. ABDOMEN IS ROUND, SOFT, AND NON-TENDER WITH NORMAL BOWEL SOUNDS NOTED IN ALL QUARANTS. BLE NOTED WITH 2+ PITTING EDEMA. HER VITALS THIS MORNING ARE: 98.6-68-23-98%-138/74. LABS WERE OBTAINED. ABNORMAL LAB VALUES INCLUDE THE FOLLOWING: HGB 9.8, HCT 30.7, POTASSIUM 3.4, CARBON DIOXIDE 34.3, CALCIUM 8.2, AST 13, ALBUMIN 2.5. A CHEST XRAY WAS OBTAINED AND REVEALED: Unchanged heart size upper limits of normal with no other evidence of active disease. SHE IS CURRENTLY RECEIVING: LASIX 40MG IV BID, DUONEBS TID, THE POTASSIUM PROTOCOL, ASPIRIN 81MG PO DAILY, COREG 12.5MG PO BID, PEPCID 40MG PO BID, NEURONTIN 100MG PO TID, HEMOCYTE PLUS 1 TABLET DAILY, PROTONIX 40MG PO BID, REQUIP 0.25MG PO BID, ULTRAM 50MG PO Q6H PRN, AND EFFEXOR 150MG PO DAILY. WE WILL CONTINUE WITH CURRENT PLAN OF CARE TODAY. PATIENT WILL BE GOING [facility] FOR PHYSICAL THERAPY AND REHAB SOMETIME NEXT WEEK. PT/OT WILL CONTINUE TO WORK WITH PATIENT. OTHERWISE, WE PLAN TO FOLLOW UP WITH AM LABS AND CHEST XRAY AND CONTINUE TO MONITOR. WE WILL ALSO OBTAIN AN ECHO TODAY. TIME SPENT ON CLINICAL ASSESSMENT, REVIEWING LABS AND IMAGING, DECISION MAKING, AND DOCUMENTATION GREATER THAN 45 MINUTES. - Past Medical Family Social History Past Med/Fam/Surg Hx: No changes since H&P Allergies: Allergies ciprofloxacin Allergy (Verified 08/25/20 14:56) naproxen [From Aleve] Allergy (Verified 08/25/20 14:56) Penicillins Allergy (Verified 08/25/20 14:56) promethazine Allergy (Verified 08/25/20 14:56) - Review of Systems ROS: No change since H&P - Vital Signs and I&O's Vital Signs: Temperature 98.3 F Pulse Rate [Right] 65 Pulse Rate 61 Respiratory Rate 23 Blood Pressure [Right Arm] 115/54 Blood Pressure 140/63 O2 Sat by Pulse Oximetry 98 Intake and Output: Intake & Output 08/26/20 08/27/20 08/28/20 08/29/20 11:59 11:59 11:59 11:59 Intake Total 240 / 240 880 / 880 650 / 650 Output Total 2100 / 2100 3900 / 3900 1850 / 1850 Balance -1860 / -1860 -3020 / -3020 -1200 / -1200 - Physical Exam Oriented: Normal Eyes: Normal Ear: Normal Nose: Normal Throat: Normal Respiratory: Generalized, Diminished Cardiovascular: Edema (BLE 2+ PITTING EDEMA ) : Normal Auscultation: Bowel Sounds: Normal Palpation: Normal Tenderness: Normal Skin: Normal Musculoskeletal: Normal Psychiatric: Normal Mood Description: Calm Affect: Normal Speech Pattern: Appropriate - Laboratory and Diagnostics Result Diagrams: 08/28/20 03:55 08/28/20 03:55 Labs: Laboratory WBC 7.1 X10^3/uL (3.6-10.0) 08/28/20 03:55 RBC 4.05 X10^6/uL (3.5-5.4) 08/28/20 03:55 Hgb 10.1 g/dL (12.0-16.0) L 08/28/20 03:55 Hct 31.9 % (36.0-47.0) L 08/28/20 03:55 MCV 78.7 fL (80.0-100.0) L 08/28/20 03:55 MCH 24.9 pg (27.0-34.0) L 08/28/20 03:55 MCHC 31.7 g/dL (33.0-35.0) L 08/28/20 03:55 RDW 20.7 % (11.6-16.5) H 08/28/20 03:55 Plt Count 297 X10^3/uL (150.0-450.0) 08/28/20 03:55 Plt Count Comment Adequate (ADEQUATE) 08/28/20 03:55 MPV 8.6 fL (7.4-11.0) 08/28/20 03:55 Neut % (Auto) 63.6 % (42.0-75.0) 08/28/20 03:55 Lymph % (Auto) 26.6 % (21.0-51.0) 08/28/20 03:55 [place] % (Auto) 8.5 % (0.0-13.0) 08/28/20 03:55 Eos % (Auto) 1.0 % (0.9-2.9) 08/28/20 03:55 Baso % (Auto) 0.3 % (0.2-1.0) 08/28/20 03:55 Neut # (Auto) 4.5 x10^3/uL (2.2-4.8) 08/28/20 03:55 Lymph # (Auto) 1.9 X10^3/uL (1.3-2.9) 08/28/20 03:55 [place] # (Auto) 0.6 x10^3/uL (0.3-0.8) 08/28/20 03:55 Eos # (Auto) 0.1 x10^3/uL (0.0-0.2) 08/28/20 03:55 Baso # (Auto) 0.0 X10^3/uL (0.0-0.1) 08/28/20 03:55 Absolute Nucleated RBC 0.1 /100WBC 08/28/20 03:55 Total Counted 100 08/25/20 16:26 Neutrophils % (Manual) 68 % (39-76) 08/25/20 16:26 Lymphocytes % (Manual) 25 % (13-43) 08/25/20 16:26 Monocytes % (Manual) 7 % (4-9) 08/25/20 16:26 Plt Morphology Comment Normal (NORMAL) 08/28/20 03:55 RBC Morphology Abnormal (NORMAL) A 08/28/20 03:55 Hypochromasia 1+ A 08/28/20 03:55 Anisocytosis 1+ A 08/28/20 03:55 Microcytosis 1+ A 08/28/20 03:55 Stomatocytes Present 08/27/20 04:45 Sodium 146 mmol/L (136-145) H 08/28/20 03:55 Corrected Sodium TNP 08/28/20 03:55 Potassium 3.6 mmol/L (3.5-5.1) 08/28/20 03:55 Chloride 106 mmol/L (98-107) 08/28/20 03:55 Carbon Dioxide 35.5 mmol/L (21-32) H 08/28/20 03:55 BUN 13 mg/dL (7-18) 08/28/20 03:55 Creatinine 1.25 mg/dL (0.55-1.02) H 08/28/20 03:55 Est GFR (MDRD) Af Amer 54 (>60) L 08/28/20 03:55 Est GFR (MDRD) Non-Af 44 (>60) L 08/28/20 03:55 Glucose 100 mg/dL (65-99) H 08/28/20 03:55 Calcium 8.0 mg/dL (8.5-10.1) L 08/28/20 03:55 Corrected Calcium 9.2 mg/dL (8.5-10.1) 08/28/20 03:55 Magnesium 1.9 mg/dL (1.7-2.9) 08/26/20 04:28 Total Bilirubin 0.40 mg/dL (0.2-1.0) 08/28/20 03:55 AST 15 Units/L (15-37) 08/28/20 03:55 ALT 14 Units/L (12-78) 08/28/20 03:55 Alkaline Phosphatase 78 Units/L (46-116) 08/28/20 03:55 Creatine Kinase 78 Units/L (26-192) 08/26/20 04:28 CK-MB (CK-2) 1.4 ng/mL (0-4.0) 08/26/20 04:28 CK/CKMB % Calc 1.8 % (<4) 08/26/20 04:28 Troponin I < 0.02 ng/mL (0-1.5) 08/26/20 04:28 B-Natriuretic Peptide 174 pg/mL (0-79) H 08/25/20 16:26 Total Protein 6.3 g/dL (6.4-8.2) L 08/28/20 03:55 Albumin 2.5 g/dL (3.4-5.0) L 08/28/20 03:55 Globulin 3.8 g/dL (2.5-4.5) 08/28/20 03:55 Albumin/Globulin Ratio 0.7 Ratio (1.1-2.1) L 08/28/20 03:55 Specimen Type Catherized urine 08/25/20 17:08 Urine Color Yellow (YELLOW) 08/25/20 17:08 Urine Appearance Clear (CLEAR) 08/25/20 17:08 Urine pH 7.0 (5.0 - 8.0) 08/25/20 17:08 Ur Specific [place] 1.010 (1.000-1.030) 08/25/20 17:08 Urine Protein Negative (NEGATIVE) 08/25/20 17:08 Urine Glucose (UA) Negative (NEGATIVE) 08/25/20 17:08 Urine Ketones Negative (NEGATIVE) 08/25/20 17:08 Urine Occult Blood Negative (NEGATIVE) 08/25/20 17:08 Urine Nitrite Negative (NEGATIVE) 08/25/20 17:08 Urine Bilirubin Negative (NEGATIVE) 08/25/20 17:08 Urine Urobilinogen Normal (NORMAL) 08/25/20 17:08 Ur Leukocyte Esterase Negative (NEGATIVE) 08/25/20 17:08 - Plan (1) CHF (congestive heart failure) Status: Acute Qualifiers: Heart failure type: unspecified Heart failure chronicity: acute on chronic Qualified Code(s): I50.9 - Heart failure, unspecified Plan: LASIX 40MG IV BID, DUONEBS TID, THE POTASSIUM PROTOCOL, ASPIRIN 81MG PO DAILY, COREG 12.5MG PO BID, PEPCID 40MG PO BID, NEURONTIN 100MG PO TID, HEMOCYTE PLUS 1 TABLET DAILY, PROTONIX 40MG PO BID, REQUIP 0.25MG PO BID, ULTRAM 50MG PO Q6H PRN, AND EFFEXOR 150MG PO DAILY. (2) Hypoxia Status: Acute
[2020-08-28] MEDS: COREG TAB 6.25 MG PO SCH (21:38)
[2020-08-28] MEDS: COLACE CAP 100 MG PO SCH (21:38)
[2020-08-28] MEDS: XANAX PO PRN (23:30)
[2020-08-29 04:51] LABS: BASOPHILS % (AUTO) 0.4 % (0.2-1.0); EOSINOPHILS # (AUTO) 0.1 x10^3/uL (0.0-0.2); EOSINOPHILS % (AUTO) 1.4 % (0.9-2.9); HEMATOCRIT 31.5 % (36.0-47.0); HEMOGLOBIN 10.1 g/dL (12.0-16.0); LYMPHOCYTES # (AUTO) 3.4 X10^3/uL (1.3-2.9); LYMPHOCYTES % (AUTO) 43.7 % (21.0-51.0); MEAN CORPUSCULAR HEMOGLOBIN 25.3 pg (27.0-34.0); MEAN CORPUSCULAR VOLUME 79.1 fL (80.0-100.0); MEAN PLATELET VOLUME 8.9 fL (7.4-11.0); MONOCYTES # (AUTO) 0.8 x10^3/uL (0.3-0.8); NEUTROPHILS # (AUTO) 3.5 x10^3/uL (2.2-4.8); NEUTROPHILS % (AUTO) 44.5 % (42.0-75.0); PLATELET COUNT 307 X10^3/uL (150.0-450.0); RED BLOOD COUNT 3.98 X10^6/uL (3.5-5.4); RED CELL DISTRIBUTION WIDTH 21.2 % (11.6-16.5); WHITE BLOOD COUNT 7.9 X10^3/uL (3.6-10.0)
[2020-08-29 05:03] LABS: ALANINE AMINOTRANSFERASE 12 Units/L (12-78); ALBUMIN 2.5 g/dL (3.4-5.0); ALKALINE PHOSPHATASE 73 Units/L (46-116); ASPARTATE AMINO TRANSFERASE 13 Units/L (15-37); BLOOD UREA NITROGEN 15 mg/dL (7-18); CALCIUM 7.9 mg/dL (8.5-10.1); CARBON DIOXIDE 35.2 mmol/L (21-32); CHLORIDE 104 mmol/L (98-107); COR CA(FOR HYPOALB) 9.1 mg/dL (8.5-10.1); CREATININE 1.25 mg/dL (0.55-1.02); SODIUM 143 mmol/L (136-145); TOTAL PROTEIN 6.1 g/dL (6.4-8.2); eGFR NON BLACK RACES 44 (>60)
[2020-08-29 05:10] LABS: ANISOCYTOSIS 1+; HYPOCHROMASIA 1+; MICROCYTOSIS 1+; PLATELET MORPHOLOGY COMMENT NORMAL (NORMAL)
[2020-08-29] MEDS: DUONEB 0.5 MG/3 MG (3 mL) NEB SCH ×3 (05:10→20:54)
[2020-08-29] MEDS: NEURONTIN CAP 100 MG PO SCH ×3 (05:38→21:38)
[2020-08-29] MEDS: ULTRAM PO PRN ×2 (05:39→13:08)
--- NOTE | 2020-08-29 08:00 | RAD ---
HISTORYSOBSTUDYCHEST, 1 [id number]/11/2021.FINDINGSThe trachea is midline. There has been previous median sternotomy and CABG. The cardiac silhouette is enlarged similar to the comparison study without evidence of congestive heart failure. The lungs are clear without focal consolidation, pleural effusion or pneumothorax.IMPRESSIONNo acute cardiopulmonary disease or concerning change compared with the previous day.Electronically signed by: CUBA SCHNEIDER (Aug 29, 2020 07:58:43)
[2020-08-29] MEDS: ENTRESTO 24/26 MG TAB PO SCH ×2 (09:00→20:29)
[2020-08-29] MEDS: HEMOCYTE-PLUS PO SCH (09:01)
[2020-08-29] MEDS: NORCO 5/325 MG TAB PO SCH ×2 (09:02→20:37)
[2020-08-29] MEDS: EFFEXOR XR 150 MG CAP 24-HR PO SCH (09:02)
[2020-08-29] MEDS: ALDACTONE TAB 25 MG PO SCH (09:02)
[2020-08-29] MEDS: ASPIRIN 81 MG CHEWTAB PO SCH (09:03)
[2020-08-29] MEDS: PROTONIX TAB 40 MG PO SCH ×2 (09:03→20:30)
[2020-08-29] MEDS: COREG TAB 6.25 MG PO SCH ×2 (09:03→20:29)
[2020-08-29] MEDS: PEPCID TAB 20 MG PO SCH (09:03)
[2020-08-29] MEDS: K-DUR TAB 20 MEQ PO SCH (09:04)
[2020-08-29] MEDS: REQUIP PO SCH ×2 (09:04→20:30)
[2020-08-29] MEDS: LASIX IVP SCH (09:11)
[2020-08-29] MEDS: XANAX PO PRN (13:06)
[2020-08-29] MEDS: ZOFRAN INJ 4 MG VIAL IVP PRN (18:10)
[2020-08-29] MEDS: COLACE CAP 100 MG PO SCH (20:29)
[2020-08-30 04:36] LABS: BASOPHILS % (AUTO) 0.4 % (0.2-1.0); EOSINOPHILS # (AUTO) 0.1 x10^3/uL (0.0-0.2); EOSINOPHILS % (AUTO) 1.4 % (0.9-2.9); HEMATOCRIT 32.4 % (36.0-47.0); HEMOGLOBIN 10.3 g/dL (12.0-16.0); LYMPHOCYTES # (AUTO) 3.2 X10^3/uL (1.3-2.9); LYMPHOCYTES % (AUTO) 38.4 % (21.0-51.0); MEAN CORPUSCULAR HEMOGLOBIN 25.1 pg (27.0-34.0); MEAN CORPUSCULAR HGB CONC 31.8 g/dL (33.0-35.0); MEAN CORPUSCULAR VOLUME 78.7 fL (80.0-100.0); MEAN PLATELET VOLUME 8.5 fL (7.4-11.0); MONOCYTES % (AUTO) 12.1 % (0.0-13.0); NEUTROPHILS % (AUTO) 47.7 % (42.0-75.0); PLATELET COUNT 290 X10^3/uL (150.0-450.0); RED BLOOD COUNT 4.12 X10^6/uL (3.5-5.4); RED CELL DISTRIBUTION WIDTH 20.6 % (11.6-16.5); WHITE BLOOD COUNT 8.4 X10^3/uL (3.6-10.0)
[2020-08-30 04:46] LABS: ALANINE AMINOTRANSFERASE 12 Units/L (12-78); ALBUMIN 2.5 g/dL (3.4-5.0); ALKALINE PHOSPHATASE 71 Units/L (46-116); ASPARTATE AMINO TRANSFERASE 11 Units/L (15-37); BLOOD UREA NITROGEN 14 mg/dL (7-18); CALCIUM 7.9 mg/dL (8.5-10.1); CARBON DIOXIDE 35.8 mmol/L (21-32); CHLORIDE 105 mmol/L (98-107); COR CA(FOR HYPOALB) 9.1 mg/dL (8.5-10.1); CREATININE 1.24 mg/dL (0.55-1.02); SODIUM 144 mmol/L (136-145); TOTAL PROTEIN 6.2 g/dL (6.4-8.2); eGFR NON BLACK RACES 45 (>60)
[2020-08-30 05:17] LABS: PLATELET MORPHOLOGY COMMENT NORMAL (NORMAL)
[2020-08-30 05:18] LABS: ANISOCYTOSIS 1+; HYPOCHROMASIA SLIGHT; MICROCYTOSIS 1+
[2020-08-30] MEDS: NEURONTIN CAP 100 MG PO SCH ×3 (05:25→22:00)
--- NOTE | 2020-08-30 06:15 | RAD ---
HISTORYSOBSTUDYCHEST, 1 [id number]/12/2021.FINDINGSThe patient is rotated to the right. The cardiac silhouette is unchanged. The lungs are clear without focal consolidation, pleural effusion or pneumothorax. There has been previous median sternotomy.IMPRESSIONUnchanged exam compared with the previous day.Electronically signed by: CUBA SCHNEIDER (Aug 30, 2020 06:12:19)
[2020-08-30] MEDS: DUONEB 0.5 MG/3 MG (3 mL) NEB SCH ×3 (06:33→21:28)
[2020-08-30] MEDS: ASPIRIN 81 MG CHEWTAB PO SCH (10:37)
[2020-08-30] MEDS: ENTRESTO 24/26 MG TAB PO SCH ×2 (10:37→20:21)
[2020-08-30] MEDS: PROTONIX TAB 40 MG PO SCH ×2 (10:38→20:22)
[2020-08-30] MEDS: COREG TAB 6.25 MG PO SCH ×2 (10:38→20:21)
[2020-08-30] MEDS: K-DUR TAB 20 MEQ PO SCH (10:38)
[2020-08-30] MEDS: PEPCID TAB 20 MG PO SCH (10:39)
[2020-08-30] MEDS: ALDACTONE TAB 25 MG PO SCH (10:39)
[2020-08-30] MEDS: REQUIP PO SCH ×2 (10:39→20:21)
[2020-08-30] MEDS: EFFEXOR XR 150 MG CAP 24-HR PO SCH (10:40)
[2020-08-30] MEDS: LASIX IVP SCH (10:41)
[2020-08-30] MEDS: HEMOCYTE-PLUS PO SCH (10:43)
[2020-08-30] MEDS: NORCO 5/325 MG TAB PO SCH ×2 (10:46→20:23)
[2020-08-30] MEDS ORDERED: TORADOL 15 MG VIAL IVP PRN (13:07)
[2020-08-30] MEDS: ULTRAM PO PRN (14:46)
[2020-08-30] MEDS: COLACE CAP 100 MG PO SCH (20:22)
[2020-08-31 05:03] LABS: BASOPHILS # (AUTO) 0.1 X10^3/uL (0.0-0.1); BASOPHILS % (AUTO) 0.4 % (0.2-1.0); EOSINOPHILS # (AUTO) 0.1 x10^3/uL (0.0-0.2); EOSINOPHILS % (AUTO) 0.7 % (0.9-2.9); HEMATOCRIT 35.8 % (36.0-47.0); HEMOGLOBIN 11.3 g/dL (12.0-16.0); LYMPHOCYTES # (AUTO) 2.6 X10^3/uL (1.3-2.9); MEAN CORPUSCULAR HEMOGLOBIN 24.9 pg (27.0-34.0); MEAN CORPUSCULAR HGB CONC 31.6 g/dL (33.0-35.0); MEAN CORPUSCULAR VOLUME 78.6 fL (80.0-100.0); MEAN PLATELET VOLUME 8.9 fL (7.4-11.0); MONOCYTES # (AUTO) 1.2 x10^3/uL (0.3-0.8); MONOCYTES % (AUTO) 10.4 % (0.0-13.0); NEUTROPHILS % (AUTO) 66.5 % (42.0-75.0); PLATELET COUNT 303 X10^3/uL (150.0-450.0); RED BLOOD COUNT 4.55 X10^6/uL (3.5-5.4); RED CELL DISTRIBUTION WIDTH 20.9 % (11.6-16.5)
[2020-08-31 05:15] LABS: ANISOCYTOSIS 1+; HYPOCHROMASIA SLIGHT; MICROCYTOSIS 1+; PLATELET MORPHOLOGY COMMENT NORMAL (NORMAL)
[2020-08-31 05:23] LABS: ALANINE AMINOTRANSFERASE 15 Units/L (12-78); ALBUMIN 2.8 g/dL (3.4-5.0); ALKALINE PHOSPHATASE 77 Units/L (46-116); ASPARTATE AMINO TRANSFERASE 13 Units/L (15-37); BLOOD UREA NITROGEN 14 mg/dL (7-18); CALCIUM 8.5 mg/dL (8.5-10.1); CARBON DIOXIDE 32.6 mmol/L (21-32); CHLORIDE 103 mmol/L (98-107); COR CA(FOR HYPOALB) 9.5 mg/dL (8.5-10.1); COR NA(FOR HYPERGLY) 143 mmol/L (136-145); CREATININE 1.13 mg/dL (0.55-1.02); SODIUM 143 mmol/L (136-145); TOTAL PROTEIN 7.1 g/dL (6.4-8.2); eGFR NON BLACK RACES 50 (>60)
--- NOTE | 2020-08-31 05:28 | RAD ---
HISTORYSOBSTUDYCHEST, 1 [id number]/13/2021FINDINGSThe trachea is midline. The cardiac silhouette is mildly enlarged. Changes of prior CABG surgery present.. The lungs are clear without focal infiltrate or effusion. Pulmonary vasculature within normal limits. No pneumothorax. The bony thorax is unremarkable.IMPRESSIONMild cardiomegaly.No active cardiopulmonary diseaseElectronically signed by: Javi Dunne (Aug 31, 2020 05:27:25)
[2020-08-31] MEDS: NEURONTIN CAP 100 MG PO SCH ×2 (06:15→13:55)
[2020-08-31] MEDS: DUONEB 0.5 MG/3 MG (3 mL) NEB SCH ×2 (06:20→13:51)
[2020-08-31] MEDS: PROTONIX TAB 40 MG PO SCH (08:26)
[2020-08-31] MEDS: LASIX IVP SCH (08:26)
[2020-08-31] MEDS: K-DUR TAB 20 MEQ PO SCH (08:27)
[2020-08-31] MEDS: ASPIRIN 81 MG CHEWTAB PO SCH (08:27)
[2020-08-31] MEDS: HEMOCYTE-PLUS PO SCH ×2 (08:27→08:39)
[2020-08-31] MEDS: PEPCID TAB 20 MG PO SCH (08:27)
[2020-08-31] MEDS: COREG TAB 6.25 MG PO SCH (08:28)
[2020-08-31] MEDS: NORCO 5/325 MG TAB PO SCH (08:29)
[2020-08-31] MEDS: ALDACTONE TAB 25 MG PO SCH (08:29)
[2020-08-31] MEDS: EFFEXOR XR 150 MG CAP 24-HR PO SCH (08:29)
[2020-08-31] MEDS: REQUIP PO SCH (08:39)
[2020-08-31] MEDS: ENTRESTO 24/26 MG TAB PO SCH (08:44)
--- NOTE | 2020-08-31 08:49 | PCM.PROG ---
Progress Note - Progress Note for Day of Date of Exam: 08/28/20 - Subjective Subjective: WAS ADMITTED FOR CHF AND HYPOXIA. TODAY, SHE IS ALERT AND ORIENTED, LYING IN BED ON MORNING ROUNDS. SHE CONTINUES WITH COMPLAINTS OF SHORTNESS OF BREATH AND LOWER EXTREMITY SWELLING THIS MONRING. SHE REPORTS SLIGHT IMPROVEMENT IN SYMPTOMS TODAY. ON EXAMINATION, HEART IS REGULAR IN RATE AND RHYTHM. BILATERAL LUNGS ARE NOTED WITH DIMINISHED LUNG SOUNDS THROUGHOUT. ABDOMEN IS ROUND, SOFT, AND NON-TENDER WITH NORMAL BOWEL SOUNDS NOTED IN ALL QUARANTS. BLE NOTED WITH 1+ PITTING EDEMA. HER VITALS THIS MORNING ARE: 98.3-69-19-99%-126/56. LABS WERE OBTAINED. ABNORMAL LAB VALUES INCLUDE THE FOLLOWING: HGB 10.1, HCT 31.9, SODIUM 146, CARBON DIOXIDE 35.5, CREATININE 1.25, GLUCOSE 100, CALCIUM 8.0, TOTAL PROTEIN 6.3, ALBUMIN 2.5. A CHEST XRAY WAS OBTAINED AND REVEALED: The trachea is midline. The cardiac silhouette is borderline enlarged but stable compared to 12/2020 there are sternotomy wires and surgical clips from CABG surgery. The lungs are clear without focal infiltrate or effusion. Vascularity is normal. The bony thorax is unremarkable. AN ECHO WAS OBTAINED YESTERDAY AND REVEALED AN EJECTION FRACTION OF 43%. SHE IS CURRENTLY RECEIVING: LASIX 40MG IV BID, DUONEBS TID, THE POTASSIUM PROTOCOL, ASPIRIN 81MG PO DAILY, COREG 12.5MG PO BID, PEPCID 40MG PO BID, NEURONTIN 100MG PO TID, HEMOCYTE PLUS 1 TABLET DAILY, PROTONIX 40MG PO BID, REQUIP 0.25MG PO BID, ULTRAM 50MG PO Q6H PRN, AND EFFEXOR 150MG PO DAILY. TODAY, WE WILL CHANGE LASIX TO 40MG IV DAILY, CHANGE COREG TO 6.25MG PO BID, ADD ALDACTONE 25MG PO DAILY, AND ENTRESTO 24/26MG TABLET PO BID. OTHERWISE, WE WILL CONTINUE WITH CURRENT PLAN OF CARE TODAY. PATIENT WILL [facility]ING [facility] FOR [facility]ICAL THERAPY AND REHAB SOMETIME NEXT WEEK. PT/OT WILL CONTINUE TO WORK WITH PATIENT. WE PLAN TO FOLLOW UP WITH AM LABS AND CHEST XRAY AND CONTINUE TO MONITOR. TIME SPENT ON CLINICAL ASSESSMENT, REVIEWING LABS AND IMAGING, DECISION MAKING, AND DOCUMENTATION GREATER THAN 45 MINUTES. - Past Medical Family Social History Past Med/Fam/Surg Hx: No changes since H&P Allergies: Allergies ciprofloxacin Allergy (Verified 08/25/20 14:56) naproxen [From Aleve] Allergy (Verified 08/25/20 14:56) Penicillins Allergy (Verified 08/25/20 14:56) promethazine Allergy (Verified 08/25/20 14:56) - Review of Systems ROS: No change since H&P - Vital Signs and I&O's Vital Signs: Temperature 99.5 F Pulse Rate [Right] 80 Pulse Rate 74 Respiratory Rate 19 Blood Pressure [Right Arm] 103/55 Blood Pressure 140/63 O2 Sat by Pulse Oximetry 100 Intake and Output: Intake & Output 08/28/20 08/29/20 08/30/20 08/31/20 11:59 11:59 11:59 11:59 Intake Total 650 / 650 820 / 820 770 / 770 780 / 780 Output Total 1850 / 1850 525 / 525 1950 / 1950 2600 / 2600 Balance -1200 / -1200 295 / 295 -1180 / -1180 -1820 / -1820 - Physical Exam Oriented: Normal Eyes: Normal Ear: Normal Nose: Normal Throat: Normal Respiratory: Generalized, Diminished Cardiovascular: Edema (BLE 1+ PITTING EDEMA ) : Normal Auscultation: Bowel Sounds: Normal Palpation: Normal Tenderness: Normal Skin: Normal Musculoskeletal: Normal Psychiatric: Normal Mood Description: Calm Affect: Normal Speech Pattern: Appropriate - Laboratory and Diagnostics Result Diagrams: 08/31/20 00:42 08/31/20 04:20 Labs: Laboratory WBC 12.0 X10^3/uL (3.6-10.0) H 08/31/20 00:42 RBC 4.55 X10^6/uL (3.5-5.4) 08/31/20 00:42 Hgb 11.3 g/dL (12.0-16.0) L 08/31/20 00:42 Hct 35.8 % (36.0-47.0) L 08/31/20 00:42 MCV 78.6 fL (80.0-100.0) L 08/31/20 00:42 MCH 24.9 pg (27.0-34.0) L 08/31/20 00:42 MCHC 31.6 g/dL (33.0-35.0) L 08/31/20 00:42 RDW 20.9 % (11.6-16.5) H 08/31/20 00:42 Plt Count 303 X10^3/uL (150.0-450.0) 08/31/20 00:42 Plt Count Comment Adequate (ADEQUATE) 08/31/20 00:42 MPV 8.9 fL (7.4-11.0) 08/31/20 00:42 Neut % (Auto) 66.5 % (42.0-75.0) 08/31/20 00:42 Lymph % (Auto) 22.0 % (21.0-51.0) 08/31/20 00:42 [place] % (Auto) 10.4 % (0.0-13.0) 08/31/20 00:42 Eos % (Auto) 0.7 % (0.9-2.9) L 08/31/20 00:42 Baso % (Auto) 0.4 % (0.2-1.0) 08/31/20 00:42 Neut # (Auto) 8.0 x10^3/uL (2.2-4.8) H 08/31/20 00:42 Lymph # (Auto) 2.6 X10^3/uL (1.3-2.9) 08/31/20 00:42 [place] # (Auto) 1.2 x10^3/uL (0.3-0.8) H 08/31/20 00:42 Eos # (Auto) 0.1 x10^3/uL (0.0-0.2) 08/31/20 00:42 Baso # (Auto) 0.1 X10^3/uL (0.0-0.1) 08/31/20 00:42 Absolute Nucleated RBC 0.0 /100WBC 08/31/20 00:42 Total Counted 100 08/25/20 16:26 Neutrophils % (Manual) 68 % (39-76) 08/25/20 16:26 Lymphocytes % (Manual) 25 % (13-43) 08/25/20 16:26 Monocytes % (Manual) 7 % (4-9) 08/25/20 16:26 Plt Morphology Comment Normal (NORMAL) 08/31/20 00:42 RBC Morphology Abnormal (NORMAL) A 08/31/20 00:42 Hypochromasia Slight A 08/31/20 00:42 Anisocytosis 1+ A 08/31/20 00:42 Microcytosis 1+ A 08/31/20 00:42 Stomatocytes Present 08/27/20 04:45 Sodium 143 mmol/L (136-145) 08/31/20 04:20 Corrected Sodium 143 mmol/L (136-145) 08/31/20 04:20 Potassium 3.7 mmol/L (3.5-5.1) 08/31/20 04:20 Chloride 103 mmol/L (98-107) 08/31/20 04:20 Carbon Dioxide 32.6 mmol/L (21-32) H 08/31/20 04:20 BUN 14 mg/dL (7-18) 08/31/20 04:20 Creatinine 1.13 mg/dL (0.55-1.02) H 08/31/20 04:20 Est GFR (MDRD) Af Amer > 60 (>60) 08/31/20 04:20 Est GFR (MDRD) Non-Af 50 (>60) L 08/31/20 04:20 Glucose 120 mg/dL (65-99) H 08/31/20 04:20 Calcium 8.5 mg/dL (8.5-10.1) 08/31/20 04:20 Corrected Calcium 9.5 mg/dL (8.5-10.1) 08/31/20 04:20 Magnesium 1.9 mg/dL (1.7-2.9) 08/26/20 04:28 Total Bilirubin 0.40 mg/dL (0.2-1.0) 08/31/20 04:20 AST 13 Units/L (15-37) L 08/31/20 04:20 ALT 15 Units/L (12-78) 08/31/20 04:20 Alkaline Phosphatase 77 Units/L (46-116) 08/31/20 04:20 Creatine Kinase 78 Units/L (26-192) 08/26/20 04:28 CK-MB (CK-2) 1.4 ng/mL (0-4.0) 08/26/20 04:28 CK/CKMB % Calc 1.8 % (<4) 08/26/20 04:28 Troponin I < 0.02 ng/mL (0-1.5) 08/26/20 04:28 B-Natriuretic Peptide 174 pg/mL (0-79) H 08/25/20 16:26 Total Protein 7.1 g/dL (6.4-8.2) 08/31/20 04:20 Albumin 2.8 g/dL (3.4-5.0) L 08/31/20 04:20 Globulin 4.3 g/dL (2.5-4.5) 08/31/20 04:20 Albumin/Globulin Ratio 0.7 Ratio (1.1-2.1) L 08/31/20 04:20 Specimen Type Catherized urine 08/25/20 17:08 Urine Color Yellow (YELLOW) 08/25/20 17:08 Urine Appearance Clear (CLEAR) 08/25/20 17:08 Urine pH 7.0 (5.0 - 8.0) 08/25/20 17:08 Ur Specific [place] 1.010 (1.000-1.030) 08/25/20 17:08 Urine Protein Negative (NEGATIVE) 08/25/20 17:08 Urine Glucose (UA) Negative (NEGATIVE) 08/25/20 17:08 Urine Ketones Negative (NEGATIVE) 08/25/20 17:08 Urine Occult Blood Negative (NEGATIVE) 08/25/20 17:08 Urine Nitrite Negative (NEGATIVE) 08/25/20 17:08 Urine Bilirubin Negative (NEGATIVE) 08/25/20 17:08 Urine Urobilinogen Normal (NORMAL) 08/25/20 17:08 Ur Leukocyte Esterase Negative (NEGATIVE) 08/25/20 17:08 - Plan (1) CHF (congestive heart failure) Status: Acute Qualifiers: Heart failure type: unspecified Heart failure chronicity: acute on chronic Qualified Code(s): I50.9 - Heart failure, unspecified Plan: LASIX 40MG IV DAILY, ALDACTONE 25MG PO DAILY, ENTRESTO 24/26MG 1/2 TABLET BID, DUONEBS TID, THE POTASSIUM PROTOCOL, ASPIRIN 81MG PO DAILY, COREG 6.25MG PO BID, PEPCID 40MG PO BID, NEURONTIN 100MG PO TID, HEMOCYTE PLUS 1 TABLET DAILY, PROTONIX 40MG PO BID, REQUIP 0.25MG PO BID, ULTRAM 50MG PO Q6H PRN, AND EFFEXOR 150MG PO DAILY. (2) Hypoxia Status: Acute (3) HTN (hypertension) Status: Chronic Qualifiers: Hypertension type: essential hypertension Qualified Code(s): I10 - Essential (primary) hypertension Plan: CONTINUE HOME MEDS (4) Depression Status: Chronic Qualifiers: Depression Type: major depressive disorder Major depression recurrence: unspecified whether recurrent Active/Remission status: remission status unspecified Qualified Code(s): F32.9 - Major depressive disorder, single episode, unspecified Plan: CONTINUE HOME MEDS (5) Anxiety Status: Chronic Plan: CONTINUE HOME MEDS
[2020-08-31 17:09] VITALS: BP 122/48
[2020-08-31 17:39] LABS: BILIRUBIN,URINE NEGATIVE (NEGATIVE); BLOOD/HEMOGLOBIN,URINE NEGATIVE (NEGATIVE); GLUCOSE, URINE NEGATIVE (NEGATIVE); KETONES,URINE NEGATIVE (NEGATIVE); LEUKOCYTE ESTERASE ,URINE 1+ (NEGATIVE); NITRITES,URINE POSITIVE (NEGATIVE); PROTEIN,URINE NEGATIVE (NEGATIVE); UROBILINOGEN,URINE NORMAL (NORMAL)
[2020-08-31 17:42] LABS: APPEARANCE,URINE CLEAR (CLEAR); COLOR,URINE YELLOW (YELLOW)
[2020-08-31 17:52] LABS: BACTERIA,URINE 2+ /HPF (NEGATIVE); RBC,URINE 0-2 /HPF (0-3); SQUAMOUS EPITHELIAL CELL,UR NEGATIVE /HPF (NEGATIVE); TRANSITIONAL EPI CELLS,URINE FEW /HPF (NEGATIVE)
== END 2020-08-31 17:25 | DRG 292 ==
LOC: OBS 14:39 → ER 14:39 → OBSVTOIN 17:36 → OBS 19:20 → ICU 19:32
PROVIDERS: ADMIT Internal Medicine; ATTEND Internal Medicine
DX: I11.0 Hypertensive heart disease with heart failure; E78.2 Mixed hyperlipidemia; Z20.822 Contact with and (suspected) exposure to COVID-19; K21.9 Gastro-esophageal reflux disease without esophagitis; B96.29 Other Escherichia coli [E. coli] as the cause of diseases classified elsewhere; I50.9 Heart failure, unspecified; F32.89 Other specified depressive episodes; N39.0 Urinary tract infection, site not specified; R06.02 Shortness of breath; F41.8 Other specified anxiety disorders; R26.89 Other abnormalities of gait and mobility

== ENCOUNTER 2020-11-19 15:44 | Observation (INO) ==
[2020-11-19 17:18] LABS: BASOPHILS # (AUTO) 0.1 X10^3/uL (0.0-0.1); BASOPHILS % (AUTO) 1.3 % (0.2-1.0); EOSINOPHILS # (AUTO) 0.2 x10^3/uL (0.0-0.2); HEMATOCRIT 31.9 % (36.0-47.0); HEMOGLOBIN 10.2 g/dL (12.0-16.0); LYMPHOCYTES # (AUTO) 2.7 X10^3/uL (1.3-2.9); LYMPHOCYTES % (AUTO) 32.3 % (21.0-51.0); MEAN CORPUSCULAR HGB CONC 31.9 g/dL (33.0-35.0); MEAN CORPUSCULAR VOLUME 81.4 fL (80.0-100.0); MEAN PLATELET VOLUME 9.3 fL (7.4-11.0); MONOCYTES # (AUTO) 0.8 x10^3/uL (0.3-0.8); MONOCYTES % (AUTO) 9.5 % (0.0-13.0); NEUTROPHILS # (AUTO) 4.5 x10^3/uL (2.2-4.8); NEUTROPHILS % (AUTO) 53.9 % (42.0-75.0); PLATELET COUNT 318 X10^3/uL (150.0-450.0); RED BLOOD COUNT 3.92 X10^6/uL (3.5-5.4); RED CELL DISTRIBUTION WIDTH 18.3 % (11.6-16.5); WHITE BLOOD COUNT 8.3 X10^3/uL (3.6-10.0)
[2020-11-19 17:41] LABS: ALANINE AMINOTRANSFERASE 14 Units/L (12-78); ALBUMIN 2.8 g/dL (3.4-5.0); ALKALINE PHOSPHATASE 128 Units/L (46-116); ASPARTATE AMINO TRANSFERASE 19 Units/L (15-37); BLOOD UREA NITROGEN 7 mg/dL (7-18); CALCIUM 8.5 mg/dL (8.5-10.1); CARBON DIOXIDE 30.8 mmol/L (21-32); CHLORIDE 100 mmol/L (98-107); COR CA(FOR HYPOALB) 9.5 mg/dL (8.5-10.1); CREATININE 0.99 mg/dL (0.55-1.02); SODIUM 139 mmol/L (136-145); TOTAL PROTEIN 7.7 g/dL (6.4-8.2); eGFR NON BLACK RACES 58 (>60)
[2020-11-19 18:28] VITALS: BMI 34.7
[2020-11-19] MEDS ORDERED: RESTORIL CAP 15 MG PO PRN (18:29)
[2020-11-19] MEDS ORDERED: PHARMACY CONSULT - VANCOMYCIN XX SCH (19:00)
[2020-11-19] MEDS ORDERED: MICRO K EXTEN CAP 10 MEQ PO PRN (20:21)
[2020-11-19] MEDS ORDERED: MAGNESIUM SULFATE 1 GRAM/100 mL PREMIX 1 GM/100 ML BAG IV PRN (20:21)
[2020-11-19] MEDS ORDERED: POTASSIUM CHL 60 MEQ/NS 0.45% 500 ML IV PRN (20:21)
[2020-11-19] MEDS ORDERED: POTASSIUM CHLORIDE LIQ 20 MEQ UDC PO PRN (20:21)
[2020-11-19] MEDS ORDERED: K-DUR TAB 20 MEQ PO PRN (20:21)
[2020-11-19] MEDS ORDERED: POTASSIUM CHL 40 MEQ/NS 0.45% 500 ML IV PRN (20:21)
[2020-11-19] MEDS ORDERED: KLOR-CON PO PRN (20:21)
[2020-11-19] MEDS ORDERED: K-RIDER 10 MEQ/NS 100 ML 10 MEQ/100 ML BAG IV PRN (20:21)
[2020-11-19] MEDS ORDERED: VANCOMYCIN IV *PREMIX 1 G/200 ML BAG 1 G/200 ML PIGGYBACK IV SCH (21:00)
--- NOTE | 2020-11-19 22:32 | RAD ---
HISTORYSOBSTUDYCHEST, 1 VIEWCOMPARISONJune 2020TECHNIQUEChest radiographic imaging, AP portable projection, 1 imageFINDINGSMild cardiomegaly.Status post median sternotomy/CABG.Mild diffuse increased interstitial markings; similar to the previous exam.No focal airspace disease.No pleural effusion.No pneumothorax.No acute osseous abnormality.IMPRESSIONNo imaging findings of acute cardiopulmonary disease or significant changes.Electronically signed by: Marshal Beck (Nov 19, 2020 22:30:16)
[2020-11-20 06:32] LABS: BASOPHILS # (AUTO) 0.1 X10^3/uL (0.0-0.1); BASOPHILS % (AUTO) 0.9 % (0.2-1.0); EOSINOPHILS # (AUTO) 0.1 x10^3/uL (0.0-0.2); EOSINOPHILS % (AUTO) 1.6 % (0.9-2.9); HEMATOCRIT 29.7 % (36.0-47.0); HEMOGLOBIN 9.4 g/dL (12.0-16.0); LYMPHOCYTES # (AUTO) 2.3 X10^3/uL (1.3-2.9); LYMPHOCYTES % (AUTO) 26.1 % (21.0-51.0); MEAN CORPUSCULAR HEMOGLOBIN 25.7 pg (27.0-34.0); MEAN CORPUSCULAR HGB CONC 31.7 g/dL (33.0-35.0); MEAN CORPUSCULAR VOLUME 81.3 fL (80.0-100.0); MEAN PLATELET VOLUME 9.5 fL (7.4-11.0); MONOCYTES % (AUTO) 11.5 % (0.0-13.0); NEUTROPHILS # (AUTO) 5.3 x10^3/uL (2.2-4.8); NEUTROPHILS % (AUTO) 59.9 % (42.0-75.0); PLATELET COUNT 261 X10^3/uL (150.0-450.0); RED BLOOD COUNT 3.66 X10^6/uL (3.5-5.4); RED CELL DISTRIBUTION WIDTH 18.5 % (11.6-16.5); WHITE BLOOD COUNT 8.8 X10^3/uL (3.6-10.0)
[2020-11-20 07:39] LABS: ALANINE AMINOTRANSFERASE 12 Units/L (12-78); ALBUMIN 2.5 g/dL (3.4-5.0); ALKALINE PHOSPHATASE 108 Units/L (46-116); ASPARTATE AMINO TRANSFERASE 16 Units/L (15-37); BLOOD UREA NITROGEN 4 mg/dL (7-18); CALCIUM 8.1 mg/dL (8.5-10.1); CARBON DIOXIDE 29.9 mmol/L (21-32); CHLORIDE 105 mmol/L (98-107); COR CA(FOR HYPOALB) 9.3 mg/dL (8.5-10.1); CREATININE 0.88 mg/dL (0.55-1.02); SODIUM 140 mmol/L (136-145); TOTAL PROTEIN 6.7 g/dL (6.4-8.2); eGFR NON BLACK RACES > 60 (>60)
--- NOTE | 2020-11-20 08:20 | RAD ---
HISTORYSOBSTUDYCHEST x-ray, 1 VIEWCOMPARISONX-ray 11/19/2020FINDINGSPrior cardiac surgery. Heart is probably normal in size on this AP radiograph. There is a moderate-sized hiatus hernia, similar to prior study. Probable mild linear atelectasis in the left lower lung. Right lung appears clear.IMPRESSIONMild linear atelectasis at the left lung base is similar to prior study.Electronically signed by: Fabian Garduno (Nov 20, 2020 08:18:28)
[2020-11-20] MEDS ORDERED: LOVENOX INJ 40 MG SYR SC SCH (09:00)
[2020-11-20] MEDS ORDERED: PERCOCET TAB 5/325 MG PO PRN (09:44)
[2020-11-20] MEDS ORDERED: ASPIRIN EC 81 MG PO SCH (09:45)
[2020-11-20] MEDS ORDERED: XANAX PO SCH ×2 (09:45)
[2020-11-20] MEDS ORDERED: NEURONTIN CAP 100 MG PO SCH (09:45)
[2020-11-20] MEDS ORDERED: VANCOMYCIN IV *PREMIX 1.25 G/250 ML BAG 1.25 G/250 ML PIGGYBACK IV SCH (10:00)
--- NOTE | 2020-11-20 10:50 | W.DIS.FURT ---
Summary of Discharge Discharge Summary of Date Date of Exam: 11/20/20 Admission Date Date of Admission: 11/19/20 Admission Diagnosis Hospital Course: Ms Mendoza is a 75y/o female with multiple co-morbidities including HTN, HLD, CHF and chronic edema was seen in Dr. Chapin's clinic yesterday for knee pain. Patient was noted to have worsening lower ext edema and redness so sent to the hospital for direct admission. Patient has been treated for LE cellulitis previously. She was started on IV Vancomycin. COVID-19 and CXR were negative. Her labs did not show any pertinant abnormalities. Patient's home medications were re-started. Her redness and edema improved the following day. She denied SOB or chest pain. ECHO was ordered but then cancelled as patient had a recent echo in August. Patient reports chronic LE edema which does look better to her compared to before. She was not requiring any O2. She was adamant about going home. Patient has home health services already set up. She was discharged on PO antibiotics, doxycycline and clindamycin. Patient was advised to keep legs propped up. Patient verbalized understanding and will f/u with PCP as scheduled. Vital Signs: Vital Signs (72 hours) 11/19/20 18:14 11/19/20 20:00 11/20/20 00:00 Temperature 97.1 F L 98.8 F 98.6 F Pulse Rate [Right Radial] 79 89 90 Respiratory Rate 20 18 20 Blood Pressure [Right Arm] 185/71 156/63 149/61 O2 Sat by Pulse Oximetry 93 L 91 L 93 L 11/20/20 04:00 11/20/20 08:00 Temperature 98.0 F 98.8 F Pulse Rate [Right Radial] 86 87 Respiratory Rate 18 18 Blood Pressure [Right Arm] 136/61 123/86 O2 Sat by Pulse Oximetry 91 L 94 L Labs: Laboratory Last Values WBC 8.8 X10^3/uL (3.6-10.0) 11/20/20 06:00 RBC 3.66 X10^6/uL (3.5-5.4) 11/20/20 06:00 Hgb 9.4 g/dL (12.0-16.0) L 11/20/20 06:00 Hct 29.7 % (36.0-47.0) L 11/20/20 06:00 MCV 81.3 fL (80.0-100.0) 11/20/20 06:00 MCH 25.7 pg (27.0-34.0) L 11/20/20 06:00 MCHC 31.7 g/dL (33.0-35.0) L 11/20/20 06:00 RDW 18.5 % (11.6-16.5) H 11/20/20 06:00 Plt Count 261 X10^3/uL (150.0-450.0) 11/20/20 06:00 MPV 9.5 fL (7.4-11.0) 11/20/20 06:00 Neut % (Auto) 59.9 % (42.0-75.0) 11/20/20 06:00 Lymph % (Auto) 26.1 % (21.0-51.0) 11/20/20 06:00 Ware % (Auto) 11.5 % (0.0-13.0) 11/20/20 06:00 Eos % (Auto) 1.6 % (0.9-2.9) 11/20/20 06:00 Baso % (Auto) 0.9 % (0.2-1.0) 11/20/20 06:00 Neut # (Auto) 5.3 x10^3/uL (2.2-4.8) H 11/20/20 06:00 Lymph # (Auto) 2.3 X10^3/uL (1.3-2.9) 11/20/20 06:00 Ware # (Auto) 1.0 x10^3/uL (0.3-0.8) H 11/20/20 06:00 Eos # (Auto) 0.1 x10^3/uL (0.0-0.2) 11/20/20 06:00 Baso # (Auto) 0.1 X10^3/uL (0.0-0.1) 11/20/20 06:00 Absolute Nucleated RBC 0.1 /100WBC 11/20/20 06:00 Sodium 140 mmol/L (136-145) 11/20/20 06:00 Corrected Sodium TNP 11/20/20 06:00 Potassium 3.7 mmol/L (3.5-5.1) 11/20/20 06:00 Chloride 105 mmol/L (98-107) 11/20/20 06:00 Carbon Dioxide 29.9 mmol/L (21-32) 11/20/20 06:00 BUN 4 mg/dL (7-18) L 11/20/20 06:00 Creatinine 0.88 mg/dL (0.55-1.02) 11/20/20 06:00 Est GFR (MDRD) Af Amer > 60 (>60) 11/20/20 06:00 Est GFR (MDRD) Non-Af > 60 (>60) 11/20/20 06:00 Glucose 102 mg/dL (65-99) H 11/20/20 06:00 Calcium 8.1 mg/dL (8.5-10.1) L 11/20/20 06:00 Corrected Calcium 9.3 mg/dL (8.5-10.1) 11/20/20 06:00 Magnesium 2.2 mg/dL (1.7-2.9) 11/19/20 16:50 Total Bilirubin 0.50 mg/dL (0.2-1.0) 11/20/20 06:00 AST 16 Units/L (15-37) 11/20/20 06:00 ALT 12 Units/L (12-78) 11/20/20 06:00 Alkaline Phosphatase 108 Units/L (46-116) 11/20/20 06:00 B-Natriuretic Peptide 69.6 pg/mL (0-79) 11/19/20 16:50 Total Protein 6.7 g/dL (6.4-8.2) 11/20/20 06:00 Albumin 2.5 g/dL (3.4-5.0) L 11/20/20 06:00 Globulin 4.2 g/dL (2.5-4.5) 11/20/20 06:00 Albumin/Globulin Ratio 0.6 Ratio (1.1-2.1) L 11/20/20 06:00 SARS CoV-2 RNA Rapid JESSICA Negative (NEGATIVE) 11/19/20 16:24 Reason For Visit: CHF, LE EDEMA, CELLULITIS Discharge Date Discharge Date: 11/20/20 Discharge Diagnosis All Active Problems (Updated 11/20/20 @ 18:14 by Elsa Menendez) Cellulitis (Acute) Pulmonary edema (Chronic) CHF (congestive heart failure) (Chronic) Anemia (Chronic) Depression (Chronic) Anxiety (Chronic) Hyperlipidemia (Chronic) HTN (hypertension) (Chronic) Diabetes (Chronic) Plan of Treatment: Continue with present treatment and follow up plan. Pt is to keep follow up appointment as instructed and take medications as ordered. Discharge Medications Discharge Medications: ciprofloxacin Allergy (Verified 08/25/20 14:56) naproxen [From Aleve] Allergy (Verified 08/25/20 14:56) Penicillins Allergy (Verified 08/25/20 14:56) promethazine Allergy (Verified 08/25/20 14:56) New Prescriptions clindamycin HCl 300 mg PO BID 3 Days #6 cap 11/20/20 [Rx] doxycycline hyclate 100 mg PO BID 7 Days #14 cap 11/20/20 [Rx] furosemide 40 mg PO DAILY 30 Days #30 tab 11/20/20 [Rx] potassium chloride 10 meq PO DAILY #14 tab 11/20/20 [Rx] Follow up and Referral Follow Up: 1 Week (PCP) Discharge Disposition Discharge Disposition: Home with home health Discharge Condition: Stable Discharge Plan Discharge Plan Hospital Course: Ms Mendoza is a 75y/o female with multiple co-morbidities including HTN, HLD, CHF and chronic edema was seen in Dr. Chapin's clinic yesterday for knee pain. Patient was noted to have worsening lower ext edema and redness so sent to the hospital for direct admission. Patient has been treated for LE cellulitis previously. She was started on IV Vancomycin. COVID-19 and CXR were negative. Her labs did not show any pertinant abnormalities. Patient's home medications were re-started. Her redness and edema improved the following day. She denied SOB or chest pain. ECHO was ordered but then cancelled as patient had a recent echo in August. Patient reports chronic LE edema which does look better to her compared to before. She was not requiring any O2. She was adamant about going home. Patient has home health services already set up. She was discharged on PO antibiotics, doxycycline and clindamycin. Patient was advised to keep legs propped up. Patient verbalized understanding and will f/u with PCP as scheduled. Patient Disposition: 01 HOME, SELF-CARE Condition: Stable Health Concerns: Post Hospitalization: new medications and changes needed to prevent readmission or further decline. Pt educated and given instructions on all concerns. Care Plan Goals: Problem: Fluid Volume Overload Goal: Maintain/Improved Adequate hydration. Instructions: Follow provided instructions. Follow up with primary physician as directed. Contact primary care physician or report to the closest Emergency Room if condition worsens. Plan of Treatment: Continue with present treatment and follow up plan. Pt is to keep follow up appointment as instructed and take medications as ordered. Prescription drug monitoring program results: PDMP reviewed and no concerns identified Prescriptions: New doxycycline hyclate 100 mg capsule 100 mg PO BID 7 Days Qty: 14 RF: 0 clindamycin HCl 300 mg capsule 300 mg PO BID 3 Days Qty: 6 RF: 0 potassium chloride 10 mEq tablet extended release 10 meq PO DAILY Qty: 14 RF: 0 Continued famotidine [Pepcid] 40 MG tablet 40 mg PO BID Qty: 60 RF: 3 pantoprazole [Protonix] 40 mg Tablet,Delayed Release (Dr/Ec) 40 mg PO BID RF: 0 venlafaxine [Effexor XR] 150 mg Capsule,Extended Release 24hr 150 mg PO QAM RF: 0 Changed furosemide 20 mg tablet 40 mg PO DAILY 30 Days Qty: 30 RF: 1 Discontinued alprazolam 0.5 mg tablet 0.25 mg PO TID RF: 0 hydrocodone-acetaminophen 5-325 mg Tablet 1 tab PO Q6H MDD 4 Qty: 120 RF: 0 No Action ondansetron 8 mg tablet,disintegrating 8 mg translingual Q6H PRNRF: 0 carvedilol 12.5 mg tablet 12.5 mg PO BID RF: 0 alprazolam 0.5 mg tablet 0.5 mg PO QAM RF: 0 tramadol 50 mg tablet 50 mg PO TID PRN (Reason: Pain) RF: 0 gabapentin 300 mg capsule 300 mg PO BID RF: 0 furosemide 40 mg tablet 40 mg PO DAILY RF: 0 potassium chloride 10 mEq capsule, extended release 20 meq PO DAILY RF: 0 Orders to Discharge Patient Discharge Orders: Discharge (Routine); Ordered 11/20/20 Ordered By: Elsa Menendez Follow ups/Referrals Follow ups/Referrals: Chico Chapin [Primary Care Provider] - 1 WEEK (Call office on Monday and schedule a 1 week follow up) Instructions Instructions: Fall Prevention in the Home, Adult, [id number], Type 2 Diabetes Mellitus, Self Care, Adult, [id number], Cellulitis, Adult, [id number], Hypertension, Urgl-zk-[id number], Heart Failure, Rouw-ch-[id number], Edema, [id number] Stand Alone Forms: Precautions for [facility], Patient Portal, Social Distancing
[2020-11-20] MEDS: ULTRAM PO PRN ×2 (13:09→13:45)
[2020-11-20 13:16] VITALS: BP 111/70
[2020-11-21] MEDS ORDERED: PHARMACY COMMENT IV NR (20:30)
== END 2020-11-20 13:55 | disposition home or self-care (01) ==
LOC: OBS
PROVIDERS: ADMIT Internal Medicine; ATTEND Internal Medicine
DX: E78.2 Mixed hyperlipidemia; I11.0 Hypertensive heart disease with heart failure; E87.6 Hypokalemia; Z20.822 Contact with and (suspected) exposure to COVID-19; I50.9 Heart failure, unspecified; L03.116 Cellulitis of left lower limb; L03.115 Cellulitis of right lower limb; R60.0 Localized edema

== ENCOUNTER 2022-08-14 09:52 | Observation (INO) ==
--- NOTE | 2022-08-14 09:58 | DR.DIZZY ---
HPI Time seen Time Seen by Provider: 08/14/22 09:58 Complaint Chief Complaint Doctor Comments: Patient had a syncopal episode and was found on the floor in her room by her brother today. Patient has had a decline in her health over the past 2 weeks. She has a h/o chronic back pain and takes xanax 0.5mg/percocet5/325mg/gabapentin 100mg/tramadol 50mg.Daughter states that patient lives with her brother who is her electronics worker but he cannot take care of her anymore.Patient needs full assist-she cannot bath herself,walk,feed herself. Daughter just arrived from out of town to assist with her care and states that she gives her mother her meds but she will forget that she has received them and give herself additional doses. Daughter thinks that might have occurred today.She states that hurt her left shoulder ,left hip,left knee,left foot.Patient denies: headache,n,v,sob,chest pain,abdl pain. Context Stroke Symptoms: denies Ataxia, Acute confusion, Weakness of limb, Numbness of limbs or Dizziness PMH PMH Past Medical History: Anxiety, CHF, Depression, Dyslipidemia, GERD and Hypertension Past Surgical History: Yes Surgical History: CABG/Valve Surgery, Carotid Endarterectomy, Hysterectomy and Spleenectomy Family History Family Medical History: Diabetes Mellitus, Cancer, Coronary Artery Disease, Heart Failure and Hypertension Social History Do you use any recreational Drugs:: No ROS Review of Systems Constitutional: Weakness; negative Chills or Fever Eyes: No Symptoms Reported ENTM: No Symptoms Reported Respiratoy: negative Productive Cough, Dry Cough or Short of Breath Cardiovascular: Edema (LLE) and Syncope; negative Chest Pain Gastrointestinal/Abdominal: No Symptoms Reported Genitourinary: No Symptoms Reported Neurological: No Symptoms Reported Musculoskeletal: Back Pain (lumbar(chronic)), Shoulder (left), Hip (left) and Foot (Left) Integumentary: No Symptoms Reported Hematologic/Lymphatic: No Symptoms Reported Endocrine: No Symptoms Reported Psychiatric: No Symptoms Reported All Other Systems: Reviewed and Negative PE Vital Signs Vitals: Pulse Rate 65 Pulse Rate 53 Respiratory Rate 22 Respiratory Rate 17 Blood Pressure [Right Arm] 111/70 Blood Pressure 149/66 Blood Pressure 150/67 O2 Sat by Pulse Oximetry 99 O2 Sat by Pulse Oximetry 96 General Limitations: No Limitations General Appearance: Alert and Lethargic (Easily aroused) Head Head Exam: Normal Inspection Eyes Eye exam: Normal Appearance ENT ENT Exam: Normal Exam, Normal Oropharynx and Normal External Ear Exam Neck Neck Exam: Normal Inspection and Full ROM Chest Chest Inspection: Normal Inspection Respiratory Respiratory Exam: Normal Lung Sounds Bilat Respiratory Exam: Bilateral: Clear to Auscultation Cardiovascular Cardiovascular Exam: Regular Rate and Normal Rhythm Abdominal Exam Abdominal Exam: Normal Inspection, Normal Bowel Sounds and Soft Rectal Rectal Exam: Deferred Extremeties Extremities Exam: Normal Inspection, Full ROM and Tenderness (left Shoulder ) Back Back Exam: Normal Inspection and Full ROM Neurologic Neurological Exam: Alert and Oriented X3 Psychiatric Psychiatric Exam: Normal Affect and Normal Mood Skin Skin Exam: Warm, Dry, Intact and Normal Color MDM Differential Diagnosis Differential Diagnosis: Anemia, CVA, Dehydration, Electrolyte disorder and Myocardial infarction Differential Diagnosis Comment: Head injury,left shoulder /left hip/left knee/left foot fracture or disloca COURSE Treatment Treatment: Patient was brought to a monitored room.She received hydralazine 10mg iv for her bp 200's/80's. Patient's current bp is 156/61.Patient has a K 3.2 and received Kdur 40meq po.Patient refused the left hip xray and was able to move her left hip without pain in the radiology department.She refused the lumbar spine CT w/o contrast because she states the pain in her lumbar back is chronic.Patient's head CT did not reveal an intracranial bleed. Daughter states that patient is requiring more care than she and the Uncle can give.Daughter would like the patient assessed for care home placement because she has a h/o cancer and is receiving palliative care.She has been told to be careful about what she does daily. Patient has a UTI and received Rocephin 1 gram iv. Patient has been accepted to Dr Freitas's ioffice for further evaluatrion. ROR Labs Reviewed Laboratory Results Reviewed?: Yes Result Diagrams: 08/17/22 04:20 08/17/22 04:20 Laboratory: WBC 8.7 X10^3/uL (3.6-10.0) 08/14/22 10:16 RBC 4.48 X10^6/uL (3.5-5.4) 08/14/22 10:16 Hgb 11.8 g/dL (12.0-16.0) L 08/14/22 10:16 Hct 36.5 % (36.0-47.0) 08/14/22 10:16 MCV 81.5 fL (80.0-100.0) 08/14/22 10:16 MCH 26.4 pg (27.0-34.0) L 08/14/22 10:16 MCHC 32.4 g/dL (33.0-35.0) L 08/14/22 10:16 RDW 19.0 % (11.6-16.5) H 08/14/22 10:16 Plt Count 227 X10^3/uL (150.0-450.0) 08/14/22 10:16 MPV 8.9 fL (7.4-11.0) 08/14/22 10:16 Neut % (Auto) 67.9 % (42.0-75.0) 08/14/22 10:16 Lymph % (Auto) 21.2 % (21.0-51.0) 08/14/22 10:16 Reynolds % (Auto) 9.2 % (0.0-13.0) 08/14/22 10:16 Eos % (Auto) 0.9 % (0.9-2.9) 08/14/22 10:16 Baso % (Auto) 0.8 % (0.2-1.0) 08/14/22 10:16 Neut # (Auto) 5.9 x10^3/uL (2.2-4.8) H 08/14/22 10:16 Lymph # (Auto) 1.8 X10^3/uL (1.3-2.9) 08/14/22 10:16 Reynolds # (Auto) 0.8 x10^3/uL (0.3-0.8) 08/14/22 10:16 Eos # (Auto) 0.1 x10^3/uL (0.0-0.2) 08/14/22 10:16 Baso # (Auto) 0.1 X10^3/uL (0.0-0.1) 08/14/22 10:16 Absolute Nucleated RBC 0.0 /100WBC 08/14/22 10:16 Sodium 141 mmol/L (136-145) 08/14/22 10:16 Corrected Sodium TNP 08/14/22 10:16 Potassium 3.2 mmol/L (3.5-5.1) L 08/14/22 10:16 Chloride 103 mmol/L (98-107) 08/14/22 10:16 Carbon Dioxide 33.2 mmol/L (21-32) H 08/14/22 10:16 BUN 10 mg/dL (7-18) 08/14/22 10:16 Creatinine 0.79 mg/dL (0.55-1.02) 08/14/22 10:16 Est GFR (MDRD) Af Amer > 60 (>60) 08/14/22 10:16 Est GFR (MDRD) Non-Af > 60 (>60) 08/14/22 10:16 Glucose 85 mg/dL (65-99) 08/14/22 10:16 Calcium 7.8 mg/dL (8.5-10.1) L 08/14/22 10:16 Corrected Calcium 8.8 mg/dL (8.5-10.1) 08/14/22 10:16 Magnesium 2.0 mg/dL (2.0-2.9) 08/14/22 10:16 Total Bilirubin 0.20 mg/dL (0.2-1.0) 08/14/22 10:16 AST 12 Units/L (15-37) L 08/14/22 10:16 ALT 11 Units/L (12-78) L 08/14/22 10:16 Alkaline Phosphatase 73 Units/L (46-116) 08/14/22 10:16 Creatine Kinase 45 Units/L (26-192) 08/14/22 10:16 Troponin I High Sens 13.4 ng/L (4.0-60.0) 08/14/22 14:53 Total Protein 6.7 g/dL (6.4-8.2) 08/14/22 10:16 Albumin 2.7 g/dL (3.4-5.0) L 08/14/22 10:16 Globulin 4.0 g/dL (2.5-4.5) 08/14/22 10:16 Albumin/Globulin Ratio 0.7 Ratio (1.1-2.1) L 08/14/22 10:16 Specimen Type Catherized urine 08/14/22 10:15 Urine Color Yellow (YELLOW) 08/14/22 10:15 Urine Appearance Clear (CLEAR) 08/14/22 10:15 Urine pH 6.0 (5.0 - 8.0) 08/14/22 10:15 Ur Specific Kenneth 1.015 (1.000-1.030) 08/14/22 10:15 Urine Protein 1+ (NEGATIVE) 08/14/22 10:15 Urine Glucose (UA) Negative (NEGATIVE) 08/14/22 10:15 Urine Ketones Negative (NEGATIVE) 08/14/22 10:15 Urine Blood Negative (NEGATIVE) 08/14/22 10:15 Urine Nitrite Negative (NEGATIVE) 08/14/22 10:15 Urine Bilirubin Negative (NEGATIVE) 08/14/22 10:15 Urine Urobilinogen Normal (NORMAL) 08/14/22 10:15 Ur Leukocyte Esterase 1+ (NEGATIVE) 08/14/22 10:15 Urine RBC 5-10 /HPF (0-3) A 08/14/22 10:15 Urine WBC 0-2 /HPF (0-5) 08/14/22 10:15 Ur Squamous Epith Cells Rare /HPF (NEGATIVE) 08/14/22 10:15 Urine Bacteria Negative /HPF (NEGATIVE) 08/14/22 10:15 Ur Culture Indicated? No/not indicated 08/14/22 10:15 Urine Opiates Screen Negative (NEG=<300) 08/14/22 10:15 Urine Methadone Screen Negative (NEG=<300) 08/14/22 10:15 Ur Barbiturates Screen Negative (NEG=<200) 08/14/22 10:15 Ur Phencyclidine Scrn Negative (NEG=<25) 08/14/22 10:15 Ur Amphetamines Screen Negative (NEG=<1000) 08/14/22 10:15 U Benzodiazepines Scrn Positive (NEG=<200) A 08/14/22 10:15 Urine Cocaine Screen Negative (NEG=<300) 08/14/22 10:15 U Marijuana (THC) Screen Negative (NEG=<50) 08/14/22 10:15 XRAY X-ray Results: HISTORY syncopal episodes, pt states she fell last night, look for CVA or bleed Altered mental status] Noncontrast head CT examination. Comparison: None available. Technique: Multiple axial images of the brain were obtained from the skull base to the vertex without administration of IV contrast. Findings: There is moderate sulcal and cisternal prominence as well as atherosclerotic change in the proximal intracranial carotid and vertebral arteries, which is not out of proportion to the patient's stated age. There is diffuse CT density alteration seen in the periventricular white matter of the high and mid-convexity, which is likely in the setting of small vessel disease and somewhat out of proportion to the patient's stated age. Chronic appearing bilateral basal ganglia lacunar ischemic events are seen. There is [mild bilate ral ex vacuo] ventricular dilatation without evidence for hydrocephalus or herniation syndrome. No midline shift is evident. No acute intraparenchymal hemorrhage or mass can be identified. If there remains a strong concern for any intra-cranial neoplasm, then follow-up with CT or MR imaging of the brain would be more sensitive to exclude any intra-cranial mass lesion. No extra-axial fluid collections are seen. No alteration in the attenuation of the brain parenchyma can be identified to suggest acute or subacute ischemic change. However, if clinical symptoms are concerning for an acute CVA, then follow-up MRI with DWI sequencing is recommended. The extracranial structures [are unremarkable]. The paranasal sinuses and mastoid air cells are relatively clear on this examination. IMPRESSION: No acute intracranial hemorrhage, midline shift, or herniation syndrome observed. Advanced but chronic appearing periventricular white matter microvascular disease seen throughout the high mid convexity with chronic appearing bilateral basal ganglia lacunar ischemic events also identified. No o ther significant intracranial process identified. Electronically signed by: JOHN YI III (August 14, 2022 11:04:29) EKG Compared to prior EKG Dated: 08/14/22 Rate: 55 [place]: Normal (negative) Rhythm: SB ST: Ischemia (t wave inversions II/II/AVF and V1-6) Opioid Opioid Risk Tool Age (Claus box if 16-45): No History of Preadolescent Sexual Abuse: No Total: 0 Total Score Risk Category: Low Risk Copyright: Sim EATON predicting aberrant behaviors Discharge Plan Diagnosis Discharge Problem: Syncope Qualifiers: Syncope type: unspecified Qualified Code(s): R55 - Syncope and collapse Urinary tract infection Qualifiers: Urinary tract infection type: acute cystitis Hematuria presence: without hematuria Qualified Code(s): N30.00 - Acute cystitis without hematuria Discharge Plan Patient Disposition: ADMITTED INPATIENT Condition: Stable Discharge Comment: pt admitted to room 215 ADDITIONAL NOTES Additional Notes Additional Notes: EKG #2 Rate 56 AXIS NEG Twave inversions II/II/AVF SB
--- NOTE | 2022-08-14 10:01 | EKG ---
Test Reason : chf, htn Blood Pressure : */* mmHG Vent. Rate : 55 BPM Atrial Rate : 55 BPM P-R Int : 134 ms QRS Dur : 84 ms QT Int : 478 ms P-R-T Axes : 30 -27 227 degrees QTc Int : 457 ms Sinus bradycardia Abnormal ECG No previous ECGs available Confirmed by Dilshad Rivera ([id number]) on 08/14/2022 5:43:30 PM Referred By: Confirmed By: Dilshad Rivera
[2022-08-14 10:36] LABS: BILIRUBIN,URINE NEGATIVE (NEGATIVE); BLOOD/HEMOGLOBIN,URINE NEGATIVE (NEGATIVE); GLUCOSE, URINE NEGATIVE (NEGATIVE); KETONES,URINE NEGATIVE (NEGATIVE); LEUKOCYTE ESTERASE ,URINE 1+ (NEGATIVE); NITRITES,URINE NEGATIVE (NEGATIVE); PROTEIN,URINE 1+ (NEGATIVE); UROBILINOGEN,URINE NORMAL (NORMAL)
[2022-08-14 10:37] LABS: BASOPHILS # (AUTO) 0.1 X10^3/uL (0.0-0.1); BASOPHILS % (AUTO) 0.8 % (0.2-1.0); EOSINOPHILS # (AUTO) 0.1 x10^3/uL (0.0-0.2); EOSINOPHILS % (AUTO) 0.9 % (0.9-2.9); HEMATOCRIT 36.5 % (36.0-47.0); HEMOGLOBIN 11.8 g/dL (12.0-16.0); LYMPHOCYTES # (AUTO) 1.8 X10^3/uL (1.3-2.9); LYMPHOCYTES % (AUTO) 21.2 % (21.0-51.0); MEAN CORPUSCULAR HEMOGLOBIN 26.4 pg (27.0-34.0); MEAN CORPUSCULAR HGB CONC 32.4 g/dL (33.0-35.0); MEAN CORPUSCULAR VOLUME 81.5 fL (80.0-100.0); MEAN PLATELET VOLUME 8.9 fL (7.4-11.0); MONOCYTES # (AUTO) 0.8 x10^3/uL (0.3-0.8); MONOCYTES % (AUTO) 9.2 % (0.0-13.0); NEUTROPHILS # (AUTO) 5.9 x10^3/uL (2.2-4.8); NEUTROPHILS % (AUTO) 67.9 % (42.0-75.0); PLATELET COUNT 227 X10^3/uL (150.0-450.0); RED BLOOD COUNT 4.48 X10^6/uL (3.5-5.4); WHITE BLOOD COUNT 8.7 X10^3/uL (3.6-10.0)
[2022-08-14 10:48] LABS: APPEARANCE,URINE CLEAR (CLEAR); COLOR,URINE YELLOW (YELLOW)
[2022-08-14 10:49] LABS: BACTERIA,URINE NEGATIVE /HPF (NEGATIVE); SQUAMOUS EPITHELIAL CELL,UR RARE /HPF (NEGATIVE)
[2022-08-14 10:55] LABS: ALANINE AMINOTRANSFERASE 11 Units/L (12-78); ALBUMIN 2.7 g/dL (3.4-5.0); ALKALINE PHOSPHATASE 73 Units/L (46-116); ASPARTATE AMINO TRANSFERASE 12 Units/L (15-37); BLOOD UREA NITROGEN 10 mg/dL (7-18); CALCIUM 7.8 mg/dL (8.5-10.1); CARBON DIOXIDE 33.2 mmol/L (21-32); CHLORIDE 103 mmol/L (98-107); COR CA(FOR HYPOALB) 8.8 mg/dL (8.5-10.1); CREATININE 0.79 mg/dL (0.55-1.02); GLUCOSE 85 mg/dL (65-99); POTASSIUM 3.2 mmol/L (3.5-5.1); SODIUM 141 mmol/L (136-145); TOTAL PROTEIN 6.7 g/dL (6.4-8.2); eGFR NON BLACK RACES > 60 (>60)
--- NOTE | 2022-08-14 11:06 | CT ---
HISTORYsyncopal episodes, pt states she fell last night, look for CVA or bleedAltered mental status]Noncontrast head CT examination.Comparison: None available.Technique:Multiple axial images of the brain were obtained from the skull base to the vertex without administration of IV contrast.Findings: There is moderate sulcal and cisternal prominence as well as atherosclerotic change in the proximal intracranial carotid and vertebral arteries, which is not out of proportion to the patient's stated age. There is diffuse CT density alteration seen in the periventricular white matter of the high and mid-convexity, which is likely in the setting of small vessel disease and somewhat out of proportion to the patient's stated age. Chronic appearing bilateral basal ganglia lacunar ischemic events are seen. There is [mild bilateral ex vacuo] ventricular dilatation without evidence for hydrocephalus or herniation syndrome. No midline shift is evident. No acute intraparenchymal hemorrhage or mass can be identified. If there remains a strong concern for any intra-cranial neoplasm, then follow-up with CT or MR imaging of the brain would be more sensitive to exclude any intra-cranial mass lesion. No extra-axial fluid collections are seen. No alteration in the attenuation of the brain parenchyma can be identified to suggest acute or subacute ischemic change. However, if clinical symptoms are concerning for an acute CVA, then follow-up MRI with DWI sequencing is recommended. The extracranial structures [are unremarkable]. The paranasal sinuses and mastoid air cells are relatively clear on this examination.IMPRESSION:No acute intracranial hemorrhage, midline shift, or herniation syndrome observed. Advanced but chronic appearing periventricular white matter microvascular disease seen throughout the high mid convexity with chronic appearing bilateral basal ganglia lacunar ischemic events also identified. No other significant intracranial process identified.Electronically signed by: JOHN YI III (August 14, 2022 11:04:29)
--- NOTE | 2022-08-14 11:32 | EKG ---
Test Reason : WEAKNESS Blood Pressure : */* mmHG Vent. Rate : 56 BPM Atrial Rate : 56 BPM P-R Int : 150 ms QRS Dur : 88 ms QT Int : 436 ms P-R-T Axes : 29 -26 202 degrees QTc Int : 420 ms Sinus bradycardia T wave abnormality, consider anterolateral ischemia Abnormal ECG When compared with ECG of 14-AUG-2022 09:59, (Unconfirmed) No significant change was found Confirmed by Dilshad Rivera ([id number]) on 08/14/2022 5:42:23 PM Referred By: Confirmed By: Dilshad Rivera
[2022-08-14] MEDS ORDERED: APRESOLINE INJ 20 MG VIAL ONE (11:34)
[2022-08-14] MEDS ORDERED: APRESOLINE INJ 20 MG VIAL IVP ONE (11:34)
[2022-08-14] MEDS ORDERED: K-DUR TAB 20 MEQ PO ONE ×2 (17:00)
[2022-08-14 17:40] VITALS: BMI 35.9
--- NOTE | 2022-08-14 20:31 | RAD ---
HISTORYweakness, falls Relevant Clinical InformationSTUDYCHEST, 1 [id number]/03/2021.FINDINGSThe trachea is midline. The cardiac silhouette is unremarkable. The lungs are clear without focal infiltrate or effusion. The bony thorax is unremarkable. There is a moderate hiatal hernia.IMPRESSIONNo acute cardiopulmonary findings .Electronically signed by: Walter Keita (August 14, 2022 20:29:35)
[2022-08-14] MEDS ORDERED: PEPCID TAB 20 MG PO PRN (20:45)
[2022-08-14] MEDS ORDERED: KLOR-CON PO ONE (20:56)
--- NOTE | 2022-08-14 21:14 | RAD ---
HISTORYpt states she fell last night Relevant Clinical InformationSTUDYSHOULDER, LEFTCOMPARISONNoneFINDINGSThe glenohumeral articulation is normal in its appearance. No acute cortical disruption or dislocation can be identified. The visualized portions of the scapula are unremarkable. In addition, the visualized portions of the chest appear unremarkable.IMPRESSIONUnremarkable examElectronically signed by: Javi Dunne (August 14, 2022 21:12:42)
--- NOTE | 2022-08-14 21:15 | RAD ---
HISTORYpt states she fell last night Relevant Clinical InformationSTUDYANKLE, LEFTCOMPARISONFINDINGSNo acute cortical disruption or dislocation can be identified. The ankle mortise remains well aligned. No significant soft tissue swelling or injury can be seen. The visualized portions of the talus and calcaneus are unremarkable.IMPRESSIONNegative examElectronically signed by: Javi Dunne (August 14, 2022 21:13:34)
[2022-08-14] MEDS: PROTONIX TAB 40 MG PO SCH (21:27)
[2022-08-14] MEDS: COREG TAB 12.5 MG PO SCH (21:27)
[2022-08-14] MEDS: PERCOCET TAB 5/325 MG PO PRN (21:28)
[2022-08-14] MEDS: NEURONTIN CAP 100 MG PO SCH (21:28)
[2022-08-14] MEDS: ZANAFLEX PO SCH (21:28)
--- NOTE | 2022-08-14 21:53 | RAD ---
HISTORYpt states she fell last nightSTUDYKNEE COMPLETE, LEFTCOMPARISONNone availableTECHNIQUELeft knee radiographs, 3 views, AP, oblique and lateral projectionsFINDINGSNo fracture or dislocations.Mild tricompartmental degenerative joint disease.No significant joint effusion.Soft tissues are unremarkable.Surgical clips in the medial aspect of the imaged portion of the lower extremity.IMPRESSIONNo acute osseous abnormality.Electronically signed by: Marshal Beck (August 14, 2022 21:52:46)
--- NOTE | 2022-08-14 21:53 | RAD ---
HISTORYpt states she fell last nightSTUDYFOOT, LEFTCOMPARISONNone availableTECHNIQUELeft foot radiographs, 3 views, AP, oblique and lateral projectionsFINDINGSNo fracture or dislocations.Normal joint spaces.Diffuse soft tissue edema.Small plantar calcaneal spur.IMPRESSIONNo acute osseous abnormality.Electronically signed by: Marshal Beck (August 14, 2022 21:52:08)
[2022-08-15 03:26] LABS: BASOPHILS # (AUTO) 0.1 X10^3/uL (0.0-0.1); BASOPHILS % (AUTO) 0.8 % (0.2-1.0); EOSINOPHILS % (AUTO) 0.4 % (0.9-2.9); HEMATOCRIT 35.7 % (36.0-47.0); HEMOGLOBIN 11.5 g/dL (12.0-16.0); LYMPHOCYTES # (AUTO) 2.2 X10^3/uL (1.3-2.9); LYMPHOCYTES % (AUTO) 26.8 % (21.0-51.0); MEAN CORPUSCULAR HEMOGLOBIN 26.2 pg (27.0-34.0); MEAN CORPUSCULAR HGB CONC 32.2 g/dL (33.0-35.0); MEAN CORPUSCULAR VOLUME 81.2 fL (80.0-100.0); MEAN PLATELET VOLUME 8.7 fL (7.4-11.0); MONOCYTES # (AUTO) 0.9 x10^3/uL (0.3-0.8); MONOCYTES % (AUTO) 11.1 % (0.0-13.0); NEUTROPHILS % (AUTO) 60.9 % (42.0-75.0); PLATELET COUNT 245 X10^3/uL (150.0-450.0); RED CELL DISTRIBUTION WIDTH 18.7 % (11.6-16.5); WHITE BLOOD COUNT 8.2 X10^3/uL (3.6-10.0)
[2022-08-15 03:42] LABS: ALANINE AMINOTRANSFERASE 11 Units/L (12-78); ALBUMIN 2.4 g/dL (3.4-5.0); ALKALINE PHOSPHATASE 72 Units/L (46-116); ASPARTATE AMINO TRANSFERASE 12 Units/L (15-37); BLOOD UREA NITROGEN 8 mg/dL (7-18); CALCIUM 7.8 mg/dL (8.5-10.1); CARBON DIOXIDE 31.7 mmol/L (21-32); CHLORIDE 103 mmol/L (98-107); COR CA(FOR HYPOALB) 9.1 mg/dL (8.5-10.1); CREATININE 0.77 mg/dL (0.55-1.02); GLUCOSE 92 mg/dL (65-99); SODIUM 141 mmol/L (136-145); TOTAL PROTEIN 6.2 g/dL (6.4-8.2); eGFR NON BLACK RACES > 60 (>60)
--- NOTE | 2022-08-15 06:26 | EKG ---
Test Reason : syncopal episode Blood Pressure : */* mmHG Vent. Rate : 74 BPM Atrial Rate : 74 BPM P-R Int : 144 ms QRS Dur : 78 ms QT Int : 376 ms P-R-T Axes : 36 -44 143 degrees QTc Int : 417 ms Normal sinus rhythm Left axis deviation Abnormal ECG When compared with ECG of 14-AUG-2022 11:30, No significant change was found Confirmed by Dilshad Rivera ([id number]) on 08/16/2022 6:39:40 PM Referred By: Confirmed By: Dilshad Rivera
[2022-08-15] MEDS: PERCOCET TAB 5/325 MG PO PRN ×2 (07:29→16:13)
[2022-08-15] MEDS: PROTONIX TAB 40 MG PO SCH ×2 (08:02→20:55)
[2022-08-15] MEDS: NEURONTIN CAP 100 MG PO SCH ×2 (08:02→20:55)
[2022-08-15] MEDS: COREG TAB 12.5 MG PO SCH ×2 (08:07→20:56)
[2022-08-15] MEDS: ULTRAM PO PRN ×2 (09:50→20:56)
[2022-08-15] MEDS: MACROBID CAP 100 MG EXT REL PO SCH ×2 (14:00→20:55)
[2022-08-15] MEDS ORDERED: TYLENOL 325 MG TAB PO PRN (18:18)
[2022-08-15] MEDS: ZANAFLEX PO SCH (20:55)
--- NOTE | 2022-08-15 22:54 | VAS ---
EXAM: LEFT LOWER EXTREMITY VENOUS DOPPLER ULTRASOUNDHISTORY: Leg swollen.TECHNIQUE: The lower extremity veins were interrogated with a high-frequency linear transducer, employing grayscale imaging, duplex Doppler and color flow Doppler imaging.COMPARISON: None available.FINDINGS:There is no loss of compressibility, no loss of intraluminal color flow Doppler signal, and no loss of intraluminal duplex Doppler signal within the common femoral vein, superficial femoral vein, popliteal vein, and posterior tibial vein. The findings are inconsistent with deep venous thrombosis in these regions.There is no evidence for luminal thrombosis of the saphenous vein or superficial venous system.No abnormal fluid collection reminiscent of a Keita's cyst is seen in the popliteal fossa. No evidence for gross inguinal lymphadenopathy is seen.Note: DVT could be missed early in the disease when clot burden is minimal. For patients with moderate and high pretest probability of DVT and negative ultrasound, the [employer] clinical guidelines recommend testing with a d-dimer assay or repeat ultrasound in 5-7 days. If symptoms worsen, the Society of radiologists in ultrasound recommend repeating ultrasound even earlier.IMPRESSION:1. No evidence for DVT or SVT seen.2. No abnormal fluid collection or Keita's cyst seen.Electronically signed by: Tashi Palomino (August 15, 2022 22:53:02)
[2022-08-16] MEDS: PERCOCET TAB 5/325 MG PO PRN ×3 (02:05→19:22)
[2022-08-16 05:25] LABS: BASOPHILS # (AUTO) 0.1 X10^3/uL (0.0-0.1); BASOPHILS % (AUTO) 0.7 % (0.2-1.0); EOSINOPHILS # (AUTO) 0.1 x10^3/uL (0.0-0.2); EOSINOPHILS % (AUTO) 0.9 % (0.9-2.9); HEMATOCRIT 35.5 % (36.0-47.0); HEMOGLOBIN 11.3 g/dL (12.0-16.0); LYMPHOCYTES # (AUTO) 1.9 X10^3/uL (1.3-2.9); LYMPHOCYTES % (AUTO) 27.5 % (21.0-51.0); MEAN CORPUSCULAR VOLUME 81.3 fL (80.0-100.0); MEAN PLATELET VOLUME 9.1 fL (7.4-11.0); MONOCYTES # (AUTO) 0.8 x10^3/uL (0.3-0.8); NEUTROPHILS # (AUTO) 4.2 x10^3/uL (2.2-4.8); NEUTROPHILS % (AUTO) 58.9 % (42.0-75.0); PLATELET COUNT 230 X10^3/uL (150.0-450.0); RED BLOOD COUNT 4.36 X10^6/uL (3.5-5.4); RED CELL DISTRIBUTION WIDTH 18.7 % (11.6-16.5); WHITE BLOOD COUNT 7.1 X10^3/uL (3.6-10.0)
[2022-08-16 05:41] LABS: ALANINE AMINOTRANSFERASE 12 Units/L (12-78); ALBUMIN 2.5 g/dL (3.4-5.0); ALKALINE PHOSPHATASE 68 Units/L (46-116); ASPARTATE AMINO TRANSFERASE 13 Units/L (15-37); BLOOD UREA NITROGEN 9 mg/dL (7-18); CALCIUM 8.2 mg/dL (8.5-10.1); CARBON DIOXIDE 29.5 mmol/L (21-32); CHLORIDE 103 mmol/L (98-107); COR CA(FOR HYPOALB) 9.4 mg/dL (8.5-10.1); CREATININE 0.73 mg/dL (0.55-1.02); GLUCOSE 110 mg/dL (65-99); POTASSIUM 3.2 mmol/L (3.5-5.1); SODIUM 140 mmol/L (136-145); TOTAL PROTEIN 6.4 g/dL (6.4-8.2); eGFR NON BLACK RACES > 60 (>60)
[2022-08-16] MEDS: ULTRAM PO PRN ×2 (06:04→23:10)
[2022-08-16] MEDS ORDERED: POTASSIUM CHL 40 MEQ/NS 0.45% 500 ML IV PRN (06:05)
[2022-08-16] MEDS ORDERED: MICRO K EXTEN CAP 10 MEQ PO PRN (06:05)
[2022-08-16] MEDS ORDERED: KLOR-CON PO PRN (06:05)
[2022-08-16] MEDS ORDERED: POTASSIUM CHLORIDE LIQ 20 MEQ UDC PO PRN (06:05)
[2022-08-16] MEDS ORDERED: K-RIDER 10 MEQ/NS 100 ML 10 MEQ/100 ML BAG IV PRN (06:05)
[2022-08-16] MEDS ORDERED: POTASSIUM CHL 60 MEQ/NS 0.45% 500 ML IV PRN (06:05)
[2022-08-16] MEDS ORDERED: MAGNESIUM SULFATE 1 GRAM/100 mL PREMIX 1 G/100 ML BAG IV PRN (06:05)
[2022-08-16] MEDS: K-DUR TAB 20 MEQ PO PRN ×2 (06:24→10:59)
[2022-08-16] MEDS: COREG TAB 12.5 MG PO SCH ×2 (08:01→20:23)
[2022-08-16] MEDS: PROTONIX TAB 40 MG PO SCH ×2 (08:01→20:22)
[2022-08-16] MEDS: NEURONTIN CAP 100 MG PO SCH ×2 (08:01→20:22)
[2022-08-16] MEDS: MACROBID CAP 100 MG EXT REL PO SCH ×2 (08:01→20:22)
--- NOTE | 2022-08-16 15:57 | PCM.PROG ---
Progress Note - Progress Note for Day of Date of Exam: 08/16/22 - Subjective Subjective: IS A 76 YEAR OLD PATIENT OF OURS. SHE WAS ADMITTED FROM THE ER ON 08/14/22 FOR EVALUATION OF SYNCOPE, FREQUENT FALLS, AND CHEST PAIN RULE OUT ACUTE OR. SHE HAS A PMH OF HTN, DYSLIPIDEMIA, GERD, OSTEOARTHRITIS, COPD, CHF, TINNITIS, ANXIETY, RHEUMATOID ARTHRITIS, CABG, CAROTID ENDARECTOMY, SPLEENECTOMY, HYSTERECTOMY, AND RIGHT LEG SURGERY FOLLOWING A FRACTURE. SHE INITIALLY REPORTED TO THE ER DUE TO HAVING A SYNCOPAL EPISODE AT HOME. HER FAMILY MEMBER FOUND HER LYING IN THE FLOOR. FAMILY REPORTS THAT SHE HAS HAD A DECLINE IN HEALTH OVER THE PAST TWO WEEKS. SHE TAKES SEVERAL MEDICATIONS FOR PAIN AND ANXIETY. HER FAMILY THINKS THAT SHE MAY BE TAKING TOO MUCH OF THESE MEDICATIONS. PATIENT LIVES AT HOME WITH HER ELDERLY BROTHER. PATIENT REQUIRES FULL ASSISTANCE WITH ADLs. HER FAMILY REPORTS THAT THEY ARE NO LONGER ABLE TO CARE FOR PATIENT AT HOME DUE TO HER DECLINE IN HEALTH. ON MORNING ROUNDS, PATIENT IS ALERT AND ORIENTED, LYING IN BED. SHE COMPLAINS OF ARTHRITIC PAIN IN MULTIPLE JOINTS THIS MORNING. SHE ALSO COMPLAINS OF GENERALIZED WEAKNESS. SHE DENIES ANY CHEST PAIN, SHORTNESS OF BREATH, URI SMPTOMS, OR URINARY SYMPTOMS. PHYSICAL THERAPIST IS IN THE ROOM AND REPORTS THAT PATIENT AMBULATED IN THE ROOM WITH THE USE OF A WALKER AND CLOSE SUPERVISION. ON EXAMINATION, HEART IS REGULAR IN RATE AND RHYTHM. BILATERAL LUNGS ARE CLEAR TO AUSCULTATION. ABDOMEN IS ROUND, SOFT, AND NON-TENDER WITH NORMAL BOWEL SOUNDS NOTED IN ALL QUADRANTS. GOOD MOVEMENT NOTED TO UPPER AND LOWER EXTREMITIES. 1+ PITTING EDEMA NOTED TO BILATERAL LOWER EXTREMITIES. HER VITALS THIS MORNING ARE: 97.7-66-18-94%-144/69. LABS WERE OBTAINED. WBC 7.1, RBC 4.36, HGB 11.3, HCT 35.5, PLT COUNT 230, SODIUM 140, POTASSIUM 3.2, CHLORIDE 103, BUN 9, CREATININE 0.73, GLUCOSE 110, CALCIUM 8.2, TOTAL BILI 0.30, AST 13, ALT 12, ALK PHOS 68, TOTAL PROTEIN 6.4, ALBUMIN 2.5. URINALYSIS ON ADMISSION DID REVEALED SOME LEUKOCYTES, WBCs, AND RBCs. XRAYS OF THE CHEST, LEFT ANKLE, LEFT FOOT, LEFT KNEE, AND LEFT SHOULDER WERE ALL OBTAINED ON ADMISSION. ALL WERE NEGATIVE FOR ACUTE ABNORMALITY. A LEFT LEG VENOUS DOPPLER WAS OBTAINED AND REVEALED: There is no evidence for luminal thrombosis of the saphenous vein or superficial venous system. No abnormal fluid collection reminiscent of a Keita's cyst is seen in the popliteal fossa. No evidence for gross inguinal lymphadenopathy is seen. A BRAIN CT WAS ALSO OB TAINED AND WAS NEGATIVE FOR ACUTE ABNORMALITY. SHE IS CURRENTLY RECEIVING MACROBID 100MG BID AND THE POTASSIUM AND MAGNESIUM PROTOCOLS. HER HOME MEDICATIONS OF COREG, PEPCID, NEURONTIN, PERCOCET, PROTONIX, ZANAFLEX, AND ULTRAM WERE RESUMED. WE WILL CONTINUE WITH CURRENT PLAN OF CARE TODAY. WE WILL H AVE PHYSICAL THERAPY WORK WITH HER AGAIN THIS AFTERNOON AND IN THE MORNING. OTHERWISE, WE WILL FOLLOW-UP WITH AM LABS AND CONTINUE TO MONITOR. WE COUNSELED PATIENT ON THE IMPORTANCE OF MANDATORY LIFESTYLE CHANGES INCLUDING DIET AND ADEQUATE EXERCISE DUE TO ELEVATED BMI. - Past Medical Family Social History Past Med/Fam/Surg Hx: No changes since H&P Allergies: Allergies ciprofloxacin Allergy (Verified 08/25/20 14:56) naproxen [From Aleve] Allergy (Verified 08/25/20 14:56) Penicillins Allergy (Verified 08/25/20 14:56) promethazine Allergy (Verified 08/25/20 14:56) Sulfa (Sulfonamide Antibiotics) [SULFA] Allergy (Verified 08/14/22 09:53) - Review of Systems ROS: No change since H&P - Vital Signs and I&O's Vital Signs: Temperature 98.8 F Temperature 97.8 F Pulse Rate [Right Radial] 65 Pulse Rate 67 Pulse Rate 53 Respiratory Rate 18 Respiratory Rate 17 Blood Pressure [Right Arm] 144/75 Blood Pressure 153/67 Blood Pressure 150/67 O2 Sat by Pulse Oximetry 96 O2 Sat by Pulse Oximetry 96 Intake and Output: Intake & Output 08/14/22 08/15/22 08/16/22 08/17/22 11:59 11:59 11:59 11:59 Intake Total 1230 / 1230 Output Total 1400 / 1400 700 / 700 Balance -1390 / -1390 530 / 530 - Physical Exam Oriented: Normal Eyes: Normal Ear: Normal Nose: Normal Throat: Normal Respiratory: Generalized, Diminished Cardiovascular: Edema (1+ PITTING EDEMA OF BILATERAL LOWER EXTREMITIES ) : Normal Auscultation: Bowel Sounds: Normal Palpation: Normal Tenderness: Normal Skin: Normal Musculoskeletal: Left, Shoulder, Knee, Leg, Swelling (BILATERAL LOWER EXTREMITY SWELLING ), Tender Psychiatric: Normal Mood Description: Calm Affect: Normal Speech Pattern: Appropriate - Laboratory and Diagnostics Result Diagrams: 08/16/22 05:05 08/16/22 09:10 Labs: Laboratory WBC 7.1 X10^3/uL (3.6-10.0) 08/16/22 05:05 RBC 4.36 X10^6/uL (3.5-5.4) 08/16/22 05:05 Hgb 11.3 g/dL (12.0-16.0) L 08/16/22 05:05 Hct 35.5 % (36.0-47.0) L 08/16/22 05:05 MCV 81.3 fL (80.0-100.0) 08/16/22 05:05 MCH 26.0 pg (27.0-34.0) L 08/16/22 05:05 MCHC 32.0 g/dL (33.0-35.0) L 08/16/22 05:05 RDW 18.7 % (11.6-16.5) H 08/16/22 05:05 Plt Count 230 X10^3/uL (150.0-450.0) 08/16/22 05:05 MPV 9.1 fL (7.4-11.0) 08/16/22 05:05 Neut % (Auto) 58.9 % (42.0-75.0) 08/16/22 05:05 Lymph % (Auto) 27.5 % (21.0-51.0) 08/16/22 05:05 [place] % (Auto) 12.0 % (0.0-13.0) 08/16/22 05:05 Eos % (Auto) 0.9 % (0.9-2.9) 08/16/22 05:05 Baso % (Auto) 0.7 % (0.2-1.0) 08/16/22 05:05 Neut # (Auto) 4.2 x10^3/uL (2.2-4.8) 08/16/22 05:05 Lymph # (Auto) 1.9 X10^3/uL (1.3-2.9) 08/16/22 05:05 [place] # (Auto) 0.8 x10^3/uL (0.3-0.8) 08/16/22 05:05 Eos # (Auto) 0.1 x10^3/uL (0.0-0.2) 08/16/22 05:05 Baso # (Auto) 0.1 X10^3/uL (0.0-0.1) 08/16/22 05:05 Absolute Nucleated RBC 0.0 /100WBC 08/16/22 05:05 Sodium 140 mmol/L (136-145) 08/16/22 05:05 Corrected Sodium TNP 08/16/22 05:05 Potassium 3.8 mmol/L (3.5-5.1) 08/16/22 09:10 Chloride 103 mmol/L (98-107) 08/16/22 05:05 Carbon Dioxide 29.5 mmol/L (21-32) 08/16/22 05:05 BUN 9 mg/dL (7-18) 08/16/22 05:05 Creatinine 0.73 mg/dL (0.55-1.02) 08/16/22 05:05 Est GFR (MDRD) Af Amer > 60 (>60) 08/16/22 05:05 Est GFR (MDRD) Non-Af > 60 (>60) 08/16/22 05:05 Glucose 110 mg/dL (65-99) H 08/16/22 05:05 Calcium 8.2 mg/dL (8.5-10.1) L 08/16/22 05:05 Corrected Calcium 9.4 mg/dL (8.5-10.1) 08/16/22 05:05 Magnesium 2.2 mg/dL (2.0-2.9) 08/16/22 05:05 Total Bilirubin 0.30 mg/dL (0.2-1.0) 08/16/22 05:05 AST 13 Units/L (15-37) L 08/16/22 05:05 ALT 12 Units/L (12-78) 08/16/22 05:05 Alkaline Phosphatase 68 Units/L (46-116) 08/16/22 05:05 Creatine Kinase 45 Units/L (26-192) 08/14/22 10:16 Troponin I High Sens 14.3 ng/L (4.0-60.0) 08/15/22 03:10 Total Protein 6.4 g/dL (6.4-8.2) 08/16/22 05:05 Albumin 2.5 g/dL (3.4-5.0) L 08/16/22 05:05 Globulin 3.9 g/dL (2.5-4.5) 08/16/22 05:05 Albumin/Globulin Ratio 0.6 Ratio (1.1-2.1) L 08/16/22 05:05 Specimen Type Catherized urine 08/14/22 10:15 Urine Color Yellow (YELLOW) 08/14/22 10:15 Urine Appearance Clear (CLEAR) 08/14/22 10:15 Urine pH 6.0 (5.0 - 8.0) 08/14/22 10:15 Ur Specific [place] 1.015 (1.000-1.030) 08/14/22 10:15 Urine Protein 1+ (NEGATIVE) 08/14/22 10:15 Urine Glucose (UA) Negative (NEGATIVE) 08/14/22 10:15 Urine Ketones Negative (NEGATIVE) 08/14/22 10:15 Urine Blood Negative (NEGATIVE) 08/14/22 10:15 Urine Nitrite Negative (NEGATIVE) 08/14/22 10:15 Urine Bilirubin Negative (NEGATIVE) 08/14/22 10:15 Urine Urobilinogen Normal (NORMAL) 08/14/22 10:15 Ur Leukocyte Esterase 1+ (NEGATIVE) 08/14/22 10:15 Urine RBC 5-10 /HPF (0-3) A 08/14/22 10:15 Urine WBC 0-2 /HPF (0-5) 08/14/22 10:15 Ur Squamous Epith Cells Rare /HPF (NEGATIVE) 08/14/22 10:15 Urine Bacteria Negative /HPF (NEGATIVE) 08/14/22 10:15 Ur Culture Indicated? No/not indicated 08/14/22 10:15 Urine Opiates Screen Negative (NEG=<300) 08/14/22 10:15 Urine Methadone Screen Negative (NEG=<300) 08/14/22 10:15 Ur Barbiturates Screen Negative (NEG=<200) 08/14/22 10:15 Ur Phencyclidine Scrn Negative (NEG=<25) 08/14/22 10:15 Ur Amphetamines Screen Negative (NEG=<1000) 08/14/22 10:15 U Benzodiazepines Scrn Positive (NEG=<200) A 08/14/22 10:15 Urine Cocaine Screen Negative (NEG=<300) 08/14/22 10:15 U Marijuana (THC) Screen Negative (NEG=<50) 08/14/22 10:15 - Plan (1) Syncope Status: Acute Qualifiers: Syncope type: unspecified Qualified Code(s): R55 - Syncope and collapse (2) Generalized weakness Status: Acute (3) Bacteriuria Status: Acute (4) Chest pain, rule out acute myocardial infarction Status: Resolved (5) CHF (congestive heart failure) Status: Chronic Qualifiers: Heart failure type: unspecified Heart failure chronicity: acute on chronic Qualified Code(s): I50.9 - Heart failure, unspecified Plan: CONTINUE COREG, CONTINUE TO MONITOR (6) Hyperlipidemia Status: Chronic Qualifiers: Hyperlipidemia type: mixed hyperlipidemia Qualified Code(s): E78.2 - Mixed hyperlipidemia Plan: CONTINUE TO MONITOR (7) HTN (hypertension) Status: Chronic Qualifiers: Hypertension type: primary hypertension Qualified Code(s): I10 - Essential (primary) hypertension Plan: CONTINUE COREG (8) GERD (gastroesophageal reflux disease) Status: Chronic Qualifiers: Esophagitis presence: esophagitis presence not specified Qualified Code(s): K21.9 - Gastro-esophageal reflux disease without esophagitis Plan: CONTINUE PROTONIX (9) Osteoarthritis Status: Chronic Qualifiers: Osteoarthritis location: multiple joints Osteoarthritis type: primary Qualified Code(s): M15.9 - Polyosteoarthritis, unspecified Plan: CONTINUE PERCOCET AND ULTRAM
[2022-08-16] MEDS ORDERED: XANAX PO PRN (16:27)
[2022-08-16] MEDS: ZANAFLEX PO SCH (20:23)
[2022-08-17] MEDS: PERCOCET TAB 5/325 MG PO PRN ×2 (01:25→09:06)
[2022-08-17 05:08] LABS: BASOPHILS # (AUTO) 0.1 X10^3/uL (0.0-0.1); BASOPHILS % (AUTO) 0.7 % (0.2-1.0); EOSINOPHILS # (AUTO) 0.1 x10^3/uL (0.0-0.2); EOSINOPHILS % (AUTO) 1.6 % (0.9-2.9); HEMATOCRIT 35.5 % (36.0-47.0); HEMOGLOBIN 11.6 g/dL (12.0-16.0); LYMPHOCYTES # (AUTO) 2.2 X10^3/uL (1.3-2.9); LYMPHOCYTES % (AUTO) 29.7 % (21.0-51.0); MEAN CORPUSCULAR HEMOGLOBIN 26.4 pg (27.0-34.0); MEAN CORPUSCULAR HGB CONC 32.6 g/dL (33.0-35.0); MEAN PLATELET VOLUME 9.6 fL (7.4-11.0); MONOCYTES # (AUTO) 0.9 x10^3/uL (0.3-0.8); MONOCYTES % (AUTO) 12.5 % (0.0-13.0); NEUTROPHILS # (AUTO) 4.1 x10^3/uL (2.2-4.8); NEUTROPHILS % (AUTO) 55.5 % (42.0-75.0); PLATELET COUNT 245 X10^3/uL (150.0-450.0); RED BLOOD COUNT 4.39 X10^6/uL (3.5-5.4); RED CELL DISTRIBUTION WIDTH 18.9 % (11.6-16.5); WHITE BLOOD COUNT 7.4 X10^3/uL (3.6-10.0)
[2022-08-17 05:22] LABS: ALANINE AMINOTRANSFERASE 10 Units/L (12-78); ALBUMIN 2.6 g/dL (3.4-5.0); ALKALINE PHOSPHATASE 69 Units/L (46-116); ASPARTATE AMINO TRANSFERASE 13 Units/L (15-37); BLOOD UREA NITROGEN 10 mg/dL (7-18); CALCIUM 8.2 mg/dL (8.5-10.1); CARBON DIOXIDE 29.9 mmol/L (21-32); CHLORIDE 102 mmol/L (98-107); COR CA(FOR HYPOALB) 9.3 mg/dL (8.5-10.1); GLUCOSE 99 mg/dL (65-99); POTASSIUM 3.9 mmol/L (3.5-5.1); SODIUM 138 mmol/L (136-145); TOTAL PROTEIN 6.6 g/dL (6.4-8.2); eGFR NON BLACK RACES > 60 (>60)
[2022-08-17] MEDS: ULTRAM PO PRN (06:38)
[2022-08-17] MEDS: PROTONIX TAB 40 MG PO SCH (08:58)
[2022-08-17] MEDS: MACROBID CAP 100 MG EXT REL PO SCH (08:58)
[2022-08-17] MEDS: NEURONTIN CAP 100 MG PO SCH (08:58)
[2022-08-17] MEDS: COREG TAB 12.5 MG PO SCH (08:58)
[2022-08-17] MEDS ORDERED: EFFEXOR XR 150 MG CAP 24-HR PO SCH (10:00)
[2022-08-17] MEDS ORDERED: ZOFRAN TAB 4 MG SL PRN (11:48)
[2022-08-17 12:24] VITALS: BP 150/66; PULSE 62; TEMP 97.6; O2SAT 94
== END 2022-08-17 14:34 | disposition home health service (06) ==
LOC: ER 09:52 → MED/SURG 09:52
PROVIDERS: ADMIT Obstetrics & Gynecology Obstetrics; ATTEND Internal Medicine
DX: R41.82 Altered mental status, unspecified; Z74.2 Need for assistance at home and no other household member able to render care; R53.1 Weakness; M25.572 Pain in left ankle and joints of left foot; R94.31 Abnormal electrocardiogram [ECG] [EKG]; R55 Syncope and collapse; K21.9 Gastro-esophageal reflux disease without esophagitis; F32.89 Other specified depressive episodes; M15.8 Other polyosteoarthritis; N30.00 Acute cystitis without hematuria; Y92.9 Unspecified place or not applicable; R79.89 Other specified abnormal findings of blood chemistry; F41.8 Other specified anxiety disorders; W18.39XA Other fall on same level, initial encounter; I10 Essential (primary) hypertension; Z79.899 Other long term (current) drug therapy; M25.562 Pain in left knee; R26.89 Other abnormalities of gait and mobility; M25.512 Pain in left shoulder; R60.0 Localized edema; E78.2 Mixed hyperlipidemia

== ENCOUNTER 2022-08-23 11:16 | Observation (INO) ==
--- NOTE | 2022-08-23 11:33 | DR.EXTPAIN ---
HPI Time seen Time Seen by Provider: 08/23/22 11:31 PCP Primary Care Physician: DR KILGORE Complaint/Symptoms Chief Complaint Doctor Comments: Pt fell 3 days ago, having pain of the left lower ext. Pain mostly of left foot, but also of hutton, distal thigh. Pain is sharp, constant. Worse with movement, palpation. Nothign makes it better. Has been fairly bedridden since fall. Pt was d/c'd form the hospital day she fell. Has been falling a lot, been weak. Chief Complaint:: PT HAD A FALL AT HOME 4 DAYS AGO WHILE WALKING WITHOUT HER WALKER. PT THINKS SHE FELL ON THE LEFT SIDE. SINCE THEN SHE HAS HAD INCREASED PAIN AND SWELLING INTO THE LEFT FOOT WITH REDNESS TO THE TOP OF THE FOOT. PAIN RADIATES UP THE OUTSIDE OF THE LEFT LEG ALL THE WAY TO THE HIP. COVID-19 Coronavirus risk:travel/contact w/high risk person: No Has patient experienced Coronavirus symptoms: No Nurses notes reviewed Nurses Notes Review: Yes Source History Provided: Patient Mode of arrival Mode of Arrival: EMS Timing Onset of Chief Complaint: 08/20/22 PMH PMH Past Medical History: Yes Past Medical History: Anxiety, Arthritis, CHF, COPD, Coronary Artery Disease, Dyslipidemia, GERD and Hypertension Past Medical History Comment: RHEUMATOID ARTHRITIS, OSTEOARTHRITIS,OSTEOPOROSIS Past Surgical History: Yes Surgical History: CABG/Valve Surgery, Carotid Endarterectomy and Spleenectomy Past Surgical History Comment: RIGHT LEG SURGERY, Family History History of Family Medical Conditions: Yes Family Medical History: Diabetes Mellitus, Cancer, Coronary Artery Disease and Hypertension Social History Does patient currently use any type of tobacco product: No Have you used tobacco products in the last 12 months: No Type of Tobacco Use: None Does any household member use tobacco: No Alcohol Use: None Do you use any recreational Drugs:: No Lives With: Family Lives Where: Home Travel Risk Coronavirus risk:travel/contact w/high risk person: No Has patient experienced Coronavirus symptoms: No Infectious screening In the last 2 months have you had wt loss of >10#?: NO Have you had fever, night sweats or hemotysis?: No Have you traveled outside the country in the last 6 months?: No Isolation: Standard ROS Review of Systems Constitutional: Malaise and Weakness Eyes: No Symptoms Reported ENTM: No Symptoms Reported Respiratoy: No Symptoms Reported Cardiovascular: No Symptoms Reported Gastrointestinal/Abdominal: No Symptoms Reported Genitourinary: No Symptoms Reported Neurological: Weakness and Problems Walking Musculoskeletal: See HPI Hematologic/Lymphatic: No Symptoms Reported All Other Systems: Reviewed and Negative PE Vital Signs Vitals: Temperature 97.9 F Pulse Rate 72 Pulse Rate 69 Respiratory Rate 16 Respiratory Rate 20 Blood Pressure [Left Arm] 150/66 Blood Pressure 150/72 Blood Pressure 199/74 O2 Sat by Pulse Oximetry 98 O2 Sat by Pulse Oximetry 96 General General Appearance: Alert and In No Apparent Distress Head Head Exam: Normal Inspection, Atraumatic and Normocephalic Eyes Eye exam: PERRL and EOMI ENT ENT Exam: Mucous Membranes Moist Neck Neck Exam: Normal Inspection; negative Tenderness Respiratory Respiratory Exam: Normal Lung Sounds Bilat; negative Accessory Muscle Use or Respiratory Distress Cardiovascular Cardiovascular Exam: Regular Rate, Normal Rhythm and Normal Heart Sounds Abdominal Exam Abdominal Exam: Normal Bowel Sounds and Soft; negative Tenderness Neurological Neurological Exam: Alert, Oriented X3 and CN II-XII Intact; negative Motor Sensory Deficit Skin Skin Exam: Warm and Dry Other Exam Other Exam: LLE - + tenderness distal left femur, no swelling. + tenderness left tibia/fibula. COURSE Treatment Treatment: 76 y/o female fell few days ago, has been unable to weight bear since. C/o pain from thigh on down. X-rays obtained of the pelvis/femur/tib/fib/foot. To me, appears to have a non displaced fracture of the proximal shaft of the fibula, age indeterminate. Clincally has sprain/contusion of the left foot/ankle. Pt has been falling frequently recently, now in bed x 3 days after falling again. LLE placed in posterior splint. Discussed with Dr Kilgore, will admit. Pt may need rehab placement. ROR Labs Reviewed Laboratory Results Reviewed?: Yes Result Diagrams: 08/23/22 12:55 08/23/22 12:55 Laboratory: WBC 6.4 X10^3/uL (3.6-10.0) 08/23/22 12:55 RBC 4.50 X10^6/uL (3.5-5.4) 08/23/22 12:55 Hgb 12.0 g/dL (12.0-16.0) 08/23/22 12:55 Hct 36.7 % (36.0-47.0) 08/23/22 12:55 MCV 81.7 fL (80.0-100.0) 08/23/22 12:55 MCH 26.6 pg (27.0-34.0) L 08/23/22 12:55 MCHC 32.5 g/dL (33.0-35.0) L 08/23/22 12:55 RDW 18.6 % (11.6-16.5) H 08/23/22 12:55 Plt Count 274 X10^3/uL (150.0-450.0) 08/23/22 12:55 MPV 8.6 fL (7.4-11.0) 08/23/22 12:55 Neut % (Auto) 58.9 % (42.0-75.0) 08/23/22 12:55 Lymph % (Auto) 27.1 % (21.0-51.0) 08/23/22 12:55 [place] % (Auto) 10.9 % (0.0-13.0) 08/23/22 12:55 Eos % (Auto) 2.3 % (0.9-2.9) 08/23/22 12:55 Baso % (Auto) 0.8 % (0.2-1.0) 08/23/22 12:55 Neut # (Auto) 3.8 x10^3/uL (2.2-4.8) 08/23/22 12:55 Lymph # (Auto) 1.7 X10^3/uL (1.3-2.9) 08/23/22 12:55 [place] # (Auto) 0.7 x10^3/uL (0.3-0.8) 08/23/22 12:55 Eos # (Auto) 0.1 x10^3/uL (0.0-0.2) 08/23/22 12:55 Baso # (Auto) 0.0 X10^3/uL (0.0-0.1) 08/23/22 12:55 Absolute Nucleated RBC 0.0 /100WBC 08/23/22 12:55 Sodium 140 mmol/L (136-145) 08/23/22 12:55 Corrected Sodium TNP 08/23/22 12:55 Potassium 3.9 mmol/L (3.5-5.1) 08/23/22 12:55 Chloride 102 mmol/L (98-107) 08/23/22 12:55 Carbon Dioxide 32.2 mmol/L (21-32) H 08/23/22 12:55 BUN 24 mg/dL (7-18) H 08/23/22 12:55 Creatinine 1.07 mg/dL (0.55-1.02) H 08/23/22 12:55 Est GFR (MDRD) Af Amer > 60 (>60) 08/23/22 12:55 Est GFR (MDRD) Non-Af 53 (>60) L 08/23/22 12:55 Glucose 91 mg/dL (65-99) 08/23/22 12:55 Calcium 8.4 mg/dL (8.5-10.1) L 08/23/22 12:55 Corrected Calcium 9.3 mg/dL (8.5-10.1) 08/23/22 12:55 Total Bilirubin 0.30 mg/dL (0.2-1.0) 08/23/22 12:55 AST 17 Units/L (15-37) 08/23/22 12:55 ALT 23 Units/L (12-78) 08/23/22 12:55 Alkaline Phosphatase 83 Units/L (46-116) 08/23/22 12:55 Creatine Kinase 35 Units/L (26-192) 08/23/22 12:55 Total Protein 7.1 g/dL (6.4-8.2) 08/23/22 12:55 Albumin 2.9 g/dL (3.4-5.0) L 08/23/22 12:55 Globulin 4.2 g/dL (2.5-4.5) 08/23/22 12:55 Albumin/Globulin Ratio 0.7 Ratio (1.1-2.1) L 08/23/22 12:55 Specimen Type Clean catch urine 08/23/22 13:07 Urine Color Pale yellow (YELLOW) 08/23/22 13:07 Urine Appearance Clear (CLEAR) 08/23/22 13:07 Urine pH 6.0 (5.0 - 8.0) 08/23/22 13:07 Ur Specific [place] 1.015 (1.000-1.030) 08/23/22 13:07 Urine Protein Trace (NEGATIVE) 08/23/22 13:07 Urine Glucose (UA) Negative (NEGATIVE) 08/23/22 13:07 Urine Ketones Negative (NEGATIVE) 08/23/22 13:07 Urine Blood Negative (NEGATIVE) 08/23/22 13:07 Urine Nitrite Negative (NEGATIVE) 08/23/22 13:07 Urine Bilirubin Negative (NEGATIVE) 08/23/22 13:07 Urine Urobilinogen Normal (NORMAL) 08/23/22 13:07 Ur Leukocyte Esterase Negative (NEGATIVE) 08/23/22 13:07 Urine RBC 0-2 /HPF (0-3) 08/23/22 13:07 Urine WBC 0-2 /HPF (0-5) 08/23/22 13:07 Ur Squamous Epith Cells Few /HPF (NEGATIVE) 08/23/22 13:07 Urine Bacteria Negative /HPF (NEGATIVE) 08/23/22 13:07 Ur Culture Indicated? No/not indicated 08/23/22 13:07 Baseline labs acceptable. XRAY XRAY Interpreted by: Self X-ray Results: + non displaced fx of left fibular shaft, appears a bit older than 3 days. Opioid Opioid Risk Tool Age (Claus box if 16-45): No History of Preadolescent Sexual Abuse: No Total: 0 Total Score Risk Category: Low Risk Copyright: Sim EATON predicting aberrant behaviors Discharge Plan Diagnosis Discharge Problem: Frequent falls, General weakness, Closed fibular fracture Discharge Plan Patient Disposition: ADMITTED INPATIENT Condition: Stable
[2022-08-23 13:05] LABS: BASOPHILS % (AUTO) 0.8 % (0.2-1.0); EOSINOPHILS # (AUTO) 0.1 x10^3/uL (0.0-0.2); EOSINOPHILS % (AUTO) 2.3 % (0.9-2.9); HEMATOCRIT 36.7 % (36.0-47.0); LYMPHOCYTES # (AUTO) 1.7 X10^3/uL (1.3-2.9); LYMPHOCYTES % (AUTO) 27.1 % (21.0-51.0); MEAN CORPUSCULAR HEMOGLOBIN 26.6 pg (27.0-34.0); MEAN CORPUSCULAR HGB CONC 32.5 g/dL (33.0-35.0); MEAN CORPUSCULAR VOLUME 81.7 fL (80.0-100.0); MEAN PLATELET VOLUME 8.6 fL (7.4-11.0); MONOCYTES # (AUTO) 0.7 x10^3/uL (0.3-0.8); MONOCYTES % (AUTO) 10.9 % (0.0-13.0); NEUTROPHILS # (AUTO) 3.8 x10^3/uL (2.2-4.8); NEUTROPHILS % (AUTO) 58.9 % (42.0-75.0); PLATELET COUNT 274 X10^3/uL (150.0-450.0); RED CELL DISTRIBUTION WIDTH 18.6 % (11.6-16.5); WHITE BLOOD COUNT 6.4 X10^3/uL (3.6-10.0)
[2022-08-23 13:15] LABS: ALANINE AMINOTRANSFERASE 23 Units/L (12-78); ALBUMIN 2.9 g/dL (3.4-5.0); ALKALINE PHOSPHATASE 83 Units/L (46-116); ASPARTATE AMINO TRANSFERASE 17 Units/L (15-37); BLOOD UREA NITROGEN 24 mg/dL (7-18); CALCIUM 8.4 mg/dL (8.5-10.1); CARBON DIOXIDE 32.2 mmol/L (21-32); CHLORIDE 102 mmol/L (98-107); COR CA(FOR HYPOALB) 9.3 mg/dL (8.5-10.1); CREATINE KINASE 35 Units/L (26-192); CREATININE 1.07 mg/dL (0.55-1.02); GLUCOSE 91 mg/dL (65-99); POTASSIUM 3.9 mmol/L (3.5-5.1); SODIUM 140 mmol/L (136-145); TOTAL PROTEIN 7.1 g/dL (6.4-8.2); eGFR NON BLACK RACES 53 (>60)
[2022-08-23] MEDS ORDERED: ZOFRAN INJ 4 MG VIAL IVP ONE (13:55)
[2022-08-23] MEDS ORDERED: MORPHINE SULFATE INJ 4 MG IVP ONE (13:55)
[2022-08-23] MEDS ORDERED: ZOFRAN INJ 4 MG VIAL ONE (13:59)
[2022-08-23] MEDS ORDERED: MORPHINE SULFATE INJ 4 MG ONE (13:59)
[2022-08-23 14:00] LABS: APPEARANCE,URINE CLEAR (CLEAR); BILIRUBIN,URINE NEGATIVE (NEGATIVE); BLOOD/HEMOGLOBIN,URINE NEGATIVE (NEGATIVE); COLOR,URINE PALE YELLOW (YELLOW); GLUCOSE, URINE NEGATIVE (NEGATIVE); KETONES,URINE NEGATIVE (NEGATIVE); NITRITES,URINE NEGATIVE (NEGATIVE); PROTEIN,URINE TRACE (NEGATIVE)
[2022-08-23 14:01] LABS: BACTERIA,URINE NEGATIVE /HPF (NEGATIVE); LEUKOCYTE ESTERASE ,URINE NEGATIVE (NEGATIVE); RBC,URINE 0-2 /HPF (0-3); SQUAMOUS EPITHELIAL CELL,UR FEW /HPF (NEGATIVE); UROBILINOGEN,URINE NORMAL (NORMAL)
[2022-08-23] MEDS ORDERED: NYSTATIN POWDER ONE (15:31)
[2022-08-23] MEDS: NYSTATIN POWDER TOP SCH ×2 (15:35→20:43)
[2022-08-23 16:20] VITALS: BMI 34.5
[2022-08-23] MEDS: PERCOCET TAB 5/325 MG PO PRN (18:18)
[2022-08-23] MEDS: PROTONIX TAB 40 MG PO SCH (20:42)
[2022-08-23] MEDS: COREG TAB 12.5 MG PO SCH (20:42)
[2022-08-23] MEDS: ZANAFLEX PO SCH (20:42)
[2022-08-23] MEDS: XANAX PO PRN (20:42)
[2022-08-23] MEDS: NEURONTIN CAP 100 MG PO SCH (20:42)
--- NOTE | 2022-08-23 23:17 | RAD ---
STUDY: FEMUR, LEFTCOMPARISON: NoneHISTORY: FALL, LEFT LEG/FOOT PAINFINDINGS:There is no evidence of fracture or joint dislocation.There is no evidence of an embedded radiopaque foreign body.IMPRESSION:There is no evidence of fracture or joint dislocation.Electronically signed by: Ambrosio Tamayo (Aug 23, 2022 23:15:42)
--- NOTE | 2022-08-23 23:17 | RAD ---
STUDY: FOOT, LEFTCOMPARISON: NoneHISTORY: FALL, LEFT LEG/FOOT PAINFINDINGS:There is no evidence of fracture or joint dislocation.There is no evidence of an embedded radiopaque foreign body.Marked soft tissue swelling is noted with a prominent plantar calcaneal spur.IMPRESSION:There is no evidence of fracture or joint dislocation.Electronically signed by: Ambrosio Tamayo (Aug 23, 2022 23:15:40)
--- NOTE | 2022-08-23 23:18 | RAD ---
STUDY: LOWER LEG, TIB/FIB LEFTCOMPARISON: NoneHISTORY: FALL, LEFT LEG/FOOT PAINFINDINGS:There is an oblique fracture involving the proximal fibular diaphysis.There is no evidence of an embedded radiopaque foreign body.Diffuse soft tissue calcifications is noted.IMPRESSION:There is an oblique fracture involving the proximal fibular diaphysis.Electronically signed by: Ambrosio Tamayo (Aug 23, 2022 23:15:45)
--- NOTE | 2022-08-23 23:19 | RAD ---
STUDY: PELVISCOMPARISON: NoneHISTORY: FALL, LEFT LEG/FOOT PAINFINDINGS:There is no evidence of fracture or joint dislocation.There is no evidence of an embedded radiopaque foreign body.Degenerative changes are noted2 linear radiopaque structures are seen overlying the left inferior pubic rami which may be postoperativeIMPRESSION:There is no evidence of fracture or joint dislocation.Electronically signed by: Ambrosio Tamayo (Aug 23, 2022 23:15:47)
[2022-08-24] MEDS: PERCOCET TAB 5/325 MG PO PRN ×4 (03:55→23:30)
[2022-08-24 07:18] LABS: BASOPHILS # (AUTO) 0.1 X10^3/uL (0.0-0.1); BASOPHILS % (AUTO) 0.8 % (0.2-1.0); EOSINOPHILS # (AUTO) 0.1 x10^3/uL (0.0-0.2); EOSINOPHILS % (AUTO) 2.1 % (0.9-2.9); HEMATOCRIT 34.3 % (36.0-47.0); LYMPHOCYTES # (AUTO) 2.1 X10^3/uL (1.3-2.9); LYMPHOCYTES % (AUTO) 32.2 % (21.0-51.0); MEAN CORPUSCULAR HEMOGLOBIN 26.4 pg (27.0-34.0); MEAN CORPUSCULAR HGB CONC 32.1 g/dL (33.0-35.0); MEAN PLATELET VOLUME 9.1 fL (7.4-11.0); MONOCYTES # (AUTO) 0.8 x10^3/uL (0.3-0.8); MONOCYTES % (AUTO) 11.5 % (0.0-13.0); NEUTROPHILS # (AUTO) 3.5 x10^3/uL (2.2-4.8); NEUTROPHILS % (AUTO) 53.4 % (42.0-75.0); PLATELET COUNT 259 X10^3/uL (150.0-450.0); RED BLOOD COUNT 4.18 X10^6/uL (3.5-5.4); RED CELL DISTRIBUTION WIDTH 18.8 % (11.6-16.5); WHITE BLOOD COUNT 6.6 X10^3/uL (3.6-10.0)
[2022-08-24 07:27] LABS: ALANINE AMINOTRANSFERASE 18 Units/L (12-78); ALBUMIN 2.4 g/dL (3.4-5.0); ALKALINE PHOSPHATASE 69 Units/L (46-116); ASPARTATE AMINO TRANSFERASE 14 Units/L (15-37); BLOOD UREA NITROGEN 20 mg/dL (7-18); CALCIUM 8.1 mg/dL (8.5-10.1); CARBON DIOXIDE 30.6 mmol/L (21-32); CHLORIDE 103 mmol/L (98-107); COR CA(FOR HYPOALB) 9.4 mg/dL (8.5-10.1); CREATININE 0.92 mg/dL (0.55-1.02); GLUCOSE 85 mg/dL (65-99); SODIUM 140 mmol/L (136-145); TOTAL PROTEIN 6.3 g/dL (6.4-8.2); eGFR NON BLACK RACES > 60 (>60)
[2022-08-24] MEDS: NEURONTIN CAP 100 MG PO SCH ×2 (09:02→20:12)
[2022-08-24] MEDS: EFFEXOR XR 150 MG CAP 24-HR PO SCH (09:02)
[2022-08-24] MEDS: COREG TAB 12.5 MG PO SCH ×2 (09:02→20:12)
[2022-08-24] MEDS: NYSTATIN POWDER TOP SCH ×2 (09:02→20:13)
[2022-08-24] MEDS: PROTONIX TAB 40 MG PO SCH ×2 (09:02→20:12)
[2022-08-24] MEDS: LOVENOX INJ 40 MG SYR SC SCH (09:02)
--- NOTE | 2022-08-24 14:32 | DR.H&P ---
H&P - History & Physical for Day of: H&P Date: 08/23/22 - Chief Complaint Chief Complaint: LEFT LEG PAIN, FREQUENT FALLS - History of Present Illness History of Present Illness: IS A 76 YEAR OLD PATIENT OF OURS. SHE HAS A PMH OF CHF, COPD, HTN, ANXIETY, CAD, DYSLIPIDEMIA, GERD, RHEUMATOID ARTHRITIS, OSTEOARTHRITIS, OSTEOPOROSIS, CABG, CAROTID ENDARTERECTOMY, SPLEENECTOMY. SHE PRESENTED TO THE ER WITH COMPLAINTS OF LEFT LOWER EXTREMITY PAIN FOLLOWING A FALL AT HOME 4 DAYS PRIOR. PATIENT COMPLAINS OF PAIN FROM THE LEFT FOOT, [place], AND DISTAL THIGH. SHE DESCRIBES PAIN SHARP, CONSTANT, AND WORSE WITH MOVEMENT OR PALPATION. SHE RATES PAIN A 7/10. EXAMINATION REVEALED SWELLING TO THE LEFT FOOT WITH MILD REDNESS TO THE TOP OF THE FOOT. SHE REPORTS THAT PAIN RADIATES FROM THE FOOT UP TO HTE ANKLE. PATIENT WAS RECENTLY HOSPITALIZED FOR GENERALIZED WEAKNESS AND FREQUENT FALLS. SHE HAD A NEGATIVE WORKUP. SHE REFUSED NS[facility] HOME PLACEMENT AT THAT TIME. SHE WAS DISCHARGE HOME WITH HOME HEALTH AND PT SERVICES. SHE REPORTS FALLING ON THE SAME DAY THAT SHE RETURNED HOME. ON ARRIVAL TODAY, HER VITALS WERE 97.9-69-20-96%-199/74. LABS WERE OBTAINED. WBC 6.4, RBC 4.50, HGB 12.0, HCT 36.7, PLT COUNT 274, SODIUM 140, POTASSIUM 3.9, CHLORIDE 102, CARBON DIOXIDE 32.2, BUN 24, CREATININE 1.07, GLUCOSE 91, AST 17, ALT 23, ALK PHOS 83, CREATINE KINASE 35, TOTAL PROTEIN 7.1, ALBUMIN 2.9. LEFT FEMUR, FOOT, AND PELVIS XRAYS WERE OBTAINED AND WAS NEGATIVE FOR ACUTE ABNORMALITIES. LEFT TIB/FIB XRAY REVEALED: There is an oblique fracture involving the proximal fibular diaphysis. IN THE ER, SHE WAS GIVEN MORPHINE SULFATE 4MG IV X 1, ZOFRAN 4MG IV X 1. SHE WAS ADMITTED TO THE HOSPITAL OBSERVATION STATUS FOR FURTHER EVALUATION AND TREATMENT OF LEFT FIBULAR FRACTURE, FREQUENT FALLS, AND GENERALIZED WEAKNESS. SHE WAS STARTED ON LOVENOX 40MG SC DAILY, PERCOCET 5/325MG PPO QID PRN, AND HER HOME MEDICATIONS WERE RESUMED. HOME MEDS INCLUDE: XANAX, COREG, NEURONTIN, PROTONIX, ZANAFLEX, AND EFFEXOR. WE WILL CONSULT DR.CALLEGARI, ORTHO. WE WILL HAVE PHYSICAL THERAPY EVALUATE HER. OTHERWISE, WE WILL FOLLOW UP WITH AM LABS AND CONTINUE TO MONITOR. TIME SPENT ON CLINICAL ASSESSMENT, REVIEWING LABS AND IMAGING, DECISION MAKING, AND DOCUMENTATION GREATER THAN 75 MINUTES. - Past Medical History Past Medical History: Coronary Artery Disease, Hypertension, Dyslipidemia, Anxiety, COPD, GERD, Arthritis, CHF - Past Surgical History Surgical History: CABG/Valve Surgery, Carotid Endarterectomy, Spleenectomy - Family History Family Medical History: Diabetes Mellitus, Cancer, Coronary Artery Disease, Hypertension - Social History Does patient currently use any type of tobacco product: No Have you used tobacco products in the last 12 months: No Type of Tobacco Use: None Does any household member use tobacco: No Alcohol Use: None Drug Use: None - Medications Home Medications: Home Medications Medication Instructions Recorded Confirmed Type pantoprazole 40 mg tablet,delayed 40 mg PO BID 02/19/20 08/23/22 History release (Protonix) venlafaxine 150 mg 150 mg PO QAM 02/20/20 08/23/22 History capsule,extended release 24 hr (Effexor XR) alprazolam 0.5 mg tablet 0.5 mg PO BID PRN 11/20/20 08/23/22 History carvedilol 12.5 mg tablet 12.5 mg PO BID 11/20/20 08/23/22 History tramadol 50 mg tablet 50 mg PO TID PRN Pain 11/20/20 08/23/22 History famotidine 20 mg tablet 20 mg PO BID 08/14/22 08/23/22 History gabapentin 100 mg capsule 100 mg PO BID 08/14/22 08/23/22 History oxycodone-acetaminophen 5 mg-325 1 tab PO QID PRN 08/14/22 08/23/22 History mg tablet tizanidine 4 mg tablet 4 mg PO QPM 08/14/22 08/23/22 History - Review of Systems Constitutional: Weakness Eyes: No Symptoms Reported ENT: No Symptoms Reported Respiratory: No Symptoms Reported Cardiovascular: No Symptoms Reported Gastrointestinal: No Symptoms Reported Genitourinary: No Symptoms Reported Musculoskeletal: Leg Pain (LEFT ) Neurological: Weakness - Physical Exam Vital Signs: Temperature 98.9 F Temperature 97.9 F Pulse Rate [Right Brachial] 75 Pulse Rate 71 Pulse Rate 69 Respiratory Rate 18 Respiratory Rate 20 Blood Pressure [Right Arm] 141/62 Blood Pressure [Left Arm] 150/66 Blood Pressure 186/79 Blood Pressure 199/74 O2 Sat by Pulse Oximetry 95 O2 Sat by Pulse Oximetry 96 Oriented: Normal Eyes: Normal Ear: Normal Nose: Normal Throat: Normal Respiratory: Diminished Throughout Cardiovascular: Edema (LEFT FOOT SWELLING ) : Normal Auscultation: Bowel Sounds: Normal Palpation: Normal Tenderness: Normal Skin: Normal Musculoskeletal: Left, Leg, Ankle, Swelling, Tender Psychiatric: Normal Mood Description: Calm Affect: Normal Speech Pattern: Clear - Assessment/Plan (1) Closed fibular fracture Qualifiers: Encounter type: initial encounter Fibula location: proximal Laterality: left Status: Acute Plan: ADMIT, CONSULT ORTHO. PT/OT. LOVENOX 40MG SC DAILY, PERCOCET 5/325MG PPO QID PRN, AND HER HOME MEDICATIONS WERE RESUMED. HOME MEDS INCLUDE: XANAX, COREG, NEURONTIN, PROTONIX, ZANAFLEX, AND EFFEXOR. (2) Frequent falls Status: Acute (3) General weakness Status: Acute (4) CHF (congestive heart failure) Qualifiers: Heart failure type: unspecified Heart failure chronicity: acute on chronic Qualified Code(s): I50.9 - Heart failure, unspecified Status: Chronic (5) GERD (gastroesophageal reflux disease) Qualifiers: Esophagitis presence: esophagitis presence not specified Qualified Code(s): K21.9 - Gastro-esophageal reflux disease without esophagitis Status: Chronic (6) HTN (hypertension) Qualifiers: Hypertension type: primary hypertension Qualified Code(s): I10 - Essential (primary) hypertension Status: Chronic (7) Hyperlipidemia Qualifiers: Hyperlipidemia type: mixed hyperlipidemia Qualified Code(s): E78.2 - Mixed hyperlipidemia Status: Chronic - Allergies Allergies/Adverse Reactions: Allergies Allergy/AdvReac Type Severity Reaction Status Date / Time ciprofloxacin Allergy Verified 08/23/22 11:29 naproxen [From Aleve] Allergy Verified 08/23/22 11:29 Penicillins Allergy Verified 08/23/22 11:29 promethazine Allergy Verified 08/23/22 11:29 Sulfa (Sulfonamide Allergy Verified 08/23/22 11:29 Antibiotics) [SULFA]
[2022-08-24] MEDS: ZANAFLEX PO SCH (20:12)
[2022-08-25 06:37] LABS: BASOPHILS % (AUTO) 0.6 % (0.2-1.0); EOSINOPHILS # (AUTO) 0.1 x10^3/uL (0.0-0.2); EOSINOPHILS % (AUTO) 1.5 % (0.9-2.9); HEMATOCRIT 35.2 % (36.0-47.0); HEMOGLOBIN 11.3 g/dL (12.0-16.0); LYMPHOCYTES # (AUTO) 2.3 X10^3/uL (1.3-2.9); LYMPHOCYTES % (AUTO) 32.7 % (21.0-51.0); MEAN CORPUSCULAR HEMOGLOBIN 26.4 pg (27.0-34.0); MEAN CORPUSCULAR HGB CONC 32.2 g/dL (33.0-35.0); MEAN CORPUSCULAR VOLUME 81.9 fL (80.0-100.0); MEAN PLATELET VOLUME 9.8 fL (7.4-11.0); MONOCYTES # (AUTO) 0.7 x10^3/uL (0.3-0.8); MONOCYTES % (AUTO) 9.5 % (0.0-13.0); NEUTROPHILS % (AUTO) 55.7 % (42.0-75.0); PLATELET COUNT 265 X10^3/uL (150.0-450.0); RED BLOOD COUNT 4.29 X10^6/uL (3.5-5.4); WHITE BLOOD COUNT 7.1 X10^3/uL (3.6-10.0)
[2022-08-25 07:24] LABS: ALANINE AMINOTRANSFERASE 17 Units/L (12-78); ALBUMIN 2.4 g/dL (3.4-5.0); ALKALINE PHOSPHATASE 67 Units/L (46-116); ASPARTATE AMINO TRANSFERASE 13 Units/L (15-37); BLOOD UREA NITROGEN 17 mg/dL (7-18); CALCIUM 8.1 mg/dL (8.5-10.1); CARBON DIOXIDE 31.5 mmol/L (21-32); CHLORIDE 103 mmol/L (98-107); COR CA(FOR HYPOALB) 9.4 mg/dL (8.5-10.1); CREATININE 0.89 mg/dL (0.55-1.02); GLUCOSE 81 mg/dL (65-99); SODIUM 142 mmol/L (136-145); TOTAL PROTEIN 6.3 g/dL (6.4-8.2); eGFR NON BLACK RACES > 60 (>60)
[2022-08-25] MEDS: NEURONTIN CAP 100 MG PO SCH ×2 (09:08→20:03)
[2022-08-25] MEDS: PROTONIX TAB 40 MG PO SCH ×2 (09:08→20:04)
[2022-08-25] MEDS: PERCOCET TAB 5/325 MG PO PRN ×3 (09:08→20:47)
[2022-08-25] MEDS: EFFEXOR XR 150 MG CAP 24-HR PO SCH (09:09)
[2022-08-25] MEDS: NYSTATIN POWDER TOP SCH ×2 (09:09→20:04)
[2022-08-25] MEDS: COREG TAB 12.5 MG PO SCH ×2 (09:09→20:03)
[2022-08-25] MEDS: LOVENOX INJ 40 MG SYR SC SCH (09:09)
--- NOTE | 2022-08-25 18:09 | PCM.PROG ---
Progress Note - Progress Note for Day of Date of Exam: 08/25/22 - Subjective Subjective: IS CURRENTLY OBSERVATION STATUS FOR TREATMENT OF LEFT FIBULAR FRACTURE, FREQUENT FALLS, AND GENERALIZED WEAKNESS. SHE HAS A PMH OF CHF, COPD, HTN, ANXIETY, CAD, DYSLIPIDEMIA, GERD, RHEUMATOID ARTHRITIS, OSTEOARTHRITIS, OSTEOPOROSIS, CABG, CAROTID ENDARTERECTOMY, SPLEENECTOMY. SHE CONTINUES TO COMPLAIN OF PAIN FROM THE LEFT FOOT, HOLL[place], AND DISTAL THIGH. SHE DESCRIBES PAIN SHARP, CONSTANT, AND WORSE WITH MOVEMENT OR PALPATION. ON EXAMINATION, HEART IS REGULAR IN RATE AND RHYTHM. BILATERAL LUNGS ARE NOTED WITH DIMINISHED LUNG SOUNDS THROUGHOUT. ABDOMEN IS ROUND, SOFT, AND NON-TENDER WITH NORMAL BOWEL SOUNDS NOTED IN ALL QUADRANTS. NON-PITTING EDEMA NOTED TO THE LEFT FOOT WITH MILD REDNESS TO THE TOP OF THE FOOT. HER VITALS THIS MORNING WERE 98.2-73-22-93%-137/86. LABS WERE OBTAINED. WBC 7.1, TBC 4.29, HGB 11.3, HCT 35.2, PLT COUNT 265, SODIUM 142, POTASSIUM 4.0, CHLORIDE 103, CARBON DIOXIDE 31.5, BUN 17, CREATININE 0.89, GLUCOSE 81, CALCIUM 8.1, AST 13, ALT, 17, ALK PHOS 67, TOTAL PROTEIN 6.3, ALBUMIN 2.4. SHE IS CURRENTLY RECEIVING LOVENOX 40MG SC DAILY, PERCOCET 5/325MG PPO QID PRN, AND HER HOME MEDICATIONS WERE RESUMED. HOME MEDS INCLUDE: XANAX, COREG, NEURONTIN, PROTONIX, ZANAFLEX, AND EFFEXOR. WE SPOKE WITH ALYSSIA PINEDA. HE SAYS THAT PATIENT IS NOT A SURGICAL CANDIDATE AND CAN BEAR WEIGHT ONTO HER LEG. WE WILL HAVE PHYSICAL THERAPY WORK WITH HER. UPON DISCHARGE, PATIENT PLANS TO GO TO [facility] FOR PHYSICAL THERAPY AND REHAB. WE WILL CONTINUE WITH CURRENT PLAN OF CARE TODAY. OTHERWISE, WE WILL FOLLOW UP WITH AM LABS AND CONTINUE TO MONITOR. TIME SPENT ON CLINICAL ASSESSMENT, REVIEWING LABS AND IMAGING, DECISION MAKING, AND DOCUMENTATION GREATER THAN 45 MINUTES. - Past Medical Family Social History Past Med/Fam/Surg Hx: No changes since H&P Allergies: Allergies ciprofloxacin Allergy (Verified 08/23/22 11:29) naproxen [From Aleve] Allergy (Verified 08/23/22 11:29) Penicillins Allergy (Verified 08/23/22 11:29) promethazine Allergy (Verified 08/23/22 11:29) Sulfa (Sulfonamide Antibiotics) [SULFA] Allergy (Verified 08/23/22 11:29) - Review of Systems ROS: No change since H&P - Vital Signs and I&O's Vital Signs: Temperature 99.1 F Temperature 97.9 F Pulse Rate [Right Brachial] 73 Pulse Rate 71 Pulse Rate 69 Respiratory Rate 22 Respiratory Rate 20 Blood Pressure [Right Arm] 145/67 Blood Pressure [Left Arm] 150/66 Blood Pressure 186/79 Blood Pressure 199/74 O2 Sat by Pulse Oximetry 93 O2 Sat by Pulse Oximetry 96 Intake and Output: Intake & Output 08/23/22 08/24/22 08/25/22 08/26/22 11:59 11:59 11:59 11:59 Intake Total 430 / 430 1217 / 1217 Output Total 1550 / 1550 1000 / 1000 Balance -1120 / -1120 217 / 217 - Physical Exam Oriented: Normal Eyes: Normal Ear: Normal Nose: Normal Throat: Normal Respiratory: Generalized, Diminished Cardiovascular: Edema (LEFT FOOT SWELLING ) : Normal Auscultation: Bowel Sounds: Normal Palpation: Normal Tenderness: Normal Skin: Normal Musculoskeletal: Left, Leg, Ankle, Swelling, Tender Psychiatric: Normal Mood Description: Calm Affect: Normal Speech Pattern: Clear, Appropriate - Laboratory and Diagnostics Result Diagrams: 08/25/22 05:12 08/25/22 05:12 Labs: Laboratory WBC 7.1 X10^3/uL (3.6-10.0) 08/25/22 05:12 RBC 4.29 X10^6/uL (3.5-5.4) 08/25/22 05:12 Hgb 11.3 g/dL (12.0-16.0) L 08/25/22 05:12 Hct 35.2 % (36.0-47.0) L 08/25/22 05:12 MCV 81.9 fL (80.0-100.0) 08/25/22 05:12 MCH 26.4 pg (27.0-34.0) L 08/25/22 05:12 MCHC 32.2 g/dL (33.0-35.0) L 08/25/22 05:12 RDW 19.0 % (11.6-16.5) H 08/25/22 05:12 Plt Count 265 X10^3/uL (150.0-450.0) 08/25/22 05:12 MPV 9.8 fL (7.4-11.0) 08/25/22 05:12 Neut % (Auto) 55.7 % (42.0-75.0) 08/25/22 05:12 Lymph % (Auto) 32.7 % (21.0-51.0) 08/25/22 05:12 [place] % (Auto) 9.5 % (0.0-13.0) 08/25/22 05:12 Eos % (Auto) 1.5 % (0.9-2.9) 08/25/22 05:12 Baso % (Auto) 0.6 % (0.2-1.0) 08/25/22 05:12 Neut # (Auto) 4.0 x10^3/uL (2.2-4.8) 08/25/22 05:12 Lymph # (Auto) 2.3 X10^3/uL (1.3-2.9) 08/25/22 05:12 [place] # (Auto) 0.7 x10^3/uL (0.3-0.8) 08/25/22 05:12 Eos # (Auto) 0.1 x10^3/uL (0.0-0.2) 08/25/22 05:12 Baso # (Auto) 0.0 X10^3/uL (0.0-0.1) 08/25/22 05:12 Absolute Nucleated RBC 0.1 /100WBC 08/25/22 05:12 Sodium 142 mmol/L (136-145) 08/25/22 05:12 Corrected Sodium TNP 08/25/22 05:12 Potassium 4.0 mmol/L (3.5-5.1) 08/25/22 05:12 Chloride 103 mmol/L (98-107) 08/25/22 05:12 Carbon Dioxide 31.5 mmol/L (21-32) 08/25/22 05:12 BUN 17 mg/dL (7-18) 08/25/22 05:12 Creatinine 0.89 mg/dL (0.55-1.02) 08/25/22 05:12 Est GFR (MDRD) Af Amer > 60 (>60) 08/25/22 05:12 Est GFR (MDRD) Non-Af > 60 (>60) 08/25/22 05:12 Glucose 81 mg/dL (65-99) 08/25/22 05:12 POC Glucose (mg/dL) 93 mg/dL (65-99) 08/25/22 05:55 Calcium 8.1 mg/dL (8.5-10.1) L 08/25/22 05:12 Corrected Calcium 9.4 mg/dL (8.5-10.1) 08/25/22 05:12 Total Bilirubin 0.20 mg/dL (0.2-1.0) 08/25/22 05:12 AST 13 Units/L (15-37) L 08/25/22 05:12 ALT 17 Units/L (12-78) 08/25/22 05:12 Alkaline Phosphatase 67 Units/L (46-116) 08/25/22 05:12 Creatine Kinase 35 Units/L (26-192) 08/23/22 12:55 Total Protein 6.3 g/dL (6.4-8.2) L 08/25/22 05:12 Albumin 2.4 g/dL (3.4-5.0) L 08/25/22 05:12 Globulin 3.9 g/dL (2.5-4.5) 08/25/22 05:12 Albumin/Globulin Ratio 0.6 Ratio (1.1-2.1) L 08/25/22 05:12 Specimen Type Clean catch urine 08/23/22 13:07 Urine Color Pale yellow (YELLOW) 08/23/22 13:07 Urine Appearance Clear (CLEAR) 08/23/22 13:07 Urine pH 6.0 (5.0 - 8.0) 08/23/22 13:07 Ur Specific [place] 1.015 (1.000-1.030) 08/23/22 13:07 Urine Protein Trace (NEGATIVE) 08/23/22 13:07 Urine Glucose (UA) Negative (NEGATIVE) 08/23/22 13:07 Urine Ketones Negative (NEGATIVE) 08/23/22 13:07 Urine Blood Negative (NEGATIVE) 08/23/22 13:07 Urine Nitrite Negative (NEGATIVE) 08/23/22 13:07 Urine Bilirubin Negative (NEGATIVE) 08/23/22 13:07 Urine Urobilinogen Normal (NORMAL) 08/23/22 13:07 Ur Leukocyte Esterase Negative (NEGATIVE) 08/23/22 13:07 Urine RBC 0-2 /HPF (0-3) 08/23/22 13:07 Urine WBC 0-2 /HPF (0-5) 08/23/22 13:07 Ur Squamous Epith Cells Few /HPF (NEGATIVE) 08/23/22 13:07 Urine Bacteria Negative /HPF (NEGATIVE) 08/23/22 13:07 Ur Culture Indicated? No/not indicated 08/23/22 13:07 - Plan (1) Closed fibular fracture Status: Acute Qualifiers: Encounter type: initial encounter Fibula location: proximal Laterality: left Plan: LOVENOX 40MG SC DAILY, PERCOCET 5/325MG PPO QID PRN, AND HER HOME MEDICATIONS WERE RESUMED. HOME MEDS INCLUDE: XANAX, COREG, NEURONTIN, PROTONIX, ZANAFLEX, AND EFFEXOR. (2) Frequent falls Status: Acute (3) General weakness Status: Acute (4) CHF (congestive heart failure) Status: Chronic Qualifiers: Heart failure type: unspecified Heart failure chronicity: acute on chronic Qualified Code(s): I50.9 - Heart failure, unspecified (5) GERD (gastroesophageal reflux disease) Status: Chronic Qualifiers: Esophagitis presence: esophagitis presence not specified Qualified Code(s): K21.9 - Gastro-esophageal reflux disease without esophagitis (6) HTN (hypertension) Status: Chronic Qualifiers: Hypertension type: primary hypertension Qualified Code(s): I10 - Essential (primary) hypertension (7) Hyperlipidemia Status: Chronic Qualifiers: Hyperlipidemia type: mixed hyperlipidemia Qualified Code(s): E78.2 - Mixed hyperlipidemia
[2022-08-25] MEDS: ZANAFLEX PO SCH (20:04)
[2022-08-25] MEDS: XANAX PO PRN (20:04)
[2022-08-25] MEDS ORDERED: COLACE CAP 100 MG PO PRN (20:07)
[2022-08-25] MEDS ORDERED: COLACE CAP 100 MG PO ONE (20:26)
[2022-08-26] MEDS: PERCOCET TAB 5/325 MG PO PRN ×4 (03:17→21:49)
[2022-08-26 06:00] LABS: BASOPHILS # (AUTO) 0.1 X10^3/uL (0.0-0.1); BASOPHILS % (AUTO) 1.3 % (0.2-1.0); EOSINOPHILS # (AUTO) 0.1 x10^3/uL (0.0-0.2); EOSINOPHILS % (AUTO) 0.8 % (0.9-2.9); HEMATOCRIT 35.9 % (36.0-47.0); HEMOGLOBIN 11.7 g/dL (12.0-16.0); LYMPHOCYTES # (AUTO) 2.2 X10^3/uL (1.3-2.9); LYMPHOCYTES % (AUTO) 25.6 % (21.0-51.0); MEAN CORPUSCULAR HEMOGLOBIN 26.5 pg (27.0-34.0); MEAN CORPUSCULAR HGB CONC 32.6 g/dL (33.0-35.0); MEAN CORPUSCULAR VOLUME 81.4 fL (80.0-100.0); MEAN PLATELET VOLUME 9.5 fL (7.4-11.0); MONOCYTES # (AUTO) 0.8 x10^3/uL (0.3-0.8); NEUTROPHILS # (AUTO) 5.3 x10^3/uL (2.2-4.8); NEUTROPHILS % (AUTO) 63.3 % (42.0-75.0); PLATELET COUNT 277 X10^3/uL (150.0-450.0); RED BLOOD COUNT 4.42 X10^6/uL (3.5-5.4); RED CELL DISTRIBUTION WIDTH 18.2 % (11.6-16.5); WHITE BLOOD COUNT 8.4 X10^3/uL (3.6-10.0)
[2022-08-26 06:10] LABS: ALANINE AMINOTRANSFERASE 16 Units/L (12-78); ALBUMIN 2.5 g/dL (3.4-5.0); ALKALINE PHOSPHATASE 70 Units/L (46-116); ASPARTATE AMINO TRANSFERASE 19 Units/L (15-37); BLOOD UREA NITROGEN 13 mg/dL (7-18); CALCIUM 8.3 mg/dL (8.5-10.1); CARBON DIOXIDE 32.1 mmol/L (21-32); CHLORIDE 101 mmol/L (98-107); COR CA(FOR HYPOALB) 9.5 mg/dL (8.5-10.1); CREATININE 0.78 mg/dL (0.55-1.02); GLUCOSE 93 mg/dL (65-99); POTASSIUM 3.7 mmol/L (3.5-5.1); SODIUM 140 mmol/L (136-145); TOTAL PROTEIN 6.7 g/dL (6.4-8.2); eGFR NON BLACK RACES > 60 (>60)
--- NOTE | 2022-08-26 10:24 | PCM.PROG ---
Progress Note - Progress Note for Day of Date of Exam: 08/26/22 - Subjective Subjective: IS CURRENTLY OBSERVATION STATUS FOR TREATMENT OF LEFT FIBULAR FRACTURE, FREQUENT FALLS, AND GENERALIZED WEAKNESS. SHE HAS A PMH OF CHF, COPD, HTN, ANXIETY, CAD, DYSLIPIDEMIA, GERD, RHEUMATOID ARTHRITIS, OSTEOARTHRITIS, OSTEOPOROSIS, CABG, CAROTID ENDARTERECTOMY, SPLEENECTOMY. SHE CONTINUES TO COMPLAIN OF PAIN OF THE LEFT FOOT, HOLLAND, AND DISTAL THIGH. SHE DOES ADMIT TO SLIGHT IMPROVEMENT IN PAIN TODAY. ON EXAMINATION, HEART IS REGULAR IN RATE AND RHYTHM. BILATERAL LUNGS ARE NOTED WITH DIMINISHED LUNG SOUNDS THROUGHOUT. ABDOMEN IS ROUND, SOFT, AND NON-TENDER WITH NORMAL BOWEL SOUNDS NOTED IN ALL QUADRANTS. NON-PITTING EDEMA NOTED TO THE LEFT FOOT WITH MILD REDNESS TO THE TOP OF THE FOOT. HER VITALS THIS MORNING WERE 96.6-77-20-96%-170/75. LABS WERE OBTAINED. WBC 8.4, RBC 4.42, HGB 11.7, HCT 35.9, PLT COUNT 277, SODIUM 140, POTASSIUM 3.7, CHLORIDE 101, CARBON DIOXIDE 32.1, BUN 13, CREATININE 0.78, GLUCOSE 93, CALCIUM 8.3, AST 19, ALT 16, ALK PHOS 70, TOTAL PROTEIN 6.7, ALBUMIN 2.5. SHE IS CURRENTLY RECEIVING LOVENOX 40MG SC DAILY, PERCOCET 5/325MG PPO QID PRN, AND HER HOME MEDICATIONS WERE RESUMED. HOME MEDS INCLUDE: XANAX, COREG, NEURONTIN, PROTONIX, ZANAFLEX, AND EFFEXOR. WE SPOKE WITH ALYSSIA PINEDA. HE SAYS THAT PATIENT IS NOT A SURGICAL CANDIDATE AND CAN BEAR WEIGHT ONTO HER LEG. WE WILL HAVE PHYSICAL THERAPY CONTINUE TO WORK WITH HER. UPON DISCHARGE, PATIENT PLANS TO GO TO [facility] FOR PHYSICAL THERAPY AND REHAB. WE WILL CONTINUE WITH CURRENT PLAN OF CARE TODAY. OTHERWISE, WE WILL FOLLOW UP WITH AM LABS AND CONTINUE TO MONITOR. TIME SPENT ON CLINICAL ASSESSMENT, REVIEWING LABS AND IMAGING, DECISION MAKING, AND DOCUMENTATION GREATER THAN 45 MINUTES. - Past Medical Family Social History Past Med/Fam/Surg Hx: No changes since H&P Allergies: Allergies ciprofloxacin Allergy (Verified 08/23/22 11:29) naproxen [From Aleve] Allergy (Verified 08/23/22 11:29) Penicillins Allergy (Verified 08/23/22 11:29) promethazine Allergy (Verified 08/23/22 11:29) Sulfa (Sulfonamide Antibiotics) [SULFA] Allergy (Verified 08/23/22 11:29) - Review of Systems ROS: No change since H&P - Vital Signs and I&O's Vital Signs: Temperature 96.6 F Temperature 97.9 F Pulse Rate [Right Brachial] 77 Pulse Rate 71 Pulse Rate 69 Respiratory Rate 20 Respiratory Rate 20 Blood Pressure [Right Arm] 170/75 Blood Pressure [Left Arm] 150/66 Blood Pressure 186/79 Blood Pressure 199/74 O2 Sat by Pulse Oximetry 96 O2 Sat by Pulse Oximetry 96 Intake and Output: Intake & Output 08/23/22 08/24/22 08/25/22 08/26/22 11:59 11:59 11:59 11:59 Intake Total 430 / 430 1217 / 1217 540 / 540 Output Total 1550 / 1550 1000 / 1000 1600 / 1600 Balance -1120 / -1120 217 / 217 -1060 / -1060 - Physical Exam Oriented: Normal Eyes: Normal Ear: Normal Nose: Normal Throat: Normal Respiratory: Generalized, Diminished Cardiovascular: Edema (LEFT FOOT SWELLING ) : Normal Auscultation: Bowel Sounds: Normal Tenderness: Normal Skin: Normal Musculoskeletal: Left, Leg, Ankle, Swelling, Tender Psychiatric: Normal Mood Description: Calm Affect: Normal Speech Pattern: Clear, Appropriate - Laboratory and Diagnostics Result Diagrams: 08/26/22 05:14 08/26/22 05:14 Labs: Laboratory WBC 8.4 X10^3/uL (3.6-10.0) 08/26/22 05:14 RBC 4.42 X10^6/uL (3.5-5.4) 08/26/22 05:14 Hgb 11.7 g/dL (12.0-16.0) L 08/26/22 05:14 Hct 35.9 % (36.0-47.0) L 08/26/22 05:14 MCV 81.4 fL (80.0-100.0) 08/26/22 05:14 MCH 26.5 pg (27.0-34.0) L 08/26/22 05:14 MCHC 32.6 g/dL (33.0-35.0) L 08/26/22 05:14 RDW 18.2 % (11.6-16.5) H 08/26/22 05:14 Plt Count 277 X10^3/uL (150.0-450.0) 08/26/22 05:14 MPV 9.5 fL (7.4-11.0) 08/26/22 05:14 Neut % (Auto) 63.3 % (42.0-75.0) 08/26/22 05:14 Lymph % (Auto) 25.6 % (21.0-51.0) 08/26/22 05:14 [place] % (Auto) 9.0 % (0.0-13.0) 08/26/22 05:14 Eos % (Auto) 0.8 % (0.9-2.9) L 08/26/22 05:14 Baso % (Auto) 1.3 % (0.2-1.0) H 08/26/22 05:14 Neut # (Auto) 5.3 x10^3/uL (2.2-4.8) H 08/26/22 05:14 Lymph # (Auto) 2.2 X10^3/uL (1.3-2.9) 08/26/22 05:14 [place] # (Auto) 0.8 x10^3/uL (0.3-0.8) 08/26/22 05:14 Eos # (Auto) 0.1 x10^3/uL (0.0-0.2) 08/26/22 05:14 Baso # (Auto) 0.1 X10^3/uL (0.0-0.1) 08/26/22 05:14 Absolute Nucleated RBC 0.0 /100WBC 08/26/22 05:14 Sodium 140 mmol/L (136-145) 08/26/22 05:14 Corrected Sodium TNP 08/26/22 05:14 Potassium 3.7 mmol/L (3.5-5.1) 08/26/22 05:14 Chloride 101 mmol/L (98-107) 08/26/22 05:14 Carbon Dioxide 32.1 mmol/L (21-32) H 08/26/22 05:14 BUN 13 mg/dL (7-18) 08/26/22 05:14 Creatinine 0.78 mg/dL (0.55-1.02) 08/26/22 05:14 Est GFR (MDRD) Af Amer > 60 (>60) 08/26/22 05:14 Est GFR (MDRD) Non-Af > 60 (>60) 08/26/22 05:14 Glucose 93 mg/dL (65-99) 08/26/22 05:14 POC Glucose (mg/dL) 93 mg/dL (65-99) 08/25/22 05:55 Calcium 8.3 mg/dL (8.5-10.1) L 08/26/22 05:14 Corrected Calcium 9.5 mg/dL (8.5-10.1) 08/26/22 05:14 Total Bilirubin 0.30 mg/dL (0.2-1.0) 08/26/22 05:14 AST 19 Units/L (15-37) 08/26/22 05:14 ALT 16 Units/L (12-78) 08/26/22 05:14 Alkaline Phosphatase 70 Units/L (46-116) 08/26/22 05:14 Creatine Kinase 35 Units/L (26-192) 08/23/22 12:55 Total Protein 6.7 g/dL (6.4-8.2) 08/26/22 05:14 Albumin 2.5 g/dL (3.4-5.0) L 08/26/22 05:14 Globulin 4.2 g/dL (2.5-4.5) 08/26/22 05:14 Albumin/Globulin Ratio 0.6 Ratio (1.1-2.1) L 08/26/22 05:14 Specimen Type Clean catch urine 08/23/22 13:07 Urine Color Pale yellow (YELLOW) 08/23/22 13:07 Urine Appearance Clear (CLEAR) 08/23/22 13:07 Urine pH 6.0 (5.0 - 8.0) 08/23/22 13:07 Ur Specific [place] 1.015 (1.000-1.030) 08/23/22 13:07 Urine Protein Trace (NEGATIVE) 08/23/22 13:07 Urine Glucose (UA) Negative (NEGATIVE) 08/23/22 13:07 Urine Ketones Negative (NEGATIVE) 08/23/22 13:07 Urine Blood Negative (NEGATIVE) 08/23/22 13:07 Urine Nitrite Negative (NEGATIVE) 08/23/22 13:07 Urine Bilirubin Negative (NEGATIVE) 08/23/22 13:07 Urine Urobilinogen Normal (NORMAL) 08/23/22 13:07 Ur Leukocyte Esterase Negative (NEGATIVE) 08/23/22 13:07 Urine RBC 0-2 /HPF (0-3) 08/23/22 13:07 Urine WBC 0-2 /HPF (0-5) 08/23/22 13:07 Ur Squamous Epith Cells Few /HPF (NEGATIVE) 08/23/22 13:07 Urine Bacteria Negative /HPF (NEGATIVE) 08/23/22 13:07 Ur Culture Indicated? No/not indicated 08/23/22 13:07 - Plan (1) Closed fibular fracture Status: Acute Qualifiers: Encounter type: initial encounter Fibula location: proximal Laterality: left Plan: LOVENOX 40MG SC DAILY, PERCOCET 5/325MG PPO QID PRN, AND HER HOME M EDICATIONS WERE RESUMED. HOME MEDS INCLUDE: XANAX, COREG, NEURONTIN, PROTONIX, ZANAFLEX, AND EFFEXOR. (2) Frequent falls Status: Acute (3) General weakness Status: Acute (4) CHF (congestive heart failure) Status: Chronic Qualifiers: Heart failure type: unspecified Heart failure chronicity: acute on chronic Qualified Code(s): I50.9 - Heart failure, unspecified (5) GERD (gastroesophageal reflux disease) Status: Chronic Qualifiers: Esophagitis presence: esophagitis presence not specified Qualified Code(s): K21.9 - Gastro-esophageal reflux disease without esophagitis (6) HTN (hypertension) Status: Chronic Qualifiers: Hypertension type: primary hypertension Qualified Code(s): I10 - Essential (primary) hypertension (7) Hyperlipidemia Status: Chronic Qualifiers: Hyperlipidemia type: mixed hyperlipidemia Qualified Code(s): E78.2 - Mixed hyperlipidemia
[2022-08-26] MEDS: COREG TAB 12.5 MG PO SCH ×2 (10:37→20:20)
[2022-08-26] MEDS: EFFEXOR XR 150 MG CAP 24-HR PO SCH (10:37)
[2022-08-26] MEDS: PROTONIX TAB 40 MG PO SCH ×2 (10:38→20:20)
[2022-08-26] MEDS: NYSTATIN POWDER TOP SCH ×2 (10:38→20:20)
[2022-08-26] MEDS: NEURONTIN CAP 100 MG PO SCH ×2 (10:38→20:20)
[2022-08-26] MEDS: LOVENOX INJ 40 MG SYR SC SCH (10:38)
[2022-08-26] MEDS: K-DUR TAB 20 MEQ PO PRN (10:39)
[2022-08-26] MEDS: XANAX PO PRN (20:20)
[2022-08-26] MEDS: ZANAFLEX PO SCH (20:20)
[2022-08-27] MEDS: PERCOCET TAB 5/325 MG PO PRN ×2 (03:26→09:21)
[2022-08-27 06:11] LABS: BASOPHILS # (AUTO) 0.1 X10^3/uL (0.0-0.1); BASOPHILS % (AUTO) 0.9 % (0.2-1.0); EOSINOPHILS # (AUTO) 0.1 x10^3/uL (0.0-0.2); EOSINOPHILS % (AUTO) 1.1 % (0.9-2.9); HEMATOCRIT 35.8 % (36.0-47.0); HEMOGLOBIN 11.5 g/dL (12.0-16.0); LYMPHOCYTES # (AUTO) 2.6 X10^3/uL (1.3-2.9); LYMPHOCYTES % (AUTO) 32.9 % (21.0-51.0); MEAN CORPUSCULAR HEMOGLOBIN 26.4 pg (27.0-34.0); MEAN CORPUSCULAR HGB CONC 32.2 g/dL (33.0-35.0); MEAN CORPUSCULAR VOLUME 82.1 fL (80.0-100.0); MEAN PLATELET VOLUME 8.8 fL (7.4-11.0); MONOCYTES # (AUTO) 0.9 x10^3/uL (0.3-0.8); MONOCYTES % (AUTO) 11.1 % (0.0-13.0); NEUTROPHILS # (AUTO) 4.3 x10^3/uL (2.2-4.8); PLATELET COUNT 262 X10^3/uL (150.0-450.0); RED BLOOD COUNT 4.36 X10^6/uL (3.5-5.4); RED CELL DISTRIBUTION WIDTH 18.4 % (11.6-16.5)
[2022-08-27 06:24] LABS: ALANINE AMINOTRANSFERASE 14 Units/L (12-78); ALBUMIN 2.4 g/dL (3.4-5.0); ALKALINE PHOSPHATASE 66 Units/L (46-116); ASPARTATE AMINO TRANSFERASE 11 Units/L (15-37); BLOOD UREA NITROGEN 15 mg/dL (7-18); CALCIUM 8.2 mg/dL (8.5-10.1); CARBON DIOXIDE 32.3 mmol/L (21-32); CHLORIDE 103 mmol/L (98-107); COR CA(FOR HYPOALB) 9.5 mg/dL (8.5-10.1); CREATININE 0.92 mg/dL (0.55-1.02); GLUCOSE 94 mg/dL (65-99); POTASSIUM 3.9 mmol/L (3.5-5.1); SODIUM 140 mmol/L (136-145); TOTAL PROTEIN 6.3 g/dL (6.4-8.2); eGFR NON BLACK RACES > 60 (>60)
[2022-08-27] MEDS: NEURONTIN CAP 100 MG PO SCH ×2 (09:19→20:38)
[2022-08-27] MEDS: LOVENOX INJ 40 MG SYR SC SCH (09:19)
[2022-08-27] MEDS: XANAX PO PRN ×2 (09:20→20:38)
[2022-08-27] MEDS: EFFEXOR XR 150 MG CAP 24-HR PO SCH (09:20)
[2022-08-27] MEDS: PROTONIX TAB 40 MG PO SCH ×2 (09:20→20:38)
[2022-08-27] MEDS: NYSTATIN POWDER TOP SCH ×2 (09:22→20:38)
[2022-08-27] MEDS: COREG TAB 12.5 MG PO SCH ×2 (09:22→20:38)
[2022-08-27] MEDS: COZAAR PO SCH (13:56)
[2022-08-27] MEDS: NORCO 7.5/325 MG TAB PO PRN ×2 (15:26→21:01)
[2022-08-27] MEDS: ZANAFLEX PO SCH (20:38)
[2022-08-28] MEDS: NORCO 7.5/325 MG TAB PO PRN ×4 (03:48→23:04)
[2022-08-28 06:24] LABS: BASOPHILS # (AUTO) 0.1 X10^3/uL (0.0-0.1); BASOPHILS % (AUTO) 0.7 % (0.2-1.0); EOSINOPHILS # (AUTO) 0.1 x10^3/uL (0.0-0.2); EOSINOPHILS % (AUTO) 1.1 % (0.9-2.9); HEMATOCRIT 34.8 % (36.0-47.0); LYMPHOCYTES # (AUTO) 2.7 X10^3/uL (1.3-2.9); LYMPHOCYTES % (AUTO) 35.7 % (21.0-51.0); MEAN CORPUSCULAR HEMOGLOBIN 26.1 pg (27.0-34.0); MEAN CORPUSCULAR HGB CONC 31.7 g/dL (33.0-35.0); MEAN CORPUSCULAR VOLUME 82.4 fL (80.0-100.0); MONOCYTES # (AUTO) 0.7 x10^3/uL (0.3-0.8); MONOCYTES % (AUTO) 9.1 % (0.0-13.0); NEUTROPHILS % (AUTO) 53.4 % (42.0-75.0); PLATELET COUNT 247 X10^3/uL (150.0-450.0); RED BLOOD COUNT 4.22 X10^6/uL (3.5-5.4); WHITE BLOOD COUNT 7.5 X10^3/uL (3.6-10.0)
[2022-08-28 06:44] LABS: ALANINE AMINOTRANSFERASE 14 Units/L (12-78); ALBUMIN 2.4 g/dL (3.4-5.0); ALKALINE PHOSPHATASE 65 Units/L (46-116); ASPARTATE AMINO TRANSFERASE 16 Units/L (15-37); BLOOD UREA NITROGEN 18 mg/dL (7-18); CALCIUM 8.2 mg/dL (8.5-10.1); CARBON DIOXIDE 28.5 mmol/L (21-32); CHLORIDE 104 mmol/L (98-107); COR CA(FOR HYPOALB) 9.5 mg/dL (8.5-10.1); CREATININE 0.92 mg/dL (0.55-1.02); GLUCOSE 86 mg/dL (65-99); POTASSIUM 3.5 mmol/L (3.5-5.1); SODIUM 140 mmol/L (136-145); TOTAL PROTEIN 6.3 g/dL (6.4-8.2); eGFR NON BLACK RACES > 60 (>60)
[2022-08-28] MEDS: K-DUR TAB 20 MEQ PO PRN (09:46)
[2022-08-28] MEDS: PROTONIX TAB 40 MG PO SCH ×2 (09:47→20:38)
[2022-08-28] MEDS: COREG TAB 12.5 MG PO SCH ×2 (09:47→20:38)
[2022-08-28] MEDS: COZAAR PO SCH ×2 (09:47→13:09)
[2022-08-28] MEDS: EFFEXOR XR 150 MG CAP 24-HR PO SCH (09:47)
[2022-08-28] MEDS: NEURONTIN CAP 100 MG PO SCH ×2 (09:48→20:38)
[2022-08-28] MEDS: XANAX PO PRN ×2 (09:48→20:38)
[2022-08-28] MEDS: LOVENOX INJ 40 MG SYR SC SCH (09:48)
[2022-08-28] MEDS: NYSTATIN POWDER TOP SCH ×2 (09:49→20:38)
[2022-08-28] MEDS: ZANAFLEX PO SCH (20:38)
[2022-08-29] MEDS ORDERED: TYLENOL 325 MG TAB PO PRN (02:21)
[2022-08-29 05:48] LABS: BASOPHILS # (AUTO) 0.1 X10^3/uL (0.0-0.1); BASOPHILS % (AUTO) 1.2 % (0.2-1.0); EOSINOPHILS # (AUTO) 0.1 x10^3/uL (0.0-0.2); EOSINOPHILS % (AUTO) 1.2 % (0.9-2.9); HEMATOCRIT 33.3 % (36.0-47.0); HEMOGLOBIN 10.8 g/dL (12.0-16.0); LYMPHOCYTES % (AUTO) 42.1 % (21.0-51.0); MEAN CORPUSCULAR HEMOGLOBIN 26.7 pg (27.0-34.0); MEAN CORPUSCULAR HGB CONC 32.5 g/dL (33.0-35.0); MEAN CORPUSCULAR VOLUME 82.1 fL (80.0-100.0); MEAN PLATELET VOLUME 9.5 fL (7.4-11.0); MONOCYTES # (AUTO) 0.6 x10^3/uL (0.3-0.8); MONOCYTES % (AUTO) 8.9 % (0.0-13.0); NEUTROPHILS # (AUTO) 3.3 x10^3/uL (2.2-4.8); NEUTROPHILS % (AUTO) 46.6 % (42.0-75.0); PLATELET COUNT 233 X10^3/uL (150.0-450.0); RED BLOOD COUNT 4.05 X10^6/uL (3.5-5.4); RED CELL DISTRIBUTION WIDTH 18.8 % (11.6-16.5); WHITE BLOOD COUNT 7.2 X10^3/uL (3.6-10.0)
[2022-08-29 06:02] LABS: ALANINE AMINOTRANSFERASE 13 Units/L (12-78); ALBUMIN 2.3 g/dL (3.4-5.0); ALKALINE PHOSPHATASE 61 Units/L (46-116); ASPARTATE AMINO TRANSFERASE 12 Units/L (15-37); BLOOD UREA NITROGEN 16 mg/dL (7-18); CALCIUM 8.2 mg/dL (8.5-10.1); CARBON DIOXIDE 29.7 mmol/L (21-32); CHLORIDE 104 mmol/L (98-107); COR CA(FOR HYPOALB) 9.6 mg/dL (8.5-10.1); CREATININE 0.94 mg/dL (0.55-1.02); GLUCOSE 84 mg/dL (65-99); POTASSIUM 3.8 mmol/L (3.5-5.1); SODIUM 140 mmol/L (136-145); TOTAL PROTEIN 6.1 g/dL (6.4-8.2); eGFR NON BLACK RACES > 60 (>60)
[2022-08-29] MEDS: K-DUR TAB 20 MEQ PO PRN (06:13)
[2022-08-29] MEDS: LOVENOX INJ 40 MG SYR SC SCH (09:29)
[2022-08-29] MEDS: EFFEXOR XR 150 MG CAP 24-HR PO SCH (09:29)
[2022-08-29] MEDS: NEURONTIN CAP 100 MG PO SCH ×2 (09:29→21:15)
[2022-08-29] MEDS: PROTONIX TAB 40 MG PO SCH ×2 (09:29→21:16)
[2022-08-29] MEDS: COREG TAB 12.5 MG PO SCH ×2 (09:30→21:16)
[2022-08-29] MEDS: XANAX PO PRN ×2 (09:30→21:16)
[2022-08-29] MEDS: NYSTATIN POWDER TOP SCH ×2 (09:30→21:16)
--- NOTE | 2022-08-29 16:21 | PCM.PROG ---
Progress Note - Progress Note for Day of Date of Exam: 08/29/22 - Subjective Subjective: IS CURRENTLY OBSERVATION STATUS FOR TREATMENT OF LEFT FIBULAR FRACTURE, FREQUENT FALLS, AND GENERALIZED WEAKNESS. SHE HAS A PMH OF CHF, COPD, HTN, ANXIETY, CAD, DYSLIPIDEMIA, GERD, RHEUMATOID ARTHRITIS, OSTEOARTHRITIS, OSTEOPOROSIS, CABG, CAROTID ENDARTERECTOMY, SPLEENECTOMY. SHE CONTINUES TO COMPLAIN OF PAIN OF THE LEFT FOOT, HOLL[place], AND DISTAL THIGH. SHE DOES ADMIT TO SLIGHT IMPROVEMENT IN PAIN SINCE HER NORCO WAS INCREASED TO 7.5 OVER THE WEEKEND. ON EXAMINATION, HEART IS REGULAR IN RATE AND RHYTHM. BILATERAL LUNGS ARE NOTED WITH DIMINISHED LUNG SOUNDS THROUGHOUT. ABDOMEN IS ROUND, SOFT, AND NON-TENDER WITH NORMAL BOWEL SOUNDS NOTED IN ALL QUADRANTS. NON-PITTING EDEMA NOTED TO THE LEFT FOOT. HER VITALS THIS MORNING WERE 97.5-60-20-93%-122/61. LABS WERE OBTAINED. WBC 7.2, RBC 4.05, HGB 10.8, HCT 33.3, PLT COUNT 233, SODIUM 140, POTASSIUM 3.8, CHLORIDE 104, BUN 16, CREATININE 0.94, GLUCOSE 84, CALCIUM 8.2, TOTAL BILI 0.20, AST 12, ALT 13, ALK PHOS 61, TOTAL PROTEIN 6.1, ALBUMIN 2.3. SHE IS CURRENTLY RECEIVING LOVENOX 40MG SC DAILY, PERCOCET 7.5/325MG PPO QID PRN, TYLENOL 650MG Q6H PRN, AND HER HOME MEDICATIONS WERE RESUMED. HOME MEDS INCLUDE: XANAX, COREG, NEURONTIN, PROTONIX, ZANAFLEX, AND EFFEXOR. WE WILL HAVE PHYSICAL THERAPY CONTINUE TO WORK WITH HER TODAY. UPON DISCHARGE, PATIENT PLANS TO GO TO [facility] FOR PHYSICAL THERAPY AND REHAB. WE ARE WAITING TO HEAR FROM HER INSURANCE COMPANY. WE WILL CONTINUE WITH CURRENT PLAN OF CARE TODAY. OTHERWISE, WE WILL FOLLOW UP WITH AM LABS AND CONTINUE TO MONITOR. TIME SPENT ON CLINICAL ASSESSMENT, REVIEWI NG LABS AND IMAGING, DECISION MAKING, AND DOCUMENTATION GREATER THAN 45 MINUTES. - Past Medical Family Social History Past Med/Fam/Surg Hx: No changes since H&P Allergies: Allergies ciprofloxacin Allergy (Verified 08/23/22 11:29) naproxen [From Aleve] Allergy (Verified 08/23/22 11:29) Penicillins Allergy (Verified 08/23/22 11:29) promethazine Allergy (Verified 08/23/22 11:29) Sulfa (Sulfonamide Antibiotics) [SULFA] Allergy (Verified 08/23/22 11:29) - Review of Systems ROS: No change since H&P - Vital Signs and I&O's Vital Signs: Temperature 98.1 F Temperature 97.9 F Pulse Rate [Right Brachial] 67 Pulse Rate 71 Pulse Rate 69 Respiratory Rate 20 Respiratory Rate 20 Blood Pressure [Right Arm] 140/65 Blood Pressure [Left Arm] 130/60 Blood Pressure 186/79 Blood Pressure 199/74 O2 Sat by Pulse Oximetry 96 O2 Sat by Pulse Oximetry 96 Intake and Output: Intake & Output 08/27/22 08/28/22 08/29/22 08/30/22 11:59 11:59 11:59 11:59 Intake Total 1180 / 1180 1320 / 1320 880 / 880 240 / 240 Output Total 650 / 650 Balance 530 / 530 1320 / 1320 880 / 880 240 / 240 - Physical Exam Oriented: Normal Eyes: Normal Ear: Normal Nose: Normal Throat: Normal Respiratory: Generalized, Diminished : Normal Auscultation: Bowel Sounds: Normal Palpation: Normal Tenderness: Normal Skin: Normal Musculoskeletal: Left, Leg, Ankle, Swelling, Tender Psychiatric: Normal Mood Description: Calm Affect: Normal Speech Pattern: Clear, Appropriate - Laboratory and Diagnostics Result Diagrams: 08/29/22 05:04 08/29/22 05:04 Labs: Laboratory WBC 7.2 X10^3/uL (3.6-10.0) 08/29/22 05:04 RBC 4.05 X10^6/uL (3.5-5.4) 08/29/22 05:04 Hgb 10.8 g/dL (12.0-16.0) L 08/29/22 05:04 Hct 33.3 % (36.0-47.0) L 08/29/22 05:04 MCV 82.1 fL (80.0-100.0) 08/29/22 05:04 MCH 26.7 pg (27.0-34.0) L 08/29/22 05:04 MCHC 32.5 g/dL (33.0-35.0) L 08/29/22 05:04 RDW 18.8 % (11.6-16.5) H 08/29/22 05:04 Plt Count 233 X10^3/uL (150.0-450.0) 08/29/22 05:04 MPV 9.5 fL (7.4-11.0) 08/29/22 05:04 Neut % (Auto) 46.6 % (42.0-75.0) 08/29/22 05:04 Lymph % (Auto) 42.1 % (21.0-51.0) 08/29/22 05:04 [place] % (Auto) 8.9 % (0.0-13.0) 08/29/22 05:04 Eos % (Auto) 1.2 % (0.9-2.9) 08/29/22 05:04 Baso % (Auto) 1.2 % (0.2-1.0) H 08/29/22 05:04 Neut # (Auto) 3.3 x10^3/uL (2.2-4.8) 08/29/22 05:04 Lymph # (Auto) 3.0 X10^3/uL (1.3-2.9) H 08/29/22 05:04 [place] # (Auto) 0.6 x10^3/uL (0.3-0.8) 08/29/22 05:04 Eos # (Auto) 0.1 x10^3/uL (0.0-0.2) 08/29/22 05:04 Baso # (Auto) 0.1 X10^3/uL (0.0-0.1) 08/29/22 05:04 Absolute Nucleated RBC 0.0 /100WBC 08/29/22 05:04 Sodium 140 mmol/L (136-145) 08/29/22 05:04 Corrected Sodium TNP 08/29/22 05:04 Potassium 3.8 mmol/L (3.5-5.1) 08/29/22 05:04 Chloride 104 mmol/L (98-107) 08/29/22 05:04 Carbon Dioxide 29.7 mmol/L (21-32) 08/29/22 05:04 BUN 16 mg/dL (7-18) 08/29/22 05:04 Creatinine 0.94 mg/dL (0.55-1.02) 08/29/22 05:04 Est GFR (MDRD) Af Amer > 60 (>60) 08/29/22 05:04 Est GFR (MDRD) Non-Af > 60 (>60) 08/29/22 05:04 Glucose 84 mg/dL (65-99) 08/29/22 05:04 POC Glucose (mg/dL) 93 mg/dL (65-99) 08/25/22 05:55 Calcium 8.2 mg/dL (8.5-10.1) L 08/29/22 05:04 Corrected Calcium 9.6 mg/dL (8.5-10.1) 08/29/22 05:04 Total Bilirubin 0.20 mg/dL (0.2-1.0) 08/29/22 05:04 AST 12 Units/L (15-37) L 08/29/22 05:04 ALT 13 Units/L (12-78) 08/29/22 05:04 Alkaline Phosphatase 61 Units/L (46-116) 08/29/22 05:04 Creatine Kinase 35 Units/L (26-192) 08/23/22 12:55 Total Protein 6.1 g/dL (6.4-8.2) L 08/29/22 05:04 Albumin 2.3 g/dL (3.4-5.0) L 08/29/22 05:04 Globulin 3.8 g/dL (2.5-4.5) 08/29/22 05:04 Albumin/Globulin Ratio 0.6 Ratio (1.1-2.1) L 08/29/22 05:04 Specimen Type Clean catch urine 08/23/22 13:07 Urine Color Pale yellow (YELLOW) 08/23/22 13:07 Urine Appearance Clear (CLEAR) 08/23/22 13:07 Urine pH 6.0 (5.0 - 8.0) 08/23/22 13:07 Ur Specific [place] 1.015 (1.000-1.030) 08/23/22 13:07 Urine Protein Trace (NEGATIVE) 08/23/22 13:07 Urine Glucose (UA) Negative (NEGATIVE) 08/23/22 13:07 Urine Ketones Negative (NEGATIVE) 08/23/22 13:07 Urine Blood Negative (NEGATIVE) 08/23/22 13:07 Urine Nitrite Negative (NEGATIVE) 08/23/22 13:07 Urine Bilirubin Negative (NEGATIVE) 08/23/22 13:07 Urine Urobilinogen Normal (NORMAL) 08/23/22 13:07 Ur Leukocyte Esterase Negative (NEGATIVE) 08/23/22 13:07 Urine RBC 0-2 /HPF (0-3) 08/23/22 13:07 Urine WBC 0-2 /HPF (0-5) 08/23/22 13:07 Ur Squamous Epith Cells Few /HPF (NEGATIVE) 08/23/22 13:07 Urine Bacteria Negative /HPF (NEGATIVE) 08/23/22 13:07 Ur Culture Indicated? No/not indicated 08/23/22 13:07 - Plan (1) Closed fibular fracture Status: Acute Qualifiers: Encounter type: initial encounter Fibula location: proximal Laterality: left Plan: LOVENOX 40MG SC DAILY, PERCOCET 7.5/325MG PO QID PRN, TYLENOL 650MG Q6H PRN, AND HER HOME MEDICATIONS WERE RESUMED. HOME MEDS INCLUDE: XANAX, COREG, NEURONTIN, PROTONIX, ZANAFLEX, AND EFFEXOR. (2) Frequent falls Status: Acute (3) General weakness Status: Acute (4) CHF (congestive heart failure) Status: Chronic Qualifiers: Heart failure type: unspecified Heart failure chronicity: acute on chronic Qualified Code(s): I50.9 - Heart failure, unspecified (5) GERD (gastroesophageal reflux disease) Status: Chronic Qualifiers: Esophagitis presence: esophagitis presence not specified Qualified Code(s): K21.9 - Gastro-esophageal reflux disease without esophagitis (6) HTN (hypertension) Status: Chronic Qualifiers: Hypertension type: primary hypertension Qualified Code(s): I10 - Essential (primary) hypertension (7) Hyperlipidemia Status: Chronic Qualifiers: Hyperlipidemia type: mixed hyperlipidemia Qualified Code(s): E78.2 - Mixed hyperlipidemia
[2022-08-29] MEDS: NORCO 7.5/325 MG TAB PO PRN ×2 (16:40→23:00)
[2022-08-29] MEDS: ZANAFLEX PO SCH (21:15)
[2022-08-30] MEDS: NORCO 7.5/325 MG TAB PO PRN ×3 (05:38→18:29)
[2022-08-30 06:03] LABS: BASOPHILS % (AUTO) 0.3 % (0.2-1.0); EOSINOPHILS # (AUTO) 0.1 x10^3/uL (0.0-0.2); HEMATOCRIT 34.8 % (36.0-47.0); HEMOGLOBIN 11.2 g/dL (12.0-16.0); LYMPHOCYTES # (AUTO) 2.5 X10^3/uL (1.3-2.9); LYMPHOCYTES % (AUTO) 35.3 % (21.0-51.0); MEAN CORPUSCULAR HEMOGLOBIN 26.3 pg (27.0-34.0); MEAN CORPUSCULAR HGB CONC 32.2 g/dL (33.0-35.0); MEAN CORPUSCULAR VOLUME 81.6 fL (80.0-100.0); MEAN PLATELET VOLUME 9.2 fL (7.4-11.0); MONOCYTES # (AUTO) 0.7 x10^3/uL (0.3-0.8); MONOCYTES % (AUTO) 9.3 % (0.0-13.0); NEUTROPHILS # (AUTO) 3.9 x10^3/uL (2.2-4.8); NEUTROPHILS % (AUTO) 54.1 % (42.0-75.0); PLATELET COUNT 231 X10^3/uL (150.0-450.0); RED BLOOD COUNT 4.26 X10^6/uL (3.5-5.4); RED CELL DISTRIBUTION WIDTH 18.7 % (11.6-16.5); WHITE BLOOD COUNT 7.2 X10^3/uL (3.6-10.0)
[2022-08-30 06:26] LABS: ALANINE AMINOTRANSFERASE 15 Units/L (12-78); ALBUMIN 2.5 g/dL (3.4-5.0); ALKALINE PHOSPHATASE 64 Units/L (46-116); ASPARTATE AMINO TRANSFERASE 12 Units/L (15-37); BLOOD UREA NITROGEN 17 mg/dL (7-18); CALCIUM 8.5 mg/dL (8.5-10.1); CARBON DIOXIDE 32.1 mmol/L (21-32); CHLORIDE 105 mmol/L (98-107); COR CA(FOR HYPOALB) 9.7 mg/dL (8.5-10.1); CREATININE 0.85 mg/dL (0.55-1.02); GLUCOSE 85 mg/dL (65-99); SODIUM 143 mmol/L (136-145); TOTAL PROTEIN 6.4 g/dL (6.4-8.2); eGFR NON BLACK RACES > 60 (>60)
[2022-08-30] MEDS: COREG TAB 12.5 MG PO SCH ×2 (09:50→20:23)
[2022-08-30] MEDS: XANAX PO PRN ×2 (09:50→20:23)
[2022-08-30] MEDS: NEURONTIN CAP 100 MG PO SCH ×2 (09:50→20:24)
[2022-08-30] MEDS: LOVENOX INJ 40 MG SYR SC SCH (09:50)
[2022-08-30] MEDS: EFFEXOR XR 150 MG CAP 24-HR PO SCH (09:51)
[2022-08-30] MEDS: NYSTATIN POWDER TOP SCH ×2 (09:51→20:24)
[2022-08-30] MEDS: PROTONIX TAB 40 MG PO SCH ×2 (09:51→20:23)
[2022-08-30] MEDS: ZANAFLEX PO SCH (20:23)
[2022-08-31] MEDS: NORCO 7.5/325 MG TAB PO PRN ×2 (03:40→10:23)
[2022-08-31] MEDS: PROTONIX TAB 40 MG PO SCH (08:16)
[2022-08-31] MEDS: NEURONTIN CAP 100 MG PO SCH (08:17)
[2022-08-31] MEDS: EFFEXOR XR 150 MG CAP 24-HR PO SCH (08:17)
[2022-08-31] MEDS: NYSTATIN POWDER TOP SCH (08:17)
[2022-08-31] MEDS: LOVENOX INJ 40 MG SYR SC SCH (08:17)
[2022-08-31] MEDS: COREG TAB 12.5 MG PO SCH (08:17)
[2022-08-31 12:33] VITALS: BP 172/61; PULSE 64; TEMP 98.8; O2SAT 93
== END 2022-08-31 15:42 | disposition home health service (06) ==
LOC: MED/SURG 11:16 → ER 11:16 → MED/SURG 15:19
PROVIDERS: ADMIT Internal Medicine; ATTEND Internal Medicine
DX: F41.8 Other specified anxiety disorders; I25.10 Atherosclerotic heart disease of native coronary artery without angina pectoris; R26.89 Other abnormalities of gait and mobility; J44.9 Chronic obstructive pulmonary disease, unspecified; I10 Essential (primary) hypertension; R53.1 Weakness; E78.2 Mixed hyperlipidemia; M79.605 Pain in left leg; R29.6 Repeated falls; M06.9 Rheumatoid arthritis, unspecified; K21.9 Gastro-esophageal reflux disease without esophagitis; M79.672 Pain in left foot; M19.90 Unspecified osteoarthritis, unspecified site; Y92.9 Unspecified place or not applicable; W18.39XA Other fall on same level, initial encounter; S82.435A Nondisplaced oblique fracture of shaft of left fibula, initial encounter for closed fracture

== ENCOUNTER 2022-10-17 18:39 | Inpatient (IN) ==
--- NOTE | 2022-10-17 18:51 | DR.EXTPAIN ---
HPI Time seen Time Seen by Provider: 10/17/22 18:51 PCP Primary Care Physician: Tavares Complaint/Symptoms Chief Complaint Doctor Comments: PATIENT FELL AND NOW HAS LEFT CHEST AND ABDOMINAL PAIN WITH LEFT KNEE PAIN WITH LACERATION. Chief Complaint:: Patient come in via [facility] patient stated she was walking up her steps at home with her brother and her left knee gave out and she fell down her steps. Patient stated that she is hurting in her left knee. Patient daughter stated that there is a cut on the patients left hutton that she wrapped and covered at home. COVID-19 Coronavirus risk:travel/contact w/high risk person: No Has patient experienced Coronavirus symptoms: No Source History Provided: Patient Mode of arrival Mode of Arrival: EMS Timing Onset of Chief Complaint: 10/17/22 PMH PMH Past Medical History: Yes Past Medical History: Anxiety, Arthritis, CHF, COPD, Coronary Artery Disease, Dyslipidemia, GERD and Hypertension Past Surgical History: Yes Surgical History: CABG/Valve Surgery, Carotid Endarterectomy and Spleenectomy Family History History of Family Medical Conditions: Yes Family Medical History: Diabetes Mellitus, Cancer, Coronary Artery Disease and Hypertension Social History Do you use any recreational Drugs:: No Travel Risk Coronavirus risk:travel/contact w/high risk person: No Has patient experienced Coronavirus symptoms: No Infectious screening In the last 2 months have you had wt loss of >10#?: NO Have you had fever, night sweats or hemotysis?: No Have you traveled outside the country in the last 6 months?: No Isolation: Standard ROS Review of Systems Constitutional: Other (pain in lef eitan abdomen ,left lower leg after a fall.) Eyes: No Symptoms Reported ENTM: No Symptoms Reported Respiratoy: No Symptoms Reported Cardiovascular: No Symptoms Reported Gastrointestinal/Abdominal: No Symptoms Reported Genitourinary: No Symptoms Reported Neurological: No Symptoms Reported Musculoskeletal: Left and Leg (pain) Integumentary: Other (laceration to left hutton) Hematologic/Lymphatic: No Symptoms Reported Endocrine: No Symptoms Reported Psychiatric: No Symptoms Reported PE Vital Signs Vitals: Vital Signs Temperature 98.0 F Pulse Rate 71 Pulse Rate 64 Pulse Rate 63 Pulse Rate 63 Pulse Rate 63 Pulse Rate 67 Pulse Rate 64 Pulse Rate 66 Pulse Rate 65 Pulse Rate 65 Pulse Rate 61 Pulse Rate 63 Pulse Rate 63 Pulse Rate 60 Pulse Rate 66 Pulse Rate 62 Pulse Rate 61 Pulse Rate 63 Pulse Rate 63 Pulse Rate 61 Pulse Rate 65 Pulse Rate 62 Pulse Rate 62 Pulse Rate 62 Pulse Rate 62 Pulse Rate 63 Pulse Rate 67 Respiratory Rate 20 Blood Pressure 125/60 Blood Pressure 143/65 Blood Pressure 138/63 Blood Pressure 149/68 Blood Pressure 129/60 Blood Pressure 129/60 Blood Pressure 124/59 Blood Pressure 121/56 Blood Pressure 110/52 Blood Pressure 104/56 Blood Pressure 104/56 Blood Pressure 114/54 Blood Pressure 131/58 Blood Pressure 139/63 O2 Sat by Pulse Oximetry 96 O2 Sat by Pulse Oximetry 99 O2 Sat by Pulse Oximetry 87 O2 Sat by Pulse Oximetry 98 O2 Sat by Pulse Oximetry 98 O2 Sat by Pulse Oximetry 98 O2 Sat by Pulse Oximetry 98 O2 Sat by Pulse Oximetry 98 O2 Sat by Pulse Oximetry 97 O2 Sat by Pulse Oximetry 95 O2 Sat by Pulse Oximetry 95 O2 Sat by Pulse Oximetry 98 O2 Sat by Pulse Oximetry 97 O2 Sat by Pulse Oximetry 99 O2 Sat by Pulse Oximetry 96 O2 Sat by Pulse Oximetry 99 O2 Sat by Pulse Oximetry 97 O2 Sat by Pulse Oximetry 97 O2 Sat by Pulse Oximetry 97 O2 Sat by Pulse Oximetry 97 O2 Sat by Pulse Oximetry 98 O2 Sat by Pulse Oximetry 87 O2 Sat by Pulse Oximetry 97 O2 Sat by Pulse Oximetry 96 O2 Sat by Pulse Oximetry 98 O2 Sat by Pulse Oximetry 93 O2 Sat by Pulse Oximetry 84 O2 Sat by Pulse Oximetry 91 General Limitations: Physical Limitation (physical limitations due to pain in left leg) General Appearance: Alert and In Distress (MODERATE DISTRESS) Head Head Exam: Normal Inspection, Atraumatic and Normocephalic Eyes Eye exam: Normal Appearance, PERRL and EOMI ENT ENT Exam: Normal Exam and Normal Oropharynx Neck Neck Exam: Normal Inspection and Full ROM Chest Chest Inspection: Normal Inspection and Symmetric Chest Wall Rise Respiratory Respiratory Exam: Normal Lung Sounds Bilat Respiratory Exam: Bilateral: Clear to Auscultation Cardiovascular Cardiovascular Exam: Regular Rate Abdominal Exam Abdominal Exam: Tenderness (LEFT UPPER ABDOMEN) Abdominal Tenderness: LUQ Extremities Extremities Exam: Tenderness (LEFT HUTTON) Upper Extremities Shoulder Exam: Normal Inspection and Full ROM Arm Exam: Normal Inspection Elbow Exam: Normal Inspection Forearm Exam: Normal Inspection Hand Exam: Normal Inspection Lower Extremities Hip/Pelvis Exam: Normal Inspection and Full ROM Upper Leg Exam: Normal Inspection Knee Exam: Normal Inspection and Full ROM Lower Leg Exam: Tenderness (LEFT HUTTON) and Other (LACERATION TO LEFT LOWER HUTTON) Ankle Exam: Normal Inspection Foot/Toe Exam: Normal Inspection Gait Exam: Not Tested/Not Observed Back Back Exam: Normal Inspection and Full ROM Neurological Neurological Exam: Alert and Oriented X3 Psychiatric Psychiatric Exam: Normal Affect and Normal Mood Skin Skin Exam: Warm, Dry and Intact MDM Differential Diagnosis Differential Diagnosis: Fracture (LEFT LOWER LET.LEFT RIBS) and Laceration (LEFT HUTTON) COURSE Treatment Treatment: PATIENT HAD CT OF CHEST AND ABDOMEN AND NO ABNORMALITY SEEN. [facility] CT SCAN OF LEFT LOWER EXTREMITY AND HAD HEALING LEFT PROXIMAL FIBULAR FRACTURE. PATIENT WILL HAVE LACERATION OF LEFT LOWER LET LACERATION SUTURED. PATIENT WAS GIVEN ADACEL 0.5ML IM AND CEPHALEXIN 500MG ORALLY IN ER. PATIENT REQUIRE OXYGEN INITIALLY FOR 02 SAT OF 82. PLACED ON 2 LITERS O2 AND O2 SAT INCREASED TO 97%. PATIENT DESATURATED TO 84 % WHEN OXYGEN WAS REMOVED. WAS PLACED BACK ON OXYGEN AND O2 SAT WENT BACK UP TO 96% ON 2 LITERS. PATIENT WAS GIVEN SOLUMEDROL 125MG IV AND WAS GIVEN A DUONEB. CONTACT WAS MADE WITH DR NARANJO AND PATIENT WAS REFERRED TO OBSEVATION FOR COPD EXACERBATION. THIS WAS AT 1211. PATIENT'S FAMILY WAS NOTIFIED OF INTENT TO ADMIT AND THEY WERE AGREABLE TO THE ADMISSION. [facility] Labs Reviewed 10/17/22 19:15 10/17/22 19:15 Laboratory: WBC 10.0 X10^3/uL (3.6-10.0) 10/17/22 19:15 RBC 4.10 X10^6/uL (3.5-5.4) 10/17/22 19:15 Hgb 11.2 g/dL (12.0-16.0) L 10/17/22 19:15 Hct 34.8 % (36.0-47.0) L 10/17/22 19:15 MCV 85.1 fL (80.0-100.0) 10/17/22 19:15 MCH 27.5 pg (27.0-34.0) 10/17/22 19:15 MCHC 32.3 g/dL (33.0-35.0) L 10/17/22 19:15 RDW 18.1 % (11.6-16.5) H 10/17/22 19:15 Plt Count 218 X10^3/uL (150.0-450.0) 10/17/22 19:15 MPV 8.7 fL (7.4-11.0) 10/17/22 19:15 Neut % (Auto) 63.8 % (42.0-75.0) 10/17/22 19:15 Lymph % (Auto) 24.7 % (21.0-51.0) 10/17/22 19:15 [place] % (Auto) 9.6 % (0.0-13.0) 10/17/22 19:15 Eos % (Auto) 1.2 % (0.9-2.9) 10/17/22 19:15 Baso % (Auto) 0.7 % (0.2-1.0) 10/17/22 19:15 Neut # (Auto) 6.4 x10^3/uL (2.2-4.8) H 10/17/22 19:15 Lymph # (Auto) 2.5 X10^3/uL (1.3-2.9) 10/17/22 19:15 [place] # (Auto) 1.0 x10^3/uL (0.3-0.8) H 10/17/22 19:15 Eos # (Auto) 0.1 x10^3/uL (0.0-0.2) 10/17/22 19:15 Baso # (Auto) 0.1 X10^3/uL (0.0-0.1) 10/17/22 19:15 Absolute Nucleated RBC 0.1 /100WBC 10/17/22 19:15 Sample Site Rr 10/17/22 19:00 ABG pH 7.340 (7.35-7.45) L 10/17/22 19:00 ABG pCO2 58.0 mmHg (35.0-45.0) H* 10/17/22 19:00 ABG pO2 50.0 mmHg (80.0-100.0) L 10/17/22 19:00 ABG HCO3 31.3 mmol/L (22-26) H* 10/17/22 19:00 ABG O2 Saturation 82.0 % (90-100) L* 10/17/22 19:00 ABG Base Excess 4.1 mmol/L (-2.0-2.0) H 10/17/22 19:00 Rob Test Pos 10/17/22 19:00 A-a Gradient 27.0 mmHg 10/17/22 19:00 FiO2 21.0 10/17/22 19:00 Blood Gas Comments [place] well ae 10/17/22 19:00 Sodium 139 mmol/L (136-145) 10/17/22 19:15 Corrected Sodium TNP 10/17/22 19:15 Potassium 4.5 mmol/L (3.5-5.1) 10/17/22 19:15 Chloride 102 mmol/L (98-107) 10/17/22 19:15 Carbon Dioxide 33.0 mmol/L (21-32) H 10/17/22 19:15 BUN 19 mg/dL (7-18) H 10/17/22 19:15 Creatinine 1.06 mg/dL (0.55-1.02) H 10/17/22 19:15 Est GFR (MDRD) Af Amer > 60 (>60) 10/17/22 19:15 Est GFR (MDRD) Non-Af 53 (>60) L 10/17/22 19:15 Glucose 95 mg/dL (65-99) 10/17/22 19:15 Calcium 8.5 mg/dL (8.5-10.1) 10/17/22 19:15 Corrected Calcium 9.5 mg/dL (8.5-10.1) 10/17/22 19:15 Total Bilirubin 0.20 mg/dL (0.2-1.0) 10/17/22 19:15 AST 9 Units/L (15-37) L 10/17/22 19:15 ALT 9 Units/L (12-78) L 10/17/22 19:15 Alkaline Phosphatase 74 Units/L (46-116) 10/17/22 19:15 Total Protein 6.5 g/dL (6.4-8.2) 10/17/22 19:15 Albumin 2.8 g/dL (3.4-5.0) L 10/17/22 19:15 Globulin 3.7 g/dL (2.5-4.5) 10/17/22 19:15 Albumin/Globulin Ratio 0.8 Ratio (1.1-2.1) L 10/17/22 19:15 SARS-CoV-2 (PCR) Negative (NEGATIVE) 10/17/22 23:58 Influenza Type A (PCR) Negative (NEGATIVE) 10/17/22 23:58 Influenza Type B (PCR) Negative (NEGATIVE) 10/17/22 23:58 RSV (PCR) Negative (NEGATIVE) 10/17/22 23:58 Opioid Opioid Risk Tool Age (Claus box if 16-45): No History of Preadolescent Sexual Abuse: No Total: 0 Total Score Risk Category: Low Risk Copyright: [facility] predicting aberrant behaviors Procedures Laceration/Wound Repair Left Lower Leg: Wound Length (cm): 9 Wound's Depth, Shape: Superficial and Irregular Wound Explored: clean Betadine Prep?: Yes Anesthesia: 2% Lidocaine w/ Epi Volume Anesthetic (ccs): 15 Wound Repaired With: sutures Suture Size/Type: 4:0 and Ethilion Number of Sutures: 16 Progress: PATIENT WAS EXPLAINED THE TECHNIQUE AND CONSENTED. AREA WAS CLEANED WITH BETADINE AND 2 5 LIDOCAINE WITH EPI WAS INJECTED AT SITE AND INTERUPTED SUTRES WERE PLACED WITHOUT COMPLICATION. PATIENT WAS GIVEN KEFLEX 5MG IN ER AND WILL BE GIVEN PRESCRIPTION FOR KEFLEX 500MG TID FOR 10 DAYS. FOLLOWUP IN ER IN 10 DAYS F OR SUTURE REMOVAL. Discharge Plan Diagnosis Discharge Problem: Acute exacerbation of chronic obstructive pulmonary disease, Hypoxia Discharge Plan Patient Disposition: 09 ADMITTED INPATIENT Condition: Stable Prescriptions: No Action carvedilol 12.5 mg tablet 12.5 mg PO BID Patient Comments: TAKE 1 TABLET BY MOUTH TWICE DAILY alprazolam 0.5 mg tablet 0.5 mg PO BID PRN pantoprazole [Protonix] 40 mg Tablet,Delayed Release (Dr/Ec) 40 mg PO BID venlafaxine [Effexor XR] 150 mg Capsule,Extended Release 24hr 150 mg PO QAM gabapentin 100 mg capsule 100 mg PO BID oxycodone-acetaminophen 7.5-325 mg tablet 7.5 - 325 tab PO QID MDD 4 PRN Rx Instructions: TAKE ONE TABLET FOUR TIMES A DAY NEEDED FOR PAIN ondansetron HCl 4 mg tablet 4 mg PO PRN PRN tramadol 50 mg tablet 50 mg PO TID PRN (Reason: pain) aspirin 81 mg Capsule,Delayed Release(Dr/Ec) 81 mg PO DAILY cephalexin 500 mg capsule 500 mg PO BID nicotine 21 mg/24 hr patch 24 hour 1 patch QDAY mupirocin 2 % ointment 1 applic TOPICAL BID Patient Comments: [NO ORIGINAL SIG] Health Concerns: Post Hospitalization: new medications and changes needed to prevent readmission or further decline. Pt educated and given instructions on all concerns. Plan of Treatment: Continue with present treatment and follow up plan. Pt is to keep follow up appointment as instructed and take medications as ordered. Orders to Discharge Patient Discharge Orders: Transfer (Routine); Ordered 10/18/22 Ordered By: Khai Mills Follow ups/Referrals Follow ups/Referrals: Chico Chapin [Primary Care Provider] - 3 days
[2022-10-17 19:07] LABS: ABG BASE EXCESS 4.1 mmol/L (-2.0-2.0)
[2022-10-17 19:09] LABS: ABG HCO3 31.3 mmol/L (22-26)
[2022-10-17 19:10] LABS: ABG ALLEN TEST POS
[2022-10-17 19:25] LABS: BASOPHILS # (AUTO) 0.1 X10^3/uL (0.0-0.1); BASOPHILS % (AUTO) 0.7 % (0.2-1.0); EOSINOPHILS # (AUTO) 0.1 x10^3/uL (0.0-0.2); EOSINOPHILS % (AUTO) 1.2 % (0.9-2.9); HEMATOCRIT 34.8 % (36.0-47.0); HEMOGLOBIN 11.2 g/dL (12.0-16.0); LYMPHOCYTES # (AUTO) 2.5 X10^3/uL (1.3-2.9); LYMPHOCYTES % (AUTO) 24.7 % (21.0-51.0); MEAN CORPUSCULAR HEMOGLOBIN 27.5 pg (27.0-34.0); MEAN CORPUSCULAR HGB CONC 32.3 g/dL (33.0-35.0); MEAN CORPUSCULAR VOLUME 85.1 fL (80.0-100.0); MEAN PLATELET VOLUME 8.7 fL (7.4-11.0); MONOCYTES % (AUTO) 9.6 % (0.0-13.0); NEUTROPHILS # (AUTO) 6.4 x10^3/uL (2.2-4.8); NEUTROPHILS % (AUTO) 63.8 % (42.0-75.0); PLATELET COUNT 218 X10^3/uL (150.0-450.0); RED CELL DISTRIBUTION WIDTH 18.1 % (11.6-16.5)
[2022-10-17 19:37] LABS: BLOOD UREA NITROGEN 19 mg/dL (7-18); CALCIUM 8.5 mg/dL (8.5-10.1); CHLORIDE 102 mmol/L (98-107); CREATININE 1.06 mg/dL (0.55-1.02); GLUCOSE 95 mg/dL (65-99); POTASSIUM 4.5 mmol/L (3.5-5.1); SODIUM 139 mmol/L (136-145); eGFR NON BLACK RACES 53 (>60)
[2022-10-17 19:58] LABS: ALANINE AMINOTRANSFERASE 9 Units/L (12-78); ALBUMIN 2.8 g/dL (3.4-5.0); ALKALINE PHOSPHATASE 74 Units/L (46-116); ASPARTATE AMINO TRANSFERASE 9 Units/L (15-37); COR CA(FOR HYPOALB) 9.5 mg/dL (8.5-10.1); TOTAL PROTEIN 6.5 g/dL (6.4-8.2)
--- NOTE | 2022-10-17 20:17 | CT ---
HISTORYFELL, LEFT KNEE PAIN.STUDYLOWER EXT W/O CONCOMPARISONNoneTECHNIQUEMultiple axial images of the left knee were obtained without IV contrast. Coronal and sagittal reformats were made and reviewed. Dose reduction techniques included Automated Exposure Control (AEC) and adjustment of mA and kV.FINDINGSImages were obtained from the distal femur to the proximal tibia. There is a fracture in the proximal left fibula that I can see on the news internship images. But this was not included on the study.The bones are demineralized. No fracture or dislocation.There is no joint effusion. Diffuse muscle atrophy is noted. Vascular calcifications are seen in the superficial subcutaneous vessels. No obvious Keita's cyst.IMPRESSION1. Proximal fibula fracture seen on the news internship images but not included on the CT part of the study2. Otherwise no acute findingElectronically signed by: Breezy Hou (Oct 17, 2022 20:16:32)
--- NOTE | 2022-10-17 20:18 | CT ---
HISTORYInjury in a fall LEFT MID TIB/FIB PAIN, SWELLINGSTUDYCT LOWER EXT W/O CONCOMPARISONPlain radiographs August 23, 2022 of the left tibia and fibulaTECHNIQUEMultiple axial images of the left tibia and fibula are submitted along with coronal and sagittal reformatted images. Dose reduction techniques including Automated Exposure Control (AEC) and adjustment of mA and kV were utilized.FINDINGSThere is a healing fracture of the proximal aspect of the fibula with callus formation. The bones are demineralized. There is soft tissue defect in the region of the hutton consistent with trauma and laceration. The tibia is intact. Benign soft tissue calcifications. There is mild diffuse anasarca and skin thickening. The calf and leg muscles are atrophic. No acute fracture.IMPRESSIONHealing fracture of the proximal aspect of the fibula noted on the comparison plain radiographs.No acute fracture.Soft tissue injury.Electronically signed by: Gregorio Seaman (Oct 17, 2022 20:16:55)
--- NOTE | 2022-10-17 20:22 | CT ---
HISTORYFELLSTUDYCHEST W/O CONCOMPARISONTECHNIQUEMultiple axial images of the chest were obtained from the thoracic inlet to the upper abdomen without the administration of IV contrast. Dose reduction techniques including Automated Exposure Control (AEC) and adjustment of mA and kV were utilized.FINDINGSThe heart size is grossly normal. Changes of coronary artery bypass graft surgery are noted. The main pulmonary artery measures approximately 3.7 cm in diameter and this suggests pulmonary artery hypertension. There is no right ventricular dilation. There is no aortic aneurysm or dissection although there is heavy atherosclerosis. There is also severe atherosclerosis at the origin of the left subclavian artery. The airways are grossly clear. There is coarsening of the interstitial markings in the periphery suggestive of some mild interstitial lung disease. There are multi lobe pulmonary nodules which are probably postinflammatory rather than malignant. In the right upper lobe there is a 3 mm nodule. There are several nodules along the right major fissure measuring up to 6.6 mm in diameter. There is a 5 mm right lower lobe nodule. There is a 8 mm nodule in the superior segment of the right lower lobe. There is some nodularity in the lingula measuring up to 2 mm. There is a 6 mm nodule in the superior segment of the left lower lobe and there is some nodularity in the base measuring up to 4 mm. There is no pleural effusion or pneumothorax. There is a moderate hiatal hernia. There is severe atherosclerosis in the abdominal aorta. There is levoscoliosis in the thoracic spine measuring up to 11 degrees. There is no worrisome bone marrow lesion.IMPRESSION1. Moderate hiatal hernia. 2. Scattered pulmonary nodules as described, more likely postinflammatory than malignant. 3. No acute fracture is identified.Electronically signed by: Walter Keita (Oct 17, 2022 20:20:40)
[2022-10-17] MEDS ORDERED: BETADINE SOLN ONE (21:07)
[2022-10-17] MEDS ORDERED: STERILE WATER IRRIGATION IR ONE ×2 (21:08→21:17)
[2022-10-17] MEDS ORDERED: BETADINE SOLN TOP ONE (21:17)
[2022-10-17] MEDS ORDERED: ADACEL or BOOSTRIX TDaP VACCINE IM ONE ×2 (22:20→22:21)
[2022-10-17] MEDS ORDERED: KEFLEX CAP 500 MG PO ONE ×2 (23:08→23:09)
[2022-10-17] MEDS ORDERED: SOLU-Medrol 125 MG VIAL IVP ONE (23:44)
[2022-10-17] MEDS ORDERED: DUONEB 0.5 MG/3 MG (3 mL) NEB ONE ×2 (23:44→23:52)
[2022-10-17] MEDS ORDERED: SOLU-Medrol 125 MG VIAL ONE (23:44)
[2022-10-18] MEDS ORDERED: DUONEB 0.5 MG/3 MG (3 mL) NEB ONE (00:15)
[2022-10-18] MEDS ORDERED: PATIENT'S HOME MEDICATION (Alprazolam 0.5 mg tablet) PO PRN (01:32)
[2022-10-18 02:18] VITALS: BMI 32.1
[2022-10-18] MEDS ORDERED: TYLENOL 325 MG TAB PO ONE (03:00)
[2022-10-18] MEDS ORDERED: ROXICODONE TAB 5 MG PO ONE (03:00)
[2022-10-18] MEDS: NYSTATIN POWDER TOP SCH ×3 (03:10→21:55)
[2022-10-18] MEDS ORDERED: DUONEB 0.5 MG/3 MG (3 mL) NEB SCH ×2 (05:00→06:00)
[2022-10-18] MEDS: SOLU-Medrol 40 MG VIAL IVP SCH ×3 (05:37→21:02)
[2022-10-18 06:12] LABS: BASOPHILS % (AUTO) 0.6 % (0.2-1.0); EOSINOPHILS % (AUTO) 0.1 % (0.9-2.9); HEMATOCRIT 36.1 % (36.0-47.0); HEMOGLOBIN 11.7 g/dL (12.0-16.0); LYMPHOCYTES # (AUTO) 0.6 X10^3/uL (1.3-2.9); MEAN CORPUSCULAR HEMOGLOBIN 27.3 pg (27.0-34.0); MEAN CORPUSCULAR HGB CONC 32.3 g/dL (33.0-35.0); MEAN CORPUSCULAR VOLUME 84.6 fL (80.0-100.0); MEAN PLATELET VOLUME 9.3 fL (7.4-11.0); MONOCYTES # (AUTO) 0.1 x10^3/uL (0.3-0.8); MONOCYTES % (AUTO) 0.9 % (0.0-13.0); NEUTROPHILS # (AUTO) 5.1 x10^3/uL (2.2-4.8); NEUTROPHILS % (AUTO) 87.4 % (42.0-75.0); PLATELET COUNT 205 X10^3/uL (150.0-450.0); RED BLOOD COUNT 4.27 X10^6/uL (3.5-5.4); WHITE BLOOD COUNT 5.8 X10^3/uL (3.6-10.0)
[2022-10-18 06:18] LABS: BLOOD UREA NITROGEN 16 mg/dL (7-18); CALCIUM 8.5 mg/dL (8.5-10.1); CARBON DIOXIDE 31.7 mmol/L (21-32); CHLORIDE 103 mmol/L (98-107); COR NA(FOR HYPERGLY) 140 mmol/L (136-145); CREATININE 0.83 mg/dL (0.55-1.02); GLUCOSE 136 mg/dL (65-99); POTASSIUM 4.6 mmol/L (3.5-5.1); SODIUM 139 mmol/L (136-145); eGFR NON BLACK RACES > 60 (>60)
[2022-10-18] MEDS: DUONEB 0.5 MG/3 MG (3 mL) NEB SCH ×5 (06:28→20:55)
[2022-10-18 06:47] LABS: ALANINE AMINOTRANSFERASE 10 Units/L (12-78); ALBUMIN 2.7 g/dL (3.4-5.0); ALKALINE PHOSPHATASE 79 Units/L (46-116); ASPARTATE AMINO TRANSFERASE 10 Units/L (15-37); COR CA(FOR HYPOALB) 9.5 mg/dL (8.5-10.1); TOTAL PROTEIN 6.6 g/dL (6.4-8.2)
[2022-10-18] MEDS ORDERED: NICOTINE PATCH TD ONE (07:50)
[2022-10-18] MEDS ORDERED: ASPIRIN EC 81 MG PO ONE (07:50)
[2022-10-18] MEDS ORDERED: EFFEXOR XR 150 MG CAP 24-HR PO ONE (07:50)
[2022-10-18] MEDS ORDERED: KEFLEX CAP 500 MG PO ONE (07:50)
[2022-10-18] MEDS ORDERED: PROTONIX TAB 40 MG PO ONE (07:50)
[2022-10-18] MEDS ORDERED: COREG TAB 12.5 MG ONE (07:50)
[2022-10-18] MEDS: COREG TAB 12.5 MG PO SCH ×2 (08:40→21:02)
[2022-10-18] MEDS: EFFEXOR XR 150 MG CAP 24-HR PO SCH (08:45)
[2022-10-18] MEDS: PULMICORT NEB TX 0.5 MG NEB SCH ×2 (08:45→20:55)
[2022-10-18] MEDS: KEFLEX CAP 500 MG PO SCH ×2 (08:46→21:01)
[2022-10-18] MEDS: PROTONIX TAB 40 MG PO SCH ×2 (08:46→21:01)
[2022-10-18] MEDS: XANAX PO PRN ×2 (08:47→21:04)
[2022-10-18] MEDS: ASPIRIN EC 81 MG PO SCH (08:47)
[2022-10-18] MEDS ORDERED: ASPIRIN 81 MG PO SCH (09:00)
[2022-10-18] MEDS ORDERED: PULMICORT NEB TX 0.5 MG NEB SCH (09:00)
[2022-10-18] MEDS: NICOTINE PATCH TD SCH (10:56)
[2022-10-18] MEDS: LOVENOX INJ 40 MG SYR SC SCH (12:00)
--- NOTE | 2022-10-18 12:13 | DR.H&P ---
H&P - History & Physical for Day of: H&P Date: 10/18/22 - Chief Complaint Chief Complaint: FALL, WEAKNESS, RIGHT LEG PAIN, SHORTNESS OF BREATH - History of Present Illness History of Present Illness: IS A 76 YEAR OLD PATIENT OF OURS. SHE HAS A PMH OF CHF, COPD, HTN, ANXIETY, CAD, DYSLIPIDEMIA, GERD, RHEUMATOID ARTHRITIS, OSTEOARTHRITIS, OSTEOPOROSIS, CABG, CAROTID ENDARTERECTOMY, SPLEENECTOMY. SHE PRESENTED TO THE ER WITH COMPLAINTS OF LEFT LOWER EXTREMITY PAIN FOLLOWING A FALL AT HOME EARLIER IN THE DAY. SHE REPORTS SEEING HER ORTHOPEDIC SURGEON TODAY. SHE REPORTS THAT SHE WAS TOLD THAT SHE MAY BEAR WEIGHT ON THE LEG. SHE ADMITS THAT HER LEG LOCKED UP WHILE CLIMBING THE STAIRS AND THAT SHE WAS NOT ABLE TO DO ANYTHING ELSE BUT FALL. PATIENT COMPLAINS OF PAIN FROM THE LEFT FOOT, [place], AND DISTAL THIGH. SHE REPORTS CUTTING HER LEG WHEN SHE FELL ON THE STEPS. EXAMINATION REVEALED A LACERATION WITHOUT DRIANAGE. WOUND HAD BEEN CLEANSED WHILE SHE WAS STILL AT HOME. SHE DESCRIBES PAIN SHARP, CONSTANT, AND WORSE WITH MOVEMENT OR PALPATION. SHE RATES PAIN A 8/10. EXAMINATION REVEALED A LACERATION TO THE LEFT KNEE. ADDITIONALLY, SHE COMPLAINS OF LEFT CHEST PAIN, SHORTNESS OF BREATH, AND ABDOMINAL PAIN. ON ARRIVAL TO THE HOSPITAL, HER VITALS WERE 98.0-67-20-84%-139/63. SHE WAS PLACED ON OXYGEN VIA NASAL CANNULA AT 2 LPM. SATURATIONS INCREASED TO 98%/ LABS WERE OBTAINED. WBC 10.0, RBC 4.10, HGB 11.2, HCT 34.8, PLT COUNT 218, SODIUM 139, POTASSIUM 4.5, CHLORIDE 102, CARBON DIOXIDE 33.0, BUN 19, CREATININE 1.06, GLUCOSE 95, AST 9, ALT 9, ALK PHOS 74, TOTAL PROTEIN 6.5, ALBUMIN 2.8. SHE WAS NEGATIVE FOR COVID, INFLUENZA, AND RSV. ABG WAS OBTAINED AND REVEALED: PH 7.340, PC02 58, P02 50, HC03 31.3, 02 SAT 82, FI02 21.0. LEFT LOWER EXTREMITY CT WAS OBTAINED AND REVEALED: Healing fracture of the proximal aspect of the fibula noted on the comparison plain radiographs. No acute fracture. Soft tissue injury. A CHEST CT WITHOUT CONTRAST WAS OBTAINED AND REVEALED: 1. Moderate hiatal hernia. 2. Scattered pulmonary nodules as described, more likely postinflammatory than malignant. 3. No acute fracture is identified. IN THE ER, SHE WAS GIVEN KEFLEX 500MG PO X 1, DUONEB X 1, SOLU- MEDROL 125MG IV X 1, PERCOCET 7.5/325MG QID PRN. SHE WAS ADMITTED TO THE HOSPITAL FOR FURTHER EVALUATION AND TREATMENT OF COPD EXACERBATION, HYPOXIA, LEFT LEG PAIN, HX FIBULA FX, HTN, CAD, DYSLIPIDEMIA, GERD. SHE WAS STARTED ON SOLU-MEDROL 40MG IV Q8H, LOVENOX 40MG SC DAILY, DUONEBS Q4H, PULMICORT NEBS BID, KEFLEX 500MG PO BID. HER HOME MEDICATIONS OF XANAX, ECOTRIN, COREG, PERCOCET, PANTOPRAZOLE, AND VENLAFAXINE WERE RESUMED. OTHERWISE, WE PLAN TO FOLLOW UP WITH AM LABS AND CONTINUE TO MONITOR. TIME SPENT ON CLINICAL ASSESSMENT, REVIEWING LABS AND IMAGING, DECISION MAKING, AND DOCUMENTATION GREATER THAN 75 MINUTES. - Past Medical History Past Medical History: Coronary Artery Disease, Hypertension, Dyslipidemia, Anxiety, COPD, GERD, Arthritis, CHF - Past Surgical History Surgical History: CABG/Valve Surgery, Carotid Endarterectomy, Spleenectomy - Family History Family Medical History: Diabetes Mellitus, Cancer, Coronary Artery Disease, Hypertension - Social History Does patient currently use any type of tobacco product: Yes Have you used tobacco products in the last 12 months: Yes Type of Tobacco Use: Cigarettes How many years tobacco product used: 10 Does any household member use tobacco: Yes Alcohol Use: None Drug Use: None - Review of Systems Constitutional: Weakness Eyes: No Symptoms Reported ENT: No Symptoms Reported Respiratory: Shortness of Breath, SOB with Excertion. denies: Cough, Sputum, Wheezing Cardiovascular: No Symptoms Reported Gastrointestinal: No Symptoms Reported Genitourinary: No Symptoms Reported Musculoskeletal: Leg Pain (LEFT) Skin: Wound (LACERATION LEFT KNEE ) Neurological: Weakness - Physical Exam Vital Signs: Vital Signs Temperature 97.8 F Pulse Rate [Apical] 72 Pulse Rate 78 Respiratory Rate 20 Blood Pressure [Right Arm] 140/68 O2 Sat by Pulse Oximetry 99 O2 Sat by Pulse Oximetry 93 Oriented: Normal Eyes: Normal Ear: Normal Nose: Normal Throat: Normal Respiratory: Diminished Throughout Cardiovascular: Normal : Normal Auscultation: Bowel Sounds: Normal Palpation: Normal Tenderness: Normal Skin: Wound (LEFT KNEE LACERATION. NO DRAINAGE NOTED ) Musculoskeletal: Left, Hip, Leg, Foot, Tender Psychiatric: Normal Mood Description: Calm Affect: Normal Speech Pattern: Clear - Assessment/Plan (1) Acute exacerbation of chronic obstructive pulmonary disease Status: Acute Plan: ADMIT, SOLU-MEDROL 40MG IV Q8H, LOVENOX 40MG SC DAILY, DUONEBS Q4H, PULMICORT NEBS BID, KEFLEX 500MG PO BID. HER HOME MEDICATIONS OF XANAX, ECOTRIN, COREG, PERCOCET, PANTOPRAZOLE, AND VENLAFAXINE WERE RESUMED. (2) Hypoxia Status: Acute Plan: MONITOR OXYGEN SATURATIONS (3) Frequent falls Status: Acute Plan: PT CONSULT (4) Left leg pain Status: Acute Plan: RESUME PERCOCET (5) Hx of fracture of fibula Status: Acute (6) CAD (coronary artery disease) Qualifiers: Coronary Disease-Associated Artery/Lesion type: [place] artery [place] vs. transplanted heart: [place] heart Associated angina: unspecified whether angina present Qualified Code(s): I25.10 - Atherosclerotic heart disease of [place] coronary artery without angina pectoris Status: Chronic (7) GERD (gastroesophageal reflux disease) Qualifiers: Esophagitis presence: with esophagitis Status: Chronic (8) Hyperlipidemia Qualifiers: Hyperlipidemia type: mixed hyperlipidemia Status: Chronic (9) HTN (hypertension) Qualifiers: Hypertension type: primary hypertension Status: Chronic - Allergies Allergies/Adverse Reactions: Allergies Allergy/AdvReac Type Severity Reaction Status Date / Time ciprofloxacin Allergy Verified 10/18/22 00:04 naproxen [From Aleve] Allergy Verified 10/18/22 00:04 Penicillins Allergy Verified 10/18/22 00:04 promethazine Allergy Verified 10/18/22 00:04 Sulfa (Sulfonamide Allergy Verified 10/18/22 00:04 Antibiotics) [SULFA] - Medications Home Medications: Home Medications Medication Instructions Recorded Confirmed pantoprazole 40 mg tablet,delayed 40 mg PO BID 02/19/20 10/18/22 release (Protonix) venlafaxine 150 mg 150 mg PO QAM 02/20/20 10/18/22 capsule,extended release 24 hr (Effexor XR) alprazolam 0.5 mg tablet 0.25 mg PO QAM 11/20/20 10/18/22 carvedilol 12.5 mg tablet 12.5 mg PO BID 11/20/20 10/18/22 gabapentin 100 mg capsule 100 mg PO BID 08/14/22 10/18/22 alprazolam 0.5 mg tablet 0.5 mg PO HS 10/18/22 10/18/22 aspirin 81 mg capsule,delayed 81 mg PO DAILY 10/18/22 10/18/22 release cephalexin 500 mg capsule 500 mg PO BID 10/18/22 10/18/22 mupirocin 2 % topical ointment 1 applic topical BID 10/18/22 10/18/22 nicotine 21 mg/24 hr daily 1 patch QDAY 10/18/22 10/18/22 transdermal patch ondansetron HCl 4 mg tablet 4 mg PO PRN PRN 10/18/22 10/18/22 oxycodone-acetaminophen 7.5 mg-325 7.5 - 325 tab PO QID PRN 10/18/22 10/18/22 mg tablet tramadol 50 mg tablet 50 mg PO TID PRN pain 10/18/22 10/18/22
[2022-10-19] MEDS: DUONEB 0.5 MG/3 MG (3 mL) NEB SCH ×6 (01:00→21:15)
[2022-10-19] MEDS: SOLU-Medrol 40 MG VIAL IVP SCH ×2 (05:02→21:29)
--- NOTE | 2022-10-19 05:40 | RAD ---
HISTORYSOB Relevant Clinical InformationSTUDYCHEST, 1 [id number] trachea is midline. The cardiac silhouette is mildly enlarged. Changes of prior CABG surgery.. The lungs are clear without focal infiltrate or effusion. The bony thorax is unremarkable.IMPRESSIONMild cardiomegalyNo active cardiopulmonary disease.Electronically signed by: Javi Dunne (Oct 19, 2022 05:39:27)
[2022-10-19 06:30] LABS: BASOPHILS % (AUTO) 0.2 % (0.2-1.0); HEMATOCRIT 35.3 % (36.0-47.0); HEMOGLOBIN 11.3 g/dL (12.0-16.0); LYMPHOCYTES # (AUTO) 0.8 X10^3/uL (1.3-2.9); LYMPHOCYTES % (AUTO) 9.6 % (21.0-51.0); MEAN CORPUSCULAR HEMOGLOBIN 26.7 pg (27.0-34.0); MEAN CORPUSCULAR HGB CONC 31.9 g/dL (33.0-35.0); MEAN CORPUSCULAR VOLUME 83.8 fL (80.0-100.0); MEAN PLATELET VOLUME 9.5 fL (7.4-11.0); MONOCYTES # (AUTO) 0.1 x10^3/uL (0.3-0.8); MONOCYTES % (AUTO) 1.4 % (0.0-13.0); NEUTROPHILS # (AUTO) 7.8 x10^3/uL (2.2-4.8); NEUTROPHILS % (AUTO) 88.8 % (42.0-75.0); PLATELET COUNT 221 X10^3/uL (150.0-450.0); RED BLOOD COUNT 4.22 X10^6/uL (3.5-5.4); RED CELL DISTRIBUTION WIDTH 17.5 % (11.6-16.5); WHITE BLOOD COUNT 8.8 X10^3/uL (3.6-10.0)
[2022-10-19 07:00] LABS: BLOOD UREA NITROGEN 18 mg/dL (7-18); CALCIUM 8.7 mg/dL (8.5-10.1); CARBON DIOXIDE 29.5 mmol/L (21-32); CHLORIDE 103 mmol/L (98-107); COR NA(FOR HYPERGLY) 141 mmol/L (136-145); CREATININE 0.82 mg/dL (0.55-1.02); GLUCOSE 136 mg/dL (65-99); POTASSIUM 4.1 mmol/L (3.5-5.1); SODIUM 140 mmol/L (136-145); eGFR NON BLACK RACES > 60 (>60)
[2022-10-19 07:36] LABS: ALANINE AMINOTRANSFERASE 8 Units/L (12-78); ALBUMIN 2.7 g/dL (3.4-5.0); ALKALINE PHOSPHATASE 75 Units/L (46-116); ASPARTATE AMINO TRANSFERASE 10 Units/L (15-37); COR CA(FOR HYPOALB) 9.7 mg/dL (8.5-10.1); TOTAL PROTEIN 6.7 g/dL (6.4-8.2)
[2022-10-19] MEDS: EFFEXOR XR 150 MG CAP 24-HR PO SCH (08:04)
[2022-10-19] MEDS: LOVENOX INJ 40 MG SYR SC SCH (08:04)
[2022-10-19] MEDS: PROTONIX TAB 40 MG PO SCH ×2 (08:05→20:14)
[2022-10-19] MEDS: KEFLEX CAP 500 MG PO SCH ×2 (08:05→20:14)
[2022-10-19] MEDS: COREG TAB 12.5 MG PO SCH ×2 (08:05→20:14)
[2022-10-19] MEDS: XANAX PO PRN ×2 (08:05→20:17)
[2022-10-19] MEDS: ASPIRIN EC 81 MG PO SCH (08:05)
[2022-10-19] MEDS: PULMICORT NEB TX 0.5 MG NEB SCH ×2 (09:10→21:15)
[2022-10-19 09:37] VITALS: RESP 20
[2022-10-19] MEDS: NYSTATIN POWDER TOP SCH ×2 (09:39→20:13)
[2022-10-19] MEDS: NICOTINE PATCH TD SCH (09:40)
[2022-10-19] MEDS ORDERED: TORADOL 30 MG VIAL IVP PRN (10:41)
[2022-10-19] MEDS ORDERED: TORADOL 30 MG VIAL ONE (11:06)
--- NOTE | 2022-10-19 12:56 | PCM.PROG ---
Progress Note - Progress Note for Day of Date of Exam: 10/19/22 - Subjective Subjective: IS CURRENTLY INPATIENT STATUS FOR TREATMENT OF ACUTE COPD EXACERBATION, HYPOXIA, FREQUENT FALLS, LEFT LEG PAIN. SHE HAS A RECENT HX LEFT FIBULA FX. OTHER HISTORY INCLUDES: CAD, GERD, HYPERLIPIDEMIA, HTN. SHE COMPLAINS OF INCREASED PAIN TO THE LEFT LEG TODAY. SHE REPORTS THAT PAIN IS NOT COMPLETELY CONTROLLED WITH HER ORAL PAIN MEDICATION. ON EXAMINATION TODAY, HEART IS REGULAR IN RATE AND RHYTHM. BILATERAL LUNGS ARE NOTED WITH WHEEZING THROUGHOUT. ABDOMEN IS ROUND, SOFT, AND NON-TENDER WITH NORMAL BOWEL SOUNDS NOTED IN ALL QUADRANTS. THERE IS A LEFT KNEE LACERATION WITH NO DRAINAGE NOTED. SHE HAS GOOD RANGE OF MOTION TO THE UPPER EXTREMITIES, BUT WEAKNESS AND DECREASED RANGE OF MOTION IN LOWER EXTREMITIES. TRACE EDEMA NOTED IN BLE. HER VITALS THIS MORNING ARE: 97.6-84-20-94%-183/88. SHE IS UTILIZING OXYGEN VIA NASAL CANNULA AT 2 LPM. LABS WERE OBTAINED. WBC 8.8, RBC 4.22, HGB 11.3, HCT 35.3, PLT COUNT 221, SODIUM 140, POTASSIUM 4.1, CHLORIDE 103, CARBON DIOXIDE 29.5, BUN 18, CREATININE 0.82, GLUCOSE 136, CALCIUM 8.7, AST 10, ALT 8, ALK PHOS 75, TOTAL PROTEIN 6.7. A CHEST XRAY WAS REPEATED THIS MORNING AND REVEALED: Mild Cardiomegaly. No active cardiopulmonary disease. SHE IS CURRENTLY RECEIVING SOLU-MEDROL 40MG IV Q8H, LOVENOX 40MG SC DAILY, DUONEBS Q4H, PULMICORT NEBS BID, KEFLEX 500MG PO BID. HER HOME MEDICATIONS OF XANAX, ECOTRIN, COREG, PERCOCET, PANTOPRAZOLE, AND VENLAFAXINE WERE RESUMED. WE WILL CONTINUE WITH CURRENT PLAN OF CARE AND HAVE PT WORK WITH HER TODAY. WE WILL ADD TORADOL 30MG IV Q8H PRN. OTHERWISE, WE WILL FOLLOW UP WITH AM LABS AND CONTINUE TO MONITOR. TIME SPENT ON CLINICAL ASSESSMENT, REVIEWING LABS AND IMAGING, DECISION MAKING, AND DOCUMENTATION GREATER THAN 45 MINUTES. - Past Medical Family Social History Past Med/Fam/Surg Hx: No changes since H&P Allergies: Allergies ciprofloxacin Allergy (Verified 10/18/22 00:04) naproxen [From Aleve] Allergy (Verified 10/18/22 00:04) Penicillins Allergy (Verified 10/18/22 00:04) promethazine Allergy (Verified 10/18/22 00:04) Sulfa (Sulfonamide Antibiotics) [SULFA] Allergy (Verified 10/18/22 00:04) - Review of Systems ROS: No change since H&P - Vital Signs and I&O's Vital Signs: Vital Signs Temperature 97.8 F Temperature 97.6 F Pulse Rate [Apical] 72 Pulse Rate [Apical] 84 Pulse Rate 71 Respiratory Rate 20 Respiratory Rate 20 Respiratory Rate 20 Blood Pressure [Right Arm] 147/67 Blood Pressure [Right Arm] 183/88 O2 Sat by Pulse Oximetry 98 O2 Sat by Pulse Oximetry 94 O2 Sat by Pulse Oximetry 94 Intake and Output: Intake & Output 10/17/22 10/18/22 10/19/22 10/20/22 11:59 11:59 11:59 11:59 Intake Total 1056 / 1056 Balance 1056 / 1056 - Physical Exam Oriented: Normal Eyes: Normal Ear: Normal Nose: Normal Throat: Normal Respiratory: Generalized, Diminished, Wheezes Cardiovascular: Normal : Normal Auscultation: Bowel Sounds: Normal Palpation: Normal Tenderness: Normal Skin: Wound (LEFT KNEE LACERATION. NO DRAINAGE NOTED ) Musculoskeletal: Left, Hip, Leg, Foot, Tender Psychiatric: Normal Mood Description: Calm Affect: Normal Speech Pattern: Clear, Appropriate - Laboratory and Diagnostics Result Diagrams: 10/19/22 05:52 10/19/22 05:52 Labs: Laboratory WBC 8.8 X10^3/uL (3.6-10.0) 10/19/22 05:52 RBC 4.22 X10^6/uL (3.5-5.4) 10/19/22 05:52 Hgb 11.3 g/dL (12.0-16.0) L 10/19/22 05:52 Hct 35.3 % (36.0-47.0) L 10/19/22 05:52 MCV 83.8 fL (80.0-100.0) 10/19/22 05:52 MCH 26.7 pg (27.0-34.0) L 10/19/22 05:52 MCHC 31.9 g/dL (33.0-35.0) L 10/19/22 05:52 RDW 17.5 % (11.6-16.5) H 10/19/22 05:52 Plt Count 221 X10^3/uL (150.0-450.0) 10/19/22 05:52 MPV 9.5 fL (7.4-11.0) 10/19/22 05:52 Neut % (Auto) 88.8 % (42.0-75.0) H 10/19/22 05:52 Lymph % (Auto) 9.6 % (21.0-51.0) L 10/19/22 05:52 [place] % (Auto) 1.4 % (0.0-13.0) 10/19/22 05:52 Eos % (Auto) 0.0 % (0.9-2.9) L 10/19/22 05:52 Baso % (Auto) 0.2 % (0.2-1.0) 10/19/22 05:52 Neut # (Auto) 7.8 x10^3/uL (2.2-4.8) H 10/19/22 05:52 Lymph # (Auto) 0.8 X10^3/uL (1.3-2.9) L 10/19/22 05:52 [place] # (Auto) 0.1 x10^3/uL (0.3-0.8) L 10/19/22 05:52 Eos # (Auto) 0.0 x10^3/uL (0.0-0.2) 10/19/22 05:52 Baso # (Auto) 0.0 X10^3/uL (0.0-0.1) 10/19/22 05:52 Absolute Nucleated RBC 0.1 /100WBC 10/19/22 05:52 Sample Site Rr 10/17/22 19:00 ABG pH 7.340 (7.35-7.45) L 10/17/22 19:00 ABG pCO2 58.0 mmHg (35.0-45.0) H* 10/17/22 19:00 ABG pO2 50.0 mmHg (80.0-100.0) L 10/17/22 19:00 ABG HCO3 31.3 mmol/L (22-26) H* 10/17/22 19:00 ABG O2 Saturation 82.0 % (90-100) L* 10/17/22 19:00 ABG Base Excess 4.1 mmol/L (-2.0-2.0) H 10/17/22 19:00 Rob Test Pos 10/17/22 19:00 A-a Gradient 27.0 mmHg 10/17/22 19:00 FiO2 21.0 10/17/22 19:00 Blood Gas Comments [place] well ae 10/17/22 19:00 Sodium 140 mmol/L (136-145) 10/19/22 05:52 Corrected Sodium 141 mmol/L (136-145) 10/19/22 05:52 Potassium 4.1 mmol/L (3.5-5.1) 10/19/22 05:52 Chloride 103 mmol/L (98-107) 10/19/22 05:52 Carbon Dioxide 29.5 mmol/L (21-32) 10/19/22 05:52 BUN 18 mg/dL (7-18) 10/19/22 05:52 Creatinine 0.82 mg/dL (0.55-1.02) 10/19/22 05:52 Est GFR (MDRD) Af Amer > 60 (>60) 10/19/22 05:52 Est GFR (MDRD) Non-Af > 60 (>60) 10/19/22 05:52 Glucose 136 mg/dL (65-99) H 10/19/22 05:52 Calcium 8.7 mg/dL (8.5-10.1) 10/19/22 05:52 Corrected Calcium 9.7 mg/dL (8.5-10.1) 10/19/22 05:52 Total Bilirubin 0.20 mg/dL (0.2-1.0) 10/19/22 05:52 AST 10 Units/L (15-37) L 10/19/22 05:52 ALT 8 Units/L (12-78) L 10/19/22 05:52 Alkaline Phosphatase 75 Units/L (46-116) 10/19/22 05:52 Total Protein 6.7 g/dL (6.4-8.2) 10/19/22 05:52 Albumin 2.7 g/dL (3.4-5.0) L 10/19/22 05:52 Globulin 4.0 g/dL (2.5-4.5) 10/19/22 05:52 Albumin/Globulin Ratio 0.7 Ratio (1.1-2.1) L 10/19/22 05:52 SARS-CoV-2 (PCR) Negative (NEGATIVE) 10/17/22 23:58 Influenza Type A (PCR) Negative (NEGATIVE) 10/17/22 23:58 Influenza Type B (PCR) Negative (NEGATIVE) 10/17/22 23:58 RSV (PCR) Negative (NEGATIVE) 10/17/22 23:58 - Plan (1) Acute exacerbation of chronic obstructive pulmonary disease Status: Acute Plan: SOLU-MEDROL 40MG IV Q8H, LOVENOX 40MG SC DAILY, DUONEBS Q4H, PULMICORT NEBS BID, TORADOL 30MG IV Q8H PRN, KEFLEX 500MG PO BID. HER HOME MEDICATIONS OF XANAX, ECOTRIN, COREG, PERCOCET, PANTOPRAZOLE, AND VENLAFAXINE WERE RESUMED. (2) Hypoxia Status: Acute Plan: MONITOR OXYGEN SATURATIONS (3) Frequent falls Status: Acute Plan: PT CONSULT (4) Left leg pain Status: Acute Plan: RESUME PERCOCET, TORADOL 30MG IV Q8H PRN (5) Hx of fracture of fibula Status: Acute (6) CAD (coronary artery disease) Status: Chronic Qualifiers: Coronary Disease-Associated Artery/Lesion type: [place] artery [place] vs. transplanted heart: [place] heart Associated angina: unspecified whether angina present Qualified Code(s): I25.10 - Atherosclerotic heart disease of [place] coronary artery without angina pectoris (7) GERD (gastroesophageal reflux disease) Status: Chronic Qualifiers: Esophagitis presence: with esophagitis (8) Hyperlipidemia Status: Chronic Qualifiers: Hyperlipidemia type: mixed hyperlipidemia (9) HTN (hypertension) Status: Chronic Qualifiers: Hypertension type: primary hypertension
[2022-10-20] MEDS: DUONEB 0.5 MG/3 MG (3 mL) NEB SCH ×3 (00:49→10:25)
[2022-10-20] MEDS: SOLU-Medrol 40 MG VIAL IVP SCH ×2 (05:17→19:13)
[2022-10-20 06:52] LABS: BASOPHILS % (AUTO) 0.1 % (0.2-1.0); HEMATOCRIT 35.8 % (36.0-47.0); HEMOGLOBIN 11.7 g/dL (12.0-16.0); LYMPHOCYTES # (AUTO) 0.8 X10^3/uL (1.3-2.9); LYMPHOCYTES % (AUTO) 8.7 % (21.0-51.0); MEAN CORPUSCULAR HEMOGLOBIN 27.3 pg (27.0-34.0); MEAN CORPUSCULAR HGB CONC 32.8 g/dL (33.0-35.0); MEAN CORPUSCULAR VOLUME 83.1 fL (80.0-100.0); MEAN PLATELET VOLUME 9.4 fL (7.4-11.0); MONOCYTES # (AUTO) 0.1 x10^3/uL (0.3-0.8); MONOCYTES % (AUTO) 1.4 % (0.0-13.0); NEUTROPHILS # (AUTO) 7.8 x10^3/uL (2.2-4.8); NEUTROPHILS % (AUTO) 89.8 % (42.0-75.0); PLATELET COUNT 219 X10^3/uL (150.0-450.0); RED CELL DISTRIBUTION WIDTH 17.7 % (11.6-16.5); WHITE BLOOD COUNT 8.7 X10^3/uL (3.6-10.0)
[2022-10-20 07:17] LABS: ALANINE AMINOTRANSFERASE 8 Units/L (12-78); ALBUMIN 2.6 g/dL (3.4-5.0); ALKALINE PHOSPHATASE 65 Units/L (46-116); ASPARTATE AMINO TRANSFERASE 10 Units/L (15-37); BLOOD UREA NITROGEN 19 mg/dL (7-18); CALCIUM 7.8 mg/dL (8.5-10.1); CARBON DIOXIDE 32.7 mmol/L (21-32); CHLORIDE 99 mmol/L (98-107); COR CA(FOR HYPOALB) 8.9 mg/dL (8.5-10.1); COR NA(FOR HYPERGLY) 138 mmol/L (136-145); CREATININE 0.87 mg/dL (0.55-1.02); GLUCOSE 127 mg/dL (65-99); SODIUM 137 mmol/L (136-145); TOTAL PROTEIN 6.3 g/dL (6.4-8.2); eGFR NON BLACK RACES > 60 (>60)
[2022-10-20] MEDS: XANAX PO PRN ×2 (07:52→16:13)
--- NOTE | 2022-10-20 07:57 | RAD ---
HISTORYSOB Relevant Clinical InformationSTUDYCHEST, 1 [id number]/2023FINDINGSTrachea is midline. There is mild cardiomegaly. Patient is status post sternotomy. There few atelectasis at the left base unchanged since prior. Mild chronic peribronchial thickening. No evidence of focal pneumonia, pneumothorax or pleural effusions.IMPRESSIONSmall atelectasis at the left base, otherwise no acute diseaseElectronically signed by: Yin Bui (Oct 20, 2022 07:56:13)
[2022-10-20] MEDS: LOVENOX INJ 40 MG SYR SC SCH (08:00)
[2022-10-20] MEDS: ASPIRIN EC 81 MG PO SCH (08:01)
[2022-10-20] MEDS: PROTONIX TAB 40 MG PO SCH (08:01)
[2022-10-20] MEDS: COREG TAB 12.5 MG PO SCH (08:01)
[2022-10-20] MEDS: EFFEXOR XR 150 MG CAP 24-HR PO SCH (08:01)
[2022-10-20] MEDS: KEFLEX CAP 500 MG PO SCH (08:01)
[2022-10-20] MEDS: NICOTINE PATCH TD SCH (08:02)
[2022-10-20 08:48] VITALS: PULSE 65
[2022-10-20] MEDS: PULMICORT NEB TX 0.5 MG NEB SCH (10:25)
[2022-10-20 14:40] VITALS: BP 180/76; TEMP 98.4; O2SAT 96
[2022-10-20] MEDS: NYSTATIN POWDER TOP SCH (19:13)
== END 2022-10-20 20:20 | disposition home health service (06) | DRG 192 ==
LOC: MED/SURG 18:39 → ER 18:39 → OBSVTOIN 10-18 00:51 → MED/SURG 10-18 01:27
PROVIDERS: ADMIT Family Medicine; ATTEND Internal Medicine
DX: K21.9 Gastro-esophageal reflux disease without esophagitis; I10 Essential (primary) hypertension; R06.02 Shortness of breath; Y93.01 Activity, walking, marching and hiking; Y92.009 Unspecified place in unspecified non-institutional (private) residence as the place of occurrence of the external cause; M25.562 Pain in left knee; R26.89 Other abnormalities of gait and mobility; K44.9 Diaphragmatic hernia without obstruction or gangrene; I25.10 Atherosclerotic heart disease of native coronary artery without angina pectoris; R07.89 Other chest pain; W10.8XXA Fall (on) (from) other stairs and steps, initial encounter; Z87.81 Personal history of (healed) traumatic fracture; R29.6 Repeated falls; R09.02 Hypoxemia; E78.2 Mixed hyperlipidemia; Z20.822 Contact with and (suspected) exposure to COVID-19; J44.1 Chronic obstructive pulmonary disease with (acute) exacerbation